=== PATIENT | male | born 1950 | race Caucasian/White ===

== ENCOUNTER 2016-10-14 20:56 | Inpatient (IN) | payer OTHER, MEDICARE ==
[2016-10-14 08:01] VITALS: BP 118/56; PULSE 60; RESP 16; TEMP 97.9; O2SAT 95
[2016-10-14 20:45] VITALS: PULSE 62
[~2016-10-14 20:56] MED LIST: ASPI81; CLOP75; METH10TA; METO50TA; TRAM50 PO; VYTO10TA35
[2016-10-14 22:00] LABS: AUTOMATED NEUTROPHIL # 3.8 TH/MM3 (1.8-7.7); BASOPHIL # 0.1 TH/MM3 (0-0.2); BASOPHIL % 1.2 % (0.0-2.0); EOSINOPHIL # 0.5 TH/MM3 (0-0.4); EOSINOPHIL % 6.8 % (0.0-4.0); HEMATOCRIT 32.6 % (39.0-51.0); HEMO FLAGS DIFF FINAL; LYMPH % 25.5 % (9.0-44.0); LYMPHOCYTE # 1.9 TH/MM3 (1.0-4.8); MEAN CELL VOLUME 82.3 FL (80.0-100.0); MEAN CORPUSCULAR HEMOGLOBIN 26.7 PG (27.0-34.0); MEAN CORPUSCULAR HGB CONC 32.4 % (32.0-36.0); MONO % 14.7 % (0.0-8.0); NEUT % 51.8 % (16.0-70.0); PLATELET COUNT 263 TH/MM3 (150-450); RED BLOOD COUNT 3.96 MIL/MM3 (4.50-5.90); RED CELL DISTRIBUTION WIDTH 15.7 % (11.6-17.2); WHITE BLOOD COUNT 7.3 TH/MM3 (4.0-11.0)
[2016-10-14] MEDS ORDERED: RESP: ALBUTEROL 2.5 MG/IPRATROPIUM 0.5 MG NEB (PRN) NEB (22:00)
[2016-10-14 22:22] LABS: INTERNATIONAL NORMALIZED RATIO 1.1 RATIO; PROTHROMBIN TIME - PATIENT 11.8 SEC (9.8-11.6)
[2016-10-14 22:25] LABS: POTASSIUM 4.4 MEQ/L (3.5-5.1)
[2016-10-14 23:00] VITALS: BP 137/80; PULSE 60; PULSE 62; RESP 18; TEMP 98.6; O2SAT 98
[2016-10-14] MEDS: oxyCODONE/ACETAMINOPHEN 5 MG/325 MG TAB PO PRN (23:04)
[2016-10-15] VITALS (21 sets, daily range): BP systolic 92–128; BP diastolic 56–68; PULSE 60–100; RESP 16–23; TEMP 97.9–98.7; O2SAT 95–98
--- NOTE | 2016-10-15 00:07 | HHI.HP ---
History of Present Illness Chief Complaint: TIA History of Present Illness 66 yo male with h/o CVOD and B CEA and R GALA who was driving home Wednesday (2 days ago) when he had R facial numbness and R arm numbness. No motor or visual changes. That eased off after 36 hours and he has returned to normal at present. Complains only of anxiety presently. No LOC. 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) Home Medications Active Scripts Tramadol Hcl (Ultram)50 Mg Tab1 Tab PO Q6 PRN (PAIN SCALE 6 TO 10) #20 FOR PAIN Prov:Sam Castaneda MD 12/04/13 Reported Medications Metoprolol Tartrate 50 mg 50 Mg Tab 05/03/07 Aspirin 81 Mg Tab 05/03/07 Ezetimibe-Simvastatin (Vytorin ) Tab 04/18/07 Methadone Hcl (Methadone HCl)10 Mg Tab 04/18/07 Clopidogrel Bisulfate (Plavix)75 Mg Tab 04/18/07 Coded Allergies: Demerol (Verified Adverse Reaction, Severe, N&V, 12/04/13) Review of Systems Constitutional: COMPLAINS OF: Fever, DENIES: Diaphoretic episodes, Weight gain , Dizziness Eyes: DENIES: Blurred vision, Vision loss Ears, nose, mouth, throat: DENIES: Vertigo Respiratory: COMPLAINS OF: Shortness of breath Cardiovascular: COMPLAINS OF: Chest pain, Dyspnea on Exertion Musculoskeletal: COMPLAINS OF: Back pain Physical Exam Neuro: Alert, oriented, [facility] HEENT: NC/AT Neck: trachea midline, B CEA incisions healed Heart: reg rate Lungs: clear Abdomen: NT Vascular: palpable B LE pedal pulses palpable R UE pulse but weaker L UE pulse Extremities: 5/5 strength Laboratory Tests Test 10/14/16 21:50 White Blood Count 7.3 Red Blood Count 3.96 Hemoglobin 10.6 Hematocrit 32.6 Mean Corpuscular Volume 82.3 Mean Corpuscular Hemoglobin 26.7 Mean Corpuscular Hemoglobin 32.4 Concent Red Cell Distribution Width 15.7 Platelet Count 263 Mean Platelet Volume 7.9 Neutrophils (%) (Auto) 51.8 Lymphocytes (%) (Auto) 25.5 Monocytes (%) (Auto) 14.7 Eosinophils (%) (Auto) 6.8 Basophils (%) (Auto) 1.2 Neutrophils # (Auto) 3.8 Lymphocytes # (Auto) 1.9 Monocytes # (Auto) 1.1 Eosinophils # (Auto) 0.5 Basophils # (Auto) 0.1 CBC Comment DIFF FINAL Differential Comment Prothrombin Time 11.8 Prothromb Time International 1.1 Ratio Activated Partial 29.0 Thromboplast Time Sodium Level 140 Potassium Level 4.4 Chloride Level 106 Carbon Dioxide Level 28.0 Anion Gap 6 Blood Urea Nitrogen 21 Creatinine 1.57 Estimat Glomerular Filtration 44 Rate Random Glucose 100 Calcium Level 8.5 Outside CTA shows occluded L ICA R ICA patent and proximal CCA with 80% stenosis Assessment and Plan Plan 1. possible TIA. Certainly he needs medical management including antiplatelet and statin therapy. I am not convinced that the events he had (numbness of R UE ) were related to his cerebrovascular circulation. He has a R CCA stenosis but I think this is asymptomatic and there are no great data for management of CCA lesions. 2. L UE PAD. BP should be checked on RUE always. 3. 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 Medical management for now. Wilfrid Messina MD Oct 15, 2016 00:06
[2016-10-15] MEDS: ZOLPIDEM TARTRATE 5 MG TAB PO PRN ×2 (00:31→21:13)
--- NOTE | 2016-10-15 07:27 | PD.VS.PN ---
Subjective Subjective/Hospital Course Pt adm last night as transfer for concerns for TIA. He had R face and arm numbness that has gone away. Outside intracranial imaging showed no acute process. 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 On the RIGHT, he underwent GALA in 2011 and R carotid bypass w 6mm PTFE in May 2014. The CTA of the neck on my review shows an approximate 70% stenosis in the CCA (not ICA) likely at the site of anastomosis. The patient's symptoms have completely abated. He is neurologically intact, on appropriate medical therapy (antiplatelet and statin). Objective Vitals/I&O Date Time Temp Pulse Resp B/P Pulse Ox O2 Delivery O2 Flow Rate FiO2 10/15/16 06:00 66 10/15/16 05:00 61 10/15/16 04:00 60 10/15/16 03:00 65 10/15/16 03:00 98.4 65 18 92/64 96 10/15/16 02:00 60 10/15/16 02:00 21 10/15/16 00:00 60 10/14/16 23:00 60 10/14/16 23:00 98.6 62 18 137/80 98 10/14/16 20:45 62 10/15/16 10/15/16 10/15/16 07:00 15:00 23:00 Intake Total 220 ml Output Total 300 ml Balance -80 ml Laboratory Laboratory Tests Test 10/14/16 21:50 White Blood Count 7.3 Red Blood Count 3.96 Hemoglobin 10.6 Hematocrit 32.6 Mean Corpuscular Volume 82.3 Mean Corpuscular Hemoglobin 26.7 Mean Corpuscular Hemoglobin 32.4 Concent Red Cell Distribution Width 15.7 Platelet Count 263 Mean Platelet Volume 7.9 Neutrophils (%) (Auto) 51.8 Lymphocytes (%) (Auto) 25.5 Monocytes (%) (Auto) 14.7 Eosinophils (%) (Auto) 6.8 Basophils (%) (Auto) 1.2 Neutrophils # (Auto) 3.8 Lymphocytes # (Auto) 1.9 Monocytes # (Auto) 1.1 Eosinophils # (Auto) 0.5 Basophils # (Auto) 0.1 CBC Comment DIFF FINAL Differential Comment Prothrombin Time 11.8 Prothromb Time International 1.1 Ratio Activated Partial 29.0 Thromboplast Time Sodium Level 140 Potassium Level 4.4 Chloride Level 106 Carbon Dioxide Level 28.0 Anion Gap 6 Blood Urea Nitrogen 21 Creatinine 1.57 Estimat Glomerular Filtration 44 Rate Random Glucose 100 Calcium Level 8.5 Imaging Outside CTA reviewed: Moderate CCA stenosis, no ICA stenosis identified Assessment and Plan Assessment: (1) Cerebrovascular occlusion Status: Chronic Plan 1. I don't think the RUE numbness was related to the R CCA stenosis. There are limited data for the natural history of such lesions, especially in the setting of carotid replacement. I think the best option at present is outpatient surveillance (duplex) and medical management (ASA, plavix, statin, all of which he is on), as well as avoidance of tobacco 2. L UE PAD. BP should be checked on RUE always. 3. 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 Medical management for now. Discharge Planning Cardiac diet, reg meds, OOB ad trev today. If not change in neuro status, anticipate d/c tomorrow and I will see him back in my clinic in 1m with carotid duplex Wilfrid Messina MD Oct 15, 2016 07:27
[2016-10-15] MEDS: ALPRAZolam 0.5 MG TAB PO PRN ×2 (07:48→21:09)
[2016-10-15] MEDS: oxyCODONE/ACETAMINOPHEN 5 MG/325 MG TAB PO PRN ×3 (07:48→21:09)
[2016-10-15] MEDS: CLOPIDOGREL 75 MG TAB PO SCH (09:05)
[2016-10-15] MEDS: PANTOPRAZOLE SOD 40 MG DELAYED RELEASE TAB PO SCH (09:05)
[2016-10-15] MEDS: DOCUSATE SODIUM 100 MG CAP PO SCH ×2 (09:05→21:09)
[2016-10-15] MEDS: amLODIPine BESYLATE 5 MG TAB PO SCH (09:05)
[2016-10-15] MEDS: ASPIRIN EC 81 MG TABEC PO SCH (09:05)
[2016-10-15] MEDS: FERROUS SULFATE 325 MG (65 MG ELEMENTAL IRON) TAB PO SCH (09:05)
[2016-10-15] MEDS: AMIODARONE 200 MG TAB PO SCH (09:05)
[2016-10-15] MEDS ORDERED: TRAM50TA PO (15:57)
[2016-10-15] MEDS ORDERED: ASPI1TAB69 PO (15:57)
[2016-10-15] MEDS ORDERED: METH10TA PO (15:57)
[2016-10-15] MEDS ORDERED: METO50TA PO (15:57)
[2016-10-15] MEDS ORDERED: VYTO10TA9 PO (15:57)
[2016-10-15] MEDS ORDERED: PLAV75TA29 PO (15:57)
[2016-10-15] MEDS ORDERED: PRAVASTATIN SOD 80 MG TAB PO SCH (21:00)
[2016-10-15] MEDS ORDERED: RIVAROXABAN 15 MG TAB PO SCH (21:00)
[2016-10-16] VITALS (10 sets, daily range): BP systolic 107–116; BP diastolic 63–67; PULSE 60–96; RESP 19–22; TEMP 97.6–98.6; O2SAT 95–96
[2016-10-16] MEDS: oxyCODONE/ACETAMINOPHEN 5 MG/325 MG TAB PO PRN ×2 (03:24→08:49)
[2016-10-16] MEDS: ALPRAZolam 0.5 MG TAB PO PRN (03:25)
[2016-10-16] MEDS: FERROUS SULFATE 325 MG (65 MG ELEMENTAL IRON) TAB PO SCH (08:48)
[2016-10-16] MEDS: amLODIPine BESYLATE 5 MG TAB PO SCH (08:48)
[2016-10-16] MEDS: ASPIRIN EC 81 MG TABEC PO SCH (08:48)
[2016-10-16] MEDS: DOCUSATE SODIUM 100 MG CAP PO SCH (08:48)
[2016-10-16] MEDS: CLOPIDOGREL 75 MG TAB PO SCH (08:48)
[2016-10-16] MEDS: AMIODARONE 200 MG TAB PO SCH (08:48)
[2016-10-16] MEDS: PANTOPRAZOLE SOD 40 MG DELAYED RELEASE TAB PO SCH (08:49)
--- NOTE | 2016-10-16 08:57 | EC ---
Study Study Date:10/15/2016 STUDY CONCLUSIONS SUMMARY - Left ventricle: The cavity size was normal. Wall thickness was normal. Systolic function was normal. The estimated ejection fraction was in the range of 55% to 60%. Wall motion was normal; there were no regional wall motion abnormalities. - Mitral valve: Mild regurgitation. - Tricuspid valve: Mild regurgitation. - Pulmonary arteries: PA peak pressure: 38mm Hg (S). If LV function is below 40, please consider prescribing an ACEI or ARB or document rationale for non-use. PROCEDURE DATA STUDY STATUS: Elective. Procedure: Transthoracic echocardiography. Image quality was good. Scanning was performed from the parasternal, apical, and subcostal acoustic windows. Study completion: The patient tolerated the procedure well. Transthoracic echocardiography. M-mode, complete 2D, complete spectral Doppler, and color Doppler. Patient status: Inpatient. CARDIAC ANATOMY LEFT VENTRICLE: The cavity size was normal. Wall thickness was normal. Systolic function was normal. The estimated ejection fraction was in the range of 55% to 60%. Wall motion was normal; there were no regional wall motion abnormalities. AORTIC VALVE: Trileaflet; normal thickness leaflets. Doppler: Transvalvular velocity was within the normal range. There was no stenosis. No regurgitation. AORTA: Aortic root: The aortic root was normal in size. MITRAL VALVE: Structurally normal valve. Doppler: Transvalvular velocity was within the normal range. There was no evidence for stenosis. Mild regurgitation. LEFT ATRIUM: The atrium was normal in size. RIGHT VENTRICLE: The cavity size was normal. Wall thickness was normal. PULMONIC VALVE: Doppler: Transvalvular velocity was within the normal range. There was no evidence for stenosis. No regurgitation. TRICUSPID VALVE: Structurally normal valve. Doppler: Transvalvular velocity was within the normal range. Mild regurgitation. PULMONARY ARTERY: The main pulmonary artery was normal-sized. Systolic pressure was within the normal range. RIGHT ATRIUM: The atrium was normal in size. PERICARDIUM: There was no pericardial effusion. SYSTEMIC VEINS: Inferior vena cava: The vessel was normal in size. BASIC MEASUREMENTS ADULT Normal Left ventricle LV internal dimension, ED, chordal level, *40 mm 43-52 PLAX LV internal dimension, ES, chordal level, 28.3 mm 23-38 PLAX Fractional shortening, chordal level, PLAX *29 % >29 LV posterior wall thickness, ED 9.29 mm IVS/LVPW ratio, ED *1.54 <1.3 Ventricular septum Septal thickness, ED 14.3 mm Aortic valve Leaflet separation 17 mm 15-26 Right ventricle RV internal dimension, ED, PLAX *17 mm 19-38 BASIC MEASUREMENTS ADULT Normal Aortic valve Leaflet separation 17 mm 15-26 Aorta Root diameter, ED 35 mm 20-37 Left atrium Anterior-posterior dimension, ES *42 mm 19-40 LA/aortic root ratio 1.2 DOPPLER MEASUREMENTS ADULT Normal Main pulmonary artery Pressure, S *38 mm Hg =30 Tricuspid valve Regurgitant peak velocity 263 cm/s Peak RV-RA gradient, S 28 mm Hg Systemic veins Estimated CVP 10 mm Hg Right ventricle RV pressure, S *38 mm Hg <30 LEGEND: Mean values are shown as u=mean value. Asterisk (*) siddiqi values outside specified normal range. Prepared and signed by Josue Mckinnon [id number]
[2016-10-16] MEDS ORDERED: PLAV75TA29 PO (09:30)
--- NOTE | 2016-10-16 09:36 | PD.VS.DC ---
Discharge Summary Admission Date: Oct 14, 2016 at 21:15 Discharge Date: Oct 16, 2016 Admission Diagnosis: (1) Cerebrovascular occlusion Discharge Diagnosis: (1) Cerebrovascular occlusion Status: Chronic Brief History from admission 66 yo male with h/o CVOD and B CEA and R GALA who was driving home Wednesday (2 days ago) when he had R facial numbness and R arm numbness. No motor or visual changes. That eased off after 36 hours and he has returned to normal at present. Complains only of anxiety presently. No LOC. Procedure(s): none Significant Findings Laboratory Tests Test 10/14/16 21:50 Red Blood Count 3.96 MIL/MM3 (4.50-5.90) Hemoglobin 10.6 GM/DL (13.0-17.0) Hematocrit 32.6 % (39.0-51.0) Mean Corpuscular Hemoglobin 26.7 PG (27.0-34.0) Monocytes (%) (Auto) 14.7 % (0.0-8.0) Eosinophils (%) (Auto) 6.8 % (0.0-4.0) Monocytes # (Auto) 1.1 TH/MM3 (0-0.9) Eosinophils # (Auto) 0.5 TH/MM3 (0-0.4) Prothrombin Time 11.8 SEC (9.8-11.6) Blood Urea Nitrogen 21 MG/DL (7-18) Creatinine 1.57 MG/DL (0.60-1.30) Estimat Glomerular Filtration 44 ML/MIN (>89) Rate Hospital Course: GENERAL: pt alert and oriented in nad with 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 SKIN: Warm and dry. HEAD: Normocephalic. NECK: Supple, trachea midline. No JVD or lymphadenopathy. CARDIOVASCULAR: Regular rate and rhythm without murmurs, gallops, or rubs. RESPIRATORY: Breath sounds equal bilaterally. No accessory muscle use. MUSCULOSKELETAL: No cyanosis, or edema. Discharge Condition: Good Discharge Disposition: Discharge Home Discharge Instructions: Discontinue Xarelto Start Plavix 75 mg PO daily F/U in the office 11/13/16 Call the office with any questions or concerns Any questions or concerns: Call [facility] [phone] Joanna Howell Oct 16, 2016 09:36
== END 2016-10-16 11:10 | disposition home or self-care (01) | DRG 69 ==
LOC: HCPC 21:15
PROVIDERS: ADMIT Surgery; ATTEND Surgery
DX: G45.9 Transient cerebral ischemic attack, unspecified (principal); I48.91 Unspecified atrial fibrillation; R20.0 Anesthesia of skin; I12.9 Hypertensive chronic kidney disease with stage 1 through stage 4 chronic kidney disease, or unspecified chronic kidney disease; N18.9 Chronic kidney disease, unspecified; I65.23 Occlusion and stenosis of bilateral carotid arteries; F41.9 Anxiety disorder, unspecified; I25.10 Atherosclerotic heart disease of native coronary artery without angina pectoris; Z95.5 Presence of coronary angioplasty implant and graft; Z86.73 Personal history of transient ischemic attack (TIA), and cerebral infarction without residual deficits; Z72.0 Tobacco use
CPT/HCPCS: 80048; 85025; 85610; 85730; 93306

== ENCOUNTER 2017-05-27 09:56 | Day surgery (SDC) | payer OTHER ==
[~2017-05-27] VITALS: Ht 170.2 cm; Wt 67.4 kg
[~2017-05-27 09:56] MED LIST changes: +ASPI-110 PO; -ASPI81; -CLOP75; -METH10TA; +METH10TA PO; -METO50TA; +METO50TA PO; +PLAV75TA29 PO; -TRAM50 PO; +TRAM50TA PO; -VYTO10TA35; +VYTO10TA9 PO
[2017-05-27] MEDS ORDERED: IOHEXOL 300 MG/ML 100 ML BTL (for Rad CT) IVCONTRAST ONE (09:57)
[2017-05-27] MEDS ORDERED: IOHEXOL 300 MG/ML 50 ML BTL (for RAD DIAG) IVCONTRAST ONE (09:57)
[2017-05-27] MEDS ORDERED: POVIDONE IODINE 5% (ANTISEPSIS KIT) 4 APPLICATIONS EACH NARE PRN (10:45)
[2017-05-27] MEDS ORDERED: LACTATED RINGER'S 1000 ML IV PRN (10:45)
[2017-05-27] MEDS ORDERED: METOPROLOL TARTRATE 25 MG TAB PO PRN (10:45)
[2017-05-27] MEDS ORDERED: CHLORHEXIDINE GLUCONATE 2 % 1 PACK (2 CLOTHS) TOPICAL PRN (10:45)
[2017-05-27] MEDS ORDERED: SODIUM CHLORID 0.9% 500 ML IV PRN (10:45)
[2017-05-27] MEDS ORDERED: INSULIN HUMAN REGULAR 1,000 UNITS/10 ML VIAL SQ PRN (10:45)
--- NOTE | 2017-05-27 11:35 | RADRPT ---
EXAM DATE/TIME: 05/27/2017 11:12 [place] COMPARISON: No previous studies available for comparison. INDICATIONS : Evaluate for pneumonia, pneumothorx, or communicable disease. Pre-op carotid artery. MEDICAL HISTORY : Congestive heart failure. SURGICAL HISTORY : Triple heart bypass. Heart stent. ENCOUNTER: Initial ACUITY: 1 day PAIN SCORE: 0/10 LOCATION: Bilateral chest FINDINGS: The patient is post median sternotomy. There is a transvenous pacer in place where the spinal stimula tor. The heart is normal in size. The mediastinal contours are within normal limits. The lungs are cl ear. Note is made of an arterial stent at the origin of the left carotid. CONCLUSION: No acute cardiopulmonary findings. Apolinar Izaguirre MD on May 27, 2017 at 11:32 Board Certified Radiologist. This report was verified electronically.
--- NOTE | 2017-05-27 11:45 | EKG ---
Date Performed: 05/27/2017 Time Performed: 11:05:34 PTAGE: 67 years EKG: ELECTRONIC ATRIAL PACEMAKER BORDERLINE LEFT AXIS DEVIATION NONSPECIFIC T-WAVE ABNORMALITY A BNORMAL RHYTHM ECG PREVIOUS TRACING : 07/14/2000 07.22 Compared to previous tracing, atrial pacing is now evident, high lateral T wave changes and inferolateral ST changes have improved. DOCTOR: Dinesh Kumar Interpretating Date/Time 05/27/2017 11:43:23
[2017-05-27] MEDS ORDERED: SODIUM CHLORID 0.9% 500 ML INJ 500 ML IV ONE (12:00)
[2017-05-27] MEDS ORDERED: PROPOFOL 200 MG/20 ML AMP IV ONE (12:00)
[2017-05-27] MEDS ORDERED: XARE20TA PO (12:23)
[2017-05-27] MEDS ORDERED: MSIR15 PO (12:24)
[2017-05-27] MEDS ORDERED: AMIO200T PO (12:24)
[2017-05-27] MEDS ORDERED: OMEGCAP PO (12:25)
[2017-05-27 12:31] LABS: BACTERIA, URINE RARE /hpf; BLOOD, URINE LARGE (NEG); COMMENT (UR) CULT NOT INDICATED; CULTURE IF INDICATED CULT NOT INDICATED; GLUCOSE,URINE NEG (NEG); GRANULAR CAST, URINE 3 /lpf; HYALINE CAST, URINE 10 /lpf (RARE); KETONE, URINE NEG (NEG); NITRITE,URINE NEG (NEG); URINE COLOR YELLOW (YELLW/STRAW)
[2017-05-27 12:41] LABS: APTT (PATIENT) 28.1 SEC (24.3-30.1); PROTHROMBIN TIME - PATIENT 11.4 SEC (9.8-11.6)
[2017-05-27 12:49] LABS: BICARBONATE 28.3 MEQ/L (21.0-32.0); POTASSIUM 4.6 MEQ/L (3.5-5.1)
[2017-05-27 13:30] LABS: BASOPHIL # 0.3 TH/MM3 (0-0.2); BASOPHIL % 0.8 % (0.0-2.0); EOSINOPHIL # 1.4 TH/MM3 (0-0.4); EOSINOPHIL % 4.3 % (0.0-4.0); HEMATOCRIT 35.7 % (39.0-51.0); LYMPHOCYTE # 7.9 TH/MM3 (1.0-4.8); MEAN CELL VOLUME 82.8 FL (80.0-100.0); MEAN CORPUSCULAR HEMOGLOBIN 25.3 PG (27.0-34.0); MEAN CORPUSCULAR HGB CONC 30.6 % (32.0-36.0); MONO % 12.9 % (0.0-8.0); PLATELET COUNT 353 TH/MM3 (150-450); RED BLOOD COUNT 4.31 MIL/MM3 (4.50-5.90); RED CELL DISTRIBUTION WIDTH 16.7 % (11.6-17.2); WHITE BLOOD COUNT 32.9 TH/MM3 (4.0-11.0)
--- NOTE | 2017-05-27 13:57 | HHI.HP ---
History of Present Illness Chief Complaint: possible R carotid stenosis History of Present Illness 67 yo male with h/o R carotid replacement s/p failed stent. No cerebrovascular symptoms. Has had serial duplex scans with escalating velocities at the proximal anastomosis. Presents for diagnostic angiogram and potential intervention. Past/Family/Social History Past Medical History CAD HTN CVOD CRI Past Surgical History R carotid replacement with 6mm PTFE CABG 1998 coronary stents several years later Social History former smoker Family History [place] Home Medications Reported Medications Fish Oil-Cholecalciferol ([place]-3 Fish Oil/Vitamin) 1,000-1,000 Mg Cap, 1 CAP PO DAILY for Nutritional Supplement, CAP 0 Refills 05/27/17 Morphine IR (Morphine IR) 15 Mg Tab, 15 MG PO Q4H Y for PAIN, TAB 0 Refills 05/27/17 Amiodarone (Amiodarone) 200 Mg Tab, 200 MG PO DAILY for Regulate Heart Beat, # 30 TAB 0 Refills 05/27/17 Rivaroxaban (Xarelto) 20 Mg Tab, 20 MG PO DAILY for Blood Clot Prevention, TAB 0 Refills 05/27/17 Discontinued Reported Medications Aspirin DR (Aspirin 81) 81 Mg Tabdr, 81 MG PO DAILY, TAB 0 Refills 05/26/17 Tramadol (Tramadol) 50 Mg Tab, 50 MG PO Q6H Y for PAIN SCALE 6 TO 10, TAB 0 Refills 10/15/16 Metoprolol Tartrate (Metoprolol Tartrate) 50 Mg Tab, 50 MG PO DAILY, #30 TAB 0 Refills 10/15/16 Methadone (Methadone) 10 Mg Tab, 10 MG PO DAILY, TAB 0 Refills 10/15/16 Ezetimibe-Simvastatin (Vytorin) 10-40 Mg Tab, 1 TAB PO HS, #30 TAB 0 Refills 10/15/16 Clopidogrel (Plavix) 75 Mg Tab, 75 MG PO DAILY for Blood Clot Prevention, #30 TAB 0 Refills 10/15/16 Discontinued Scripts Clopidogrel (Plavix) 75 Mg Tab, 75 MG PO DAILY for anticoagulation , #30 TAB 6 Refills Prov:Joanna Howell 10/16/16 Coded Allergies: meperidine (Unverified Adverse Reaction, Severe, N&V, 05/18/17) Review of Systems Constitutional: DENIES: Fever, Chills, Change in appetite Cardiovascular: DENIES: Chest pain Physical Exam Vitals/I&O Date Time Temp Pulse Resp B/P (MAP) Pulse Ox O2 Delivery O2 Flow Rate FiO2 05/27/17 12:30 98.5 60 20 115/67 (83) 94 Neuro: awake and alert; no distress HEENT: NC/AT; R carotid incision Neck: no JVD Heart: reg rate, no M Lungs: clear B Abdomen: NT Vascular: palp femoral pulses Extremities: no C/C/E Laboratory Tests Test 05/27/17 12:12 05/27/17 13:00 Prothrombin Time 11.4 Prothromb Time International Ratio 1.0 Activated Partial Thromboplast Time 28.1 Urine Color YELLOW Urine Turbidity CLEAR Urine pH 6.0 Urine Specific [place] 1.014 Urine Protein 30 Urine Glucose (UA) NEG Urine Ketones NEG Urine Occult Blood LARGE Urine Nitrite NEG Urine Bilirubin NEG Urine Urobilinogen LESS THAN 2.0 Urine Leukocyte Esterase NEG Urine RBC 35 Urine WBC 2 Urine Bacteria RARE Urine Hyaline Casts 10 Urine Granular Casts 3 Microscopic Urinalysis Comment CULT NOT INDICATED Blood Urea Nitrogen 25 Creatinine 2.25 Random Glucose 87 Calcium Level 8.8 Sodium Level 140 Potassium Level 4.6 Chloride Level 106 Carbon Dioxide Level 28.3 Anion Gap 6 Estimat Glomerular Filtration Rate 29 Last 48 hours Impressions Chest X-Ray 05/27/17 [id number] Signed Impressions: Service Date/Time: May 11:12 - CONCLUSION: No acute cardiopulmonary findings. MD Dagmar Noble VTE Risk Assessment Dagmar VTE Risk Assessment: Mod/High Risk (score >= 2) Caprini Risk Assessment Model Point Value = 1 Point Value = 2 Point Value = 3 Point Value = 5 Age 41-60 Minor surgery BMI > 25 kg/m2 Swollen legs Varicose veins or History of unexplained or recurrent spontaneous Oral contraceptives or hormone replacement Sepsis (< 1 month) Serious lung disease, including pneumonia (< 1 month) Abnormal pulmonary function Acute myocardial infarction Congestive heart failure (< 1 month) History of inflammatory bowel disease Medical patient at bed rest Age 61-74 Arthroscopic surgery Major open surgery (> 45 min) Laparoscopic surgery (> 45 min) Malignancy Confined to bed (> 72 hours) Immobilizing plaster cast Central venous access Age >= 75 History of VTE Family history of VTE Factor V Leiden Prothrombin [id number] Lupus anticoagulant Anticardiolipin antibodies Elevated serum homocysteine Heparin-induced thrombocytopenia Other congenital or acquired thrombophilia Stroke (< 1 month) Elective arthroplasty Hip, pelvis, or leg fracture Acute spinal cord injury (< 1 month) Prophylaxis Regimen Total Risk Factor Score Risk Level Prophylaxis Regimen 0-1 Low Early ambulation 2 Moderate Order ONE of the following: *Sequential Compression Device (SCD) *Heparin 5000 units SQ BID 3-4 Higher Order ONE of the following medications: *Heparin 5000 units SQ TID *Enoxaparin/Lovenox 40 mg SQ daily (WT < 150 kg, CrCl > 30 mL/min) *Enoxaparin/Lovenox 30 mg SQ daily (WT < 150 kg, CrCl > 10-29 mL/min) *Enoxaparin/Lovenox 30 mg SQ BID (WT < 150 kg, CrCl > 30 mL/min) AND/OR *Sequential Compression Device (SCD) 5 or more Highest Order ONE of the following medications: *Heparin 5000 units SQ TID (Preferred with Epidurals) *Enoxaparin/Lovenox 40 mg SQ daily (WT < 150 kg, CrCl > 30 mL/min) *Enoxaparin/Lovenox 30 mg SQ daily (WT < 150 kg, CrCl > 10-29 mL/min) *Enoxaparin/Lovenox 30 mg SQ BID (WT < 150 kg, CrCl > 30 mL/min) AND *Sequential Compression Device (SCD) Assessment and Plan Plan Thoracic aortogram and Carotid/cervical angiogram potential intervention PACU post-op Wilfrid Messina MD May 27, 2017 13:57
[2017-05-27] MEDS ORDERED: VANCOMYCIN HCL 1000 MG VIAL ONE (14:12)
[2017-05-27] MEDS ORDERED: HEPARIN SODIUM - IV 10,000 UNITS/10 ML VIAL ONE (14:12)
[2017-05-27] MEDS ORDERED: BUPIVACAINE HCL PF 0.5% 30 ML VIAL ONE (14:12)
[2017-05-27] MEDS ORDERED: ceFAZolin 2 GM PREMIX 0 ML ONE (14:12)
[2017-05-27] MEDS ORDERED: ACETAMINOPHEN 1000 MG/100 ML 100 ML IV ONE (14:23)
[2017-05-27] MEDS ORDERED: MIDAZOLAM HCL 2 MG/2 ML VIAL ONE ×2 (14:23→15:07)
[2017-05-27] MEDS ORDERED: FAMOTIDINE 20 MG/2 ML VIAL ONE (14:24)
[2017-05-27 14:45] LABS: HEMO FLAGS AUTO DIFF
[2017-05-27] MEDS ORDERED: LIDOCAINE HCL 1% 30 ML VIAL ONE (14:47)
[2017-05-27 14:52] LABS: BASOPHILS 2 % (0-2); EOSINOPHILS 1 % (0-4); METAMYELOCYTES 1 % (0-1); NEUTROPHIL # MANUAL DIFF 22.7 TH/MM3 (1.8-7.7); POLYS (SEG NEUTROPHILS) 68 % (16-70); WBC DIFF SAMPLE 100
[2017-05-27 14:54] LABS: KERATOCYTES OCC (NORMAL); PLATELET ESTIMATE SMEAR NORMAL (NORMAL)
[2017-05-27 14:56] LABS: PLATELET MORPHOLOGY ENLARGED (NORMAL); SCAN/DIFF FINAL DIFF MANUAL
[2017-05-27] MEDS ORDERED: MORPHINE SULFATE 4 MG/ML INJ ONE (15:08)
--- NOTE | 2017-05-27 15:47 | HHI.PR ---
Immediate Post Op Note Procedure Date: May 27, 2017 Pre Op Diagnosis: R CCA-ICA bypass stenosis Post Op Diagnosis: patent R CCA -ICA bypass Surgeon: Wilfrid Messina Air Sampler(s): Norris Lind Procedure: thoracic aortogram R iliac angiogram Carotid angiogram L SCALE TANK OPERATOR angioseal Findings: 1. R SUNSHINE occlusion 2. L CCA occlusion (known) 3. Patent CCA-ICA bypass Additional Information: L SCALE TANK OPERATOR Angioseal R SCALE TANK OPERATOR pressure held in OR Complications: none apparent Specimen(s) removed: none Estimated blood loss: 25mL Anesthesia: MAC Drains: None Fluids: 1000mL IVF Patient to: PACU Implant/Devices: SEE IMPLANT LOG (if applicable) Date/Time of Procedure: SEE SURGICAL CARE RECORD Wilfrid Messina MD May 27, 2017 15:47
[2017-05-27] MEDS ORDERED: *morphine SULFATE 8 MG/ML PERIprocedure ONLY ONE ×3 (15:55→17:11)
[2017-05-27] MEDS ORDERED: DO NOT ADM ANY ANTICOAGULANT DRUGS PRN (16:45)
[2017-05-27] MEDS ORDERED: IOHEXOL 300 INJ 50 ML IV ONE (18:00)
[2017-05-27 20:00] VITALS: BP 130/72; PULSE 60; RESP 12; O2SAT 95
--- NOTE | 2017-05-29 23:29 | MP ---
cc: LUCRETIA MESSINA MD DATE OF SURGERY 05/27/17 PREOPERATIVE DIAGNOSIS 1. Stenosis right common carotid artery. 2. Stenosis right carotid artery bypass. POSTOPERATIVE DIAGNOSIS Patent right common carotid artery bypass. PROCEDURE 1. Thoracic aortogram 2. Right carotid angiogram. 3. Iliac angiogram MEDICATIONS Dana Messina MD STRENGTH AND CONDITIONING COACH Fanny Lind ANESTHESIA General INDICATIONS Mr. Andrew is a gentleman who has a right common carotid artery, internal artery bypass secondary to a failed carotid stent. He was taken to the operating room for angiographic evaluation and treatment of an elevated duplex preoperatively for surveillance. He had no symptoms. PROCEDURE IN DETAIL Informed consent was obtained from patient and he was taken to operating room and placed supine on the operating table. An appropriate time-out was taken to ensure the patient's identity, operative site and planned procedure. The administration of antibiotics was not need as this a clean procedure without planned implantation of any foreign object. Everyone in the room agreed to time-out and we proceeded. The patient's bilateral groins were prepped and draped and locally anesthetize with 1% lidocaine. A 21 gauge micropuncture needle was used to access the right common femoral artery. This was exchanged using Seldinger technique for a micropuncture sheath through which a 0.05 [place] wire was introduced through the micropuncture sheath and exchanged for a 5-[place] sheath. Multiple attempts were made to pass the glide wire past what appeared to be the common iliac artery but they were unsuccessful and the glide wire kept navigating toward a lateral collateral. An angiogram was then obtained and this showed the patient had, in fact, a common iliac artery occlusion, but despite that had a palpable femoral pulse. The wire catheter and sheath were removed and the groin was closed was closed with manual pressure. The left groin was anesthetized with 1% Lidocaine. A 21 gauge micropuncture needle was used to access left common femoral artery. This was exchanged using Seldinger technique for a micropuncture sheath through which a 0.035 [place] wire was introduced. The [place] wire advanced through the abdominal aorta and the micropuncture sheath was exchanged for a 5-Gabonese sheath. The patient was systemically heparinized with 3000 units of IV heparin. The glide wire was advanced to the ascending aorta. The pigtail catheter was placed over the glide wire and thoracic aortogram was obtained. The glide wire was reintroduced and the pigtail catheter was exchanged for a vertebral catheter and the vertebral catheter was used to select the innominate and then right common carotid artery through which a common carotid arteriogram was obtained. The wire catheter and sheath were removed and the left groin was closed with AngioSeal. There were no complications. I was present and scrubbed and performed the entire procedure. INTERPRETATION The patient has a three-vessel arch with the right innominate being patent. The left carotid is stented and occluded and the left subclavian is stented but patent. The innominate right subclavian and right common carotid artery are patent. The patient has a right common carotid artery stent and a patent common to internal carotid artery bypass. There is no external carotid artery visualized. There is no stenosis of the bypass. MD REJI Santos/ /4:48 PM /11:09 PM
== END 2017-05-27 20:03 | disposition home or self-care (01) ==
LOC: HSDC 09:56
PROVIDERS: ATTEND Surgery
DX: I65.21 Occlusion and stenosis of right carotid artery (principal); I74.5 Embolism and thrombosis of iliac artery; I25.10 Atherosclerotic heart disease of native coronary artery without angina pectoris; I12.9 Hypertensive chronic kidney disease with stage 1 through stage 4 chronic kidney disease, or unspecified chronic kidney disease; N18.9 Chronic kidney disease, unspecified; Z79.82 Long term (current) use of aspirin; Z95.1 Presence of aortocoronary bypass graft; Z87.891 Personal history of nicotine dependence
CPT/HCPCS: 01916; 36224; 71010; 75625; 80048; 81001; 85007; 85027; 85610; 85730; 86850; 86900; 86901; 93005; C1769; J0131; J1644; J2250; J2270; J7040; J7120; Q9967; J0690; J3370

== ENCOUNTER 2017-08-30 18:25 | Emergency (ER) | payer OTHER ==
[~2017-08-30 18:25] MED LIST changes: +AMIO200T PO; -ASPI-110 PO; -METH10TA PO; -METO50TA PO; +MSIR15 PO; +OMEGCAP PO; -PLAV75TA29 PO; -TRAM50TA PO; -VYTO10TA9 PO; +XARE20TA PO
[2017-08-30 18:31] VITALS: BP 188/111; PULSE 97; RESP 18; TEMP 97.2; O2SAT 98
--- NOTE | 2017-08-30 18:55 | PD ---
HPI Chief Complaint: Nosebleed Time Seen by Provider: 18:46 Travel History International Travel<30 days: No Contact w/Intl Traveler<30days: No Traveled to known affect area: No History of Present Illness HPI The patient is a 67-year-old male who presents to the emergency department for nose bleed out of the right naris. The patient states he was driving earlier today when he developed a spontaneous nosebleed out of the right nose. He does have a history of previous nose bleed requiring packing. The patient is currently taking Xarelto for history of atrial fibrillation. The patient states he held pressure to the nose and the nosebleed resolved after pressure was applied for approximately 10-15 minutes. He denies any lightheadedness, dizziness, chest pain, shortness breath, nausea, vomiting, or abdominal pain. Symptoms are mild, possibly exacerbated by taken an anticoagulant, and self resolving after he held pressure. PFSH Past Medical History Arthritis: No Asthma: No Autoimmune Disease: No Blood Disorders: No Anxiety: No Depression: No Heart Rhythm Problems: Yes (Hx AFIB) Cancer: No Cardiovascular Problems: Yes (AFIB CARDIAC STENT X2 PACEMAKER) High Cholesterol: Yes Chemotherapy: No Chest Pain: Yes Congestive Heart Failure: Yes COPD: No Cerebrovascular Accident: Yes (TIA ON THIS ADMISSION) Diabetes: No Diminished Hearing: No Endocrine: No Glaucoma: No Genitourinary: No Headaches: No Hepatitis: No Hiatal Hernia: No Hypertension: Yes Immune Disorder: No Implanted Vascular Access Dvce: Yes Kidney Stones: No Musculoskeletal: Yes (Back and neck.) Neurologic: No Psychiatric: No Reproductive: No Respiratory: No Migraines: No Myocardial Infarction: No Radiation Therapy: No Renal Failure: No Seizures: No Sickle Cell Disease: No Sleep Apnea: No Thyroid Disease: No Influenza Vaccination: No ?: Not Past Surgical History Abdominal Surgery: Yes (APPENDECTOMY AT 29 YO) AICD: No Arteriovenous Shunt: Yes (Carotid stent.) Body Medical Devices: TENS UNIT RIGHT HIP SIDE NOT ON Cardiac Surgery: Yes (CABG X3 1998) Ear Surgery: No Endocrine Surgery: No Eye Surgery: Yes (Left AND RIGHT eye lense implanted. Right AND LEFTeye cataract surgery.) Genitourinary Surgery: No Gynecologic Surgery: No Insulin Pump: No Joint Replacement: No Oral Surgery: No Pacemaker: Yes Other Surgery: Yes (Back and neck. Has spinal cord stimulator implanted in his back.) Social History Alcohol Use: No Tobacco Use: No Substance Use: No Allergies-Medications (Allergen,Severity, Reaction): Coded Allergies: meperidine (Unverified Adverse Reaction, Severe, N&V, 08/30/17) Reported Meds & Prescriptions Reported Meds & Active Scripts Active Reported [place]-3 Fish Oil/Vitamin (Fish Oil-Cholecalciferol) 1,000-1,000 Mg Cap 1 Cap PO DAILY Morphine IR (Morphine Sulfate) 15 Mg Tab 15 Mg PO Q4H PRN Amiodarone (Amiodarone HCl) 200 Mg Tab 200 Mg PO DAILY Xarelto (Rivaroxaban) 20 Mg Tab 20 Mg PO DAILY Review of Systems Except as stated in HPI: all other systems reviewed are Neg HENT: Positive: Nosebleed, No: Headaches, Lightheadedness Cardiovascular: Positive: Irregular Rhythm (history of atrial fibrillation), No : Chest Pain or Discomfort Respiratory: No: Shortness of Breath Gastrointestinal: No: Nausea, Vomiting, Abdominal Pain, Hematemesis Neurologic: No: Dizziness, Headache Physical Exam Narrative GENERAL: Awake, alert, pleasant 67-year-old male who appears his stated age and is in no acute respiratory distress. SKIN: Focused skin assessment warm/dry. HEAD: Atraumatic. Normocephalic. EYES: Pupils equal and round. No scleral icterus. No injection or drainage. ENT: Blood in the right naris with a clot visible over the medial aspect of the septum, no active bleeding. No visible blood in the posterior oropharynx. NECK: Trachea midline. No JVD. CARDIOVASCULAR: Regular rate and rhythm. No murmur appreciated. Heart rate in the 70s. RESPIRATORY: No accessory muscle use. Clear to auscultation. Breath sounds equal bilaterally. GASTROINTESTINAL: Abdomen soft, non-tender, nondistended. MUSCULOSKELETAL: No obvious deformities. No clubbing. No cyanosis. No edema. NEUROLOGICAL: Awake and alert. No obvious cranial nerve deficits. Motor grossly within normal limits. Normal speech. Nonfocal. Oriented 4. Follows commands without difficulty. PSYCHIATRIC: Appropriate mood and affect; insight and judgment normal. Data Data Last Documented VS Vital Signs Date Time Temp Pulse Resp B/P (MAP) Pulse Ox O2 Delivery O2 Flow Rate FiO2 08/30/17 19:15 78 16 151/84 (106) 99 Room Air 08/30/17 18:31 97.2 Orders Orders Labetalol Inj (Trandate Inj) (08/30/17 19:00) Ed Discharge Order (08/30/17 19:28) [facility] Medical Decision Making Medical Screen Exam Complete: Yes Emergency Medical Condition: Yes Medical Record Reviewed: Yes Interpretation(s) EKG reveals electronic atrial pacemaker. Q wave noted in lead V1 and V2. Differential Diagnosis Differential diagnosis includes anterior epistaxis, posterior epistaxis, coagulopathy, medication side effect. Narrative Course The patient's nosebleed resolved after he held pressure. The patient's blood pressure was elevated with systolic in the 200s and diastolic in the 100s, the patient was then monitored in the blood pressure was reevaluated. The patient' s heart rate came down to 60, blood pressure came down to 176/90. The patient was monitored and observed in the emergency department. The patient was reevaluated at 7:30 PM. The patient's heart rate was 64, blood pressure is 1:15 /79. The patient had no visible blood in the posterior pharynx, he continued to have a visible blood clot over the medial septum in the right nares but no active bleeding. The patient will be discharged home. He is advised to hold direct pressure for 15 minutes if the bleeding returns and if he is unable to stop bleeding after 15 minutes of pressure, to return to the emergency department. The patient agrees and understands. Diagnosis Primary Impression: Epistaxis Additional Impression: Hypertension Qualified Codes: I10 - Essential (primary) hypertension Patient Instructions: General Instructions Additional Instructions: Follow-up with your primary physician. If bleeding returns, hold pressure for 15 minutes and if nose continues to bleed, return to the emergency department. Med/Other Pt SpecificInfo: No Change to Meds Disposition: 01 DISCHARGE HOME Condition: Stable Damion Carcamo MD Aug 30, 2017 18:55
[2017-08-30] MEDS ORDERED: LABETALOL HCL 100 MG/20 ML VIAL IV PUSH ONE (19:00)
[2017-08-30 19:02] VITALS: BP 176/90
[2017-08-30 19:15] VITALS: BP 151/84; PULSE 78; RESP 16; O2SAT 99
[2017-08-30 19:46] VITALS: BP 115/79
--- NOTE | 2017-08-31 17:53 | EKG ---
Date Performed: 08/30/2017 Time Performed: 18:31:51 PTAGE: 67 years EKG: ELECTRONIC ATRIAL PACEMAKER MARKED LEFT AXIS DEVIATION SEPTAL MYOCARDIAL INFARCTION Since p revious tracing, no significant change noted ABNORMAL ECG PREVIOUS TRACING : 05/27/2017 11.05 DOCTOR: Chante Hall Interpretating Date/Time 08/31/2017 17:52:29
== END 2017-08-30 19:48 | disposition home or self-care (01) ==
LOC: PHED 18:25
DX: R04.0 Epistaxis (principal); I10 Essential (primary) hypertension; R94.31 Abnormal electrocardiogram [ECG] [EKG]; E78.00 Pure hypercholesterolemia, unspecified; Z79.01 Long term (current) use of anticoagulants; Z86.79 Personal history of other diseases of the circulatory system; Z87.39 Personal history of other diseases of the musculoskeletal system and connective tissue
CPT/HCPCS: 93005; 99282

== ENCOUNTER 2018-07-17 16:57 | Inpatient (IN) ==
[2018-07-17] MEDS ORDERED: Morphine Inj 4 MG/ML Vial IV.PUSH ONE (17:18)
[2018-07-17] MEDS ORDERED: Sod Chloride 0.9% Inj 1,000 ML IV.SIG ONE (17:18)
[2018-07-17] MEDS ORDERED: Sod Chloride 0.9% Inj 1,000 ML IV.CONT SCH (17:30)
--- NOTE | 2018-07-17 17:56 | ED ---
HPI General Chief Complaint: Abdominal Pain Stated Complaint: Abd pain/Chest pain Time Seen by Provider: 07/17/18 17:08 Source: patient and family Mode of arrival: ambulatory Limitations: no limitations History of Present Illness HPI narrative: Patient is a 68-year-old male with history of GERD, hyperlipidemia, neuropathy, atrial fibrillation, pacemaker, CKD, CAD, history of CABG -presents the emergency room for evaluation of abdominal pain, chest pain and pains all over his body. Patient reports that he came back from [facility] today while visiting his family. Reports that while he was there, he became really sick and ended up in the hospital. Patient reports that he was severely anemic and received 2 pints of blood 2 weeks ago and then another 2 pints of blood last week. Reports that he was taking Xarellto as per Dr. Cain his counter pocket trimmer, they told him to stop taking the Xarellto. Reports that he was supposed to have a colonoscopy as well as an EGD, patient is unsure why he did not have one. Reports that he was discharged from the hospital and since he was not feeling any better, called his stepdaughter to pick him up and drive him back home to [facility] where his doctors are. Patient reports that he has been having lower abdominal pain as well as nausea, vomiting and diarrhea. Patient reports that his chest was still hurts him, reports that his whole body hurts him. Patient does have history of chronic pain and does take morphine chronically, - pt's family member is concerned that he is taking more morphine that prescribed and that he may have run out of his morphine and could possibly be in withdrawl. Patient describes his chest pain as "just pain all over." Related Data Home Medications Medication Instructions Recorded Confirmed amiodarone 200 mg PO DAILY 07/17/18 07/17/18 aspirin 81 mg PO DAILY 07/17/18 07/17/18 ferrous sulfate 325 mg PO DAILY 07/17/18 07/17/18 gabapentin 100 mg PO DAILY 07/17/18 07/17/18 pantoprazole 40 mg PO DAILY 07/17/18 07/17/18 rosuvastatin 20 mg PO DAILY 07/17/18 07/17/18 sertraline 25 mg PO DAILY 07/17/18 07/17/18 Allergies Allergy/AdvReac Type Severity Reaction Status Date / Time No Known Allergies Allergy Verified 07/17/18 18:11 Review of Systems ROS: all other systems reviewed are negative [facility] Medical History Medical History Afib (Acute) Back fracture (Acute) CAD (coronary artery disease) (Acute) CKD (chronic kidney disease) (Acute) Elevated cholesterol (Acute) GERD (gastroesophageal reflux disease) (Acute) Neuropathy (Acute) Pacemaker (Acute) Surgical History Surgical History S/P CABG x 3 (Acute) Status post insertion of spinal cord stimulator (Acute) Stented coronary artery (Acute) Social History Social History Substance History: No History of Abuse Smoking Status: Former smoker How Often Do You Have a Drink Containing Alcohol: Never Recent Travel in [facility] within the Last 8 Weeks: Yes Recent Out of Country Travel within the Last 8 Weeks: No Immunization History Tetanus Immunization: Unsure Exam Narrative Exam Narrative: GENERAL: moderate distress SKIN: Focused skin assessment warm/dry. Patient Pale appearing, cachetic HEAD: Atraumatic. Normocephalic. EYES: Pupils equal and round. No scleral icterus. No injection or drainage. ENT: No nasal bleeding or discharge. Mucous membranes pink and moist. NECK: Trachea midline. No JVD. CARDIOVASCULAR: Regular rate and rhythm. No murmur appreciated. RESPIRATORY: No accessory muscle use. Clear to auscultation. Breath sounds equal bilaterally. GASTROINTESTINAL: Abdomen soft, diffusely tender to lower abdomen, nondistended. Hepatic and splenic margins not palpable. rectam exam performed with rn at bedside: patient with heme positive dark tarry stool MUSCULOSKELETAL: No obvious deformities. No clubbing. No cyanosis. No edema. NEUROLOGICAL: Awake and alert. No obvious cranial nerve deficits. Motor grossly within normal limits. Normal speech. PSYCHIATRIC: Appropriate mood and affect; insight and judgment normal. Course Initial Documented Vital Signs Temperature 98.2 F 07/17/18 17:07 Pulse Rate 63 07/17/18 17:07 Respiratory Rate 16 07/17/18 17:07 Blood Pressure 148/77 H 07/17/18 17:07 Pulse Oximetry 96 07/17/18 17:07 Last Documented Vital Signs Temperature 98.2 F 07/17/18 17:07 Pulse Rate 59 L 07/17/18 18:00 Respiratory Rate 16 07/17/18 18:00 Blood Pressure 143/77 H 07/17/18 18:00 Pulse Oximetry 96 07/17/18 18:00 Critical Care Time Critical Care Time: Yes Total Critical Care Time: 30 Attestation: Aggregate critical care time was 30 minutes. Time to perform other separately billable procedures was not included in the critical care time. My time did not include minutes spent treating any other patients simultaneously or on activities that did not directly contribute to the patient's treatment. The services I provided to this patient were to treat and/or prevent clinically significant deterioration that could result in: , decompensation, deterioration I provided critical care services requiring my management, as noted below: Chart data review, documentation time, medication orders and management, vital sign assessments/reviewing monitor data, ordering and reviewing lab tests, ordering and interpreting/reviewing x-rays and diagnostic studies, care of the patient and discussion of the patient with the admitting physicians. Medical Decision Making MDM Narrative Medical decision making narrative: During the course of the patients emergency department visit, the patients history, examination, and differential diagnosis were reviewed with the patient. The patient was placed on a documentation coordinator with oximetry and frequent blood pressure monitoring. The patient had an IV access obtained and blood work sent for analysis. The patient was initially provided IVF, IV morphine as well as IV zofran The patients laboratory studies were reviewed and remarkable for a hgb of 7.4 ( baseline hgb 10.9), patient with heme positive, dark tarry stool - protonix bolus as well as a protonix drip was ordered. Type and screen ordered INR 1.4 Ct of the abdomen and pelvis: no inflammatory changes, extensive vascular calcifications and small left iliac artery aneurysm Patient with melanotic stool, he is heme positive with a hemoglobin of 7.4 which is essentially a 3 gram drop. He will require admission to the hospital for workup of GI bleed. 1 unit of blood ordered for him case reviewed with Dr. Carolina who accepts pt to service Medical Screen Exam Complete: Yes Emergency Medical Condition: Yes Differential Diagnosis Differential Diagnosis: GI Bleed, colitis, diverticulitis, arrythmia, acs, withdrawl from opiods Medical Records Medical records reviewed: Yes I reviewed the patient's medical records. Lab Data Lab results reviewed: Yes I reviewed the patient's lab results. Result diagrams: 07/17/18 17:50 07/17/18 17:50 Lab Results 07/17/18 07/17/18 07/17/18 Range/Units 17:50 17:50 17:50 CBC w Diff Auto diff final WBC 8.6 (4.0-11.0) th/mm3 RBC 2.57 L (4.50-5.90) mil/mm3 Hgb 7.4 L (13.0-17.0) gm/dL Hct 22.1 L (39.0-51.0) % MCV 86.0 (80.0-100.0) fL MCH 28.8 (27.0-34.0) pg MCHC 33.5 (32.0-36.0) % RDW 15.8 (11.6-17.2) % Plt Count 331 (150-450) th/mm3 MPV 8.7 (7.0-11.0) fL Neut % (Auto) 74.4 H (16.0-70.0) % Lymph % (Auto) 14.0 (9.0-44.0) % [place] % (Auto) 10.9 H (0.0-8.0) % Eos % (Auto) 0.4 (0.0-4.0) % Baso % (Auto) 0.3 (0.0-2.0) % Neut # (Auto) 6.5 (1.8-7.7) th/mm3 Lymph # (Auto) 1.2 (1.0-4.8) th/mm3 [place] # (Auto) 0.9 (0.0-0.9) th/mm3 Eos # (Auto) 0.0 (0.0-0.4) th/mm3 Baso # (Auto) 0.0 (0.0-0.2) th/mm3 WBC Differential . Differential Comment . PT 13.9 H (9.8-11.6) sec INR 1.4 Ratio APTT 27.1 (24.3-30.1) sec Sodium 138 (136-145) meq/L Potassium 4.3 (3.5-5.1) meq/L Chloride 103 (98-107) meq/L Carbon Dioxide 28.1 (21.0-32.0) meq/L Anion Gap 7 (5-15) meq/L BUN 48 H (7-18) mg/dL Creatinine 2.40 H (0.60-1.30) mg/dL Estimated GFR 27 L (>89) mL/min Random Glucose 110 H (74-106) mg/dL Calcium 7.8 L (8.5-10.1) mg/dL Total Bilirubin 0.2 (0.2-1.0) mg/dL AST 194 H (15-37) U/L ALT 215 H (12-78) U/L Alkaline Phosphatase 60 (45-117) U/L Total Creatine Kinase 66 (39-308) U/L Troponin I 0.05 (0.02-0.05) ng/mL Total Protein 6.2 L (6.4-8.2) g/dL Albumin 2.4 L (3.4-5.0) g/dL Lipase 116 (73-393) U/L Imaging Data Attestation: I personally reviewed and interpreted this imaging study as follows : Radiologist's impression: Abdomen/Pelvis CT 07/17/18 17:18 CONCLUSION: 1. Previous apparent aorta by iliac surgery 2. Extensive vascular calcifications and small left iliac artery aneurysm. 3. I do not see inflammatory changes in the mesentery. I do not sense or abscess or free air to account for the patient's abdominal pain. Chest X-Ray 07/17/18 17:18 CONCLUSION: 1. No acute abnormality or significant interval change. ECG Data EKG Prior to Arrival: No Attestation: I personally reviewed and interpreted this ECG as follows: Interpretation: EKG at 1703: paced at 64bpm, qt/qtc: 417/427, no acute changes Discharge Plan Discharge Disposition Patient Disposition: 30 Still Patient Discharge Details Diagnosis: Acute GI bleeding Physicians Team ED Provider: Sammie Renteria Primary Care Provider: UNKNOWN, Rxs /Orders / Referrals /Forms Prescriptions: No Action amiodarone 200 mg Tablet 200 mg PO DAILY RF: 0 sertraline 25 mg Tablet 25 mg PO DAILY RF: 0 aspirin 81 mg Tablet,Chewable 81 mg PO DAILY RF: 0 gabapentin 100 mg Capsule 100 mg PO DAILY RF: 0 rosuvastatin 20 mg Tablet 20 mg PO DAILY RF: 0 pantoprazole 40 mg Tablet,Delayed Release (Dr/Ec) 40 mg PO DAILY RF: 0 ferrous sulfate 325 mg (65 mg iron) Tablet 325 mg PO DAILY RF: 0 Status ED Status: With Doctor
--- NOTE | 2018-07-17 17:59 | XR ---
EXAM DATE: 07/17/2018 5:18 PM EDT AGE/SEX: 68 years / Male INDICATIONS: Short of breath, chest pain, abdomen pain, headache, weak CLINICAL DATA: This is the patient's initial encounter. Patient reports that signs and symptoms have been present for 1 day and indicates a pain score of 4/10. MEDICAL/SURGICAL HISTORY: . Congestive heart failure. . Triple heart bypass. Heart stent COMPARISON: [facility] [place], 05/27/2017. . FINDINGS: A single AP view of the chest demonstrates the lungs to be symmetrically aerated without evidence of mass, infiltrate or effusion. Stable postsurgical features of prior median sternotomy with dual-lead pacemaker in place. Partially imaged spinal stimulator wires. The cardiomediastinal contours are unr emarkable. Osseous structures are intact. CONCLUSION: 1. No acute abnormality or significant interval change. Electronically signed by: Benja Cesar MD 07/17/2018 5:57 PM EDT
[2018-07-17 18:10] LABS: Baso % (Auto) 0.3 % (0.0-2.0); Eos % (Auto) 0.4 % (0.0-4.0); Hematocrit 22.1 % (39.0-51.0); Hemoglobin 7.4 gm/dL (13.0-17.0); Lymph # (Auto) 1.2 th/mm3 (1.0-4.8); Mean Corpuscular HGB Conc 33.5 % (32.0-36.0); Mean Corpuscular Hemoglobin 28.8 pg (27.0-34.0); Mean Platelet Volume 8.7 fL (7.0-11.0); Mono # (Auto) 0.9 th/mm3 (0.0-0.9); Mono % (Auto) 10.9 % (0.0-8.0); Neut # (Auto) 6.5 th/mm3 (1.8-7.7); Neut % (Auto) 74.4 % (16.0-70.0); Platelet Count 331 th/mm3 (150-450); Red Blood Count 2.57 mil/mm3 (4.50-5.90); Red Cell Distribution Width 15.8 % (11.6-17.2); White Blood Count 8.6 th/mm3 (4.0-11.0)
[2018-07-17 18:19] LABS: Chloride 103 meq/L (98-107); Potassium 4.3 meq/L (3.5-5.1); Sodium 138 meq/L (136-145)
[2018-07-17 18:22] LABS: Albumin 2.4 g/dL (3.4-5.0); Anion Gap 7 meq/L (5-15); Calcium 7.8 mg/dL (8.5-10.1); Carbon Dioxide 28.1 meq/L (21.0-32.0); Glucose,Random 110 mg/dL (74-106); Lipase 116 U/L (73-393)
[2018-07-17 18:23] LABS: Blood Urea Nitrogen 48 mg/dL (7-18)
[2018-07-17 18:24] LABS: Activated Partial Thrombo Time 27.1 sec (24.3-30.1); INR 1.4 Ratio; Prothrombin Time 13.9 sec (9.8-11.6)
[2018-07-17 18:25] LABS: Alanine Aminotransferase 215 U/L (12-78); Aspartate Aminotransferase 194 U/L (15-37); Glomerular Filtration Rate 27 mL/min (>89)
[2018-07-17 18:27] LABS: Total Protein 6.2 g/dL (6.4-8.2)
[2018-07-17 18:28] LABS: Alkaline Phosphatase 60 U/L (45-117)
[2018-07-17 18:30] LABS: Troponin I 0.05 ng/mL (0.02-0.05)
[2018-07-17] MEDS ORDERED: Pantoprazole Inj 80 MG in Sodium Chlor 0.9% Inj 35 ML IV.SIG ONE (18:34)
[2018-07-17 18:49] LABS: Creatine Kinase 66 U/L (39-308)
[2018-07-17] MEDS ORDERED: Pantoprazole Inj 80 MG in Sodium Chlor 0.9% Inj 100 ML IV.CONT SCH (19:00)
--- NOTE | 2018-07-17 19:10 | CT ---
EXAM DATE: 07/17/2018 5:18 PM EDT AGE/SEX: 68 years / Male INDICATIONS: Lower abdominal pain. CLINICAL DATA: This is the patient's initial encounter. Patient reports that signs and symptoms have been present for 1 day and indicates a pain score of 5/10. MEDICAL/SURGICAL HISTORY: Hypercholesterolemia. Cardiovascular disease. Gastroesophageal refl ux disease. Chronic kidney disease. Pacemaker. CABG. Coronary artery stent. Spinal cord stimulat or. RADIATION DOSE: 6.50 CTDI (mGy) COMPARISON: . TECHNIQUE: Multiple contiguous axial images were obtained through the abdomen. Images were obtained using multiple row detector helical technique. Using automated exposure control and adjustment of the mA and/or kV according to patient size, radiation dose was kept as low as reasonably achievable to o btain optimal diagnostic quality images. DICOM format image data is available electronically for rev iew and comparison. FINDINGS: Sternal wires from previous bypass are noted. Lung bases are clear. Artifact from pacing leads are noted. The liver and gallbladder unremarkable . Pancreas and spleen appear normal The adrenal glands are unremarkable Right and left kidneys are unremarkable Extensive vascular calcifications are evident. There is an iliac artery aneurysm on the left measurin g 1.6 cm. There is no abdominal aortic aneurysm. Patient appeared to have had previous aortobiiliac s urgery. Review of bone windows reveals degenerative changes in the lower lumbar spine. Spinal stimulator is e vident. Bladder is unremarkable. There is no free fluid or free air Abdominal thomas intact. There is no evidence for hernia. CONCLUSION: 1. Previous apparent aorta by iliac surgery 2. Extensive vascular calcifications and small left iliac artery aneurysm. 3. I do not see inflammatory changes in the mesentery. I do not sense or abscess or free air to acco unt for the patient's abdominal pain. Electronically signed by: Deshaun Izaguirre MD 07/17/2018 7:08 PM EDT
[2018-07-17] MEDS ORDERED: Acetaminophen 325 MG Tablet PO PRN (19:21)
[2018-07-17] MEDS ORDERED: Bisacodyl 10 MG Supp RECTAL PRN (19:21)
[2018-07-17] MEDS: Sod Chloride 0.9% Inj 1,000 ML IV.CONT SCH (19:38)
[2018-07-17] MEDS ORDERED: Sodium Chlor 0.9% Inj 250 ML IV.SIG SCH (20:00)
[2018-07-17 20:53] LABS: Bilirubin,Urine Negative (Negative); Clarity,Urine Clear (Clear); Color,Urine Yellow (Yellw/Straw); Glucose,Urine (UA) Negative (Negative); Leukocyte Esterase,Urine Negative (Negative); Nitrite,Urine Negative (Negative); Specific Gravity,Urine 1.015 (1.002-1.035); Urobilinogen,Urine 0.2 mg/dL (Less than 2)
[2018-07-17 21:16] LABS: Squamous Epithelial Cell,Urine 0-5 /hpf (0-5); WBC,Urine 0-5 /hpf (0-5)
[2018-07-17] MEDS: Senna/Docusate Sodium 8.6/50 MG Tablet PO SCH (21:35)
[2018-07-17] MEDS: Morphine Sulfate Inj 2 MG/ML Vial IV.PUSH PRN (22:00)
[2018-07-18 05:30] LABS: Hematocrit 22.7 % (39.0-51.0); Hemoglobin 7.5 gm/dL (13.0-17.0); Mean Corpuscular Hemoglobin 28.8 pg (27.0-34.0); Mean Corpuscular Volume 87.2 fL (80.0-100.0); Mean Platelet Volume 8.5 fL (7.0-11.0); Platelet Count 340 th/mm3 (150-450); Red Cell Distribution Width 15.1 % (11.6-17.2); White Blood Count 31.2 th/mm3 (4.0-11.0)
[2018-07-18 05:41] LABS: Potassium 4.1 meq/L (3.5-5.1)
[2018-07-18] MEDS: Pantoprazole Inj 80 MG in Sodium Chlor 0.9% Inj 100 ML IV.CONT SCH ×2 (05:52→15:32)
[2018-07-18 06:04] LABS: Eosinophils 2 % (0-4); Lymphocytes 25 % (9-44); Monocytes 6 % (0-8)
[2018-07-18 06:05] LABS: Platelet Estimate Normal (Normal); Platelet Morphology Normal (Normal)
[2018-07-18] MEDS: Morphine Sulfate Inj 2 MG/ML Vial IV.PUSH PRN ×2 (06:14→09:51)
[2018-07-18 06:23] LABS: Total Protein 4.9 g/dL (6.4-8.2)
[2018-07-18 08:36] LABS: Baso % (Auto) 0.6 % (0.0-2.0); Eos # (Auto) 0.1 th/mm3 (0.0-0.4); Eos % (Auto) 1.9 % (0.0-4.0); Hemoglobin 7.6 gm/dL (13.0-17.0); Lymph # (Auto) 1.4 th/mm3 (1.0-4.8); Lymph % (Auto) 19.3 % (9.0-44.0); Mean Corpuscular HGB Conc 32.9 % (32.0-36.0); Mean Corpuscular Hemoglobin 28.4 pg (27.0-34.0); Mean Corpuscular Volume 86.5 fL (80.0-100.0); Mean Platelet Volume 8.7 fL (7.0-11.0); Mono % (Auto) 13.9 % (0.0-8.0); Neut # (Auto) 4.6 th/mm3 (1.8-7.7); Neut % (Auto) 64.3 % (16.0-70.0); Platelet Count 227 th/mm3 (150-450); Red Blood Count 2.66 mil/mm3 (4.50-5.90); Red Cell Distribution Width 15.4 % (11.6-17.2); White Blood Count 7.1 th/mm3 (4.0-11.0)
[2018-07-18] MEDS ORDERED: Influenza (Quadrivalent) Vaccine 0.5 ML Syringe IM ONE (09:00)
[2018-07-18] MEDS: Senna/Docusate Sodium 8.6/50 MG Tablet PO SCH ×2 (10:04→21:50)
[2018-07-18] MEDS: Sod Chloride 0.9% Inj 1,000 ML IV.CONT SCH ×2 (10:11→21:50)
--- NOTE | 2018-07-18 13:46 | P.HP ---
History of Present Illness Primary Care Physician: UNKNOWN Chief Complaint: Weakness, shortness of breath History of Present Illness: 68-year-old male with known history of hypertension, hyperlipidemia, chronic atrial fibrillation, coronary disease, chronic anticoagulation who presented the hospital because of weakness, shortness of breath, abdominal pain. Patient indicates that he has been having symptoms for approximately 1-1/ 2 months. He has been up in [facility] and his daughter when he started developing the symptoms. He went to the hospital up there and was found to have anemia which required 2 units of blood transfusion. The patient states that he did well for little while but then started developing symptoms again so he went back to the same facility in [place] and was given another 2 units of packed red blood cells and was notified that he needed to go back to where he lives and see a residential assistant. He was also notified to discontinue his Xarelto. Patient does take Xarelto on a regular basis for his atrial fibrillation. Patient states that he did quit taking it for 3 days but started feeling worse so he started taking the medication again. Patient did come back down here and had similar symptoms so he came to the ER for evaluation. Patient was found to have an He is complaining of lower abdominal pain. Denies any diarrhea, constipation. - Diagnosis (1) GI bleed (2) Melena Inpatient Certification: I certify that the inpatient services were ordered in accordance with Medicare regulations governing the order. This includes certification that hospital inpatient services are reasonable and necessary and in the case of services not specified as inpatient-only under 42 CFR 419.22(n), that they are appropriately provided as inpatient services in accordance to with the 2-midnight benchmark under 43 CFR 412.3(e) Estimated Total Length of Stay (Days): 2 Plans for Post Hospital Care: Not yet determined Review of Systems All other systems reviewed negative except as stated in HPI Gastrointestinal: Reports abdominal pain, Reports black, tarry stools Neurologic: Reports weakness PMFSH - History History Provided By: Patient - Medical History Medical History: Medical History (Last Updated 07/18/18 @ 13:40 by WILLIE Morrow) Afib Back fracture CAD (coronary artery disease) CKD (chronic kidney disease) Chronic back pain Elevated cholesterol GERD (gastroesophageal reflux disease) Neuropathy Pacemaker - Surgical History Surgical History: Surgical History (Last Updated 07/18/18 @ 13:41 by WILLIE Morrow) Pacemaker S/P CABG x 3 Status post insertion of spinal cord stimulator Stented coronary artery - Family History Family History: Family History (Last Updated 07/18/18 @ 13:41 by WILLIE Morrow) Father History of heart disease - Tobacco History Second Hand Smoke Exposure: No Smoking Status: Former smoker - Alcohol History How Often Do You Have a Drink Containing Alcohol: Never - Substance Use History Substance History: No History of Abuse - Travel History Recent Travel in the [place] Within the Last 8 Weeks: Yes Recent Travel Out of the Country Within the Last 8 Weeks: No - Immunization History Tetanus Immunization: <5 Years Tetanus Immunization Year if Known: 2013 Hx Influenza Vaccine This Season: No Medications and Allergies Active Medications: Active Medications Acetaminophen (Tylenol) 650 mg PO Q4H PRN PRN Reason: Temp > 100.4 Al Hydroxide/Mg Hydroxide (Milk Of Magnesia Liq) 30 ml PO Q12H PRN PRN Reason: Mild Constipation Bisacodyl (Dulcolax Supp) 10 mg RECTAL DAILY PRN PRN Reason: SEVERE CONSITIPATION Sodium Chloride (Ns Inj) 1,000 mls @ 100 mls/hr IV.CONT .Q10H [facility] Last Admin: 07/18/18 10:11 Dose: 100 mls/hr Pantoprazole Sodium 80 mg/ (Sodium Chloride) 100 mls @ 10 mls/hr IV.CONT Q10H [facility] Last Admin: 07/18/18 05:52 Dose: 10 mls/hr Lactulose (Lactulose Liq) 30 ml PO DAILY PRN PRN Reason: SEVERE CONSITIPATION Morphine Sulfate (Morphine Inj) 2 mg IV.PUSH Q4H PRN PRN Reason: PAIN 6-10 Last Admin: 07/18/18 09:51 Dose: 2 mg Ondansetron HCl (Zofran Inj) 4 mg IV.PUSH Q6H PRN PRN Reason: NAUSEA OR VOMITING Last Admin: 07/18/18 09:51 Dose: 4 mg Polyethylene Glycol/Electrolytes (Colyte Liq) 4,000 ml PO ONCE ONE Stop: 07/18/18 16:01 Senna/Docusate Sodium (Linda-Colace) 1 tab PO BID [facility] Last Admin: 07/18/18 10:04 Dose: Not Given Sennosides (Senokot) 17.2 mg PO Q12H PRN PRN Reason: Moderate Constipation Sodium Chloride (Ns Flush) 2 ml IV.FLUSH PRN PRN PRN Reason: FLUSH AFTER USING IV ACCESS Allergies Allergy/AdvReac Type Severity Reaction Status Date / Time No Known Allergies Allergy Verified 07/17/18 18:11 Home Medications Medication Instructions Recorded Confirmed Type amiodarone 200 mg PO DAILY 07/17/18 07/17/18 History aspirin 81 mg PO DAILY 07/17/18 07/17/18 History ferrous sulfate 325 mg PO DAILY 07/17/18 07/17/18 History gabapentin 100 mg PO DAILY 07/17/18 07/17/18 History pantoprazole 40 mg PO DAILY 07/17/18 07/17/18 History rosuvastatin 20 mg PO DAILY 07/17/18 07/17/18 History sertraline 25 mg PO DAILY 07/17/18 07/17/18 History Exam Vital signs: Vital Signs 07/17/18 17:07 07/17/18 17:18 07/17/18 18:00 Temperature 98.2 F Pulse Rate 63 59 L Respiratory Rate 16 16 Blood Pressure 148/77 H 143/77 H Pulse Oximetry 96 95 96 07/17/18 19:47 07/17/18 22:19 07/17/18 22:24 Temperature 98.4 F Pulse Rate 60 58 L Respiratory Rate 16 16 Blood Pressure 121/63 135/71 Pulse Oximetry 96 100 97 07/17/18 23:30 07/17/18 23:31 07/17/18 23:48 Temperature 98.4 F 98.4 F 98.6 F Pulse Rate 59 L 58 L 60 Respiratory Rate 16 13 16 Blood Pressure 106/57 L 106/57 L 102/55 L Pulse Oximetry 98 98 07/17/18 23:51 07/17/18 23:52 07/18/18 00:00 Temperature 98.6 F 98.9 F Pulse Rate 58 L 58 L Respiratory Rate 10 L 12 Blood Pressure 102/55 L 109/54 L Pulse Oximetry 95 98 94 L 07/18/18 00:55 07/18/18 02:00 07/18/18 02:06 Temperature Pulse Rate 60 58 L 58 L Respiratory Rate 12 11 L Blood Pressure 93/54 L 82/52 L Pulse Oximetry 07/18/18 02:07 07/18/18 03:00 07/18/18 04:00 Temperature 98.5 F 98 F Pulse Rate 58 L 58 L Respiratory Rate 14 11 L Blood Pressure 124/55 L 122/57 L 99/47 L Pulse Oximetry 95 07/18/18 05:00 07/18/18 06:03 07/18/18 06:05 Temperature Pulse Rate 60 68 62 Respiratory Rate 14 24 14 Blood Pressure 102/45 L 77/54 L 125/56 L Pulse Oximetry Intake & Output 07/17/18 07/18/18 07/18/18 18:59 06:59 18:59 Intake Total 1000 / 1000 1155 / 1155 400 / 400 Output Total 700 / 700 Balance 1000 / 1000 455 / 455 400 / 400 Weight 63 kg 63.8 kg Intake: IV 1000 / 1000 785 / 785 400 / 400 Protonix Inj 80 MG In NS Inj 100 / 100 100 ML @ 10 mls/hr IV.CONT CONT [facility] Rx#:[id number] NS Inj 1,000 ML @ 100 mls/hr IV 600 / 600 400 / 400 .CONT .Q10H [facility] Rx#:[id number] Protonix Inj 80 MG In NS Inj 35 35 / 35 ML @ 420 mls/hr IV.SIG BOLUS ONE Rx#:[id number] NS Inj 1,000 ML @ Wide Open IV. 1000 / 1000 SIG BOLUS ONE Rx#:[id number] NS Inj 250 ML @ 15 mls/hr IV. 50 / 50 SIG ONCE [facility] Rx#:[id number] Oral 40 / 40 Intake (Blood Product) Amt 330 / 330 Rbc As-3 Leukoreduced Unit 330 / 330 [id number] Output: Urine 700 / 700 Other: # Voids 1 Weight On Admission 73.6 kg Narrative: GENERAL: Well-developed, well-nourished, in no acute distress. alert and orientated HEENT: Head is normocephalic without any lesions or masses noted. Facial features are symmetric. Eyes: Pupils equal round reactive to light. Extraocular muscles are intact. Conjunctivae were clear. Oropharyngeal: Pharynx without any erythema edema. Tongue is midline without deviation. Buccal mucosa is moist without any masses or lesions NECK: Supple without any masses. Trachea midline no deviation. No JVD, no bruits are appreciated CARDIAC: Regular rhythm, regular rate. S1/S2 are heard. No murmurs gallops or rubs. LUNGS: Clear to auscultation bilaterally. No wheeze, rhonchi or rales. No use of accessory muscles on inspiration or expiration. ABDOMEN: Soft, nontender. Nondistended. Bowel sounds heard in all 4 quadrants. No organomegaly or masses. Negative rebound, negative guarding EXTREMITIES: No edema, pulses are equal bilaterally. No cyanosis or clubbing NEUROLOGY: Mood and affect appear appropriate. Cranial nerves II through XII grossly intact. Muscle strength 5/5 in upper and lower extremities bilaterally. Deep tendon reflexes are 2+ in upper and lower extremities bilaterally. Results - Labs CBC & Chem 7: 07/18/18 08:15 07/18/18 04:10 Labs: Laboratory Results - last 24 hr 07/17/18 07/17/18 07/17/18 17:50 17:50 17:50 CBC w Diff Auto diff final WBC 8.6 RBC 2.57 L Hgb 7.4 L Hct 22.1 L MCV 86.0 MCH 28.8 MCHC 33.5 RDW 15.8 Plt Count 331 MPV 8.7 Neut % (Auto) 74.4 H Lymph % (Auto) 14.0 [place] % (Auto) 10.9 H Eos % (Auto) 0.4 Baso % (Auto) 0.3 Neut # (Auto) 6.5 Lymph # (Auto) 1.2 [place] # (Auto) 0.9 Eos # (Auto) 0.0 Baso # (Auto) 0.0 WBC Differential . Seg Neuts % (Manual) Band Neuts % (Manual) Lymphocytes % (Manual) Monocytes % (Manual) Eosinophils % (Manual) Abs Neuts (Manual) Differential Comment . Platelet Estimate Platelet Morphology PT 13.9 H INR 1.4 APTT 27.1 Sodium 138 Potassium 4.3 Chloride 103 Carbon Dioxide 28.1 Anion Gap 7 BUN 48 H Creatinine 2.40 H Estimated GFR 27 L Random Glucose 110 H Calcium 7.8 L Prot Corrected Calcium Total Bilirubin 0.2 AST 194 H ALT 215 H Alkaline Phosphatase 60 Total Creatine Kinase 66 Troponin I 0.05 Total Protein 6.2 L Albumin 2.4 L Lipase 116 Urine Color Urine Clarity Urine pH Ur Specific [place] Urine Protein Urine Glucose (UA) Urine Ketones Urine Occult Blood Urine Nitrate Urine Bilirubin Urine Urobilinogen Ur Leukocyte Esterase Urine RBC Urine WBC Ur Squamous Epith Cells Micro UA Comment Ur Microscopic Review Urine Culture Comments Blood Type Antibody Screen MTS Gel Crossmatch 07/17/18 07/17/18 07/17/18 19:07 19:07 20:50 CBC w Diff WBC RBC Hgb Hct MCV MCH MCHC RDW Plt Count MPV Neut % (Auto) Lymph % (Auto) [place] % (Auto) Eos % (Auto) Baso % (Auto) Neut # (Auto) Lymph # (Auto) [place] # (Auto) Eos # (Auto) Baso # (Auto) WBC Differential Seg Neuts % (Manual) Band Neuts % (Manual) Lymphocytes % (Manual) Monocytes % (Manual) Eosinophils % (Manual) Abs Neuts (Manual) Differential Comment Platelet Estimate Platelet Morphology PT INR APTT Sodium Potassium Chloride Carbon Dioxide Anion Gap BUN Creatinine Estimated GFR Random Glucose Calcium Prot Corrected Calcium Total Bilirubin AST ALT Alkaline Phosphatase Total Creatine Kinase Troponin I Total Protein Albumin Lipase Urine Color Yellow Urine Clarity Clear Urine pH 6.0 Ur Specific Albers 1.015 Urine Protein 30 H Urine Glucose (UA) Negative Urine Ketones Negative Urine Occult Blood Large H Urine Nitrate Negative Urine Bilirubin Negative Urine Urobilinogen 0.2 Ur Leukocyte Esterase Negative Urine RBC 4-15 H Urine WBC 0-5 Ur Squamous Epith Cells 0-5 Micro UA Comment Culture not ind Ur Microscopic Review Microscopic reviewed Urine Culture Comments Culture not ind Blood Type A Positive Antibody Screen Negative MTS Gel Crossmatch See Detail 07/18/18 07/18/18 07/18/18 00:15 04:10 04:10 CBC w Diff Slide review pending WBC 31.2 H D RBC 2.60 L Hgb 7.5 L Hct 22.7 L MCV 87.2 MCH 28.8 MCHC 33.0 RDW 15.1 Plt Count 340 MPV 8.5 Neut % (Auto) Lymph % (Auto) [place] % (Auto) Eos % (Auto) Baso % (Auto) Neut # (Auto) Lymph # (Auto) [place] # (Auto) Eos # (Auto) Baso # (Auto) WBC Differential Manual diff final Seg Neuts % (Manual) 66 Band Neuts % (Manual) 1 Lymphocytes % (Manual) 25 Monocytes % (Manual) 6 Eosinophils % (Manual) 2 Abs Neuts (Manual) 20.9 H Differential Comment . Platelet Estimate Normal Platelet Morphology Normal PT INR APTT Sodium 143 Potassium 4.1 Chloride 110 H Carbon Dioxide 28.0 Anion Gap 5 BUN 41 H Creatinine 2.00 H Estimated GFR 33 L Random Glucose 87 Calcium 7.0 L* D Prot Corrected Calcium 8.2 L Total Bilirubin 1.0 AST 148 H ALT 167 H Alkaline Phosphatase 49 Total Creatine Kinase Troponin I 0.06 H Total Protein 4.9 L D Albumin 2.0 L Lipase Urine Color Urine Clarity Urine pH Ur Specific Al[place] Urine Protein Urine Glucose (UA) Urine Ketones Urine Occult Blood Urine Nitrate Urine Bilirubin Urine Urobilinogen Ur Leukocyte Esterase Urine RBC Urine WBC Ur Squamous Epith Cells Micro UA Comment Ur Microscopic Review Urine Culture Comments Blood Type Antibody Screen MTS Gel Crossmatch 07/18/18 07/18/18 04:10 08:15 CBC w Diff Auto diff final WBC 7.1 D RBC 2.66 L Hgb 7.6 L Hct 23.0 L MCV 86.5 MCH 28.4 MCHC 32.9 RDW 15.4 Plt Count 227 D MPV 8.7 Neut % (Auto) 64.3 Lymph % (Auto) 19.3 [place] % (Auto) 13.9 H Eos % (Auto) 1.9 Baso % (Auto) 0.6 Neut # (Auto) 4.6 Lymph # (Auto) 1.4 [place] # (Auto) 1.0 H Eos # (Auto) 0.1 Baso # (Auto) 0.0 WBC Differential . Seg Neuts % (Manual) Band Neuts % (Manual) Lymphocytes % (Manual) Monocytes % (Manual) Eosinophils % (Manual) Abs Neuts (Manual) Differential Comment . Platelet Estimate Platelet Morphology PT INR APTT Sodium Potassium Chloride Carbon Dioxide Anion Gap BUN Creatinine Estimated GFR Random Glucose Calcium Prot Corrected Calcium Total Bilirubin AST ALT Alkaline Phosphatase Total Creatine Kinase Troponin I 0.06 H Total Protein Albumin Lipase Urine Color Urine Clarity Urine pH Ur Specific [place] Urine Protein Urine Glucose (UA) Urine Ketones Urine Occult Blood Urine Nitrate Urine Bilirubin Urine Urobilinogen Ur Leukocyte Esterase Urine RBC Urine WBC Ur Squamous Epith Cells Micro UA Comment Ur Microscopic Review Urine Culture Comments Blood Type Antibody Screen MTS Gel Crossmatch - Imaging Impressions Abdomen/Pelvis CT 07/17/18 17:18 CONCLUSION: 1. Previous apparent aorta by iliac surgery 2. Extensive vascular calcifications and small left iliac artery aneurysm. 3. I do not see inflammatory changes in the mesentery. I do not sense or abscess or free air to account for the patient's abdominal pain. Chest X-Ray 07/17/18 17:18 CONCLUSION: 1. No acute abnormality or significant interval change. Caprini VTE Risk Assessment Caprini VTE Risk Assessment: No/Low Risk (score <= 1) Caprini Risk Assessment Model: Point Value = 1 Point Value = 2 Point Value = 3 Point Value = 5 Age 41-60 Minor surgery BMI > 25 kg/m2 Swollen legs Varicose veins or History of unexplained or recurrent spontaneous Oral contraceptives or hormone replacement Sepsis (< 1 month) Serious lung disease, including pneumonia (< 1 month) Abnormal pulmonary function Acute myocardial infarction Congestive heart failure (< 1 month) History of inflammatory bowel disease Medical patient at bed rest Age 61-74 Arthroscopic surgery Major open surgery (> 45 min) Laparoscopic surgery (> 45 min) Malignancy Confined to bed (> 72 hours) Immobilizing plaster cast Central venous access Age >= 75 History of VTE Family history of VTE Factor V Leiden Prothrombin [id number] Lupus anticoagulant Anticardiolipin antibodies Elevated serum homocysteine Heparin-induced thrombocytopenia Other congenital or acquired thrombophilia Stroke (< 1 month) Elective arthroplasty Hip, pelvis, or leg fracture Acute spinal cord injury (< 1 month) Prophylaxis Regimen: Total Risk Factor Score Risk Level Prophylaxis Regimen 0-1 Low Early ambulation 2 Moderate Order ONE of the following: *Sequential Compression Device (SCD) *Heparin 5000 units SQ BID 3-4 Higher Order ONE of the following medications: *Heparin 5000 units SQ TID *Enoxaparin/Lovenox 40 mg SQ daily (WT < 150 kg, CrCl > 30 mL/min) *Enoxaparin/Lovenox 30 mg SQ daily (WT < 150 kg, CrCl > 10-29 mL/min) *Enoxaparin/Lovenox 30 mg SQ BID (WT < 150 kg, CrCl > 30 mL/min) AND/OR *Sequential Compression Device (SCD) 5 or more Highest Order ONE of the following medications: *Heparin 5000 units SQ TID (Preferred with Epidurals) *Enoxaparin/Lovenox 40 mg SQ daily (WT < 150 kg, CrCl > 30 mL/min) *Enoxaparin/Lovenox 30 mg SQ daily (WT < 150 kg, CrCl > 10-29 mL/min) *Enoxaparin/Lovenox 30 mg SQ BID (WT < 150 kg, CrCl > 30 mL/min) AND *Sequential Compression Device (SCD) Assessment and Plan - Assessment (1) GI bleed Code(s): K92.2 - Gastrointestinal hemorrhage, unspecified Status: Acute (2) Melena Code(s): K92.1 - Melena Status: Acute - Plan Gastrointestinal bleeding -Complicated by anticoagulation use of Xarelto -Transfuse 1 unit packed red blood cells -Continue monitor hemoglobin hematocrit, transfuse if hemoglobin below 8.0 -GI consulted for further recommendations, patient will need panendoscopy -We will start clear liquid diet to avoid red coloring. -We will give GoLYTELY today for bowel prep Equivocal troponin elevation -Patient denies any chest pain, nausea, vomiting, diaphoresis. -Troponin remains flat at 0.05, 0.06 Hypertension, hyperlipidemia, coronary disease, chronic atrial fibrillation -We will continue home medications -We will continue to hold Xarelto at this time -We will consult patient's chief meter reader for recommendations of anticoagulation, as well as the equivocal troponin elevation Chronic kidney disease stage III -Continue monitor renal function Chronic back pain -Continue home medications DVT prevention -Sequential compression devices, avoid chemical prophylaxis secondary to GI bleed
[2018-07-18] MEDS: Ferrous Sulfate 325 MG Tablet PO SCH (15:53)
[2018-07-18] MEDS: Gabapentin 100 MG Capsule PO SCH (15:53)
[2018-07-18] MEDS: Amiodarone 200 MG Tablet PO SCH (15:53)
[2018-07-18] MEDS ORDERED: PEG 3350/E-Lyte Soln 4000 ML Bottle PO ONE (16:00)
[2018-07-18] MEDS: Sertraline 50 MG Tablet PO SCH (16:02)
--- NOTE | 2018-07-18 16:02 | ECG ---
Date Performed: 07/17/2018 Time Performed: 17:03:55 PTAGE: 68 years EKG: ELECTRONIC ATRIAL PACEMAKER MODERATE T-WAVE ABNORMALITY, CONSIDER ANTEROLATERAL ISCHEMIA AB NORMAL ECG PREVIOUS TRACING :08/30/2017 @18.31 Compared to previous tracing,non-specific T-wave inversion over at the anterolateral leads is new. Otherwise largely unchanged. DOCTOR: Oracio Ramos Interpretating Date/Time 07/18/2018 16:01:19
[2018-07-18 17:36] LABS: Baso % (Auto) 0.5 % (0.0-2.0); Eos # (Auto) 0.2 th/mm3 (0.0-0.4); Eos % (Auto) 2.2 % (0.0-4.0); Hematocrit 25.9 % (39.0-51.0); Hemoglobin 8.8 gm/dL (13.0-17.0); Lymph # (Auto) 1.4 th/mm3 (1.0-4.8); Lymph % (Auto) 16.9 % (9.0-44.0); Mean Corpuscular HGB Conc 33.9 % (32.0-36.0); Mean Corpuscular Hemoglobin 29.1 pg (27.0-34.0); Mean Corpuscular Volume 85.9 fL (80.0-100.0); Mono # (Auto) 0.8 th/mm3 (0.0-0.9); Mono % (Auto) 9.9 % (0.0-8.0); Neut % (Auto) 70.5 % (16.0-70.0); Platelet Count 270 th/mm3 (150-450); Red Blood Count 3.01 mil/mm3 (4.50-5.90); Red Cell Distribution Width 16.1 % (11.6-17.2); White Blood Count 8.4 th/mm3 (4.0-11.0)
[2018-07-18 18:22] LABS: Ovalocytes 1+; Platelet Estimate Normal (Normal); Platelet Morphology Normal (Normal)
[2018-07-18] MEDS: Morphine Sulfate 15 MG IR Tablet PO PRN (18:50)
--- NOTE | 2018-07-18 19:52 | MB ---
cc: Dinesh Kumar MD DATE: 07/18/2018 REASON FOR CONSULTATION: Patient with GI bleeding on Xarelto for atrial fibrillation, abnormal troponin level. HISTORY OF PRESENT ILLNESS: The patient is a 68-year-old white male, followed in our office by Dr. Joe Cain, with a history of paroxysmal atrial fibrillation, hypertension, coronary artery disease, carotid disease, recent gastrointestinal bleeding necessitating blood transfusion at a hospital in [place] about 2 weeks ago, who presented to the hospital in [place] with complaints of diffuse abdominal and chest pain. The patient has been found to be anemic and to undergo GI evaluation. He denies any definite angina symptoms. In the last few weeks, he has felt mildly short of breath with mild exertion. The patient also complains of fairly severe fatigue and occasional lightheadedness without syncope or near syncope. He denies palpitations, pedal edema, paroxysmal nocturnal dyspnea, fevers. He states he had fairly severe chest pains while in the hospital in [place] and he may have undergone a nuclear stress test, which was negative. PAST MEDICAL HISTORY: 1. Paroxysmal atrial fibrillation. 2. Hypertension. 3. Coronary artery disease with history of percutaneous coronary interventions and bypass surgery approximately 1998. From what I can tell, his last heart catheterization was 2010 showing 50% left main stenosis, bifurcation stenting in the proximal LAD with total occlusion of the limb to the LAD and 50% restenosis of the stent in the diagonal with no competitive flow seen from the left internal mammary artery, 50% diffuse disease of the left circumflex, 40-50% mid right coronary stenosis, totally occluded vein grafts, 80% stenosis in the left subclavian artery, which may have been percutaneously revascularized a short time later. There was no mention of the left internal mammary artery to the LAD, although apparently the lesion in the subclavian could not be crossed with catheters. 4. Hyperlipidemia. 5. Carotid disease with a chronically occluded left internal carotid artery and previous histories of bilateral carotid endarterectomies. He also underwent right common carotid artery bypass 05/27/2017. 6. Transient ischemic attack approximately 2017 characterized by transient right eye blindness. PAST SURGICAL HISTORY: 1. Lower back and cervical spine surgeries. 2. Spinal cord stimulator implant. 3. Bilateral carotid endarterectomies and right common carotid artery bypass 05/27/2017. 4. Coronary artery bypass grafting. 5. Pacemaker implant approximately 5 years ago. CARDIAC MEDICATIONS AT HOME: 1. Amiodarone 200 mg daily. 2. Aspirin 81 mg daily. 3. Crestor 20 mg at bedtime. The patient also had previously been taking Xarelto up until his GI bleeding recently. ALLERGIES: NO KNOWN DRUG ALLERGIES. FAMILY HISTORY: Noncontributory. SOCIAL HISTORY: The patient is a former smoker. He denies alcohol abuse. REVIEW OF SYSTEMS: As in the history of present illness, otherwise negative or noncontributory. He also denies headache, fevers, wheezing. Occasionally, he experiences dyspepsia. PHYSICAL EXAMINATION: VITAL SIGNS: Blood pressure 113/52 with a pulse of 60, respirations 10. GENERAL: He is a well-developed, thin white male, in no acute distress. NECK: Jugular venous pressure is normal. Carotid pulses are 2+ bilaterally with bilateral bruits, right greater than left. CHEST: Reveals diminished breath sounds diffusely. CARDIAC: He has a regular rhythm and rate with a grade 2/6 systolic murmur (versus radiation of his carotid bruits) heard at the base of the heart. The S2 heart sound is normal. No gallop is audible. ABDOMEN: He has a soft, nontender abdomen. Bowel sounds are present. There is no definite hepatosplenomegaly. EXTREMITIES: Reveals no clubbing, cyanosis or edema. LABORATORY DATA: EKG shows atrial paced rhythm, nonspecific T-wave abnormalities. Chest x-ray shows no acute disease. LABORATORY DATA: Includes a potassium of 4.1, BUN 41, creatinine 2.00. Troponin 0.06. AST 148, ALT 167. WBC 28.9, hemoglobin 7.4 on admission, platelets 391. IMPRESSION: Atypical chest pains, minimally elevated troponin level, GI bleeding in this 68-year-old white male with a history of paroxysmal atrial fibrillation, hypertension, coronary artery disease, carotid disease, transient ischemic attack, pacemaker implant. Overall, there is no definite evidence for acute coronary syndrome. He may have had a nuclear stress test recently in [place], which was negative for ischemia by his description. The slight elevation in troponin level is nonspecific and is in the setting of renal insufficiency. With respect to his thromboembolic risk with his paroxysmal atrial fibrillation, it is quite high, with his history of transient ischemic attack, vascular disease and hypertension. On the other hand, on his last pacemaker transmission about 3 months ago, his atrial arrhythmia burden was 0%. RECOMMENDATIONS: 1. Resume Xarelto or at least a daily baby aspirin when okay from a GI standpoint. 2. The patient is cleared for endoscopy. 3. As long as his liver function tests are trending downward, would try to continue amiodarone. 4. We will followup as needed. MD RUPERTO Schumacher/shonna , 05:38 PM , 05:51 PM [facility]
[2018-07-19] MEDS: Morphine Sulfate 15 MG IR Tablet PO PRN ×4 (00:38→23:53)
[2018-07-19] MEDS: Pantoprazole Inj 80 MG in Sodium Chlor 0.9% Inj 100 ML IV.CONT SCH ×2 (01:49→16:05)
[2018-07-19] MEDS: Sod Chloride 0.9% Inj 1,000 ML IV.CONT SCH ×2 (04:29→16:58)
[2018-07-19 06:40] LABS: Potassium 3.8 meq/L (3.5-5.1)
[2018-07-19 06:45] LABS: Baso % (Auto) 0.6 % (0.0-2.0); Eos # (Auto) 0.3 th/mm3 (0.0-0.4); Eos % (Auto) 4.5 % (0.0-4.0); Hemoglobin 6.7 gm/dL (13.0-17.0); Lymph % (Auto) 29.1 % (9.0-44.0); Mean Corpuscular HGB Conc 31.7 % (32.0-36.0); Mean Corpuscular Hemoglobin 27.8 pg (27.0-34.0); Mean Corpuscular Volume 87.6 fL (80.0-100.0); Mean Platelet Volume 8.5 fL (7.0-11.0); Mono % (Auto) 14.1 % (0.0-8.0); Neut # (Auto) 3.5 th/mm3 (1.8-7.7); Neut % (Auto) 51.7 % (16.0-70.0); Platelet Count 229 th/mm3 (150-450); Red Blood Count 2.43 mil/mm3 (4.50-5.90); Red Cell Distribution Width 15.6 % (11.6-17.2)
[2018-07-19 07:08] LABS: Albumin 1.8 g/dL (3.4-5.0); Carbon Dioxide 25.1 meq/L (21.0-32.0); Total Protein 4.6 g/dL (6.4-8.2)
[2018-07-19 07:22] LABS: Hematocrit 21.3 % (39.0-51.0); White Blood Count 6.8 th/mm3 (4.0-11.0)
[2018-07-19 07:41] LABS: Platelet Estimate Normal (Normal); Platelet Morphology Normal (Normal); Rouleaux Present
[2018-07-19] MEDS ORDERED: Sodium Chlor 0.9% Inj 250 ML IV.SIG SCH (08:00)
[2018-07-19] MEDS: Gabapentin 100 MG Capsule PO SCH (08:38)
[2018-07-19] MEDS: Ferrous Sulfate 325 MG Tablet PO SCH (08:38)
[2018-07-19] MEDS: Sertraline 50 MG Tablet PO SCH (08:38)
[2018-07-19] MEDS: Senna/Docusate Sodium 8.6/50 MG Tablet PO SCH ×2 (08:41→21:11)
[2018-07-19] MEDS: Amiodarone 200 MG Tablet PO SCH (09:50)
--- NOTE | 2018-07-19 10:10 | P.PNIM ---
Subjective Interval history: Follow-up GI bleed. Patient seen and examined, lying in bed comfortably no apparent distress. Overnight hemoglobin dropped to 6.7 from 8.8 after 1 unit of PRBC. Gastroenterology called in updated, plan for EGD and colonoscopy this afternoon around noon. Will transfuse 2 units PRBC. No presence of any acute bright red blood loss, RN reports of black stools overnight. Vital signs stable. Asymptomatic. Denies any shortness of breath or chest pain. Physical Exam Vital signs: Vital Signs 07/18/18 11:00 07/18/18 12:00 07/18/18 13:00 Temperature Pulse Rate 60 58 L 58 L Respiratory Rate 21 15 12 Blood Pressure 163/65 H 115/50 L 129/56 L Pulse Oximetry 07/18/18 14:00 07/18/18 16:00 07/18/18 17:00 Temperature Pulse Rate 60 60 60 Respiratory Rate 10 L 15 21 Blood Pressure 113/52 L 149/73 H Pulse Oximetry 07/18/18 20:00 07/19/18 00:00 07/19/18 08:00 Temperature 98 F 97 F L 97.4 F L Pulse Rate 62 62 60 Respiratory Rate 18 18 20 Blood Pressure 155/71 H 158/78 H 101/54 L Pulse Oximetry 99 98 95 07/19/18 09:53 07/19/18 10:03 Temperature 98.6 F 98.6 F Pulse Rate 60 60 Respiratory Rate 17 17 Blood Pressure 119/57 L 119/57 L Pulse Oximetry 97 Intake & Output 07/18/18 07/19/18 07/19/18 18:59 06:59 18:59 Intake Total 1460 / 1460 6100 / 6100 540 / 540 Output Total 800 / 800 1200 / 1200 Balance 660 / 660 4900 / 4900 540 / 540 Weight 66.8 kg Intake: IV 500 / 500 2100 / 2100 300 / 300 Protonix Inj 80 MG In NS Inj 100 / 100 100 / 100 100 ML @ 10 mls/hr IV.CONT Q10H ROSY Rx#:[id number] NS Inj 1,000 ML @ 42 mls/hr IV. 400 / 400 2000 / 2000 300 / 300 CONT .[id number] ROSY Rx#: [id number] Oral 960 / 960 4000 / 4000 240 / 240 Output: Urine 800 / 800 Stool 1200 / 1200 Other: # Voids 5 Date of Last Bowel Movement 07/18/18 # Bowel Movements 6 Narrative: GENERAL: Well-developed, well-nourished, in no acute distress. alert and orientated HEENT: Head is normocephalic without any lesions or masses noted. Facial features are symmetric. Eyes: Pupils equal round reactive to light. Extraocular muscles are intact. Conjunctivae were clear. Oropharyngeal: Pharynx without any erythema edema. Tongue is midline without deviation. Buccal mucosa is moist without any masses or lesions NECK: Supple without any masses. Trachea midline no deviation. No JVD, no bruits are appreciated CARDIAC: Regular rhythm, regular rate. S1/S2 are heard. No murmurs gallops or rubs. LUNGS: Clear to auscultation bilaterally. No wheeze, rhonchi or rales. No use of accessory muscles on inspiration or expiration. ABDOMEN: Soft, nontender. Nondistended. Bowel sounds heard in all 4 quadrants. No organomegaly or masses. Negative rebound, negative guarding EXTREMITIES: No edema, pulses are equal bilaterally. No cyanosis or clubbing NEUROLOGY: Mood and affect appear appropriate. Cranial nerves II through XII grossly intact. Muscle strength 5/5 in upper and lower extremities bilaterally. Deep tendon reflexes are 2+ in upper and lower extremities bilaterally. Results - Labs CBC & Chem 7: 07/19/18 05:55 07/19/18 05:55 Laboratory Results - last 24 hr 07/17/18 07/18/18 07/18/18 19:07 15:45 17:00 CBC w Diff Radiology Supervisor Slide review pending WBC 8.4 RBC Radiology Supervisor 3.01 L Hgb Radiology Supervisor 8.8 L Hct Radiology Supervisor 25.9 L MCV Radiology Supervisor 85.9 MCH Radiology Supervisor 29.1 MCHC Radiology Supervisor 33.9 RDW Radiology Supervisor 16.1 Plt Count Radiology Supervisor 270 MPV Radiology Supervisor 9.0 Neut % (Auto) 70.5 H Lymph % (Auto) 16.9 [place] % (Auto) 9.9 H Eos % (Auto) 2.2 Baso % (Auto) 0.5 Neut # (Auto) 6.0 Lymph # (Auto) 1.4 [place] # (Auto) 0.8 Eos # (Auto) 0.2 Baso # (Auto) 0.0 WBC Differential . . Diff Scan Auto diff confirmed Differential Comment . . Platelet Estimate Normal Platelet Morphology Normal Ovalocytes 1+ H Rouleaux Hematology Comments Sodium Potassium Chloride Carbon Dioxide Anion Gap BUN Creatinine Estimated GFR Random Glucose Calcium Prot Corrected Calcium Total Bilirubin AST ALT Alkaline Phosphatase Total Protein Albumin MTS Gel Crossmatch See Detail Bld Prod Order Comment 07/19/18 07/19/18 07/19/18 05:55 05:55 07:30 CBC w Diff Slide review pending WBC 6.8 RBC 2.43 L Hgb 6.7 L* D Hct 21.3 L MCV 87.6 MCH 27.8 MCHC 31.7 L RDW 15.6 Plt Count 229 MPV 8.5 Neut % (Auto) 51.7 Lymph % (Auto) 29.1 [place] % (Auto) 14.1 H Eos % (Auto) 4.5 H Baso % (Auto) 0.6 Neut # (Auto) 3.5 Lymph # (Auto) 2.0 [place] # (Auto) 1.0 H Eos # (Auto) 0.3 Baso # (Auto) 0.0 WBC Differential . Diff Scan Auto diff confirmed Differential Comment . Platelet Estimate Normal Platelet Morphology Normal Ovalocytes Rouleaux Present H Hematology Comments Sodium 144 Potassium 3.8 Chloride 113 H Carbon Dioxide 25.1 Anion Gap 6 BUN 26 H Creatinine 1.60 H Estimated GFR 43 L Random Glucose 84 Calcium 7.0 L* Prot Corrected Calcium 8.4 L Total Bilirubin 0.4 AST 151 H ALT 154 H Alkaline Phosphatase 48 Total Protein 4.6 L Albumin 1.8 L MTS Gel Crossmatch See Detail Bld Prod Order Comment Assessment and Plan - Assessment (1) GI bleed Code(s): K92.2 - Gastrointestinal hemorrhage, unspecified Status: Acute (2) Melena Code(s): K92.1 - Melena Status: Acute - Plan This is a pleasant 68-year-old male patient with: Gastrointestinal bleeding -Complicated by anticoagulation use of Xarelto -Transfused 1 unit packed red blood cells. Hemoglobin 8.8 after transfusion. Overnight has dropped to hemoglobin of 6.7. Will transfuse another 2 units of PRBC. -Continue to monitor for any active bleeding. Reports of black stool overnight. Trend H&H. Continue Protonix drip. -GI consulted for further recommendations, spoke to him this morning and updated about patient drop in hemoglobin. Plan for EGD and colonoscopy today at noon. -Patient has finished GoLYTELY prep. Will keep n.p.o. for now. -Await results of the endoscopy today. -Supportive care. Equivocal troponin elevation -Patient denies any chest pain, nausea, vomiting, diaphoresis. -Troponin remains flat. -Continued on cardiac telemetry, no arrhythmias overnight. Hypertension, hyperlipidemia, coronary disease, chronic atrial fibrillation -Will continue home medications. -Will continue to hold Xarelto at this time. -Will consult patient's measuring clerk for recommendations of anticoagulation, as well as the equivocal troponin elevation. Awaiting recommendations. Chronic kidney disease stage III -Continue monitor renal function. Chronic back pain -Continue home medications. DVT prevention -Sequential compression devices, avoid chemical prophylaxis secondary to GI bleed. Discharge Planning: Awaiting for endoscopy today. Cardiology consulted for elevated troponins. Awaiting evaluation.
--- NOTE | 2018-07-19 14:25 | GIPROC ---
[address], [address] COLONOSCOPY PROCEDURE REPORT EXAM DATE: 07/19/2018 PATIENT NAME: Chico Ferrer MR #: [id number] BIRTHDATE: 1950 ENDOSCOPIST: Ed Mccartney MD ORDER #: [id number] SILO TENDER: STATUS: inpatient INDICATIONS: The patient is a 68 yr old male here for a colonoscopy due to iron deficiency anemia and melena PROCEDURE PERFORMED: Colonoscopy, diagnostic MEDICATIONS: None and Per Anesthesia. PREP QUALITY: poor ESTIMATED BLOOD LOSS: None CONSENT: The patient understands the risks and benefits of the procedure and understands that these risks include, but are not limited to: sedation, allergic reaction, infection, perforation and/or bleeding. Alternative means of evaluation and treatment include, among others: physical exam, x-rays, and/or surgical intervention. The patient elects to proceed with this endoscopic procedure. medical equipment was checked for proper function. Hand hygiene and appropriate measures for infection prevention was taken. After the risks, benefits and alternatives of the procedure were thoroughly explained, Informed consent was verified, confirmed and timeout was successfully executed by the treatment team. A digital exam revealed no abnormalities of the rectum The Pentax EC-[id number] endoscope was introduced through the anus and advanced to the cecum, which was identified by both the appendix and ileocecal valve. The instrument was then slowly withdrawn as the colon was fully examined. COLON FINDINGS: Moderate diverticulosis was noted in the descending colon and sigmoid colon. Retroflexed views revealed internal hemorrhoids and Retroflexed views revealed small internal hemorrhoids The scope was then completely withdrawn from the patient and the procedure terminated. PROCEDURE WITHDRAWAL TIME:10minutes ADVERSE EVENTS: There were no complications. IMPRESSIONS: 1. Moderate diverticulosis was noted in the descending colon and sigmoid colon 2. Retroflexed views revealed internal hemorrhoids 3. Retroflexed views revealed small internal hemorrhoids 4. Revealed no abnormalities of the rectum RECOMMENDATIONS: 1. Monitor H/H 2. Bleeding Scan, Nuclear Medicine RECALL: Return 1 year Colonoscopy Ed Mccartney MD eSigned: Ed Mccartney MD 07/19/2018 2:25 PM cc: PATIENT NAME: Chico Ferrer MR#: [id number]
--- NOTE | 2018-07-19 14:29 | GIPROC ---
[facility] [address] [place] [address], [id number] EGD PROCEDURE REPORT EXAM DATE: 07/19/2018 PATIENT NAME: Chico Ferrer MR #: [id number] BIRTHDATE: 1950 ATTENDING: Ed Mccartney MD ORDER #: [id number] STRUCTURAL METAL WORKER: Jacky Ovalles and Gail Hurst STATUS: inpatient INDICATIONS: The patient is a 68 yr old male here for an EGD due to iron deficiency anemia and melena PROCEDURE PERFORMED: EGD, diagnostic MEDICATIONS: None and Per Anesthesia. TOPICAL ANESTHETIC: none CONSENT: The patient understands the risks and benefits of the procedure and understands that these risks include, but are not limited to: sedation, allergic reaction, infection, perforation and/or bleeding. Alternative means of evaluation and treatment include, among others: physical exam, x-rays, and/or surgical intervention. The patient elects to proceed with this endoscopic procedure. medical equipment was checked for proper function. Hand hygiene and appropriate measures for infection prevention was taken. After the risks, benefits and alternatives of the procedure were thoroughly explained, Informed consent was verified, confirmed and timeout was successfully executed by the treatment team. The patient was anesthetized with topical anesthesia and the Pentax EG-[id number], Pentax EG-[id number], Pentax EG-[id number], and EC-3490Li (Pedi C) endoscope was introduced through the mouth and advanced to the second portion of the duodenum. Retroflexed views revealed no abnormalities The gastroscope was then slowly withdrawn and removed. ESOPHAGUS: The mucosa of the esophagus appeared normal. STOMACH: The mucosa of the stomach appeared normal. DUODENUM: The duodenal mucosa appeared normal in the entire duodenum. No active bleeding or SRH seen. ADVERSE EVENTS: There were no complications. IMPRESSIONS: 1. The esophagus appeared normal 2. The mucosa of the stomach appeared normal 3. Normal duodenal mucosa in the entire duodenum 4. No active bleeding or SRH seen 5. Retroflexed views revealed no abnormalities RECOMMENDATIONS: Colonoscopy PATIENT CONDITION: fair DISPOSITION: REPEAT EXAM: Ed Mccartney MD eSigned: Ed Mccartney MD 07/19/2018 2:28 PM cc: PATIENT NAME: Chico Ferrer MR#: [id number]
[2018-07-19] MEDS: Pantoprazole Inj 40 MG Vial IV.PUSH SCH (17:11)
--- NOTE | 2018-07-19 20:55 | NM ---
EXAM DATE: 07/19/2018 6:27 PM EDT AGE/SEX: 68 years / Male INDICATIONS: Blood in stool. CLINICAL DATA: This is the patient's initial encounter. Patient reports that signs and symptoms have been present for 2 days and indicates a pain score of 0/10. MEDICAL/SURGICAL HISTORY: Gastroesophageal reflux disease. Chronic kidney disease. Coronary art mi disease. CABG. Pacemaker. Coronary artery stent. COMPARISON: No prior exams available for comparison. TECHNIQUE: Following the modified in vitro labeling of autologous red cells, dynamic continuous image s were acquired for two hours. ?? DOSE: 21.1 mCi Tc 99m Ultratag Labeled Red Blood Cells IV IMAGING TIME: 2 hr FINDINGS: Biodistribution: There is a very good labeling of red cells without significant uptake in the gastri c wall. There is good delineation of the blood pool of the spleen and abdominal vessels. Bleeding: There is some abnormal activity predominantly in the left upper quadrant involving multip le small bowel loops extending towards the distal small bowel. Within the pelvis there is penile and bladder activity. CONCLUSION: 1. Small amount of active bleeding in the left upper quadrant within small bowel loops. Electronically signed by: Nicholas Rosa MD 07/19/2018 8:54 PM EDT
[2018-07-19 21:11] LABS: Hematocrit 29.4 % (39.0-51.0)
[2018-07-19 22:34] LABS: Bilirubin,Urine Negative (Negative); Clarity,Urine Clear (Clear); Color,Urine Yellow (Yellw/Straw); Glucose,Urine (UA) Negative (Negative); Leukocyte Esterase,Urine Negative (Negative); Nitrite,Urine Negative (Negative); Specific Gravity,Urine Less/Equal 1.005 (1.002-1.035); Urobilinogen,Urine 0.2 mg/dL (Less than 2)
[2018-07-20 03:34] LABS: Hematocrit 29.5 % (39.0-51.0); Hemoglobin 9.4 gm/dL (13.0-17.0)
[2018-07-20] MEDS: Pantoprazole Inj 40 MG Vial IV.PUSH SCH ×2 (05:50→20:11)
[2018-07-20] MEDS: Morphine Sulfate 15 MG IR Tablet PO PRN ×3 (05:51→17:50)
[2018-07-20] MEDS: Ferrous Sulfate 325 MG Tablet PO SCH (08:43)
[2018-07-20] MEDS: Sertraline 50 MG Tablet PO SCH (08:43)
[2018-07-20] MEDS: Gabapentin 100 MG Capsule PO SCH ×2 (08:43→08:49)
[2018-07-20] MEDS: Senna/Docusate Sodium 8.6/50 MG Tablet PO SCH ×2 (08:44→20:53)
[2018-07-20] MEDS: Amiodarone 200 MG Tablet PO SCH (08:44)
--- NOTE | 2018-07-20 09:30 | P.PNIM ---
Subjective Interval history: Follow up GI bleed. Patient seen and examined, lying in bed comfortably in nad. Patient denies any acute events overnight. His bleeding scan last evening is showing small bleed in left upper quadrant of small bowel. GI ordered for transfer to [facility] to undergo an angiogram with IR. Patient has been updated. Continue to trend H&H. Denies any acute complaints including chest pain or shortness of breath. VSS at this time. Plan for procedure today in IR. Physical Exam Vital signs: Vital Signs 07/19/18 09:53 07/19/18 10:03 07/19/18 10:18 Temperature 98.6 F 98.6 F 98.2 F Pulse Rate 60 60 61 Respiratory Rate 17 17 17 Blood Pressure 119/57 L 119/57 L 131/61 Pulse Oximetry 97 97 07/19/18 12:00 07/19/18 12:33 07/19/18 12:38 Temperature 98.5 F 98.9 F 98.9 F Pulse Rate 61 61 61 Respiratory Rate 21 20 18 Blood Pressure 175/73 H 119/64 119/64 Pulse Oximetry 99 96 07/19/18 14:00 07/19/18 14:30 07/19/18 14:45 Temperature 98.5 F 98.4 F Pulse Rate 61 60 60 Respiratory Rate 21 12 16 Blood Pressure 175/73 H 95/45 L 132/60 Pulse Oximetry 99 98 100 07/19/18 15:00 07/19/18 15:15 07/19/18 15:56 Temperature 97.9 F Pulse Rate 60 60 Respiratory Rate 16 17 Blood Pressure 145/62 H 142/62 H 164/70 H Pulse Oximetry 100 07/19/18 16:00 07/19/18 16:15 07/19/18 20:00 Temperature 98.7 F 98.6 F 96.5 F L Pulse Rate 67 67 63 Respiratory Rate 21 21 16 Blood Pressure 119/61 119/61 169/59 H Pulse Oximetry 95 95 99 07/20/18 00:00 Temperature 96.8 F L Pulse Rate 68 Respiratory Rate 16 Blood Pressure 158/62 H Pulse Oximetry 98 Intake & Output 07/19/18 07/20/18 07/20/18 18:59 06:59 18:59 Intake Total 2780 / 2780 1050 / 1050 Output Total 1425 / 1425 Balance 2780 / 2780 -375 / -375 Weight 67.5 kg Intake: IV 930 / 930 Protonix Inj 80 MG In NS Inj 100 / 100 100 ML @ 10 mls/hr IV.CONT Q10H ROSY Rx#:[id number] NS Inj 1,000 ML @ 42 mls/hr IV. 800 / 800 CONT .[id number] ROSY Rx#: [id number] NS Inj 250 ML @ 15 mls/hr IV. 30 / 30 SIG ONCE ROSY Rx#:[id number] Oral 240 / 240 1050 / 1050 Anesthesia Amount 750 / 750 Other 60 / 60 Rbc As-3 Leukoreduced Unit 60 / 60 [id number] Intake (Blood Product) Amt 800 / 800 Rbc As-3 Leukoreduced Unit 400 / 400 [id number] Rbc As-3 Leukoreduced Unit 400 / 400 [id number] Output: Urine 1425 / 1425 Other: Other Intake Source Rbc As-3 Leukoreduced Unit Saline Solution [id number] # Voids 2 Date of Last Bowel Movement 07/19/18 07/19/18 07/19/18 Narrative: GENERAL: Well-developed, well-nourished, in no acute distress. alert and orientated HEENT: Head is normocephalic without any lesions or masses noted. Facial features are symmetric. Eyes: Pupils equal round reactive to light. Extraocular muscles are intact. Conjunctivae were clear. Pale. Oropharyngeal: Pharynx without any erythema edema. Tongue is midline without deviation. Buccal mucosa is moist without any masses or lesions NECK: Supple without any masses. Trachea midline no deviation. No JVD, no bruits are appreciated CARDIAC: Regular rhythm, regular rate. S1/S2 are heard. No murmurs gallops or rubs. LUNGS: Clear to auscultation bilaterally. No wheeze, rhonchi or rales. No use of accessory muscles on inspiration or expiration. ABDOMEN: Soft, nontender. Nondistended. Bowel sounds heard in all 4 quadrants. No organomegaly or masses. Negative rebound, negative guarding EXTREMITIES: No edema, pulses are equal bilaterally. No cyanosis or clubbing NEUROLOGY: Mood and affect appear appropriate. Cranial nerves II through XII grossly intact. Muscle strength 5/5 in upper and lower extremities bilaterally. Deep tendon reflexes are 2+ in upper and lower extremities bilaterally. Results - Labs CBC & Chem 7: 07/20/18 09:40 07/19/18 05:55 Laboratory Results - last 24 hr 07/17/18 07/19/18 07/19/18 19:07 07:30 21:00 Hgb 10.0 L D Hct 29.4 L Urine Color Urine Clarity Urine pH Ur Specific [place] Urine Protein Urine Glucose (UA) Urine Ketones Urine Occult Blood Urine Nitrate Urine Bilirubin Urine Urobilinogen Ur Leukocyte Esterase Urine RBC Micro UA Comment Ur Microscopic Review MTS Gel Crossmatch See Detail See Detail Bld Prod Order Comment 07/19/18 07/20/18 22:10 03:10 Hgb 9.4 L Hct 29.5 L Urine Color Yellow Urine Clarity Clear Urine pH 6.0 Ur Specific [place] Less/equal 1.005 Urine Protein Negative Urine Glucose (UA) Negative Urine Ketones Negative Urine Occult Blood Large H Urine Nitrate Negative Urine Bilirubin Negative Urine Urobilinogen 0.2 Ur Leukocyte Esterase Negative Urine RBC 4-15 H Micro UA Comment Culture not ind Ur Microscopic Review Microscopic reviewed MTS Gel Crossmatch Bld Prod Order Comment - Imaging Impressions GI Bleed Scan Nuclear Medicine 07/19/18 00:00 CONCLUSION: 1. Small amount of active bleeding in the left upper quadrant within small bowel loops. Assessment and Plan - Assessment (1) GI bleed Code(s): K92.2 - Gastrointestinal hemorrhage, unspecified Status: Acute (2) Melena Code(s): K92.1 - Melena Status: Acute - Plan This is a pleasant 68-year-old male patient with: Gastrointestinal bleeding -Complicated by anticoagulation use of Xarelto -Transfused a total of 3 units of packed red blood cells. Hemoglobin 9.1 after transfusions. Will continue to trend. -Continue to monitor for any active bleeding. Reports of black stool overnight. -GI consulted for further recommendations, spoke to him this morning with positive bleeding scan overnight. Status post EGD and colonoscopy yesterday without any significant findings. Order for IR to perform angiogram at [facility] today. Will arrange transport. -Trend H&H. Continue Protonix. Supportive care. Troponin elevation -Patient denies any chest pain, nausea, vomiting, diaphoresis. -Troponin remains flat. -Continued on cardiac telemetry, no arrhythmias overnight. Hypertension, hyperlipidemia, coronary disease, chronic atrial fibrillation -Will continue home medications. -Will continue to hold Xarelto at this time. -Will consult patient's creative writing teacher for recommendations of anticoagulation, as well as the equivocal troponin elevation. Cleared for procedures. Continue anticoagulation when cleared by GI. Continue Amiodarone. Chronic kidney disease stage III -Continue monitor renal function. Chronic back pain -Continue home medications. DVT prevention -Sequential compression devices, avoid chemical prophylaxis secondary to GI bleed. Discharge Planning: Awaiting clinical improvement. Needs angiogram with IR today.
[2018-07-20 09:47] LABS: Hematocrit 26.8 % (39.0-51.0); Hemoglobin 9.1 gm/dL (13.0-17.0)
[2018-07-20] MEDS: ALPRAZolam 0.25 MG Tablet PO PRN ×3 (10:37→21:54)
[2018-07-20] MEDS ORDERED: fentaNYL Citrate Inj 250 MCG/5 ML Ampul ONE (15:08)
--- NOTE | 2018-07-20 16:46 | P.RAD ---
Post Procedure Progress Note - Pre Procedure Diagnosis (1) Acute GI bleeding - Post Procedure Diagnosis (1) Acute GI bleeding - Procedure Information Procedure Date: 07/20/18 Supervising Radiologist: Juliocesar Riddle Jr, MD Proceduralist/Assist: Gabi Lomas Estimated blood loss (mL): 0 Anesthesia: Conscious Sedation - Plan of Activity Patient to Unit: ROPU Patient Condition: Good See PACS Report for procedural detail/treatment. Vascular - Arterial Procedure Abdominal Procedure: Angiogram - Additional Information Findings: Mesenteric angiography performed to assess acute UGI bleed. NM study suggests small bowel origin. Pt has an occluded right external iliac artery. Access on left. 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 This results in limited opacification of the distal distribution of the SMA with the contrast limiting the exam. No acute hemorrhage observed. SMA occlusion would prevent intravascular therapy of an UGI bleed. Plan: Medical management.
[2018-07-20] MEDS ORDERED: Morphine Inj 4 MG/ML Vial IV.PUSH PRN (18:00)
[2018-07-20 20:04] LABS: Hematocrit 27.7 % (39.0-51.0); Hemoglobin 9.6 gm/dL (13.0-17.0)
[2018-07-21 04:27] LABS: Alanine Aminotransferase 140 U/L (12-78); Albumin 1.8 g/dL (3.4-5.0); Anion Gap 4 meq/L (5-15); Aspartate Aminotransferase 146 U/L (15-37); Blood Urea Nitrogen 16 mg/dL (7-18); Calcium 7.5 mg/dL (8.5-10.1); Carbon Dioxide 28.4 meq/L (21.0-32.0); Chloride 112 meq/L (98-107); Glomerular Filtration Rate 45 mL/min (>89); Glucose,Random 100 mg/dL (74-106); Potassium 3.7 meq/L (3.5-5.1); Sodium 144 meq/L (136-145)
[2018-07-21 04:30] LABS: Alkaline Phosphatase 57 U/L (45-117); Baso % (Auto) 0.6 % (0.0-2.0); Eos # (Auto) 0.4 th/mm3 (0.0-0.4); Eos % (Auto) 6.3 % (0.0-4.0); Hematocrit 27.5 % (39.0-51.0); Hemoglobin 9.2 gm/dL (13.0-17.0); Lymph # (Auto) 1.2 th/mm3 (1.0-4.8); Lymph % (Auto) 18.2 % (9.0-44.0); Mean Corpuscular HGB Conc 33.3 % (32.0-36.0); Mean Corpuscular Hemoglobin 29.2 pg (27.0-34.0); Mean Corpuscular Volume 87.8 fL (80.0-100.0); Mean Platelet Volume 8.2 fL (7.0-11.0); Mono # (Auto) 1.1 th/mm3 (0.0-0.9); Mono % (Auto) 16.3 % (0.0-8.0); Neut # (Auto) 3.9 th/mm3 (1.8-7.7); Neut % (Auto) 58.6 % (16.0-70.0); Platelet Count 298 th/mm3 (150-450); Red Blood Count 3.13 mil/mm3 (4.50-5.90); Red Cell Distribution Width 16.1 % (11.6-17.2); Total Protein 4.7 g/dL (6.4-8.2); White Blood Count 6.7 th/mm3 (4.0-11.0)
[2018-07-21] MEDS: Morphine Sulfate 15 MG IR Tablet PO PRN ×3 (04:51→18:28)
[2018-07-21] MEDS: Pantoprazole Inj 40 MG Vial IV.PUSH SCH ×2 (04:51→16:54)
[2018-07-21] MEDS: ALPRAZolam 0.25 MG Tablet PO PRN ×3 (05:24→23:45)
[2018-07-21 05:35] LABS: Platelet Estimate Normal (Normal); Platelet Morphology Normal (Normal)
[2018-07-21 05:37] LABS: Polychromasia 2.2 % (0.0-1.9)
[2018-07-21] MEDS: Ferrous Sulfate 325 MG Tablet PO SCH (08:29)
[2018-07-21] MEDS: Senna/Docusate Sodium 8.6/50 MG Tablet PO SCH ×2 (08:29→22:07)
[2018-07-21] MEDS: Gabapentin 100 MG Capsule PO SCH (08:29)
[2018-07-21] MEDS: Amiodarone 200 MG Tablet PO SCH (08:30)
[2018-07-21] MEDS: Sertraline 50 MG Tablet PO SCH (08:30)
--- NOTE | 2018-07-21 10:33 | P.PNVS ---
Subjective Subjective/Hospital Course: Referral received Full consult TF J Objective Vital Signs / I&O: Vital Signs 07/20/18 12:00 07/20/18 12:37 07/20/18 13:00 Temperature 97.3 F L Pulse Rate 61 62 60 Respiratory Rate 18 13 13 Blood Pressure 106/57 L 117/57 L Pulse Oximetry 95 88 L 91 L 07/20/18 14:00 07/20/18 14:42 07/20/18 16:39 Temperature 98.0 F Pulse Rate 60 Respiratory Rate 21 Blood Pressure 128/67 128/67 Pulse Oximetry 96 100 07/20/18 17:07 07/20/18 17:11 07/20/18 17:14 Temperature Pulse Rate 62 Respiratory Rate Blood Pressure 133/63 158/70 H Pulse Oximetry 07/20/18 17:15 07/20/18 17:30 07/20/18 17:46 Temperature Pulse Rate 62 60 60 Respiratory Rate 20 30 H 47 H Blood Pressure 156/72 H 152/77 H 153/68 H Pulse Oximetry 07/20/18 18:00 07/20/18 18:15 07/20/18 18:30 Temperature Pulse Rate 61 60 61 Respiratory Rate 37 H 28 H 28 H Blood Pressure 162/74 H 144/67 H 139/60 Pulse Oximetry 07/20/18 18:45 07/20/18 19:00 07/20/18 19:16 Temperature Pulse Rate 60 60 60 Respiratory Rate 55 H 52 H 23 Blood Pressure 173/73 H 160/70 H 144/65 H Pulse Oximetry 07/20/18 19:30 07/20/18 19:45 07/20/18 20:00 Temperature 97.4 F L Pulse Rate 60 60 60 Respiratory Rate 20 40 H 22 Blood Pressure 152/70 H 167/75 H 155/68 H Pulse Oximetry 98 07/20/18 20:15 07/20/18 20:24 07/20/18 20:30 Temperature Pulse Rate 61 63 63 Respiratory Rate 19 21 21 Blood Pressure 168/77 H 161/71 H 161/71 H Pulse Oximetry 96 96 07/20/18 20:45 07/20/18 21:00 07/20/18 21:16 Temperature Pulse Rate 62 60 60 Respiratory Rate 30 H 25 H 34 H Blood Pressure 159/73 H 168/77 H 165/76 H Pulse Oximetry 98 98 98 07/20/18 21:24 07/20/18 21:30 07/20/18 21:35 Temperature Pulse Rate 60 63 60 Respiratory Rate 15 37 H 15 Blood Pressure 173/74 H 183/82 H 173/74 H Pulse Oximetry 99 100 99 07/20/18 21:45 07/20/18 22:00 07/20/18 22:15 Temperature Pulse Rate 61 72 61 Respiratory Rate 21 29 H 14 Blood Pressure 151/63 H 146/63 H 124/58 L Pulse Oximetry 94 L 94 L 99 07/20/18 22:24 07/20/18 22:30 07/20/18 22:45 Temperature Pulse Rate 60 60 60 Respiratory Rate 13 13 12 Blood Pressure 103/52 L 103/52 L 104/51 L Pulse Oximetry 90 L 87 L 91 L 07/20/18 23:00 07/20/18 23:15 07/20/18 23:30 Temperature Pulse Rate 60 61 61 Respiratory Rate 12 12 15 Blood Pressure 98/55 L 128/58 L 117/52 L Pulse Oximetry 91 L 98 91 L 07/20/18 23:45 07/21/18 00:00 07/21/18 00:15 Temperature 97.7 F Pulse Rate 60 60 60 Respiratory Rate 10 L 14 11 L Blood Pressure 95/52 L 93/54 L 95/51 L Pulse Oximetry 91 L 89 L 100 07/21/18 00:30 07/21/18 00:45 07/21/18 01:00 Temperature Pulse Rate 60 60 60 Respiratory Rate 21 20 16 Blood Pressure 99/50 L 131/60 107/51 L Pulse Oximetry 100 100 100 07/21/18 01:15 07/21/18 01:30 07/21/18 01:45 Temperature Pulse Rate 60 60 60 Respiratory Rate 10 L 11 L 11 L Blood Pressure 98/55 L 102/52 L 106/56 L Pulse Oximetry 100 99 98 07/21/18 02:00 07/21/18 02:15 07/21/18 02:30 Temperature Pulse Rate 60 60 71 Respiratory Rate 24 13 33 H Blood Pressure 110/55 L 110/59 L 93/52 L Pulse Oximetry 98 100 95 07/21/18 02:45 07/21/18 03:00 07/21/18 03:15 Temperature Pulse Rate 60 60 60 Respiratory Rate 16 11 L 13 Blood Pressure 123/60 113/56 L 148/65 H Pulse Oximetry 99 100 97 07/21/18 03:30 07/21/18 03:45 07/21/18 04:00 Temperature 97.7 F Pulse Rate 60 60 60 Respiratory Rate 17 12 12 Blood Pressure 127/60 107/53 L 109/55 L Pulse Oximetry 97 99 99 07/21/18 04:15 07/21/18 04:30 07/21/18 04:45 Temperature Pulse Rate 60 60 61 Respiratory Rate 14 16 14 Blood Pressure 112/53 L 117/56 L 123/58 L Pulse Oximetry 98 98 98 07/21/18 05:00 07/21/18 05:15 07/21/18 05:30 Temperature Pulse Rate 61 62 60 Respiratory Rate 14 27 H 23 Blood Pressure 97/52 L 121/56 L 133/63 Pulse Oximetry 99 100 100 Intake & Output 07/20/18 07/21/18 07/21/18 18:59 06:59 18:59 Intake Total 480 / 480 Output Total 1100 / 1100 Balance -620 / -620 Weight 60.6 kg Intake: Oral 480 / 480 Output: Urine 1100 / 1100 Other: # Voids 3 Date of Last Bowel Movement 07/19/18 07/21/18 # Bowel Movements 1 Laboratory Results - last 24 hr 07/20/18 07/21/18 07/21/18 19:25 03:10 03:10 WBC 6.7 RBC 3.13 L Hgb 9.6 L 9.2 L Hct 27.7 L 27.5 L MCV 87.8 MCH 29.2 MCHC 33.3 RDW 16.1 Plt Count 298 D MPV 8.2 Prelim Diff (Auto) Slide review pending Neut % (Auto) 58.6 Lymph % (Auto) 18.2 Kay % (Auto) 16.3 H Eos % (Auto) 6.3 H Baso % (Auto) 0.6 Neut # (Auto) 3.9 Lymph # (Auto) 1.2 [place] # (Auto) 1.1 H Eos # (Auto) 0.4 Baso # (Auto) 0.0 WBC Differential . Diff Scan Auto diff confirmed Differential Comment . Platelet Estimate Normal Platelet Morphology Normal Polychromasia 2.2 H Basophilic Stippling Faint H Keratocytes Occ H Sodium 144 Potassium 3.7 Chloride 112 H Carbon Dioxide 28.4 Anion Gap 4 L BUN 16 Creatinine 1.54 H Estimated GFR 45 L Random Glucose 100 Calcium 7.5 L Total Bilirubin 0.3 AST 146 H ALT 140 H Alkaline Phosphatase 57 Total Protein 4.7 L Albumin 1.8 L Impressions GI Bleed Scan Nuclear Medicine 07/19/18 00:00 CONCLUSION: 1. Small amount of active bleeding in the left upper quadrant within small bowel loops.
--- NOTE | 2018-07-21 16:03 | IR ---
EXAM DATE: 07/21/2018 12:00 AM EDT AGE/SEX: 68 years / Male INDICATIONS: Patient complains of abdominal pain. He has anemia and received 2 units for blood bourne sfusion. Patient has black tarry stools. CLINICAL DATA: This is the patient's initial encounter. Patient reports that signs and symptoms have been present for 1 month and indicates a pain score of 0/10. MEDICAL/SURGICAL HISTORY: Hypertension. Hypercholesterolemia. A-Fib, coronary artery disease, kidney disease, GERD, pacemaker CABG. Pacemaker. Spinal cord stimulator COMPARISON: GI bleeding scan 07/19/2018. [facility], CT ABDOMEN & PELVIS W/O CONTRAST., 07/17/2018. . FLUORO TIME (min): 5.3 IMAGE SERIES: 7 ACCESS SITE: Bilateral femoral artery SEDATION TIME (min): 60 CONTRAST (cc): MEDICATION(S): 2.5 mg midazolam (Versed) IV ; 125 mcg fentanyl (Sublimaze) IV ; ; ; DEVICE(S): ; ; ; ; ; ; . . PROCEDURE : 1. Ultrasound-guided puncture of the right common femoral artery access site. 2. Ultrasound-guided puncture of the left common femoral artery access site. 3. Conscious sedation with continuous EKG and Oximetry monitoring. 4. Angiography of the right external iliac artery 5. Angiography of the left external iliac artery 6. Angiography of the celiac Nuclear medicine bleeding scan suggests small bowel origin within the left upper quadrant. The risks, benefits and alternatives to the procedure were explained and verbal and written consent was obtaine d. The site was prepped in sterile fashion. Full sterile technique was used, including cap, mask, s terile gloves and gown and a large sterile sheet. Hand hygiene and 2% chlorhexidine and/or betadine/ alcohol prep was utilized per protocol for cutaneous antisepsis. Sterile gel and sterile probe cover were utilized for ultrasound guidance. The skin and subcutaneous tissues were infiltrated with loca l anesthetic solution. With ultrasound and fluoroscopic guidance the right common femoral artery was punctured and a vascula r sheath was placed. I was unable to get a wire to course into the aorta. An angiogram through a 4 Fr ench micropuncture sheath shows chronic occlusion of the right common iliac artery. The right externa l iliac artery is filling via lumbar collaterals. Attention was then turned to the left common femoral artery. Ultrasound shows a good pulsation within the artery. Under direct sonographic guidance the left common femoral artery was accessed and a 4 Fr ench sheath placed. Initially I was unable to get a 0.018 wire into the aorta and therefore an angiog corby through the sheath was performed. This shows a area of bending involving the vessel as it joins t he aorta -bicommon iliac bypass graft. I was able to get a Glidewire to course through the anastomosi s and into the aorta. Selection of the celiac was performed and selective angiography reveals patency to the celiac despite calcified plaque. There is gastroduodenal artery collateralization that opacifies the SMA although w eakly. The peripheral distribution of the SMA is poorly opacified with contrast due to the delusional effects. I'm unable to identify a source of acute hemorrhage from this. No acute amount is seen on t his angiogram. Attention was then turned to evaluate the SMA. The SMA is occluded. Heavily calcified plaque is seen involving the SMA origin. An abdominal aortogram performed at the origin of the SMA shows complete oc clusion of the SMA origin. At this point the procedure was terminated. The puncture site was closed with manual pressure and hemostasis was obtained. The patient tolerated the procedure well and there were no complications. Conscious sedation was performed with the prescribed dosages and duration as above in the presence of an independent trained radiology nurse to assist in the monitoring of the patient. EKG and oximetry remained stable throughout the procedure. CONCLUSION: 1. The patient has an aorto bicommon iliac bypass graft. The left inflow is patent. 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 This prevents good angiographic evaluation of the SMA distri bution. It also prevents attempted therapy. 3. 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 This generates poor opacification of the peripheral distribution of the SMA secondary to delusional effect. I'm not able to identify any source of hemor rhage. Electronically signed by: Juliocesar Riddle MD 07/21/2018 4:02 PM EDT
--- NOTE | 2018-07-21 16:29 | P.PN ---
Subjective Interval history: Follow up for GI bleed. Patient is currently doing well. Resting in bed. Denies any chest pain, shortness of breath, fever or chills. He continues to have dark stool. Hemoglobin 9.2 today. Physical Exam Vital signs: Vital Signs 07/20/18 16:39 07/20/18 17:07 07/20/18 17:11 Temperature 98.0 F Pulse Rate Respiratory Rate Blood Pressure 128/67 133/63 158/70 H Pulse Oximetry 07/20/18 17:14 07/20/18 17:15 07/20/18 17:30 Temperature Pulse Rate 62 62 60 Respiratory Rate 20 30 H Blood Pressure 156/72 H 152/77 H Pulse Oximetry 07/20/18 17:46 07/20/18 18:00 07/20/18 18:15 Temperature Pulse Rate 60 61 60 Respiratory Rate 47 H 37 H 28 H Blood Pressure 153/68 H 162/74 H 144/67 H Pulse Oximetry 07/20/18 18:30 07/20/18 18:45 07/20/18 19:00 Temperature Pulse Rate 61 60 60 Respiratory Rate 28 H 55 H 52 H Blood Pressure 139/60 173/73 H 160/70 H Pulse Oximetry 07/20/18 19:16 07/20/18 19:30 07/20/18 19:45 Temperature Pulse Rate 60 60 60 Respiratory Rate 23 20 40 H Blood Pressure 144/65 H 152/70 H 167/75 H Pulse Oximetry 07/20/18 20:00 07/20/18 20:15 07/20/18 20:24 Temperature 97.4 F L Pulse Rate 60 61 63 Respiratory Rate 22 19 21 Blood Pressure 155/68 H 168/77 H 161/71 H Pulse Oximetry 98 96 07/20/18 20:30 07/20/18 20:45 07/20/18 21:00 Temperature Pulse Rate 63 62 60 Respiratory Rate 21 30 H 25 H Blood Pressure 161/71 H 159/73 H 168/77 H Pulse Oximetry 96 98 98 07/20/18 21:16 07/20/18 21:24 07/20/18 21:30 Temperature Pulse Rate 60 60 63 Respiratory Rate 34 H 15 37 H Blood Pressure 165/76 H 173/74 H 183/82 H Pulse Oximetry 98 99 100 07/20/18 21:35 07/20/18 21:45 07/20/18 22:00 Temperature Pulse Rate 60 61 72 Respiratory Rate 15 21 29 H Blood Pressure 173/74 H 151/63 H 146/63 H Pulse Oximetry 99 94 L 94 L 07/20/18 22:15 07/20/18 22:24 07/20/18 22:30 Temperature Pulse Rate 61 60 60 Respiratory Rate 14 13 13 Blood Pressure 124/58 L 103/52 L 103/52 L Pulse Oximetry 99 90 L 87 L 07/20/18 22:45 07/20/18 23:00 07/20/18 23:15 Temperature Pulse Rate 60 60 61 Respiratory Rate 12 12 12 Blood Pressure 104/51 L 98/55 L 128/58 L Pulse Oximetry 91 L 91 L 98 07/20/18 23:30 07/20/18 23:45 07/21/18 00:00 Temperature 97.7 F Pulse Rate 61 60 60 Respiratory Rate 15 10 L 14 Blood Pressure 117/52 L 95/52 L 93/54 L Pulse Oximetry 91 L 91 L 89 L 07/21/18 00:15 07/21/18 00:30 07/21/18 00:45 Temperature Pulse Rate 60 60 60 Respiratory Rate 11 L 21 20 Blood Pressure 95/51 L 99/50 L 131/60 Pulse Oximetry 100 100 100 07/21/18 01:00 07/21/18 01:15 07/21/18 01:30 Temperature Pulse Rate 60 60 60 Respiratory Rate 16 10 L 11 L Blood Pressure 107/51 L 98/55 L 102/52 L Pulse Oximetry 100 100 99 07/21/18 01:45 07/21/18 02:00 07/21/18 02:15 Temperature Pulse Rate 60 60 60 Respiratory Rate 11 L 24 13 Blood Pressure 106/56 L 110/55 L 110/59 L Pulse Oximetry 98 98 100 07/21/18 02:30 07/21/18 02:45 07/21/18 03:00 Temperature Pulse Rate 71 60 60 Respiratory Rate 33 H 16 11 L Blood Pressure 93/52 L 123/60 113/56 L Pulse Oximetry 95 99 100 07/21/18 03:15 07/21/18 03:30 07/21/18 03:45 Temperature Pulse Rate 60 60 60 Respiratory Rate 13 17 12 Blood Pressure 148/65 H 127/60 107/53 L Pulse Oximetry 97 97 99 07/21/18 04:00 07/21/18 04:15 07/21/18 04:30 Temperature 97.7 F Pulse Rate 60 60 60 Respiratory Rate 12 14 16 Blood Pressure 109/55 L 112/53 L 117/56 L Pulse Oximetry 99 98 98 07/21/18 04:45 07/21/18 05:00 07/21/18 05:15 Temperature Pulse Rate 61 61 62 Respiratory Rate 14 14 27 H Blood Pressure 123/58 L 97/52 L 121/56 L Pulse Oximetry 98 99 100 07/21/18 05:30 07/21/18 05:45 07/21/18 06:00 Temperature Pulse Rate 60 60 60 Respiratory Rate 23 11 L 10 L Blood Pressure 133/63 140/64 138/63 Pulse Oximetry 100 100 100 07/21/18 06:15 07/21/18 06:30 07/21/18 06:45 Temperature Pulse Rate 60 60 60 Respiratory Rate 10 L 11 L 20 Blood Pressure 135/62 128/59 L 123/59 L Pulse Oximetry 100 98 96 07/21/18 07:00 07/21/18 07:15 07/21/18 07:30 Temperature Pulse Rate 61 60 60 Respiratory Rate 11 L 12 10 L Blood Pressure 120/58 L 107/51 L 105/53 L Pulse Oximetry 97 97 97 07/21/18 07:45 07/21/18 08:00 07/21/18 08:15 Temperature 97.8 F Pulse Rate 60 63 60 Respiratory Rate 13 12 23 Blood Pressure 111/54 L 129/62 123/56 L Pulse Oximetry 97 98 99 07/21/18 08:30 07/21/18 08:45 07/21/18 09:00 Temperature Pulse Rate 60 60 60 Respiratory Rate 32 H 15 14 Blood Pressure 127/60 128/59 L 162/70 H Pulse Oximetry 97 97 97 07/21/18 09:15 07/21/18 09:30 07/21/18 09:45 Temperature Pulse Rate 60 60 60 Respiratory Rate 12 26 H 13 Blood Pressure 129/61 131/60 147/64 H Pulse Oximetry 97 99 96 07/21/18 10:00 07/21/18 10:15 07/21/18 10:30 Temperature Pulse Rate 60 60 60 Respiratory Rate 10 L 10 L 13 Blood Pressure 131/62 113/54 L 114/55 L Pulse Oximetry 96 97 96 07/21/18 10:45 07/21/18 11:00 07/21/18 11:15 Temperature Pulse Rate 60 60 60 Respiratory Rate 17 13 11 L Blood Pressure 111/55 L 110/54 L 110/57 L Pulse Oximetry 99 96 97 07/21/18 11:30 07/21/18 11:45 07/21/18 12:00 Temperature 98.2 F Pulse Rate 60 60 61 Respiratory Rate 19 18 21 Blood Pressure 120/56 L 118/56 L 104/62 Pulse Oximetry 99 98 100 07/21/18 12:15 07/21/18 12:30 07/21/18 12:45 Temperature Pulse Rate 60 62 60 Respiratory Rate 19 23 24 Blood Pressure 113/63 123/64 122/62 Pulse Oximetry 97 99 98 07/21/18 13:00 07/21/18 13:15 07/21/18 13:30 Temperature Pulse Rate 60 61 60 Respiratory Rate 13 13 19 Blood Pressure 114/57 L 134/60 140/65 Pulse Oximetry 99 99 100 07/21/18 13:45 07/21/18 14:00 07/21/18 14:15 Temperature Pulse Rate 60 60 60 Respiratory Rate 14 19 20 Blood Pressure 123/56 L 117/56 L 129/58 L Pulse Oximetry 100 100 100 07/21/18 14:30 07/21/18 14:45 07/21/18 15:00 Temperature Pulse Rate 59 L 60 60 Respiratory Rate 14 13 26 H Blood Pressure 126/60 123/58 L 129/57 L Pulse Oximetry 97 96 99 07/21/18 15:15 07/21/18 15:30 07/21/18 15:45 Temperature Pulse Rate 60 60 60 Respiratory Rate 29 H 22 11 L Blood Pressure 130/62 157/66 H 121/56 L Pulse Oximetry 100 98 97 07/21/18 16:00 Temperature 98.2 F Pulse Rate 60 Respiratory Rate 26 H Blood Pressure 115/69 Pulse Oximetry 100 Intake & Output 07/20/18 07/21/18 07/21/18 18:59 06:59 18:59 Intake Total 480 / 480 Output Total 1100 / 1100 Balance -620 / -620 Weight 60.6 kg Intake: Oral 480 / 480 Output: Urine 1100 / 1100 Other: # Voids 3 Date of Last Bowel Movement 07/19/18 07/21/18 07/21/18 # Bowel Movements 1 Narrative: GENERAL: Alert, oriented x3, NAD. SKIN: Warm and dry. HEAD: Normocephalic. EYES: No scleral icterus. No injection or drainage. NECK: Supple, trachea midline. No JVD or lymphadenopathy. CARDIOVASCULAR: Regular rate and rhythm without murmurs, gallops, or rubs. RESPIRATORY: Breath sounds equal bilaterally. No accessory muscle use. GASTROINTESTINAL: Abdomen soft, non-tender, nondistended. MUSCULOSKELETAL: No cyanosis, or edema. BACK: Nontender without obvious deformity. No CVA tenderness. Results - Labs CBC & Chem 7: 07/21/18 03:10 07/21/18 03:10 Laboratory Results - last 24 hr 07/20/18 07/21/18 07/21/18 19:25 03:10 03:10 WBC 6.7 RBC 3.13 L Hgb 9.6 L 9.2 L Hct 27.7 L 27.5 L MCV 87.8 MCH 29.2 MCHC 33.3 RDW 16.1 Plt Count 298 D MPV 8.2 Prelim Diff (Auto) Slide review pending Neut % (Auto) 58.6 Lymph % (Auto) 18.2 [place] % (Auto) 16.3 H Eos % (Auto) 6.3 H Baso % (Auto) 0.6 Neut # (Auto) 3.9 Lymph # (Auto) 1.2 [place] # (Auto) 1.1 H Eos # (Auto) 0.4 Baso # (Auto) 0.0 WBC Differential . Diff Scan Auto diff confirmed Differential Comment . Platelet Estimate Normal Platelet Morphology Normal Polychromasia 2.2 H Basophilic Stippling Faint H Keratocytes Occ H Sodium 144 Potassium 3.7 Chloride 112 H Carbon Dioxide 28.4 Anion Gap 4 L BUN 16 Creatinine 1.54 H Estimated GFR 45 L Random Glucose 100 Calcium 7.5 L Total Bilirubin 0.3 AST 146 H ALT 140 H Alkaline Phosphatase 57 Total Protein 4.7 L Albumin 1.8 L - Imaging Impressions Abdominal Angiography 07/20/18 00:00 CONCLUSION: 1. The patient has an aorto bicommon iliac bypass graft. The left inflow is patent. 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 This prevents good angiographic evaluation of the SMA distribution. It also prevents attempted therapy. 3. 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 This generates poor opacification of the peripheral distribution of the SMA secondary to delusional effect. I'm not able to identify any source of hemorrhage. - Procedures Mesenteric angiography 07/20/2018. Assessment and Plan - Assessment (1) GI bleed Code(s): K92.2 - Gastrointestinal hemorrhage, unspecified Status: Acute (2) Melena Code(s): K92.1 - Melena Status: Acute - Plan 68-year-old male with known history of hypertension, hyperlipidemia, chronic atrial fibrillation, coronary disease, chronic anticoagulation who presented the hospital because of weakness, shortness of breath, abdominal pain. Patient received 4 units of PRBCs in [place]. He was given additional blood transfusion upon admission. Acute anemia due to GI bleed -Complicated by anticoagulation use of Xarelto -Received multiple transfusion both in [place] and at [place]. Reports of black stool overnight. -Status post EGD and colonoscopy yesterday without any significant findings. -Patient was transferred to the [facility] for mesenteric angiography which was performed on 07/20/2018. 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 Intravascular therapy was not possible due to SMA occlusion. -Discussed with vascular surgeon Dr. Bertrand who will evaluate patient today. -Continue Protonix 40mg IV BID. Hypertension hyperlipidemia coronary artery disease chronic atrial fibrillation -Will continue amiodarone, atorvastatin -Will continue to hold Xarelto at this time. Currently normotensive. Chronic kidney disease stage III -Continue monitor renal function. Anxiety/Depression -Continue Zoloft, alprazolam. Full code. SCDs.
--- NOTE | 2018-07-21 19:48 | MB ---
cc: Jose Miguel Obregon MD DATE: 07/21/2018 CONSULTING PHYSICIAN: Jose Miguel Obregon MD, of vascular surgery. REASON FOR CONSULTATION: GI bleed, occlusion of superior mesenteric artery. HISTORY OF PRESENT ILLNESS: This 68-year-old gentleman with a previous vasculopath-type history on chronic Xarelto anticoagulation presents to the hospital with shortness of breath and abdominal pain. The patient has noted melena stools for about 6-8 weeks. The first time, the patient became weak in [place], [place], where he was visiting about a month and a half ago. He went to the hospital, received 2 units of blood and then a few weeks later again went to the same hospital and he got another 2 units of blood. He was referred to a aircraft charter dispatcher; however, did not follow up. He now comes to the hospital again with a hemoglobin of 6.7, quite anemic, dizzy and weak. He had to be transfused another 2 units of blood at which point his hemoglobin is now stable around 10. The patient is now in the process of a workup and a question arose of a source of his bleeding. PAST MEDICAL HISTORY: Hypertension, hyperlipidemia, chronic atrial fibrillation, coronary artery disease. PAST SURGICAL HISTORY: CABG, spinal cord stimulator insertion for pain, coronary artery angioplasty and stenting, abdominal exploration about 20 years ago with bypass of the right external iliac artery, which is now, by the way, occluded and so is the bypass. SOCIAL HISTORY: The patient used to smoke but does not smoke now and does not drink. MEDICATIONS: Can be found in the record, but include Xarelto for chronic atrial fibrillation. PHYSICAL EXAMINATION: GENERAL: Reveals a pleasant 68-year-old gentleman appearing weak and pale. HEENT: Normocephalic. No trauma to the head. Pupils are equal and reactive. Extraocular muscles intact. NECK: Bilateral carotid pulses and faint right-sided bruit. CHEST: Bilateral breath sounds, decreased over both lungs [place] consistent with moderate degree of COPD. HEART: Regular rhythm. ABDOMEN: Soft. Active bowel sounds. No rebound, no guarding, no masses. Midline scar well healed. Groins are normal. EXTREMITIES: The patient has no palpable pulses in the right groin, but he has a dopplerable pulse. On the left side, the patient has a palpable femoral pulse, distal pulses only by Doppler. The patient does not have acute vascular deficits in either leg. No signs of limb-threatening ischemia. No gangrene or ulcers. NEUROLOGIC: The patient is grossly neurologically intact. IMPRESSION AND RECOMMENDATIONS: I reviewed the laboratory and diagnostic procedures. The gentleman clearly has a source of bleeding producing repeated episodes of anemia and consequent dizziness, weakness and the related symptoms. The patient is on Xarelto for atrial fibrillation. This has been temporarily stopped. Colonoscopy did not reveal any lesions which would be responsible for this and it would be quite unlikely with melena anyway. Upper endoscopy is negative. The nuclear scan requires about 1 mL per minute of bleeding, so at that time it was performed, the patient obviously had enough to show some blush in the left upper quadrant which was deemed to have come from the small intestine. Considering the patient is lying down, it is hard to say which part of the small intestine, but is probably somewhere to the distal jejunum/mid ileum. I doubt that this would be from the ligament of Treitz because it would not be in the left upper quadrant. An angiogram could not be performed because the patient has an occluded superior mesenteric artery, yet the celiac axis and inferior mesenteric arteries are patent. At this point, there are few options left. Clearly, the patient cannot be embolized should he bleed from a site that normally would be reachable by a superior mesenteric artery approach considering the vessel is occluded. The only question arises what the source of bleeding is. The patient may have Meckel diverticula, at which point the patient might have a gastric or pancreatic lining which will cause ulceration of the vis-a-vis jejunum and hence, the bleeding from the same. In addition, the patient could have an unrecognized underlying malignancy like a carcinoma of the small intestine or such. This is not obvious on the CAT scan. At this point, we have exhausted all the means of looking at this and probably, if the patient rebleeds, the only remaining option is to do an exploratory laparotomy and see where he is bleeding from. At the time of surgery, sometimes we can do an endoscopy, but there is no vascular procedure that is going to assist this patient other than a surgical approach and resection of the offending segment. If the patient rebleeds, repeating a nuclear scan might be helpful to delineate the site for once we are in the abdomen, blindly resecting bowel is not a good idea, so I hope to find some abnormality that would sort itself out. I will continue to follow the patient. If he drops his hemoglobin again, we will resort to surgery. Until then, I would hold Xarelto. Thank you very much for the referral. MD PETE Serrano/julianna , 06:14 PM , 06:27 PM
[2018-07-22] MEDS: Morphine Sulfate 15 MG IR Tablet PO PRN ×4 (00:09→19:42)
[2018-07-22] MEDS: Pantoprazole Inj 40 MG Vial IV.PUSH SCH ×2 (05:58→17:32)
[2018-07-22] MEDS ORDERED: Sod Chloride 0.9% Inj 1,000 ML IV.SIG SCH (09:00)
[2018-07-22] MEDS: Ferrous Sulfate 325 MG Tablet PO SCH (09:27)
[2018-07-22] MEDS: Sertraline 50 MG Tablet PO SCH (09:27)
[2018-07-22] MEDS: Senna/Docusate Sodium 8.6/50 MG Tablet PO SCH ×2 (09:27→21:51)
[2018-07-22] MEDS: Amiodarone 200 MG Tablet PO SCH (09:27)
[2018-07-22] MEDS: Gabapentin 100 MG Capsule PO SCH (09:27)
[2018-07-22 10:53] LABS: Hematocrit 25.6 % (39.0-51.0); Hemoglobin 8.2 gm/dL (13.0-17.0)
--- NOTE | 2018-07-22 11:34 | P.PNVS ---
Subjective Subjective/Hospital Course: Referral received Full consult TF J 07/22/2018 The gentleman clearly has a source of bleeding producing repeated episodes of anemia, caused by GI bleeding and consequent dizziness, weakness and the related symptoms. The patient is on Xarelto for atrial fibrillation. This has been temporarily stopped. Colonoscopy did not reveal any lesions which would be responsible for this and it would be quite unlikely with melena anyway. Upper endoscopy is negative. The nuclear scan requires about 1 mL per minute of bleeding, so at that time it was performed, the patient obviously had enough to show some blush in the left upper quadrant which was deemed to have come from the small intestine. Considering the patient is lying down, it is hard to say which part of the small intestine, but is probably somewhere to the distal jejunum/mid ileum. I doubt that this would be from the ligament of Treitz because it would not be in the left upper quadrant. An angiogram could not be performed because the patient has an occluded superior mesenteric artery, yet the celiac axis and inferior mesenteric arteries are patent. At this point, there are few options left. Clearly, the patient cannot be embolized should he bleed from a site that normally would be reachable by a superior mesenteric artery approach considering the vessel is occluded. The only question arises what the source of bleeding is. The patient may have Meckel diverticulum, at with gastric or pancreatic lining which will cause ulceration of the vis-a-vis jejunumand hence, the bleeding from the same. In addition, differential includes an unrecognized underlying malignancy like a carcinoma of the small intestine. This is not obvious on the CAT scan. At this point, we have exhausted all the means of looking at this and probably, if the patient rebleeds, the only remaining option is to do an exploratory laparotomy and see where he is bleeding from. At the time of surgery, sometimes we can do an endoscopy, but there is no vascular procedure that is going to assist this patient other than a surgical approach and resection of the offending segment. If the patient rebleeds, repeating a nuclear scan might be helpful to delineate the site for once we are in the abdomen, blindly resecting bowel is not a good idea, so I hope to find some abnormality that would sort itself out. I will continue to follow the patient. If he drops his hemoglobin again, we will resort to surgery. Until then, I would hold Xarelto. Patient has been stable for the last 24 hours has not required any transfusions If he bleeds again, surgery will remain the only option but a repeat RBC tagged scan will be obviously helpful to better delineate the offending segment of the intestine. Until then it remains an educated guess and is never a great way to approach surgery with educated gases as the only underlying pathologic starting point. Objective Vital Signs / I&O: Vital Signs 07/21/18 11:30 07/21/18 11:45 07/21/18 12:00 Temperature 98.2 F Pulse Rate 60 60 61 Respiratory Rate 19 18 21 Blood Pressure 120/56 L 118/56 L 104/62 Pulse Oximetry 99 98 100 07/21/18 12:15 07/21/18 12:30 07/21/18 12:45 Temperature Pulse Rate 60 62 60 Respiratory Rate 19 23 24 Blood Pressure 113/63 123/64 122/62 Pulse Oximetry 97 99 98 07/21/18 13:00 07/21/18 13:15 07/21/18 13:30 Temperature Pulse Rate 60 61 60 Respiratory Rate 13 13 19 Blood Pressure 114/57 L 134/60 140/65 Pulse Oximetry 99 99 100 07/21/18 13:45 07/21/18 14:00 07/21/18 14:15 Temperature Pulse Rate 60 60 60 Respiratory Rate 14 19 20 Blood Pressure 123/56 L 117/56 L 129/58 L Pulse Oximetry 100 100 100 07/21/18 14:30 07/21/18 14:45 07/21/18 15:00 Temperature Pulse Rate 59 L 60 60 Respiratory Rate 14 13 26 H Blood Pressure 126/60 123/58 L 129/57 L Pulse Oximetry 97 96 99 07/21/18 15:15 07/21/18 15:30 07/21/18 15:45 Temperature Pulse Rate 60 60 60 Respiratory Rate 29 H 22 11 L Blood Pressure 130/62 157/66 H 121/56 L Pulse Oximetry 100 98 97 07/21/18 16:00 07/21/18 19:00 07/21/18 19:15 Temperature 98.2 F Pulse Rate 60 61 60 Respiratory Rate 26 H 24 15 Blood Pressure 115/69 120/58 L 126/60 Pulse Oximetry 100 100 97 07/21/18 19:30 07/21/18 19:45 07/21/18 20:00 Temperature Pulse Rate 60 60 60 Respiratory Rate 10 L 16 21 Blood Pressure 103/53 L 110/53 L 132/59 L Pulse Oximetry 98 96 95 07/21/18 20:15 07/21/18 20:20 07/21/18 20:30 Temperature Pulse Rate 60 60 Respiratory Rate 16 11 L Blood Pressure 133/61 115/58 L Pulse Oximetry 100 99 96 07/21/18 20:45 07/21/18 21:00 07/21/18 21:15 Temperature Pulse Rate 60 60 60 Respiratory Rate 11 L 9 L 11 L Blood Pressure 102/52 L 112/54 L 120/58 L Pulse Oximetry 95 97 97 07/21/18 21:30 07/21/18 21:45 07/21/18 22:00 Temperature Pulse Rate 60 60 60 Respiratory Rate 10 L 13 11 L Blood Pressure 108/56 L 108/53 L 117/58 L Pulse Oximetry 89 L 96 96 07/21/18 22:15 07/21/18 22:30 07/21/18 22:45 Temperature Pulse Rate 60 60 60 Respiratory Rate 10 L 12 11 L Blood Pressure 112/56 L 115/57 L 118/57 L Pulse Oximetry 97 97 97 07/21/18 23:00 07/21/18 23:15 07/21/18 23:30 Temperature Pulse Rate 60 60 61 Respiratory Rate 12 14 13 Blood Pressure 116/56 L 115/58 L 101/51 L Pulse Oximetry 97 97 98 07/21/18 23:45 07/22/18 00:00 07/22/18 00:15 Temperature Pulse Rate 65 60 61 Respiratory Rate 15 11 L 19 Blood Pressure 99/53 L 138/64 133/61 Pulse Oximetry 98 97 97 07/22/18 00:30 07/22/18 00:46 07/22/18 01:00 Temperature Pulse Rate 60 60 60 Respiratory Rate 13 16 12 Blood Pressure 138/56 L 118/56 L 105/51 L Pulse Oximetry 99 97 94 L 07/22/18 01:15 07/22/18 01:30 07/22/18 01:45 Temperature Pulse Rate 60 61 60 Respiratory Rate 11 L 11 L 14 Blood Pressure 101/55 L 105/52 L 94/52 L Pulse Oximetry 98 95 94 L 07/22/18 02:00 07/22/18 02:15 07/22/18 02:30 Temperature Pulse Rate 60 60 60 Respiratory Rate 10 L 10 L 10 L Blood Pressure 97/51 L 96/51 L 104/53 L Pulse Oximetry 94 L 95 94 L 07/22/18 02:45 07/22/18 03:00 07/22/18 03:15 Temperature Pulse Rate 60 60 60 Respiratory Rate 12 12 11 L Blood Pressure 98/50 L 110/55 L 106/50 L Pulse Oximetry 96 96 97 07/22/18 03:30 07/22/18 03:45 07/22/18 04:00 Temperature Pulse Rate 60 60 60 Respiratory Rate 15 14 14 Blood Pressure 113/54 L 106/52 L 97/53 L Pulse Oximetry 97 97 97 07/22/18 04:15 07/22/18 04:30 07/22/18 04:45 Temperature Pulse Rate 60 60 62 Respiratory Rate 10 L 13 14 Blood Pressure 107/52 L 105/51 L 98/50 L Pulse Oximetry 97 97 98 07/22/18 05:00 07/22/18 05:15 07/22/18 07:00 Temperature Pulse Rate 60 60 Respiratory Rate 10 L 10 L Blood Pressure 109/53 L 107/52 L Pulse Oximetry 98 97 100 07/22/18 08:00 Temperature 98.1 F Pulse Rate 60 Respiratory Rate 18 Blood Pressure 135/63 Pulse Oximetry 100 Intake & Output 07/21/18 07/22/18 07/22/18 18:59 06:59 18:59 Intake Total 680 / 680 240 / 240 1000 / 1000 Output Total 1000 / 1000 250 / 250 Balance -320 / -320 -10 / -10 1000 / 1000 Weight 60.4 kg Intake: IV 1000 / 1000 NS Inj 1,000 ML @ Wide Open IV. 1000 / 1000 SIG [facility] Rx#:[id number] Oral 680 / 680 240 / 240 Output: Urine 1000 / 1000 250 / 250 Other: Date of Last Bowel Movement 07/21/18 07/21/18 07/21/18 Laboratory Results - last 24 hr 07/22/18 10:02 Hgb 8.2 L Hct 25.6 L Impressions Abdominal Angiography 07/20/18 00:00 CONCLUSION: 1. The patient has an aorto bicommon iliac bypass graft. The left inflow is patent. 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 This prevents good angiographic evaluation of the SMA distribution. It also prevents attempted therapy. 3. 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 This generates poor opacification of the peripheral distribution of the SMA secondary to delusional effect. I'm not able to identify any source of hemorrhage.
[2018-07-22] MEDS: ALPRAZolam 0.25 MG Tablet PO PRN ×2 (15:07→23:35)
[2018-07-22] MEDS: Morphine Inj 4 MG/ML Vial IV.PUSH PRN (17:33)
--- NOTE | 2018-07-22 17:51 | P.PN ---
Subjective Interval history: Follow up for GI bleed. Patient is doing well. However, he complains of lower abdominal pain. He had dark loose stool. No fever, chills. Physical Exam Vital signs: Vital Signs 07/21/18 19:00 07/21/18 19:15 07/21/18 19:30 Temperature Pulse Rate 61 60 60 Respiratory Rate 24 15 10 L Blood Pressure 120/58 L 126/60 103/53 L Pulse Oximetry 100 97 98 07/21/18 19:45 07/21/18 20:00 07/21/18 20:15 Temperature Pulse Rate 60 60 60 Respiratory Rate 16 21 16 Blood Pressure 110/53 L 132/59 L 133/61 Pulse Oximetry 96 95 100 07/21/18 20:20 07/21/18 20:30 07/21/18 20:45 Temperature Pulse Rate 60 60 Respiratory Rate 11 L 11 L Blood Pressure 115/58 L 102/52 L Pulse Oximetry 99 96 95 07/21/18 21:00 07/21/18 21:15 07/21/18 21:30 Temperature Pulse Rate 60 60 60 Respiratory Rate 9 L 11 L 10 L Blood Pressure 112/54 L 120/58 L 108/56 L Pulse Oximetry 97 97 89 L 07/21/18 21:45 07/21/18 22:00 07/21/18 22:15 Temperature Pulse Rate 60 60 60 Respiratory Rate 13 11 L 10 L Blood Pressure 108/53 L 117/58 L 112/56 L Pulse Oximetry 96 96 97 07/21/18 22:30 07/21/18 22:45 07/21/18 23:00 Temperature Pulse Rate 60 60 60 Respiratory Rate 12 11 L 12 Blood Pressure 115/57 L 118/57 L 116/56 L Pulse Oximetry 97 97 97 07/21/18 23:15 07/21/18 23:30 07/21/18 23:45 Temperature Pulse Rate 60 61 65 Respiratory Rate 14 13 15 Blood Pressure 115/58 L 101/51 L 99/53 L Pulse Oximetry 97 98 98 07/22/18 00:00 07/22/18 00:15 07/22/18 00:30 Temperature Pulse Rate 60 61 60 Respiratory Rate 11 L 19 13 Blood Pressure 138/64 133/61 138/56 L Pulse Oximetry 97 97 99 07/22/18 00:46 07/22/18 01:00 07/22/18 01:15 Temperature Pulse Rate 60 60 60 Respiratory Rate 16 12 11 L Blood Pressure 118/56 L 105/51 L 101/55 L Pulse Oximetry 97 94 L 98 07/22/18 01:30 07/22/18 01:45 07/22/18 02:00 Temperature Pulse Rate 61 60 60 Respiratory Rate 11 L 14 10 L Blood Pressure 105/52 L 94/52 L 97/51 L Pulse Oximetry 95 94 L 94 L 07/22/18 02:15 07/22/18 02:30 07/22/18 02:45 Temperature Pulse Rate 60 60 60 Respiratory Rate 10 L 10 L 12 Blood Pressure 96/51 L 104/53 L 98/50 L Pulse Oximetry 95 94 L 96 07/22/18 03:00 07/22/18 03:15 07/22/18 03:30 Temperature Pulse Rate 60 60 60 Respiratory Rate 12 11 L 15 Blood Pressure 110/55 L 106/50 L 113/54 L Pulse Oximetry 96 97 97 07/22/18 03:45 07/22/18 04:00 07/22/18 04:15 Temperature Pulse Rate 60 60 60 Respiratory Rate 14 14 10 L Blood Pressure 106/52 L 97/53 L 107/52 L Pulse Oximetry 97 97 97 07/22/18 04:30 07/22/18 04:45 07/22/18 05:00 Temperature Pulse Rate 60 62 60 Respiratory Rate 13 14 10 L Blood Pressure 105/51 L 98/50 L 109/53 L Pulse Oximetry 97 98 98 07/22/18 05:15 07/22/18 07:00 07/22/18 08:00 Temperature 98.1 F Pulse Rate 60 60 Respiratory Rate 10 L 18 Blood Pressure 107/52 L 135/63 Pulse Oximetry 97 100 100 07/22/18 11:51 07/22/18 12:00 Temperature 98.1 F Pulse Rate 72 Respiratory Rate 23 Blood Pressure 115/69 Pulse Oximetry 97 98 Intake & Output 07/21/18 07/22/18 07/22/18 18:59 06:59 18:59 Intake Total 680 / 680 240 / 240 1000 / 1000 Output Total 1000 / 1000 250 / 250 Balance -320 / -320 -10 / -10 1000 / 1000 Weight 60.4 kg Intake: IV 1000 / 1000 NS Inj 1,000 ML @ Wide Open IV. 1000 / 1000 SIG [facility] Rx#:[id number] Oral 680 / 680 240 / 240 Output: Urine 1000 / 1000 250 / 250 Other: Date of Last Bowel Movement 07/21/18 07/21/18 07/21/18 Narrative: GENERAL: Alert, oriented x3, NAD. SKIN: Warm and dry. HEAD: Normocephalic. EYES: No scleral icterus. No injection or drainage. NECK: Supple, trachea midline. No JVD or lymphadenopathy. CARDIOVASCULAR: Regular rate and rhythm without murmurs, gallops, or rubs. RESPIRATORY: Breath sounds equal bilaterally. No accessory muscle use. GASTROINTESTINAL: Abdomen soft, mild tenderness to palpation over lower abdominal area, nondistended. MUSCULOSKELETAL: No cyanosis, or edema. BACK: Nontender without obvious deformity. No CVA tenderness. Results - Labs CBC & Chem 7: 07/22/18 10:02 07/21/18 03:10 Laboratory Results - last 24 hr 07/22/18 10:02 Hgb 8.2 L Hct 25.6 L - Procedures Mesenteric angiography 07/20/2018. Assessment and Plan - Assessment (1) GI bleed Code(s): K92.2 - Gastrointestinal hemorrhage, unspecified Status: Acute (2) Melena Code(s): K92.1 - Melena Status: Acute - Plan 68-year-old male with known history of hypertension, hyperlipidemia, chronic atrial fibrillation, coronary disease, chronic anticoagulation who presented the hospital because of weakness, shortness of breath, abdominal pain. Patient received 4 units of PRBCs in [place]. He was given additional blood transfusion upon admission. Acute anemia due to GI bleed Abdominal pain -Complicated by anticoagulation use of Xarelto -Received multiple transfusion both in [place] and at [place]. Reports of black stool overnight. -Status post EGD and colonoscopy yesterday without any significant findings. -Patient was transferred to the main hospital for mesenteric angiography which was performed on 07/20/2018. 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 Intravascular therapy was not possible due to SMA occlusion. -Dr. Bertrand (Vascular surgery) on board. Aware that Hgb 9.2 --> 8.2 today. -Continue Protonix 40mg IV BID. -Morphine IR and Morphine IV for pain management. Hypertension hyperlipidemia coronary artery disease chronic atrial fibrillation -Will continue amiodarone, atorvastatin -Will continue to hold Xarelto at this time. Currently normotensive. Chronic kidney disease stage III -Continue monitor renal function. Anxiety/Depression -Continue Zoloft, alprazolam. Full code. SCDs.
[2018-07-23] MEDS: Pantoprazole Inj 40 MG Vial IV.PUSH SCH ×2 (04:57→16:16)
[2018-07-23] MEDS: Morphine Sulfate 15 MG IR Tablet PO PRN ×3 (04:58→20:20)
[2018-07-23 06:38] LABS: Hematocrit 26.2 % (39.0-51.0); Hemoglobin 8.7 gm/dL (13.0-17.0)
[2018-07-23] MEDS: ALPRAZolam 0.25 MG Tablet PO PRN ×3 (08:04→20:20)
[2018-07-23] MEDS: Gabapentin 100 MG Capsule PO SCH (08:04)
[2018-07-23] MEDS: Senna/Docusate Sodium 8.6/50 MG Tablet PO SCH ×2 (08:04→20:20)
[2018-07-23] MEDS: Amiodarone 200 MG Tablet PO SCH (08:05)
[2018-07-23] MEDS: Sertraline 50 MG Tablet PO SCH (08:05)
[2018-07-23] MEDS: Ferrous Sulfate 325 MG Tablet PO SCH (08:05)
--- NOTE | 2018-07-23 11:06 | P.PNVS ---
Subjective Subjective/Hospital Course: Referral received Full consult TF J 07/22/2018 The gentleman clearly has a source of bleeding producing repeated episodes of anemia, caused by GI bleeding and consequent dizziness, weakness and the related symptoms. The patient is on Xarelto for atrial fibrillation. This has been temporarily stopped. Colonoscopy did not reveal any lesions which would be responsible for this and it would be quite unlikely with melena anyway. Upper endoscopy is negative. The nuclear scan requires about 1 mL per minute of bleeding, so at that time it was performed, the patient obviously had enough to show some blush in the left upper quadrant which was deemed to have come from the small intestine. Considering the patient is lying down, it is hard to say which part of the small intestine, but is probably somewhere to the distal jejunum/mid ileum. I doubt that this would be from the ligament of Treitz because it would not be in the left upper quadrant. An angiogram could not be performed because the patient has an occluded superior mesenteric artery, yet the celiac axis and inferior mesenteric arteries are patent. At this point, there are few options left. Clearly, the patient cannot be embolized should he bleed from a site that normally would be reachable by a superior mesenteric artery approach considering the vessel is occluded. The only question arises what the source of bleeding is. The patient may have Meckel diverticulum, at with gastric or pancreatic lining which will cause ulceration of the vis-a-vis jejunumand hence, the bleeding from the same. In addition, differential includes an unrecognized underlying malignancy like a carcinoma of the small intestine. This is not obvious on the CAT scan. At this point, we have exhausted all the means of looking at this and probably, if the patient rebleeds, the only remaining option is to do an exploratory laparotomy and see where he is bleeding from. At the time of surgery, sometimes we can do an endoscopy, but there is no vascular procedure that is going to assist this patient other than a surgical approach and resection of the offending segment. If the patient rebleeds, repeating a nuclear scan might be helpful to delineate the site for once we are in the abdomen, blindly resecting bowel is not a good idea, so I hope to find some abnormality that would sort itself out. I will continue to follow the patient. If he drops his hemoglobin again, we will resort to surgery. Until then, I would hold Xarelto. Patient has been stable for the last 24 hours has not required any transfusions If he bleeds again, surgery will remain the only option but a repeat RBC tagged scan will be obviously helpful to better delineate the offending segment of the intestine. Until then it remains an educated guess and is never a great way to approach surgery with educated gases as the only underlying pathologic starting point. 07/23/2018 Patient is awake alert and oriented Abdomen is soft active bowel sounds Hemoglobin remained stable and at this point there is no active bleeding noted Will leave things alone for the time being and see how patient does In a very ideal case scenario patient would get a PillCam but this is not done in hospital so patient will have to be outpatient at that point I am afraid that once anticoagulants are restarted patient will bleed again so most likely we will resort to exploration next week or earlier if patient drops hemoglobin Objective Vital Signs / I&O: Vital Signs 07/22/18 11:51 07/22/18 12:00 07/22/18 16:00 Temperature 98.1 F Pulse Rate 72 60 Respiratory Rate 23 15 Blood Pressure 115/69 132/60 Pulse Oximetry 97 98 94 L 07/22/18 19:00 07/22/18 19:20 07/22/18 19:39 Temperature Pulse Rate 67 60 60 Respiratory Rate 11 L 18 16 Blood Pressure 99/48 L 93/55 L 99/51 L Pulse Oximetry 99 97 100 07/22/18 19:40 07/22/18 20:00 07/22/18 20:18 Temperature 97.5 F L Pulse Rate 63 59 L 59 L Respiratory Rate 14 13 11 L Blood Pressure 107/54 L 104/51 L 92/51 L Pulse Oximetry 100 99 98 07/22/18 20:20 07/22/18 20:40 07/22/18 21:00 Temperature Pulse Rate 59 L 60 60 Respiratory Rate 12 10 L 11 L Blood Pressure 104/53 L 114/58 L 97/52 L Pulse Oximetry 98 98 95 07/22/18 21:20 07/22/18 21:40 07/22/18 22:00 Temperature Pulse Rate 60 60 60 Respiratory Rate 10 L 10 L 9 L Blood Pressure 99/51 L 102/54 L 101/51 L Pulse Oximetry 95 95 96 07/22/18 23:00 07/23/18 00:00 07/23/18 01:00 Temperature Pulse Rate 60 60 59 L Respiratory Rate 9 L 14 11 L Blood Pressure 104/54 L 104/51 L 97/52 L Pulse Oximetry 97 97 95 07/23/18 02:00 07/23/18 03:00 07/23/18 04:00 Temperature Pulse Rate 60 60 60 Respiratory Rate 10 L 11 L 16 Blood Pressure 101/50 L 103/52 L 112/56 L Pulse Oximetry 95 96 97 07/23/18 05:00 07/23/18 08:40 Temperature Pulse Rate 61 Respiratory Rate 30 H Blood Pressure Pulse Oximetry 97 98 Intake & Output 07/22/18 07/23/18 07/23/18 18:59 06:59 18:59 Intake Total 2200 / 2200 480 / 480 Output Total 1500 / 1500 700 / 700 Balance 700 / 700 -220 / -220 Weight 60.9 kg Intake: IV 1000 / 1000 NS Inj 1,000 ML @ Wide Open IV. 1000 / 1000 SIG BOLUS ROSY Rx#:[id number] Oral 1200 / 1200 480 / 480 Output: Urine 1500 / 1500 700 / 700 Other: Date of Last Bowel Movement 07/21/18 07/21/18 # Bowel Movements 0 Laboratory Results - last 24 hr 07/22/18 07/23/18 10:02 05:16 Hgb 8.2 L 8.7 L Hct 25.6 L 26.2 L Impressions Abdominal Angiography 07/20/18 00:00 CONCLUSION: 1. The patient has an aorto bicommon iliac bypass graft. The left inflow is patent. 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 This prevents good angiographic evaluation of the SMA distribution. It also prevents attempted therapy. 3. 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 This generates poor opacification of the peripheral distribution of the SMA secondary to delusional effect. I'm not able to identify any source of hemorrhage.
--- NOTE | 2018-07-23 11:31 | P.PN ---
Subjective Interval history: Follow-up acute anemia due to GI bleed/abdominal pain July 23, 2018-patient seen and examined, complains of abdominal pain. Reports last BM 2 days ago. BP soft. H&H appears to be stable. Physical Exam Vital signs: Vital Signs 07/22/18 11:51 07/22/18 12:00 07/22/18 16:00 Temperature 98.1 F Pulse Rate 72 60 Respiratory Rate 23 15 Blood Pressure 115/69 132/60 Pulse Oximetry 97 98 94 L 07/22/18 19:00 07/22/18 19:20 07/22/18 19:39 Temperature Pulse Rate 67 60 60 Respiratory Rate 11 L 18 16 Blood Pressure 99/48 L 93/55 L 99/51 L Pulse Oximetry 99 97 100 07/22/18 19:40 07/22/18 20:00 07/22/18 20:18 Temperature 97.5 F L Pulse Rate 63 59 L 59 L Respiratory Rate 14 13 11 L Blood Pressure 107/54 L 104/51 L 92/51 L Pulse Oximetry 100 99 98 07/22/18 20:20 07/22/18 20:40 07/22/18 21:00 Temperature Pulse Rate 59 L 60 60 Respiratory Rate 12 10 L 11 L Blood Pressure 104/53 L 114/58 L 97/52 L Pulse Oximetry 98 98 95 07/22/18 21:20 07/22/18 21:40 07/22/18 22:00 Temperature Pulse Rate 60 60 60 Respiratory Rate 10 L 10 L 9 L Blood Pressure 99/51 L 102/54 L 101/51 L Pulse Oximetry 95 95 96 07/22/18 23:00 07/23/18 00:00 07/23/18 01:00 Temperature Pulse Rate 60 60 59 L Respiratory Rate 9 L 14 11 L Blood Pressure 104/54 L 104/51 L 97/52 L Pulse Oximetry 97 97 95 07/23/18 02:00 07/23/18 03:00 07/23/18 04:00 Temperature Pulse Rate 60 60 60 Respiratory Rate 10 L 11 L 16 Blood Pressure 101/50 L 103/52 L 112/56 L Pulse Oximetry 95 96 97 07/23/18 05:00 07/23/18 08:00 07/23/18 08:40 Temperature Pulse Rate 61 Respiratory Rate 30 H 11 L Blood Pressure Pulse Oximetry 97 98 Intake & Output 07/22/18 07/23/18 07/23/18 18:59 06:59 18:59 Intake Total 2200 / 2200 480 / 480 Output Total 1500 / 1500 700 / 700 Balance 700 / 700 -220 / -220 Weight 60.9 kg Intake: IV 1000 / 1000 NS Inj 1,000 ML @ Wide Open IV. 1000 / 1000 SIG BOLUS ROSY Rx#:[id number] Oral 1200 / 1200 480 / 480 Output: Urine 1500 / 1500 700 / 700 Other: Date of Last Bowel Movement 07/21/18 07/21/18 # Bowel Movements 0 Narrative: GENERAL: NAD SKIN: Warm and dry. HEAD: Normocephalic. EYES: No scleral icterus. No injection or drainage. NECK: Supple, trachea midline. No JVD or lymphadenopathy. CARDIOVASCULAR: Regular rate and rhythm without murmurs, gallops, or rubs. RESPIRATORY: Breath sounds equal bilaterally. No accessory muscle use. GASTROINTESTINAL: Abdomen soft, non-tender, nondistended. +BS MUSCULOSKELETAL: No cyanosis, or edema. BACK: Nontender without obvious deformity. No CVA tenderness. Results - Labs CBC & Chem 7: 07/23/18 05:16 07/21/18 03:10 Laboratory Results - last 24 hr 07/23/18 05:16 Hgb 8.7 L Hct 26.2 L - Procedures Mesenteric angiography 07/20/2018. Assessment and Plan - Assessment (1) GI bleed Code(s): K92.2 - Gastrointestinal hemorrhage, unspecified Status: Acute (2) Melena Code(s): K92.1 - Melena Status: Acute - Plan 68-year-old man with Acute anemia due to GI bleed Abdominal pain -Complicated by anticoagulation use of Xarelto -Received multiple transfusion both in [place] and at [facility]. Reports of black stool overnight. -Status post EGD and colonoscopy yesterday without any significant findings. -Patient was transferred to the main hospital for mesenteric angiography which was performed on 07/20/2018. 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 Intravascular therapy was not possible due to SMA occlusion. -Dr. Bertrand (Vascular surgery) ff -Continue Protonix 40mg IV BID. Continue serial H&H monitoring -Morphine IR and Morphine IV for pain management. Hypertension hyperlipidemia coronary artery disease chronic atrial fibrillation -Continue amiodarone, atorvastatin -Continue to hold Xarelto at this time. Chronic kidney disease stage III -Continue monitor renal function. Anxiety/Depression -Continue Zoloft, alprazolam.
[2018-07-24] MEDS: Morphine Sulfate 15 MG IR Tablet PO PRN ×4 (00:41→20:06)
[2018-07-24] MEDS: ALPRAZolam 0.25 MG Tablet PO PRN ×4 (00:42→20:06)
[2018-07-24] MEDS: Pantoprazole Inj 40 MG Vial IV.PUSH SCH ×2 (05:41→16:17)
[2018-07-24] MEDS: Amiodarone 200 MG Tablet PO SCH (09:52)
[2018-07-24] MEDS: Senna/Docusate Sodium 8.6/50 MG Tablet PO SCH ×2 (09:53→20:06)
[2018-07-24] MEDS: Gabapentin 100 MG Capsule PO SCH (09:53)
[2018-07-24] MEDS: Sertraline 50 MG Tablet PO SCH (09:53)
[2018-07-24] MEDS: Ferrous Sulfate 325 MG Tablet PO SCH (09:53)
--- NOTE | 2018-07-24 10:41 | P.PNVS ---
Subjective Subjective/Hospital Course: Referral received Full consult TF J 07/22/2018 The gentleman clearly has a source of bleeding producing repeated episodes of anemia, caused by GI bleeding and consequent dizziness, weakness and the related symptoms. The patient is on Xarelto for atrial fibrillation. This has been temporarily stopped. Colonoscopy did not reveal any lesions which would be responsible for this and it would be quite unlikely with melena anyway. Upper endoscopy is negative. The nuclear scan requires about 1 mL per minute of bleeding, so at that time it was performed, the patient obviously had enough to show some blush in the left upper quadrant which was deemed to have come from the small intestine. Considering the patient is lying down, it is hard to say which part of the small intestine, but is probably somewhere to the distal jejunum/mid ileum. I doubt that this would be from the ligament of Treitz because it would not be in the left upper quadrant. An angiogram could not be performed because the patient has an occluded superior mesenteric artery, yet the celiac axis and inferior mesenteric arteries are patent. At this point, there are few options left. Clearly, the patient cannot be embolized should he bleed from a site that normally would be reachable by a superior mesenteric artery approach considering the vessel is occluded. The only question arises what the source of bleeding is. The patient may have Meckel diverticulum, at with gastric or pancreatic lining which will cause ulceration of the vis-a-vis jejunumand hence, the bleeding from the same. In addition, differential includes an unrecognized underlying malignancy like a carcinoma of the small intestine. This is not obvious on the CAT scan. At this point, we have exhausted all the means of looking at this and probably, if the patient rebleeds, the only remaining option is to do an exploratory laparotomy and see where he is bleeding from. At the time of surgery, sometimes we can do an endoscopy, but there is no vascular procedure that is going to assist this patient other than a surgical approach and resection of the offending segment. If the patient rebleeds, repeating a nuclear scan might be helpful to delineate the site for once we are in the abdomen, blindly resecting bowel is not a good idea, so I hope to find some abnormality that would sort itself out. I will continue to follow the patient. If he drops his hemoglobin again, we will resort to surgery. Until then, I would hold Xarelto. Patient has been stable for the last 24 hours has not required any transfusions If he bleeds again, surgery will remain the only option but a repeat RBC tagged scan will be obviously helpful to better delineate the offending segment of the intestine. Until then it remains an educated guess and is never a great way to approach surgery with educated gases as the only underlying pathologic starting point. 07/23/2018 Patient is awake alert and oriented Abdomen is soft active bowel sounds Hemoglobin remained stable and at this point there is no active bleeding noted Will leave things alone for the time being and see how patient does In a very ideal case scenario patient would get a PillCam but this is not done in hospital so patient will have to be outpatient at that point I am afraid that once anticoagulants are restarted patient will bleed again so most likely we will resort to exploration next week or earlier if patient drops hemoglobin 07/24/2018 Abdomen soft active bowel sounds Patient had 2 bowel movements which is soft heme positive but not melanotic and hemoglobin remained stable CBC pending for tomorrow and will see if hemoglobin remains stable patient might be able to have PillCam as an outpatient On the other hand if anticoagulants are restarted and patient bleeds then will have to resort to surgery at this admission and hopefully be able to locate the point of bleeding Objective Vital Signs / I&O: Vital Signs 07/23/18 11:00 07/23/18 11:01 07/23/18 12:00 Temperature 98.0 F Pulse Rate 59 L 59 L 60 Respiratory Rate 17 23 11 L Blood Pressure 98/47 L 100/51 L Pulse Oximetry 97 97 93 L 07/23/18 13:00 07/23/18 13:01 07/23/18 14:00 Temperature Pulse Rate 65 77 60 Respiratory Rate 34 H 30 H 13 Blood Pressure 113/73 108/54 L Pulse Oximetry 98 90 L 93 L 07/23/18 15:00 07/23/18 15:01 07/23/18 16:00 Temperature 98.9 F Pulse Rate 60 60 60 Respiratory Rate 12 14 15 Blood Pressure 125/57 L 126/73 Pulse Oximetry 95 68 L 90 L 07/23/18 16:09 07/23/18 16:11 07/23/18 20:00 Temperature 97.9 F Pulse Rate 60 60 60 Respiratory Rate 10 L 14 18 Blood Pressure 132/58 L 128/60 139/64 Pulse Oximetry 88 L 99 97 07/24/18 00:00 07/24/18 08:00 07/24/18 09:47 Temperature 98 F 97.5 F L Pulse Rate 63 93 H Respiratory Rate 18 16 Blood Pressure 113/55 L 97/49 L 97/50 L Pulse Oximetry 98 92 L 98 07/24/18 09:51 Temperature Pulse Rate Respiratory Rate Blood Pressure 101/52 L Pulse Oximetry Intake & Output 07/23/18 07/24/18 07/24/18 18:59 06:59 18:59 Intake Total 450 / 450 480 / 480 Output Total 500 / 500 400 / 400 Balance -50 / -50 80 / 80 Weight 60.9 kg Intake: Oral 450 / 450 480 / 480 Output: Urine 500 / 500 400 / 400 Other: Date of Last Bowel Movement 07/21/18 07/23/18 07/24/18 # Bowel Movements 1
--- NOTE | 2018-07-24 13:01 | P.PN ---
Subjective Interval history: Follow-up for abdominal pain, anemia, GI bleedpatient seen and examined, complaining of dizziness this morning, blood pressure low of 97/49, reassessed 101/52. No chest pain, no shortness of breath. Complains of mid abdominal pain. No nausea, no vomiting. Tolerating diet well. Stools are more black in color. None today. Physical Exam Vital signs: Vital Signs 07/23/18 14:00 07/23/18 15:00 07/23/18 15:01 Temperature Pulse Rate 60 60 60 Respiratory Rate 13 12 14 Blood Pressure 108/54 L 125/57 L Pulse Oximetry 93 L 95 68 L 07/23/18 16:00 07/23/18 16:09 07/23/18 16:11 Temperature 98.9 F Pulse Rate 60 60 60 Respiratory Rate 15 10 L 14 Blood Pressure 126/73 132/58 L 128/60 Pulse Oximetry 90 L 88 L 99 07/23/18 20:00 07/24/18 00:00 07/24/18 07:30 Temperature 97.9 F 98 F Pulse Rate 60 63 Respiratory Rate 18 18 Blood Pressure 139/64 113/55 L Pulse Oximetry 97 98 98 07/24/18 08:00 07/24/18 09:47 07/24/18 09:51 Temperature 97.5 F L Pulse Rate 93 H Respiratory Rate 16 Blood Pressure 97/49 L 97/50 L 101/52 L Pulse Oximetry 92 L 98 Intake & Output 07/23/18 07/24/18 07/24/18 18:59 06:59 18:59 Intake Total 450 / 450 480 / 480 Output Total 500 / 500 400 / 400 Balance -50 / -50 80 / 80 Weight 60.9 kg Intake: Oral 450 / 450 480 / 480 Output: Urine 500 / 500 400 / 400 Other: Date of Last Bowel Movement 07/21/18 07/23/18 07/24/18 # Bowel Movements 1 Narrative: GENERAL: 68-year-old elderly male. SKIN: Warm and dry. Pale HEAD: Normocephalic. EYES: No scleral icterus. No injection or drainage. NECK: Supple, trachea midline. No JVD or lymphadenopathy. CARDIOVASCULAR: Regular rate and rhythm without murmurs, gallops, or rubs. RESPIRATORY: Breath sounds equal bilaterally. No accessory muscle use. GASTROINTESTINAL: Abdomen soft, tender to upper abdomen, nondistended. +BS MUSCULOSKELETAL: No cyanosis, or edema. NEURO: Patient awake, alert oriented x3. No focal deficits Results - Labs CBC & Chem 7: 07/23/18 05:16 07/21/18 03:10 - Procedures Mesenteric angiography 07/20/2018. Assessment and Plan - Assessment (1) GI bleed Code(s): K92.2 - Gastrointestinal hemorrhage, unspecified Status: Acute (2) Melena Code(s): K92.1 - Melena Status: Acute - Plan 68-year-old male with known history of hypertension, hyperlipidemia, chronic atrial fibrillation, coronary disease, chronic anticoagulation who presented the hospital because of weakness, shortness of breath, abdominal pain. Patient indicates that he has been having symptoms for approximately 1-1/ 2 months. Has had multiple transfusions, he was told to discontinue Xarelto. Acute anemia due to GI bleed Abdominal pain -Complicated by anticoagulation use of Xarelto -Received multiple transfusion both in [place] and at [facility]. Reports of black stool overnight. -Status post EGD and colonoscopy yesterday without any significant findings. -Patient was transferred to the main campus medical center for mesenteric angiography which was performed on 07/20/2018. 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 Intravascular therapy was not possible due to SMA occlusion. -Dr. Bertrand (Vascular surgery) following-recommends PillCam as outpatient. If anticoagulants are restarted, and patient bleeds again then he will have to do surgery to locate bleed. -Continue Protonix 40mg IV BID. Continue serial H&H monitoring -Morphine IR and Morphine IV for pain management. -Patient not eating much, we will give D5 and a half of 50 an hour times 1 L Elevated liver enzymes-possibly med induced. -LFTs trending down -Continue to monitor -We will hold Lipitor for now Hypertension hyperlipidemia coronary artery disease chronic atrial fibrillation Elevated troponin -Continue to hold Xarelto at this time. -Continuous cardiac monitoring ordered -Dr. Kumar evaluated, recommends at least starting baby aspirin if okay by GI. -Blood pressure noted down 90s over 50s, we will hydrate cautiously. Hold amiodarone today Chronic kidney disease stage III -Continue monitor renal function. Anxiety/Depression -Continue Zoloft, alprazolam. Repeat labs in the morning PPI for GI prophylaxis No anticoagulation at this time due to bleeding Discussed with and granddaughter at length, multiple questions asked, answered in detail. Code Status: Full Code Discussed Condition With: RN, patient, family Discharge Planning: Not ready for discharge yet.
[2018-07-24] MEDS ORDERED: Dextrose 5%/NaCl 0.45% Inj 1,000 ML IV.CONT SCH (16:00)
[2018-07-25] MEDS: Morphine Sulfate 15 MG IR Tablet PO PRN ×4 (02:54→20:44)
[2018-07-25] MEDS: ALPRAZolam 0.25 MG Tablet PO PRN ×4 (02:59→20:44)
[2018-07-25] MEDS: Pantoprazole Inj 40 MG Vial IV.PUSH SCH ×2 (05:24→16:57)
[2018-07-25 07:01] LABS: Hematocrit 23.1 % (39.0-51.0); Hemoglobin 7.6 gm/dL (13.0-17.0); Mean Corpuscular HGB Conc 32.8 % (32.0-36.0); Mean Corpuscular Hemoglobin 29.1 pg (27.0-34.0); Mean Corpuscular Volume 88.5 fL (80.0-100.0); Mean Platelet Volume 9.8 fL (7.0-11.0); Platelet Count 322 th/mm3 (150-450); Red Blood Count 2.61 mil/mm3 (4.50-5.90); Red Cell Distribution Width 15.9 % (11.6-17.2); White Blood Count 26.2 th/mm3 (4.0-11.0)
[2018-07-25 07:30] LABS: Albumin 1.7 g/dL (3.4-5.0); Calcium 7.4 mg/dL (8.5-10.1); Carbon Dioxide 29.5 meq/L (21.0-32.0); Potassium 4.3 meq/L (3.5-5.1); Total Protein 4.7 g/dL (6.4-8.2)
[2018-07-25] MEDS: Ferrous Sulfate 325 MG Tablet PO SCH (10:07)
[2018-07-25] MEDS: Sertraline 50 MG Tablet PO SCH (10:08)
[2018-07-25] MEDS: Senna/Docusate Sodium 8.6/50 MG Tablet PO SCH ×2 (10:08→20:44)
[2018-07-25] MEDS: Gabapentin 100 MG Capsule PO SCH (10:08)
[2018-07-25] MEDS ORDERED: Sodium Chlor 0.9% Inj 250 ML IV.SIG SCH (11:00)
--- NOTE | 2018-07-25 13:33 | P.PN ---
Subjective Interval history: Follow-up for abdominal pain, anemia, GI bleedpatient seen and examined, still feeling dizzy, blood pressure 100/62. Heart rate 63. Temp max 99.7. Pale, feels weak. Minimal abdominal pain, no nausea, no vomiting. Physical Exam Vital signs: Vital Signs 07/24/18 16:00 07/24/18 20:00 07/25/18 00:00 Temperature 99.0 F 98.4 F 99.5 F Pulse Rate 60 61 68 Respiratory Rate 16 16 17 Blood Pressure 107/52 L 113/55 L 128/59 L Pulse Oximetry 96 97 100 07/25/18 04:00 07/25/18 08:00 07/25/18 12:00 Temperature 99.7 F H 99.3 F 99.7 F H Pulse Rate 61 63 60 Respiratory Rate 16 15 15 Blood Pressure 92/50 L 100/62 112/56 L Pulse Oximetry 97 97 95 Intake & Output 07/24/18 07/25/18 07/25/18 18:59 06:59 18:59 Intake Total 480 / 480 Output Total 900 / 900 Balance -420 / -420 Weight 60.9 kg Intake: Oral 480 / 480 Output: Urine 900 / 900 Other: Date of Last Bowel Movement 07/24/18 Narrative: GENERAL: 68-year-old elderly male. SKIN: Warm and dry. Pale HEAD: Normocephalic. EYES: No scleral icterus. No injection or drainage. NECK: Supple, trachea midline. No JVD or lymphadenopathy. CARDIOVASCULAR: Regular rate and rhythm without murmurs, gallops, or rubs. RESPIRATORY: Breath sounds equal bilaterally. No accessory muscle use. GASTROINTESTINAL: Abdomen soft, tender to upper abdomen, nondistended. +BS MUSCULOSKELETAL: No cyanosis, or edema. NEURO: Patient awake, alert oriented x3. No focal deficits Results - Labs CBC & Chem 7: 07/25/18 05:50 07/25/18 05:50 Laboratory Results - last 24 hr 07/25/18 07/25/18 07/25/18 05:50 05:50 11:41 WBC 26.2 H RBC 2.61 L Hgb 7.6 L Hct 23.1 L MCV 88.5 MCH 29.1 MCHC 32.8 RDW 15.9 Plt Count 322 MPV 9.8 Sodium 137 Potassium 4.3 Chloride 102 Carbon Dioxide 29.5 Anion Gap 6 BUN 14 Creatinine 1.40 H Estimated GFR 50 L Random Glucose 98 Calcium 7.4 L* Prot Corrected Calcium 8.8 Total Bilirubin 0.3 AST 55 H ALT 79 H Alkaline Phosphatase 57 Total Protein 4.7 L Albumin 1.7 L Blood Type A Positive Antibody Screen Negative MTS Gel Crossmatch See Detail - Procedures Mesenteric angiography 07/20/2018. Assessment and Plan - Assessment (1) GI bleed Code(s): K92.2 - Gastrointestinal hemorrhage, unspecified Status: Acute (2) Melena Code(s): K92.1 - Melena Status: Acute - Plan 68-year-old male with known history of hypertension, hyperlipidemia, chronic atrial fibrillation, coronary disease, chronic anticoagulation who presented the hospital because of weakness, shortness of breath, abdominal pain. Patient indicates that he has been having symptoms for approximately 1-1/ 2 months. Has had multiple transfusions, he was told to discontinue Xarelto. Acute anemia due to GI bleed Abdominal pain -Complicated by anticoagulation use of Xarelto -Received multiple transfusion both in [place] and at [place]. Reports of black stool overnight. -Status post EGD and colonoscopy yesterday without any significant findings. -Patient was transferred to the [facility] hospital for mesenteric angiography which was performed on 07/20/2018. 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 Intravascular therapy was not possible due to SMA occlusion. -Dr. Bertrand (Vascular surgery) following-recommends PillCam as outpatient. If anticoagulants are restarted, and patient bleeds again then he will have to do surgery to locate bleed. -Continue Protonix 40mg IV BID. Continue serial H&H monitoring -Morphine IR and Morphine IV for pain management. -Patient not eating much, given D5 and a half of 50 an hour times 1 L -Hemoglobin 7.6, hematocrit 23.1. Will transfuse 1 unit. Elevated liver enzymes-possibly med induced. -LFTs trending down -Continue to monitor -We will hold Lipitor for now Hypertension hyperlipidemia coronary artery disease chronic atrial fibrillation Elevated troponin -Continue to hold Xarelto at this time. -Continuous cardiac monitoring ordered -Dr. Kumar evaluated, recommends at least starting baby aspirin if okay by GI. -Blood pressure noted down 90s over 50s, we will hydrate cautiously. Hold amiodarone today -Resume amiodarone Chronic kidney disease stage III -Continue monitor renal function. Anxiety/Depression -Continue Zoloft, alprazolam. Repeat labs in the morning PPI for GI prophylaxis No anticoagulation at this time due to bleeding CBC and BMP in the morning PT/OT Out of bed with assist We will wait for further recommendations from vascular surgery Code Status: Full code Discussed Condition With: RN, patient Discharge Planning: Not ready for discharge yet.
--- NOTE | 2018-07-25 15:29 | P.PNVS ---
Subjective Subjective/Hospital Course: Referral received Full consult TF J 07/22/2018 The gentleman clearly has a source of bleeding producing repeated episodes of anemia, caused by GI bleeding and consequent dizziness, weakness and the related symptoms. The patient is on Xarelto for atrial fibrillation. This has been temporarily stopped. Colonoscopy did not reveal any lesions which would be responsible for this and it would be quite unlikely with melena anyway. Upper endoscopy is negative. The nuclear scan requires about 1 mL per minute of bleeding, so at that time it was performed, the patient obviously had enough to show some blush in the left upper quadrant which was deemed to have come from the small intestine. Considering the patient is lying down, it is hard to say which part of the small intestine, but is probably somewhere to the distal jejunum/mid ileum. I doubt that this would be from the ligament of Treitz because it would not be in the left upper quadrant. An angiogram could not be performed because the patient has an occluded superior mesenteric artery, yet the celiac axis and inferior mesenteric arteries are patent. At this point, there are few options left. Clearly, the patient cannot be embolized should he bleed from a site that normally would be reachable by a superior mesenteric artery approach considering the vessel is occluded. The only question arises what the source of bleeding is. The patient may have Meckel diverticulum, at with gastric or pancreatic lining which will cause ulceration of the vis-a-vis jejunumand hence, the bleeding from the same. In addition, differential includes an unrecognized underlying malignancy like a carcinoma of the small intestine. This is not obvious on the CAT scan. At this point, we have exhausted all the means of looking at this and probably, if the patient rebleeds, the only remaining option is to do an exploratory laparotomy and see where he is bleeding from. At the time of surgery, sometimes we can do an endoscopy, but there is no vascular procedure that is going to assist this patient other than a surgical approach and resection of the offending segment. If the patient rebleeds, repeating a nuclear scan might be helpful to delineate the site for once we are in the abdomen, blindly resecting bowel is not a good idea, so I hope to find some abnormality that would sort itself out. I will continue to follow the patient. If he drops his hemoglobin again, we will resort to surgery. Until then, I would hold Xarelto. Patient has been stable for the last 24 hours has not required any transfusions If he bleeds again, surgery will remain the only option but a repeat RBC tagged scan will be obviously helpful to better delineate the offending segment of the intestine. Until then it remains an educated guess and is never a great way to approach surgery with educated gases as the only underlying pathologic starting point. 07/23/2018 Patient is awake alert and oriented Abdomen is soft active bowel sounds Hemoglobin remained stable and at this point there is no active bleeding noted Will leave things alone for the time being and see how patient does In a very ideal case scenario patient would get a PillCam but this is not done in hospital so patient will have to be outpatient at that point I am afraid that once anticoagulants are restarted patient will bleed again so most likely we will resort to exploration next week or earlier if patient drops hemoglobin 07/24/2018 Abdomen soft active bowel sounds Patient had 2 bowel movements which is soft heme positive but not melanotic and hemoglobin remained stable CBC pending for tomorrow and will see if hemoglobin remains stable patient might be able to have PillCam as an outpatient On the other hand if anticoagulants are restarted and patient bleeds then will have to resort to surgery at this admission and hopefully be able to locate the point of bleeding 07/25/2018 Patient appears to be pale and weak and hemoglobin has dropped another gram since yesterday Patient continues with a low intensity bleed and at this point clearly cannot be discharged Based on all of the above I do not believe we have a choice but simply to go ahead and proceed with abdominal surgery and resect the offending part of small bowel as we can best recognize it during the surgery All discussed with patient in detail and we should proceed with surgery tomorrow I have explained the risks and benefits and possible complications, including the fact that we may not be able to localize the bleeding site or find a more complex problem. Objective Vital Signs / I&O: Vital Signs 07/24/18 16:00 07/24/18 20:00 07/25/18 00:00 Temperature 99.0 F 98.4 F 99.5 F Pulse Rate 60 61 68 Respiratory Rate 16 16 17 Blood Pressure 107/52 L 113/55 L 128/59 L Pulse Oximetry 96 97 100 07/25/18 04:00 07/25/18 08:00 07/25/18 12:00 Temperature 99.7 F H 99.3 F 99.7 F H Pulse Rate 61 63 60 Respiratory Rate 16 15 15 Blood Pressure 92/50 L 100/62 112/56 L Pulse Oximetry 97 97 95 07/25/18 15:07 Temperature 98.9 F Pulse Rate 60 Respiratory Rate 17 Blood Pressure 102/51 L Pulse Oximetry 93 L Intake & Output 07/24/18 07/25/18 07/25/18 18:59 06:59 18:59 Intake Total 480 / 480 0 / 0 Output Total 900 / 900 Balance -420 / -420 0 / 0 Weight 60.9 kg Intake: Oral 480 / 480 Intake (Blood Product) Amt 0 / 0 Rbc As-3 Leukoreduced Unit 0 / 0 [id number] Output: Urine 900 / 900 Other: Date of Last Bowel Movement 07/24/18 Laboratory Results - last 24 hr 07/19/18 07/25/18 07/25/18 07:30 05:50 05:50 WBC 26.2 H RBC 2.61 L Hgb 7.6 L Hct 23.1 L MCV 88.5 MCH 29.1 MCHC 32.8 RDW 15.9 Plt Count 322 MPV 9.8 Sodium 137 Potassium 4.3 Chloride 102 Carbon Dioxide 29.5 Anion Gap 6 BUN 14 Creatinine 1.40 H Estimated GFR 50 L Random Glucose 98 Calcium 7.4 L* Prot Corrected Calcium 8.8 Total Bilirubin 0.3 AST 55 H ALT 79 H Alkaline Phosphatase 57 Total Protein 4.7 L Albumin 1.7 L Blood Type Antibody Screen MTS Gel Crossmatch See Detail 07/25/18 11:41 WBC RBC Hgb Hct MCV MCH MCHC RDW Plt Count MPV Sodium Potassium Chloride Carbon Dioxide Anion Gap BUN Creatinine Estimated GFR Random Glucose Calcium Prot Corrected Calcium Total Bilirubin AST ALT Alkaline Phosphatase Total Protein Albumin Blood Type A Positive Antibody Screen Negative MTS Gel Crossmatch See Detail
[2018-07-25] MEDS ORDERED: Chlorhexidine Gluconate 2% 1 Pack (2 Cloths) TOPICAL ONE (20:36)
[2018-07-25] MEDS ORDERED: Metoprolol Tartrate 25 MG Tablet PO ONE (20:36)
[2018-07-25] MEDS ORDERED: Sodium Chlor 0.9% Inj 500 ML IV.SIG SCH (21:00)
[2018-07-26] MEDS: ALPRAZolam 0.25 MG Tablet PO PRN ×3 (00:47→23:59)
[2018-07-26] MEDS: Morphine Sulfate 15 MG IR Tablet PO PRN ×3 (00:47→09:25)
[2018-07-26] MEDS: Pantoprazole Inj 40 MG Vial IV.PUSH SCH ×2 (05:07→17:00)
[2018-07-26 05:44] LABS: Calcium 7.7 mg/dL (8.5-10.1); Carbon Dioxide 34.1 meq/L (21.0-32.0); Potassium 4.7 meq/L (3.5-5.1)
[2018-07-26] MEDS ORDERED: Morphine Inj 4 MG/ML Vial IV.PUSH ONE (10:55)
[2018-07-26] MEDS ORDERED: Bupivacaine/Epinephrine PF Inj 0.5% 30 ML Vial ONE (10:59)
[2018-07-26 11:21] LABS: Hematocrit 26.1 % (39.0-51.0); Hemoglobin 8.9 gm/dL (13.0-17.0); Mean Corpuscular HGB Conc 34.1 % (32.0-36.0); Mean Corpuscular Hemoglobin 29.8 pg (27.0-34.0); Mean Corpuscular Volume 87.3 fL (80.0-100.0); Mean Platelet Volume 9.2 fL (7.0-11.0); Platelet Count 202 th/mm3 (150-450); Red Blood Count 2.99 mil/mm3 (4.50-5.90); Red Cell Distribution Width 15.5 % (11.6-17.2); White Blood Count 5.8 th/mm3 (4.0-11.0)
[2018-07-26] MEDS ORDERED: ceFAZolin 2 GM Premix Inj 0 GM/0 ML PIGGYBACK IV.SIG ONE (12:06)
[2018-07-26] MEDS ORDERED: ceFAZolin 2 GM Premix Inj 2 GM/50 ML PIGGYBACK IV.SIG ONE (12:08)
[2018-07-26] MEDS ORDERED: Ketorolac Inj 30 MG/ML (IVP) Vial IV.PUSH ONE (12:15)
[2018-07-26] MEDS ORDERED: Normosol-R pH 7.4 Inj 1,000 ML IV.CONT ONE (12:15)
[2018-07-26] MEDS ORDERED: Lidocaine PF 1% Inj 5 ML Syringe OTHER ONE (12:15)
[2018-07-26] MEDS ORDERED: Phenylephrine/NS 1000 MCG/10ML Syringe IV.PUSH ONE (12:15)
[2018-07-26] MEDS ORDERED: Sugammadex Inj 200 MG/2 ML Vial IV.PUSH ONE (13:39)
[2018-07-26] MEDS ORDERED: fentaNYL Citrate Inj 100 MCG/2 ML Ampul ONE (14:01)
[2018-07-26] MEDS ORDERED: *morphine SULFATE 4 MG/ML PERIprocedure ONLY ONE ×2 (14:21→15:35)
--- NOTE | 2018-07-26 14:23 | OTSOAPIP ---
TIME SESSION COMPLETED: AM TREATMENT TIME: 0 MINS. CHART REVIEWED. INTERDISCIPLINARY COMMUNICATION: PATIENT WAS NOT AVAILABLE DUE TO HAVING A SURGICAL PROCEDURE. PLAN: WILL SEE PATIENT NEXT TREATMENT DAY. Therapist: Joanne Gomez Signature on file
[2018-07-26] MEDS: Sertraline 50 MG Tablet PO SCH (15:03)
[2018-07-26] MEDS: Amiodarone 200 MG Tablet PO SCH (15:03)
[2018-07-26] MEDS: Gabapentin 100 MG Capsule PO SCH (15:03)
[2018-07-26] MEDS: Senna/Docusate Sodium 8.6/50 MG Tablet PO SCH ×2 (15:03→20:51)
[2018-07-26] MEDS: Ferrous Sulfate 325 MG Tablet PO SCH (15:03)
--- NOTE | 2018-07-26 15:03 | P.PNIM ---
Subjective Interval history: Ready for surgery. Mild mid abdominal discomfort and pain. Complaint of nausea. No active vomiting. Physical Exam Vital signs: Vital Signs 07/25/18 15:07 07/25/18 16:00 07/25/18 20:00 Temperature 98.9 F 98.2 F 98.4 F Pulse Rate 60 60 61 Respiratory Rate 17 15 19 Blood Pressure 102/51 L 102/52 L 106/58 L Pulse Oximetry 93 L 94 L 95 07/26/18 00:00 07/26/18 04:00 07/26/18 08:00 Temperature 98.7 F 97.5 F L 97.9 F Pulse Rate 63 62 60 Respiratory Rate 18 19 18 Blood Pressure 107/51 L 105/52 L 103/52 L Pulse Oximetry 95 93 L 91 L 07/26/18 13:55 07/26/18 14:10 07/26/18 14:25 Temperature 97.0 F L Pulse Rate 60 60 60 Respiratory Rate 22 20 16 Blood Pressure 105/64 88/50 L 82/52 L Pulse Oximetry 89 L 93 L 97 Intake & Output 07/25/18 07/26/18 07/26/18 18:59 06:59 18:59 Intake Total 1480 / 1480 1480 / 1480 1200 / 1200 Output Total 1400 / 1400 1900 / 1900 150 / 150 Balance 80 / 80 -420 / -420 1050 / 1050 Weight 60.9 kg Intake: IV 1000 / 1000 D5W/1/2 NS Inj 1,000 ML @ 42 1000 / 1000 mls/hr IV.CONT .[id number] [facility] Rx# :[id number] Oral 1080 / 1080 480 / 480 Anesthesia Amount 1200 / 1200 Intake (Blood Product) Amt 400 / 400 Rbc As-3 Leukoreduced Unit 400 / 400 [id number] Output: Urine 1400 / 1400 1900 / 1900 125 / 125 Estimated Blood Loss 25 / 25 Other: Date of Last Bowel Movement 07/23/18 07/23/18 Narrative: GENERAL: 68-year-old elderly male in no acute distress CARDIOVASCULAR: Regular rate and rhythm without murmurs, gallops, or rubs. RESPIRATORY: Breath sounds equal bilaterally. No accessory muscle use. GASTROINTESTINAL: Abdomen soft, tender to mid upper abdomen, nondistended. No rebound or guarding +BS MUSCULOSKELETAL: No cyanosis, or edema. NEURO: Patient awake, alert oriented x3. No focal deficits - Urinary Catheter Management Indwelling Urethral Catheter Cath placed during this visit: no Reason for continuing: Hourly intake/output Results - Labs CBC & Chem 7: 07/26/18 07:39 07/26/18 04:10 Laboratory Results - last 24 hr 07/19/18 07/25/18 07/25/18 07:30 11:41 18:55 WBC RBC Hgb Hct MCV MCH MCHC RDW Plt Count MPV Hematology Comments Sodium Potassium Chloride Carbon Dioxide Anion Gap BUN Creatinine Estimated GFR Random Glucose Calcium Blood Type A Positive Antibody Screen Negative MTS Gel Crossmatch See Detail See Detail See Detail 07/26/18 07/26/18 04:10 07:39 WBC 5.8 RBC 2.99 L Hgb 8.9 L Hct 26.1 L MCV 87.3 MCH 29.8 MCHC 34.1 RDW 15.5 Plt Count 202 D MPV 9.2 Hematology Comments Sodium 142 Potassium 4.7 Chloride 104 Carbon Dioxide 34.1 H Anion Gap 4 L BUN 13 Creatinine 1.41 H Estimated GFR 50 L Random Glucose 82 Calcium 7.7 L Blood Type Antibody Screen MTS Gel Crossmatch - Procedures Mesenteric angiography 07/20/2018. Assessment and Plan - Assessment (1) GI bleed Code(s): K92.2 - Gastrointestinal hemorrhage, unspecified Status: Acute (2) Melena Code(s): K92.1 - Melena Status: Acute - Plan 68-year-old male with known history of hypertension, hyperlipidemia, chronic atrial fibrillation, coronary disease, chronic anticoagulation who presented the hospital because of weakness, shortness of breath, abdominal pain. Patient indicates that he has been having symptoms for approximately 1-1/ 2 months. Has had multiple transfusions, he was told to discontinue Xarelto. Acute anemia due to GI bleed Abdominal pain -Complicated by anticoagulation use of Xarelto -Received multiple transfusion both in [place] and at [place]. Reports of black stool overnight. -Status post EGD and colonoscopy without any significant findings. -Patient was transferred to the [facility] hospital for mesenteric angiography which was performed on 07/20/2018. 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 Intravascular therapy was not possible due to SMA occlusion. -Dr. Bertrand (Vascular surgery) following-initially recommends PillCam as outpatient. However patient continues to have a drop in hemoglobin and is going for surgical intervention with likely resection of small bowel today with vascular surgery. -Continue Protonix 40mg IV BID. Continue serial H&H monitoring -Morphine IR and Morphine IV for pain management. -Hemoglobin 7.6 yesterday with drop, hematocrit 23.1. Transfuse 1 unit yesterday, hemoglobin 8.9 today Elevated liver enzymes-possibly med induced. -LFTs trending down -Continue to monitor -We will hold Lipitor for now Hypertension hyperlipidemia coronary artery disease chronic atrial fibrillation Elevated troponin -Continue to hold Xarelto at this time. -Continuous cardiac monitoring ordered -Dr. Kumar evaluated, recommends at least starting baby aspirin if okay by GI when patient stabilizes from surgery. -Hypotensive readings due to hypovolemia and anemia from GI bleed -Resume amiodarone when blood pressure better controlled. Acute kidney injury superimposed on chronic kidney disease stage III Likely due to bleeding -Continue monitor renal function. This is improved Avoid nephrotoxins. Anxiety/Depression -Continue Zoloft, alprazolam. PPI for GI prophylaxis No anticoagulation at this time due to bleeding
[2018-07-26 15:34] LABS: Hematocrit 26.2 % (39.0-51.0); Hemoglobin 8.7 gm/dL (13.0-17.0)
[2018-07-26] MEDS ORDERED: Naloxone Inj 0.4 MG/ML Vial IV.PUSH PRN (15:49)
[2018-07-26] MEDS ORDERED: Post-op Orders (for Pharmacy) OTHER ONE (15:49)
[2018-07-26] MEDS: Sod Chloride 0.9% Inj 1,000 ML IV.SIG SCH (16:30)
[2018-07-26] MEDS ORDERED: Sod Chloride 0.9% Inj 1,000 ML IV.SIG ONE (18:00)
[2018-07-26] MEDS: Morphine Inj 4 MG/ML Vial IV.PUSH PRN (20:55)
[2018-07-27] MEDS: Morphine Inj 4 MG/ML Vial IV.PUSH PRN ×4 (02:33→20:18)
[2018-07-27] MEDS: Pantoprazole Inj 40 MG Vial IV.PUSH SCH ×2 (05:14→17:22)
[2018-07-27] MEDS: ALPRAZolam 0.25 MG Tablet PO PRN ×3 (05:24→20:17)
[2018-07-27 06:16] LABS: Calcium 7.2 mg/dL (8.5-10.1); Carbon Dioxide 26.1 meq/L (21.0-32.0); Potassium 4.5 meq/L (3.5-5.1)
[2018-07-27 06:32] LABS: Baso % (Auto) 0.3 % (0.0-2.0); Hematocrit 31.7 % (39.0-51.0); Hemoglobin 10.5 gm/dL (13.0-17.0); Lymph # (Auto) 0.4 th/mm3 (1.0-4.8); Lymph % (Auto) 3.8 % (9.0-44.0); Mean Corpuscular HGB Conc 33.2 % (32.0-36.0); Mean Corpuscular Hemoglobin 28.3 pg (27.0-34.0); Mean Corpuscular Volume 85.4 fL (80.0-100.0); Mean Platelet Volume 9.3 fL (7.0-11.0); Mono # (Auto) 0.6 th/mm3 (0.0-0.9); Mono % (Auto) 5.3 % (0.0-8.0); Neut # (Auto) 10.5 th/mm3 (1.8-7.7); Neut % (Auto) 90.6 % (16.0-70.0); Platelet Count 245 th/mm3 (150-450); Red Blood Count 3.71 mil/mm3 (4.50-5.90); Red Cell Distribution Width 17.7 % (11.6-17.2); White Blood Count 11.6 th/mm3 (4.0-11.0)
[2018-07-27 06:51] LABS: Total Protein 5.2 g/dL (6.4-8.2)
--- NOTE | 2018-07-27 07:58 | MP ---
cc: Jose Miguel Obregon MD DATE OF OPERATION: 07/26/2018 PREOPERATIVE DIAGNOSIS: Unspecified gastrointestinal bleeding, recurrent anemia. POSTOPERATIVE DIAGNOSES: Unspecified gastrointestinal bleeding, recurrent anemia. PROCEDURE PERFORMED: Exploratory laparotomy and exploration of the abdomen with no site of bleeding or localization of living bleeding site. SURGEON: Dr. Obregon. ANESTHESIA: General. ESTIMATED BLOOD LOSS: 50 mL. The patient prepped and draped in usual fashion. A mid abdominal incision was made in about 4 inches in the part of his previous scar in the epigastrium. Abdomen entered. There was fair amount of adhesions present and small bowel was stuck to the anterior abdominal wall. This is dissected free. Omentum was then freed up from anterior abdominal wall as well with a sharp Metzenbaum dissection. Meticulous hemostasis assured. The large bowel was run first from the ileocecal valve to the rectum and peritoneal reflection. Patient has large amount of stool in the bowel, but no masses, no areas of concern and this comports with the colonoscopy, which did not show anything either. Upper GI tract is next examined. EG junction and stomach are palpated. NG tube is in position. There are no suspicious lesions on the stomach or duodenum. Liver appears to be normal. Spleen is somewhat large, but otherwise normal. The Small bowel was now run. There were significant adhesions between the small bowel loops and omentum. These were taken down sharply and small bowel was freed up. There are some adhesions between the small bowel loops which are also released. The small bowel was now run from ligament of Treitz to ileocecal valve. Considering that upper and lower endoscopy were negative, the question arose whether the patient might have a tumor of the small bowel, or a Meckel's diverticulum. The small bowel was run very carefully from one end to the other and is palpated along the line. No abnormalities whatsoever are found. Once more, the entire abdomen was explored. No lesions are found. The abdomen was now irrigated with copious amounts of saline. His pancreas is palpated by freeing up the duodenum and a limited Haroldo maneuver and no abnormalities were found there. Finally, the procedure is terminated. The abdomen was closed with #1 PDS loop and marley. In the end patient has no discernable source of bleeding or any masses in the abdomen that would account for the same, which on one hand is negative; however, positive that the patient does not have any tumors that would account for the same, which I was afraid of. Patient tolerated the procedure well. MD PETE Serrano/chelle , 04:21 PM , 04:29 PM
[2018-07-27] MEDS: Ferrous Sulfate 325 MG Tablet PO SCH (08:10)
[2018-07-27] MEDS: Sertraline 50 MG Tablet PO SCH (08:10)
[2018-07-27] MEDS: Gabapentin 100 MG Capsule PO SCH (08:10)
[2018-07-27] MEDS: Senna/Docusate Sodium 8.6/50 MG Tablet PO SCH ×2 (08:10→20:17)
[2018-07-27] MEDS: Amiodarone 200 MG Tablet PO SCH (08:10)
[2018-07-27] MEDS: Sod Chloride 0.9% Inj 1,000 ML IV.SIG SCH ×2 (09:32→17:22)
--- NOTE | 2018-07-27 11:17 | P.PNVS ---
Subjective Subjective/Hospital Course: Referral received Full consult TF J 07/22/2018 The gentleman clearly has a source of bleeding producing repeated episodes of anemia, caused by GI bleeding and consequent dizziness, weakness and the related symptoms. The patient is on Xarelto for atrial fibrillation. This has been temporarily stopped. Colonoscopy did not reveal any lesions which would be responsible for this and it would be quite unlikely with melena anyway. Upper endoscopy is negative. The nuclear scan requires about 1 mL per minute of bleeding, so at that time it was performed, the patient obviously had enough to show some blush in the left upper quadrant which was deemed to have come from the small intestine. Considering the patient is lying down, it is hard to say which part of the small intestine, but is probably somewhere to the distal jejunum/mid ileum. I doubt that this would be from the ligament of Treitz because it would not be in the left upper quadrant. An angiogram could not be performed because the patient has an occluded superior mesenteric artery, yet the celiac axis and inferior mesenteric arteries are patent. At this point, there are few options left. Clearly, the patient cannot be embolized should he bleed from a site that normally would be reachable by a superior mesenteric artery approach considering the vessel is occluded. The only question arises what the source of bleeding is. The patient may have Meckel diverticulum, at with gastric or pancreatic lining which will cause ulceration of the vis-a-vis jejunumand hence, the bleeding from the same. In addition, differential includes an unrecognized underlying malignancy like a carcinoma of the small intestine. This is not obvious on the CAT scan. At this point, we have exhausted all the means of looking at this and probably, if the patient rebleeds, the only remaining option is to do an exploratory laparotomy and see where he is bleeding from. At the time of surgery, sometimes we can do an endoscopy, but there is no vascular procedure that is going to assist this patient other than a surgical approach and resection of the offending segment. If the patient rebleeds, repeating a nuclear scan might be helpful to delineate the site for once we are in the abdomen, blindly resecting bowel is not a good idea, so I hope to find some abnormality that would sort itself out. I will continue to follow the patient. If he drops his hemoglobin again, we will resort to surgery. Until then, I would hold Xarelto. Patient has been stable for the last 24 hours has not required any transfusions If he bleeds again, surgery will remain the only option but a repeat RBC tagged scan will be obviously helpful to better delineate the offending segment of the intestine. Until then it remains an educated guess and is never a great way to approach surgery with educated gases as the only underlying pathologic starting point. 07/23/2018 Patient is awake alert and oriented Abdomen is soft active bowel sounds Hemoglobin remained stable and at this point there is no active bleeding noted Will leave things alone for the time being and see how patient does In a very ideal case scenario patient would get a PillCam but this is not done in hospital so patient will have to be outpatient at that point I am afraid that once anticoagulants are restarted patient will bleed again so most likely we will resort to exploration next week or earlier if patient drops hemoglobin 07/24/2018 Abdomen soft active bowel sounds Patient had 2 bowel movements which is soft heme positive but not melanotic and hemoglobin remained stable CBC pending for tomorrow and will see if hemoglobin remains stable patient might be able to have PillCam as an outpatient On the other hand if anticoagulants are restarted and patient bleeds then will have to resort to surgery at this admission and hopefully be able to locate the point of bleeding 07/25/2018 Patient appears to be pale and weak and hemoglobin has dropped another gram since yesterday Patient continues with a low intensity bleed and at this point clearly cannot be discharged Based on all of the above I do not believe we have a choice but simply to go ahead and proceed with abdominal surgery and resect the offending part of small bowel as we can best recognize it during the surgery All discussed with patient in detail and we should proceed with surgery tomorrow I have explained the risks and benefits and possible complications, including the fact that we may not be able to localize the bleeding site or find a more complex problem. 07/27/2018 Patient underwent exploration for tubal small bowel lesion and a source of intestinal hemorrhage As indicated in full operative note, patient had no obvious mass lesion or any source of bleeding in the small bowel large bowel or stomach and duodenum Except for extensive adhesions exploration was otherwise negative Patient is now stable Can be transferred to the floor and advanced to diet Out of bed Objective Vital Signs / I&O: Vital Signs 07/26/18 13:55 07/26/18 14:10 07/26/18 14:25 Temperature 97.0 F L Pulse Rate 60 60 60 Respiratory Rate 22 20 16 Blood Pressure 105/64 88/50 L 82/52 L Pulse Oximetry 89 L 93 L 97 07/26/18 14:30 07/26/18 14:45 07/26/18 15:00 Temperature 97.1 F L Pulse Rate 60 60 60 Respiratory Rate 14 12 14 Blood Pressure 90/40 L 68/41 L 62/38 L Pulse Oximetry 98 94 L 94 L 07/26/18 15:03 07/26/18 15:15 07/26/18 15:30 Temperature 97.5 F L 97.6 F Pulse Rate 60 60 60 Respiratory Rate 20 14 16 Blood Pressure 63/43 L 69/45 L 70/45 L Pulse Oximetry 100 95 07/26/18 15:45 07/26/18 16:00 07/26/18 16:15 Temperature Pulse Rate 60 60 60 Respiratory Rate 16 16 16 Blood Pressure 93/51 L Pulse Oximetry 95 96 94 L 07/26/18 16:30 07/26/18 16:45 07/26/18 17:00 Temperature 97.1 F L Pulse Rate 60 60 60 Respiratory Rate 18 18 16 Blood Pressure 110/56 L Pulse Oximetry 96 94 L 94 L 07/26/18 17:20 07/26/18 17:25 07/26/18 17:30 Temperature 97.6 F Pulse Rate 65 60 77 Respiratory Rate 12 16 Blood Pressure 111/53 L Pulse Oximetry 84 L 96 07/26/18 17:57 07/26/18 18:00 07/26/18 18:30 Temperature Pulse Rate 60 59 L Respiratory Rate 14 16 12 Blood Pressure 104/52 L Pulse Oximetry 97 78 L 07/26/18 19:00 07/26/18 20:00 07/26/18 21:00 Temperature 97.9 F Pulse Rate 59 L 59 L 59 L Respiratory Rate 9 L 10 L 14 Blood Pressure Pulse Oximetry 98 97 96 07/26/18 22:00 07/26/18 23:00 07/27/18 00:00 Temperature 98.4 F Pulse Rate 59 L 60 59 L Respiratory Rate 9 L 11 L 11 L Blood Pressure 124/49 L Pulse Oximetry 96 96 93 L 07/27/18 01:00 07/27/18 02:00 07/27/18 03:00 Temperature 98.5 F Pulse Rate 59 L 60 59 L Respiratory Rate 9 L 8 L 9 L Blood Pressure Pulse Oximetry 96 95 95 07/27/18 04:00 07/27/18 05:00 07/27/18 06:00 Temperature 98.6 F Pulse Rate 59 L 61 59 L Respiratory Rate 11 L 10 L Blood Pressure 112/44 L 112/44 L 105/45 L Pulse Oximetry 95 96 94 L 07/27/18 07:00 07/27/18 07:15 07/27/18 07:30 Temperature Pulse Rate 59 L 59 L 59 L Respiratory Rate 8 L 9 L 15 Blood Pressure Pulse Oximetry 94 L 95 94 L 07/27/18 07:45 07/27/18 08:00 07/27/18 08:15 Temperature 97.9 F Pulse Rate 59 L 59 L 59 L Respiratory Rate 7 L 9 L 9 L Blood Pressure Pulse Oximetry 96 97 96 07/27/18 08:30 07/27/18 08:45 07/27/18 09:00 Temperature Pulse Rate 59 L 63 59 L Respiratory Rate 8 L 10 L 8 L Blood Pressure Pulse Oximetry 95 95 97 07/27/18 09:15 07/27/18 09:30 07/27/18 09:35 Temperature Pulse Rate 59 L 61 60 Respiratory Rate 7 L 9 L 24 Blood Pressure 104/52 L Pulse Oximetry 97 96 92 L 07/27/18 09:45 07/27/18 10:00 07/27/18 10:15 Temperature Pulse Rate 59 L 59 L 60 Respiratory Rate 9 L 10 L 11 L Blood Pressure 119/58 L Pulse Oximetry 97 97 97 07/27/18 10:30 07/27/18 10:45 Temperature Pulse Rate 59 L 59 L Respiratory Rate 9 L 11 L Blood Pressure 116/56 L Pulse Oximetry 97 94 L Intake & Output 07/26/18 07/27/18 07/27/18 18:59 06:59 18:59 Intake Total 3630 / 3630 240 / 240 1120 / 1120 Output Total 400 / 400 450 / 450 175 / 175 Balance 3230 / 3230 -210 / -210 945 / 945 Weight 76.9 kg Intake: IV 1000 / 1000 1000 / 1000 NS Inj 1,000 ML @ 100 mls/hr IV 1000 / 1000 1000 / 1000 .SIG .Q10H [facility] Rx#:[id number] Oral 30 / 30 240 / 240 120 / 120 Anesthesia Amount 1900 / 1900 Other 300 / 300 Intake (Blood Product) Amt 400 / 400 Rbc As-3 Leukoreduced Unit 400 / 400 [id number] Output: Urine 125 / 125 Estimated Blood Loss 25 / 25 Urine Amount (Catheter) 250 / 250 450 / 450 175 / 175 Indwelling Urethral Catheter 250 / 250 450 / 450 175 / 175 Other: Date of Last Bowel Movement 07/23/18 07/23/18 07/23/18 Laboratory Results - last 24 hr 07/25/18 07/26/18 07/26/18 18:55 07:39 14:52 WBC 5.8 RBC 2.99 L Hgb 8.9 L 8.7 L Hct 26.1 L 26.2 L MCV 87.3 MCH 29.8 MCHC 34.1 RDW 15.5 Plt Count 202 D MPV 9.2 Neut % (Auto) Lymph % (Auto) [place] % (Auto) Eos % (Auto) Baso % (Auto) Neut # (Auto) Lymph # (Auto) [place] # (Auto) Eos # (Auto) Baso # (Auto) WBC Differential Differential Comment Hematology Comments Sodium Potassium Chloride Carbon Dioxide Anion Gap BUN Creatinine Estimated GFR Random Glucose Calcium Prot Corrected Calcium Total Protein MTS Gel Crossmatch See Detail 07/27/18 07/27/18 05:00 05:00 WBC 11.6 H D RBC 3.71 L Hgb 10.5 L Hct 31.7 L MCV 85.4 MCH 28.3 MCHC 33.2 RDW 17.7 H Plt Count 245 MPV 9.3 Neut % (Auto) 90.6 H Lymph % (Auto) 3.8 L [place] % (Auto) 5.3 Eos % (Auto) 0.0 Baso % (Auto) 0.3 Neut # (Auto) 10.5 H Lymph # (Auto) 0.4 L [place] # (Auto) 0.6 Eos # (Auto) 0.0 Baso # (Auto) 0.0 WBC Differential . Differential Comment Auto diff final Hematology Comments Sodium 140 Potassium 4.5 Chloride 107 Carbon Dioxide 26.1 Anion Gap 7 BUN 21 H Creatinine 1.48 H Estimated GFR 47 L Random Glucose 148 H Calcium 7.2 L* Prot Corrected Calcium 8.2 L Total Protein 5.2 L MTS Gel Crossmatch
--- NOTE | 2018-07-27 12:36 | P.PNIM ---
Subjective Interval history: Patient reports abdominal pain. No passing gas. Mild nausea. No vomiting. Physical Exam Vital signs: Vital Signs 07/26/18 13:55 07/26/18 14:10 07/26/18 14:25 Temperature 97.0 F L Pulse Rate 60 60 60 Respiratory Rate 22 20 16 Blood Pressure 105/64 88/50 L 82/52 L Pulse Oximetry 89 L 93 L 97 07/26/18 14:30 07/26/18 14:45 07/26/18 15:00 Temperature 97.1 F L Pulse Rate 60 60 60 Respiratory Rate 14 12 14 Blood Pressure 90/40 L 68/41 L 62/38 L Pulse Oximetry 98 94 L 94 L 07/26/18 15:03 07/26/18 15:15 07/26/18 15:30 Temperature 97.5 F L 97.6 F Pulse Rate 60 60 60 Respiratory Rate 20 14 16 Blood Pressure 63/43 L 69/45 L 70/45 L Pulse Oximetry 100 95 07/26/18 15:45 07/26/18 16:00 07/26/18 16:15 Temperature Pulse Rate 60 60 60 Respiratory Rate 16 16 16 Blood Pressure 93/51 L Pulse Oximetry 95 96 94 L 07/26/18 16:30 07/26/18 16:45 07/26/18 17:00 Temperature 97.1 F L Pulse Rate 60 60 60 Respiratory Rate 18 18 16 Blood Pressure 110/56 L Pulse Oximetry 96 94 L 94 L 07/26/18 17:20 07/26/18 17:25 07/26/18 17:30 Temperature 97.6 F Pulse Rate 65 60 77 Respiratory Rate 12 16 Blood Pressure 111/53 L Pulse Oximetry 84 L 96 07/26/18 17:57 07/26/18 18:00 07/26/18 18:30 Temperature Pulse Rate 60 59 L Respiratory Rate 14 16 12 Blood Pressure 104/52 L Pulse Oximetry 97 78 L 07/26/18 19:00 07/26/18 20:00 07/26/18 21:00 Temperature 97.9 F Pulse Rate 59 L 59 L 59 L Respiratory Rate 9 L 10 L 14 Blood Pressure Pulse Oximetry 98 97 96 07/26/18 22:00 07/26/18 23:00 07/27/18 00:00 Temperature 98.4 F Pulse Rate 59 L 60 59 L Respiratory Rate 9 L 11 L 11 L Blood Pressure 124/49 L Pulse Oximetry 96 96 93 L 07/27/18 01:00 07/27/18 02:00 07/27/18 03:00 Temperature 98.5 F Pulse Rate 59 L 60 59 L Respiratory Rate 9 L 8 L 9 L Blood Pressure Pulse Oximetry 96 95 95 07/27/18 04:00 07/27/18 05:00 07/27/18 06:00 Temperature 98.6 F Pulse Rate 59 L 61 59 L Respiratory Rate 11 L 10 L Blood Pressure 112/44 L 112/44 L 105/45 L Pulse Oximetry 95 96 94 L 07/27/18 07:00 07/27/18 07:15 07/27/18 07:30 Temperature Pulse Rate 59 L 59 L 59 L Respiratory Rate 8 L 9 L 15 Blood Pressure Pulse Oximetry 94 L 95 94 L 07/27/18 07:45 07/27/18 08:00 07/27/18 08:15 Temperature 97.9 F Pulse Rate 59 L 59 L 59 L Respiratory Rate 7 L 9 L 9 L Blood Pressure Pulse Oximetry 96 97 96 07/27/18 08:30 07/27/18 08:45 07/27/18 09:00 Temperature Pulse Rate 59 L 63 59 L Respiratory Rate 8 L 10 L 8 L Blood Pressure Pulse Oximetry 95 95 97 07/27/18 09:15 07/27/18 09:30 07/27/18 09:35 Temperature Pulse Rate 59 L 61 60 Respiratory Rate 7 L 9 L 24 Blood Pressure 104/52 L Pulse Oximetry 97 96 92 L 07/27/18 09:45 07/27/18 10:00 07/27/18 10:15 Temperature Pulse Rate 59 L 59 L 60 Respiratory Rate 9 L 10 L 11 L Blood Pressure 119/58 L Pulse Oximetry 97 97 97 07/27/18 10:30 07/27/18 10:45 Temperature Pulse Rate 59 L 59 L Respiratory Rate 9 L 11 L Blood Pressure 116/56 L Pulse Oximetry 97 94 L Intake & Output 07/26/18 07/27/18 07/27/18 18:59 06:59 18:59 Intake Total 3630 / 3630 240 / 240 1120 / 1120 Output Total 400 / 400 450 / 450 175 / 175 Balance 3230 / 3230 -210 / -210 945 / 945 Weight 76.9 kg Intake: IV 1000 / 1000 1000 / 1000 NS Inj 1,000 ML @ 100 mls/hr IV 1000 / 1000 1000 / 1000 .SIG .Q10H [facility] Rx#:[id number] Oral 30 / 30 240 / 240 120 / 120 Anesthesia Amount 1900 / 1900 Other 300 / 300 Intake (Blood Product) Amt 400 / 400 Rbc As-3 Leukoreduced Unit 400 / 400 [id number] Output: Urine 125 / 125 Estimated Blood Loss 25 / 25 Urine Amount (Catheter) 250 / 250 450 / 450 175 / 175 Indwelling Urethral Catheter 250 / 250 450 / 450 175 / 175 Other: Date of Last Bowel Movement 07/23/18 07/23/18 07/23/18 Narrative: GENERAL: 68-year-old elderly male in no acute distress CARDIOVASCULAR: Regular rate and rhythm RESPIRATORY: Breath sounds equal bilaterally. No accessory muscle use. GASTROINTESTINAL: Abdomen soft, generalized tenderness, nondistended, bandage clean dry intact, abdominal binder in place; hypoactive bowel sounds. MUSCULOSKELETAL: No cyanosis, or edema. NEURO: Patient awake, alert oriented x3. No focal deficits - Urinary Catheter Management Indwelling Urethral Catheter Cath placed during this visit: yes, but has since been removed by the nurse Reason for continuing: Decision to DC catheter Insertion date: 07/26/18 Removal date: 07/27/18 Removal time: 10:49 Results - Labs CBC & Chem 7: 07/27/18 05:00 07/27/18 05:00 Laboratory Results - last 24 hr 07/25/18 07/26/18 07/27/18 18:55 14:52 05:00 WBC 11.6 H D RBC 3.71 L Hgb 8.7 L 10.5 L Hct 26.2 L 31.7 L MCV 85.4 MCH 28.3 MCHC 33.2 RDW 17.7 H Plt Count 245 MPV 9.3 Neut % (Auto) 90.6 H Lymph % (Auto) 3.8 L [place] % (Auto) 5.3 Eos % (Auto) 0.0 Baso % (Auto) 0.3 Neut # (Auto) 10.5 H Lymph # (Auto) 0.4 L [place] # (Auto) 0.6 Eos # (Auto) 0.0 Baso # (Auto) 0.0 WBC Differential . Differential Comment Auto diff final Hematology Comments Sodium Potassium Chloride Carbon Dioxide Anion Gap BUN Creatinine Estimated GFR Random Glucose Calcium Prot Corrected Calcium Total Protein MTS Gel Crossmatch See Detail 07/27/18 05:00 WBC RBC Hgb Hct MCV MCH MCHC RDW Plt Count MPV Neut % (Auto) Lymph % (Auto) [place] % (Auto) Eos % (Auto) Baso % (Auto) Neut # (Auto) Lymph # (Auto) [place] # (Auto) Eos # (Auto) Baso # (Auto) WBC Differential Differential Comment Hematology Comments Sodium 140 Potassium 4.5 Chloride 107 Carbon Dioxide 26.1 Anion Gap 7 BUN 21 H Creatinine 1.48 H Estimated GFR 47 L Random Glucose 148 H Calcium 7.2 L* Prot Corrected Calcium 8.2 L Total Protein 5.2 L MTS Gel Crossmatch - Procedures Mesenteric angiography 07/20/2018. 07/26 exploratory laparotomy Assessment and Plan - Assessment (1) GI bleed Code(s): K92.2 - Gastrointestinal hemorrhage, unspecified Status: Acute (2) Melena Code(s): K92.1 - Melena Status: Acute - Plan 68-year-old male with known history of hypertension, hyperlipidemia, chronic atrial fibrillation, coronary disease, chronic anticoagulation who presented the hospital because of weakness, shortness of breath, abdominal pain. Patient indicates that he has been having symptoms for approximately 1-1/ 2 months. Has had multiple transfusions, he was told to discontinue Xarelto. Acute anemia due to GI bleed Abdominal pain -Complicated by anticoagulation use of Xarelto -Received multiple transfusion both in [place] and at [place]. Reports of black stool overnight. -Status post EGD and colonoscopy without any significant findings. -Patient was transferred to the [facility] for mesenteric angiography which was performed on 07/20/2018. 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 Intravascular therapy was not possible due to SMA occlusion. -Dr. Bertrand (Vascular surgery) following-initially recommends PillCam as outpatient. However patient continues to have a drop in hemoglobin and Ex lap performed. Patient today is status post operative day #1 ex lapcontinue postoperative care per surgery. Physical therapy, pain control -Continue Protonix 40mg IV BID. Continue serial H&H monitoring, today's hemoglobin stable at 10.5 -Morphine IR and Morphine IV for pain management. Has received a total of 5 units of packed red blood cell during this hospitalization. Elevated liver enzymes-possibly med induced. -LFTs trending down -Continue to monitor -We will hold Lipitor for now Hypertension hyperlipidemia coronary artery disease chronic atrial fibrillation Elevated troponin -Continue to hold Xarelto at this time. -Continuous cardiac monitoring ordered -Dr. Kumar evaluated, recommends at least starting baby aspirin if okay by GI when patient stabilizes from surgery. -Previous hypotensive readings due to hypovolemia and anemia from GI bleed now has resolved. -Resume amiodarone when blood pressure better controlled. Acute kidney injury superimposed on chronic kidney disease stage III Likely due to bleeding -Continue monitor renal function. This is improved Avoid nephrotoxins. Anxiety/Depression -Continue Zoloft, alprazolam. PPI for GI prophylaxis No anticoagulation at this time due to previous bleeding Transfer out of intensive care unit Discharge Planning: Home health care versus group home facility based on clinical progression.
[2018-07-28] MEDS: ALPRAZolam 0.25 MG Tablet PO PRN ×3 (01:15→21:48)
[2018-07-28] MEDS: Morphine Sulfate 15 MG IR Tablet PO PRN ×2 (01:15→20:42)
[2018-07-28] MEDS: Pantoprazole Inj 40 MG Vial IV.PUSH SCH ×2 (04:41→16:00)
[2018-07-28] MEDS: Morphine Inj 4 MG/ML Vial IV.PUSH PRN ×4 (04:42→19:58)
[2018-07-28 05:15] LABS: Baso % (Auto) 0.1 % (0.0-2.0); Eos % (Auto) 0.2 % (0.0-4.0); Hematocrit 30.6 % (39.0-51.0); Hemoglobin 10.2 gm/dL (13.0-17.0); Lymph # (Auto) 0.9 th/mm3 (1.0-4.8); Lymph % (Auto) 8.8 % (9.0-44.0); Mean Corpuscular HGB Conc 33.2 % (32.0-36.0); Mean Corpuscular Hemoglobin 28.4 pg (27.0-34.0); Mean Corpuscular Volume 85.4 fL (80.0-100.0); Mean Platelet Volume 8.8 fL (7.0-11.0); Mono # (Auto) 0.9 th/mm3 (0.0-0.9); Mono % (Auto) 9.4 % (0.0-8.0); Neut # (Auto) 8.2 th/mm3 (1.8-7.7); Neut % (Auto) 81.5 % (16.0-70.0); Platelet Count 285 th/mm3 (150-450); Red Blood Count 3.59 mil/mm3 (4.50-5.90); Red Cell Distribution Width 17.6 % (11.6-17.2); White Blood Count 10.1 th/mm3 (4.0-11.0)
[2018-07-28 05:40] LABS: Calcium 7.3 mg/dL (8.5-10.1); Carbon Dioxide 26.3 meq/L (21.0-32.0); Potassium 4.4 meq/L (3.5-5.1)
[2018-07-28 06:07] LABS: Total Protein 5.1 g/dL (6.4-8.2)
[2018-07-28] MEDS: Sod Chloride 0.9% Inj 1,000 ML IV.SIG SCH (06:24)
[2018-07-28] MEDS: Sertraline 50 MG Tablet PO SCH (09:00)
[2018-07-28] MEDS: Amiodarone 200 MG Tablet PO SCH (09:00)
[2018-07-28] MEDS: Ferrous Sulfate 325 MG Tablet PO SCH (09:00)
[2018-07-28] MEDS: Senna/Docusate Sodium 8.6/50 MG Tablet PO SCH (09:00)
[2018-07-28] MEDS: Gabapentin 100 MG Capsule PO SCH (09:00)
--- NOTE | 2018-07-28 13:51 | P.PNVS ---
Subjective Subjective/Hospital Course: Referral received Full consult TF J 07/22/2018 The gentleman clearly has a source of bleeding producing repeated episodes of anemia, caused by GI bleeding and consequent dizziness, weakness and the related symptoms. The patient is on Xarelto for atrial fibrillation. This has been temporarily stopped. Colonoscopy did not reveal any lesions which would be responsible for this and it would be quite unlikely with melena anyway. Upper endoscopy is negative. The nuclear scan requires about 1 mL per minute of bleeding, so at that time it was performed, the patient obviously had enough to show some blush in the left upper quadrant which was deemed to have come from the small intestine. Considering the patient is lying down, it is hard to say which part of the small intestine, but is probably somewhere to the distal jejunum/mid ileum. I doubt that this would be from the ligament of Treitz because it would not be in the left upper quadrant. An angiogram could not be performed because the patient has an occluded superior mesenteric artery, yet the celiac axis and inferior mesenteric arteries are patent. At this point, there are few options left. Clearly, the patient cannot be embolized should he bleed from a site that normally would be reachable by a superior mesenteric artery approach considering the vessel is occluded. The only question arises what the source of bleeding is. The patient may have Meckel diverticulum, at with gastric or pancreatic lining which will cause ulceration of the vis-a-vis jejunumand hence, the bleeding from the same. In addition, differential includes an unrecognized underlying malignancy like a carcinoma of the small intestine. This is not obvious on the CAT scan. At this point, we have exhausted all the means of looking at this and probably, if the patient rebleeds, the only remaining option is to do an exploratory laparotomy and see where he is bleeding from. At the time of surgery, sometimes we can do an endoscopy, but there is no vascular procedure that is going to assist this patient other than a surgical approach and resection of the offending segment. If the patient rebleeds, repeating a nuclear scan might be helpful to delineate the site for once we are in the abdomen, blindly resecting bowel is not a good idea, so I hope to find some abnormality that would sort itself out. I will continue to follow the patient. If he drops his hemoglobin again, we will resort to surgery. Until then, I would hold Xarelto. Patient has been stable for the last 24 hours has not required any transfusions If he bleeds again, surgery will remain the only option but a repeat RBC tagged scan will be obviously helpful to better delineate the offending segment of the intestine. Until then it remains an educated guess and is never a great way to approach surgery with educated gases as the only underlying pathologic starting point. 07/23/2018 Patient is awake alert and oriented Abdomen is soft active bowel sounds Hemoglobin remained stable and at this point there is no active bleeding noted Will leave things alone for the time being and see how patient does In a very ideal case scenario patient would get a PillCam but this is not done in hospital so patient will have to be outpatient at that point I am afraid that once anticoagulants are restarted patient will bleed again so most likely we will resort to exploration next week or earlier if patient drops hemoglobin 07/24/2018 Abdomen soft active bowel sounds Patient had 2 bowel movements which is soft heme positive but not melanotic and hemoglobin remained stable CBC pending for tomorrow and will see if hemoglobin remains stable patient might be able to have PillCam as an outpatient On the other hand if anticoagulants are restarted and patient bleeds then will have to resort to surgery at this admission and hopefully be able to locate the point of bleeding 07/25/2018 Patient appears to be pale and weak and hemoglobin has dropped another gram since yesterday Patient continues with a low intensity bleed and at this point clearly cannot be discharged Based on all of the above I do not believe we have a choice but simply to go ahead and proceed with abdominal surgery and resect the offending part of small bowel as we can best recognize it during the surgery All discussed with patient in detail and we should proceed with surgery tomorrow I have explained the risks and benefits and possible complications, including the fact that we may not be able to localize the bleeding site or find a more complex problem. 07/27/2018 Patient underwent exploration for tubal small bowel lesion and a source of intestinal hemorrhage As indicated in full operative note, patient had no obvious mass lesion or any source of bleeding in the small bowel large bowel or stomach and duodenum Except for extensive adhesions exploration was otherwise negative Patient is now stable Can be transferred to the floor and advanced to diet Out of bed 07/28/2018 Abdomen soft incisions clean and dry dressing has been changed Active bowel sounds patient tolerating p.o. however he does not like the diet Hemoglobin remained stable At the time of surgery patient had large amount of inspissated stool in the transverse descending and sigmoid colon and he will need some laxatives for the same Awaiting bed on the floor for the last 2 days From my point patient can be discharged any time but considering how weak he is he might need some rehab Objective Vital Signs / I&O: Vital Signs 07/27/18 13:55 07/27/18 13:56 07/27/18 14:05 Temperature Pulse Rate 60 64 64 Respiratory Rate 20 23 Blood Pressure 84/46 L 120/56 L 124/60 Pulse Oximetry 92 L 94 L 07/27/18 14:15 07/27/18 14:30 07/27/18 14:45 Temperature Pulse Rate 59 L 59 L 60 Respiratory Rate 12 16 23 Blood Pressure 105/55 L Pulse Oximetry 83 L 91 L 85 L 07/27/18 15:00 07/27/18 15:15 07/27/18 15:27 Temperature Pulse Rate 60 59 L Respiratory Rate 12 10 L 16 Blood Pressure 105/58 L Pulse Oximetry 92 L 95 07/27/18 15:28 07/27/18 15:30 07/27/18 15:45 Temperature Pulse Rate 59 L 59 L Respiratory Rate 16 11 L 7 L Blood Pressure 114/58 L Pulse Oximetry 96 97 07/27/18 16:00 07/27/18 16:15 07/27/18 16:30 Temperature 97.5 F L Pulse Rate 59 L 59 L 59 L Respiratory Rate 7 L 7 L 7 L Blood Pressure 107/53 L 107/56 L Pulse Oximetry 97 97 97 07/27/18 16:45 07/27/18 17:00 07/27/18 17:15 Temperature Pulse Rate 59 L 59 L 59 L Respiratory Rate 7 L 7 L 8 L Blood Pressure 110/58 L Pulse Oximetry 97 97 97 07/27/18 17:30 07/27/18 17:45 07/27/18 18:00 Temperature Pulse Rate 59 L 59 L 60 Respiratory Rate 7 L 9 L 7 L Blood Pressure 123/58 L 123/60 Pulse Oximetry 95 96 96 07/27/18 18:15 07/27/18 18:30 07/27/18 19:00 Temperature Pulse Rate 59 L 59 L Respiratory Rate 7 L 9 L Blood Pressure 126/62 Pulse Oximetry 96 95 95 07/27/18 20:00 07/27/18 20:20 07/28/18 00:00 Temperature 98.9 F 98.6 F Pulse Rate 60 58 L Respiratory Rate 14 13 17 Blood Pressure 121/58 L 142/64 H Pulse Oximetry 95 96 07/28/18 04:00 07/28/18 06:53 07/28/18 07:00 Temperature 98.4 F Pulse Rate 58 L Respiratory Rate 14 15 Blood Pressure 123/58 L Pulse Oximetry 96 95 07/28/18 08:00 Temperature 97.6 F Pulse Rate 60 Respiratory Rate 19 Blood Pressure 155/72 H Pulse Oximetry 95 Intake & Output 07/27/18 07/28/18 07/28/18 18:59 06:59 18:59 Intake Total 2110 / 2110 1240 / 1240 Output Total 175 / 175 500 / 500 Balance 1935 / 1935 740 / 740 Weight 78.3 kg Intake: IV 1750 / 1750 1000 / 1000 NS Inj 1,000 ML @ 60 mls/hr IV. 1750 / 1750 1000 / 1000 SIG .[id number] [facility] Rx#:[id number] Oral 360 / 360 240 / 240 Output: Urine 500 / 500 Urine Amount (Catheter) 175 / 175 Indwelling Urethral Catheter 175 / 175 Other: # Voids 1 Date of Last Bowel Movement 07/23/18 07/23/18 07/23/18 Laboratory Results - last 24 hr 07/25/18 07/28/18 07/28/18 18:55 05:01 05:01 WBC 10.1 RBC 3.59 L Hgb 10.2 L Hct 30.6 L MCV 85.4 MCH 28.4 MCHC 33.2 RDW 17.6 H Plt Count 285 MPV 8.8 Neut % (Auto) 81.5 H Lymph % (Auto) 8.8 L Antelope % (Auto) 9.4 H Eos % (Auto) 0.2 Baso % (Auto) 0.1 Neut # (Auto) 8.2 H Lymph # (Auto) 0.9 L Antelope # (Auto) 0.9 Eos # (Auto) 0.0 Baso # (Auto) 0.0 WBC Differential . Differential Comment Auto diff final Sodium 139 Potassium 4.4 Chloride 107 Carbon Dioxide 26.3 Anion Gap 6 BUN 29 H Creatinine 1.37 H Estimated GFR 52 L Random Glucose 109 H Calcium 7.3 L* Prot Corrected Calcium 8.4 L Total Protein 5.1 L MTS Gel Crossmatch See Detail
--- NOTE | 2018-07-28 14:52 | P.PNIM ---
Subjective Interval history: Patient reports he has poor appetite and only a few bites of food yesterday. He still has a lot of abdominal pain. Passing gas. No bowel movements. Physical Exam Vital signs: Vital Signs 07/27/18 15:00 07/27/18 15:15 07/27/18 15:27 Temperature Pulse Rate 60 59 L Respiratory Rate 12 10 L 16 Blood Pressure 105/58 L Pulse Oximetry 92 L 95 07/27/18 15:28 07/27/18 15:30 07/27/18 15:45 Temperature Pulse Rate 59 L 59 L Respiratory Rate 16 11 L 7 L Blood Pressure 114/58 L Pulse Oximetry 96 97 07/27/18 16:00 07/27/18 16:15 07/27/18 16:30 Temperature 97.5 F L Pulse Rate 59 L 59 L 59 L Respiratory Rate 7 L 7 L 7 L Blood Pressure 107/53 L 107/56 L Pulse Oximetry 97 97 97 07/27/18 16:45 07/27/18 17:00 07/27/18 17:15 Temperature Pulse Rate 59 L 59 L 59 L Respiratory Rate 7 L 7 L 8 L Blood Pressure 110/58 L Pulse Oximetry 97 97 97 07/27/18 17:30 07/27/18 17:45 07/27/18 18:00 Temperature Pulse Rate 59 L 59 L 60 Respiratory Rate 7 L 9 L 7 L Blood Pressure 123/58 L 123/60 Pulse Oximetry 95 96 96 07/27/18 18:15 07/27/18 18:30 07/27/18 19:00 Temperature Pulse Rate 59 L 59 L Respiratory Rate 7 L 9 L Blood Pressure 126/62 Pulse Oximetry 96 95 95 07/27/18 20:00 07/27/18 20:20 07/28/18 00:00 Temperature 98.9 F 98.6 F Pulse Rate 60 58 L Respiratory Rate 14 13 17 Blood Pressure 121/58 L 142/64 H Pulse Oximetry 95 96 07/28/18 04:00 07/28/18 06:53 07/28/18 07:00 Temperature 98.4 F Pulse Rate 58 L Respiratory Rate 14 15 Blood Pressure 123/58 L Pulse Oximetry 96 95 07/28/18 08:00 Temperature 97.6 F Pulse Rate 60 Respiratory Rate 19 Blood Pressure 155/72 H Pulse Oximetry 95 Intake & Output 07/27/18 07/28/1807/28/18 18:59 06:59 18:59 Intake Total 2110 / 2110 1240 / 1240 Output Total 175 / 175 500 / 500 Balance 1935 / 1935 740 / 740 Weight 78.3 kg Intake: IV 1750 / 1750 1000 / 1000 NS Inj 1,000 ML @ 60 mls/hr IV. 1750 / 1750 1000 / 1000 SIG .[id number] [facility] Rx#:[id number] Oral 360 / 360 240 / 240 Output: Urine 500 / 500 Urine Amount (Catheter) 175 / 175 Indwelling Urethral Catheter 175 / 175 Other: # Voids 1 Date of Last Bowel Movement 07/23/18 07/23/18 07/23/18 Narrative: GENERAL: 68-year-old elderly male in no acute distress CARDIOVASCULAR: Regular rate and rhythm RESPIRATORY: Breath sounds equal bilaterally. No accessory muscle use. GASTROINTESTINAL: Abdomen soft, generalized tenderness, nondistended, bandage clean dry intact, abdominal binder in place; few bowel sounds. MUSCULOSKELETAL: No cyanosis, or edema. NEURO: Patient awake, alert oriented x3. No focal deficits - Urinary Catheter Management Indwelling Urethral Catheter Cath placed during this visit: yes, but has since been removed by the nurse Reason for continuing: Decision to DC catheter Insertion date: 07/26/18 Removal date: 07/27/18 Removal time: 10:49 Results - Labs CBC & Chem 7: 07/28/18 05:01 07/28/18 05:01 Laboratory Results - last 24 hr 07/25/18 07/28/18 07/28/18 18:55 05:01 05:01 WBC 10.1 RBC 3.59 L Hgb 10.2 L Hct 30.6 L MCV 85.4 MCH 28.4 MCHC 33.2 RDW 17.6 H Plt Count 285 MPV 8.8 Neut % (Auto) 81.5 H Lymph % (Auto) 8.8 L Elliott % (Auto) 9.4 H Eos % (Auto) 0.2 Baso % (Auto) 0.1 Neut # (Auto) 8.2 H Lymph # (Auto) 0.9 L Elliott # (Auto) 0.9 Eos # (Auto) 0.0 Baso # (Auto) 0.0 WBC Differential . Differential Comment Auto diff final Sodium 139 Potassium 4.4 Chloride 107 Carbon Dioxide 26.3 Anion Gap 6 BUN 29 H Creatinine 1.37 H Estimated GFR 52 L Random Glucose 109 H Calcium 7.3 L* Prot Corrected Calcium 8.4 L Total Protein 5.1 L MTS Gel Crossmatch See Detail - Procedures Mesenteric angiography 07/20/2018. 07/26 exploratory laparotomy Assessment and Plan - Assessment (1) GI bleed Code(s): K92.2 - Gastrointestinal hemorrhage, unspecified Status: Acute (2) Melena Code(s): K92.1 - Melena Status: Acute - Plan 68-year-old male with known history of hypertension, hyperlipidemia, chronic atrial fibrillation, coronary disease, chronic anticoagulation who presented the hospital because of weakness, shortness of breath, abdominal pain. Patient indicates that he has been having symptoms for approximately 1-1/ 2 months. Has had multiple transfusions, he was told to discontinue Xarelto. Acute anemia due to GI bleed Abdominal pain -Complicated by anticoagulation use of Xarelto -Received multiple transfusion both in [place] and at [place]. Reports of black stool overnight. -Status post EGD and colonoscopy without any significant findings. -Patient was transferred to the [facility] for mesenteric angiography which was performed on 07/20/2018. 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 Intravascular therapy was not possible due to SMA occlusion. -Dr. Bertrand (Vascular surgery) following-initially recommends PillCam as outpatient. However patient continues to have a drop in hemoglobin and Ex lap was performed. Patient today is status post operative day #2 ex lapcontinue postoperative care per surgery. Physical therapy, pain control -Continue Protonix 40mg IV BID. today's hemoglobin stable at 10.2 -Morphine IR and Morphine IV for pain management. Has received a total of 5 units of packed red blood cell during this hospitalization. Elevated liver enzymes-possibly med induced. -LFTs trending down -Continue to monitor -We will hold Lipitor for now Hypertension hyperlipidemia coronary artery disease chronic atrial fibrillation Elevated troponin -Continue to hold Xarelto -Continuous cardiac monitoring ordered -Dr. Kumar evaluated, recommends at least starting baby aspirin if okay by GI when patient stabilizes from surgery. -Previous hypotensive readings due to hypovolemia and anemia from GI bleed now has resolved. -Resume amiodarone when blood pressure better controlled. Acute kidney injury superimposed on chronic kidney disease stage III Likely due to bleeding -Continue monitor renal function. This is improved Avoid nephrotoxins. Anxiety/Depression -Continue Zoloft, alprazolam. PPI for GI prophylaxis No anticoagulation at this time due to previous bleeding Transfer out of intensive care unit Awaiting bed for MedSurg. Discharge Planning: Home health care versus detention facility based on clinical progression.
[2018-07-29] MEDS: Sod Chloride 0.9% Inj 1,000 ML IV.SIG SCH ×2 (00:08→18:26)
[2018-07-29] MEDS: Morphine Inj 4 MG/ML Vial IV.PUSH PRN ×4 (00:08→20:58)
[2018-07-29] MEDS: Senna/Docusate Sodium 8.6/50 MG Tablet PO SCH ×3 (00:09→20:58)
[2018-07-29] MEDS: Pantoprazole Inj 40 MG Vial IV.PUSH SCH ×2 (04:50→17:26)
[2018-07-29 06:27] LABS: Baso # (Auto) 0.1 th/mm3 (0.0-0.2); Baso % (Auto) 0.4 % (0.0-2.0); Eos # (Auto) 0.4 th/mm3 (0.0-0.4); Eos % (Auto) 2.5 % (0.0-4.0); Hematocrit 32.5 % (39.0-51.0); Hemoglobin 10.9 gm/dL (13.0-17.0); Lymph # (Auto) 1.8 th/mm3 (1.0-4.8); Lymph % (Auto) 12.8 % (9.0-44.0); Mean Corpuscular HGB Conc 33.4 % (32.0-36.0); Mean Corpuscular Hemoglobin 28.7 pg (27.0-34.0); Mean Platelet Volume 8.1 fL (7.0-11.0); Mono # (Auto) 1.4 th/mm3 (0.0-0.9); Neut # (Auto) 10.6 th/mm3 (1.8-7.7); Neut % (Auto) 74.3 % (16.0-70.0); Platelet Count 517 th/mm3 (150-450); Red Blood Count 3.78 mil/mm3 (4.50-5.90); Red Cell Distribution Width 17.4 % (11.6-17.2); White Blood Count 14.3 th/mm3 (4.0-11.0)
[2018-07-29 06:48] LABS: Calcium 7.9 mg/dL (8.5-10.1); Carbon Dioxide 28.9 meq/L (21.0-32.0); Potassium 4.5 meq/L (3.5-5.1)
[2018-07-29 08:47] LABS: Platelet Morphology Normal (Normal)
[2018-07-29] MEDS: Sertraline 50 MG Tablet PO SCH (09:46)
[2018-07-29] MEDS: Ferrous Sulfate 325 MG Tablet PO SCH (09:46)
[2018-07-29] MEDS: Amiodarone 200 MG Tablet PO SCH (09:47)
[2018-07-29] MEDS: Gabapentin 100 MG Capsule PO SCH (09:47)
--- NOTE | 2018-07-29 12:14 | P.PNIM ---
Subjective Interval history: Chief Complaint: Weakness, shortness of breath History of Present Illness: 68-year-old male with known history of hypertension, hyperlipidemia, chronic atrial fibrillation, coronary disease, chronic anticoagulation who presented the hospital because of weakness, shortness of breath, abdominal pain. Patient indicates that he has been having symptoms for approximately 1-1/ 2 months. He has been up in [facility] and his daughter when he started developing the symptoms. He went to the hospital up there and was found to have anemia which required 2 units of blood transfusion. The patient states that he did well for little while but then started developing symptoms again so he went back to the same facility in [place] and was given another 2 units of packed red blood cells and was notified that he needed to go back to where he lives and see a mold yard supervisor. He was also notified to discontinue his Xarelto. Patient does take Xarelto on a regular basis for his atrial fibrillation. Patient states that he did quit taking it for 3 days but started feeling worse so he started taking the medication again. Patient did come back down here and had similar symptoms so he came to the ER for evaluation. Patient was found to have an He is complaining of lower abdominal pain. Denies any diarrhea, constipation. 10-16 Follow-up GI bleed. Patient seen and examined, lying in bed comfortably no apparent distress. Overnight hemoglobin dropped to 6.7 from 8.8 after 1 unit of PRBC. Gastroenterology called in updated, plan for EGD and colonoscopy this afternoon around noon. Will transfuse 2 units PRBC. No presence of any acute bright red blood loss, RN reports of black stools overnight. Vital signs stable. Asymptomatic. Denies any shortness of breath or chest pain. 10-17 Follow up GI bleed. Patient seen and examined, lying in bed comfortably in [facility]. Patient denies any acute events overnight. His bleeding scan last evening is showing small bleed in left upper quadrant of small bowel. GI ordered for transfer to [facility] to undergo an angiogram with IR. Patient has been updated. Continue to trend H&H. Denies any acute complaints including chest pain or shortness of breath. VSS at this time. Plan for procedure today in IR. Mesenteric angiography performed to assess acute UGI bleed. NM study suggests small bowel origin. Pt has an occluded right external iliac artery. Access on left. 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 This results in limited opacification of the distal distribution of the SMA with the contrast limiting the exam. No acute hemorrhage observed. SMA occlusion would prevent intravascular therapy of an UGI bleed. 10 Follow up for GI bleed. Patient is currently doing well. Resting in bed. Denies any chest pain, shortness of breath, fever or chills. He continues to have dark stool. Hemoglobin 9.2 today. 07-22 Follow up for GI bleed. Patient is doing well. However, he complains of lower abdominal pain. He had dark loose stool. No fever, chills. 07-23 Follow-up acute anemia due to GI bleed/abdominal pain July 23, 2018-patient seen and examined, complains of abdominal pain. Reports last BM 2 days ago. BP soft. H&H appears to be stable. 07-24 Follow-up for abdominal pain, anemia, GI bleedpatient seen and examined, complaining of dizziness this morning, blood pressure low of 97/49, reassessed 101/52. No chest pain, no shortness of breath. Complains of mid abdominal pain. No nausea, no vomiting. Tolerating diet well. Stools are more black in color. None today. 07-25 Follow-up for abdominal pain, anemia, GI bleedpatient seen and examined, still feeling dizzy, blood pressure 100/62. Heart rate 63. Temp max 99.7. Pale, feels weak. Minimal abdominal pain, no nausea, no vomiting. 07-26 Ready for surgery. Mild mid abdominal discomfort and pain. Complaint of nausea. No active vomiting. 07-27 Patient reports abdominal pain. No passing gas. Mild nausea. No vomiting. Patient underwent exploration for small bowel lesion and a source of intestinal hemorrhage As indicated in full operative note, patient had no obvious mass lesion or any source of bleeding in the small bowel large bowel or stomach and duodenum Except for extensive adhesions exploration was otherwise negative 07-28 Patient reports he has poor appetite and only a few bites of food yesterday. He still has a lot of abdominal pain. Passing gas. No bowel movements. 07-29 SEEN BY SURGERY HAS ABDOMINAL PAIN MOVE OUT OF ICU HAS NAUSEA AND VOMITING DW RN AND PT AND SURGERY PT AND OT EVAL AND TREAT Physical Exam Vital signs: Vital Signs 07/28/18 16:00 07/28/18 19:00 07/28/18 20:00 Temperature 98 F 97.9 F Pulse Rate 59 L 59 L Respiratory Rate 17 25 H Blood Pressure 109/57 L 121/60 Pulse Oximetry 96 94 L 94 L 07/29/18 00:00 07/29/18 00:10 07/29/18 04:00 Temperature 98.4 F 98.7 F Pulse Rate 59 L 59 L Respiratory Rate 18 18 15 Blood Pressure 148/67 H 155/90 H Pulse Oximetry 96 95 Intake & Output 07/28/18 07/29/18 07/29/18 18:59 06:59 18:59 Intake Total 440 / 440 1150 / 1150 Output Total 800 / 800 650 / 650 Balance -360 / -360 500 / 500 Weight 75.1 kg Intake: IV 1000 / 1000 NS Inj 1,000 ML @ 60 mls/hr IV. 1000 / 1000 SIG .[id number] [facility] Rx#:[id number] Oral 200 / 200 150 / 150 Oral Supplement 240 / 240 Output: Urine 800 / 800 650 / 650 Stool 0 / 0 Other: # Voids 4 Date of Last Bowel Movement 07/23/18 07/23/18 Narrative: GENERAL: 68-year-old elderly male in no acute distress CARDIOVASCULAR: Regular rate and rhythm RESPIRATORY: Breath sounds equal bilaterally. No accessory muscle use. GASTROINTESTINAL: Abdomen soft, generalized tenderness, nondistended, bandage clean dry intact, abdominal binder in place; few bowel sounds. MUSCULOSKELETAL: No cyanosis, or edema. NEURO: Patient awake, alert oriented x3. No focal deficits - Urinary Catheter Management Indwelling Urethral Catheter Cath placed during this visit: yes, but has since been removed by the nurse Reason for continuing: Decision to DC catheter Insertion date: 07/26/18 Removal date: 07/27/18 Removal time: 10:49 Results - Labs CBC & Chem 7: 07/29/18 05:21 07/29/18 05:21 Laboratory Results - last 24 hr 07/29/18 07/29/18 07/29/18 05:21 05:21 05:21 WBC 14.3 H RBC 3.78 L Hgb 10.9 L Hct 32.5 L MCV 86.0 MCH 28.7 MCHC 33.4 RDW 17.4 H Plt Count 517 H D MPV 8.1 Prelim Diff (Auto) Slide review pending Neut % (Auto) 74.3 H Lymph % (Auto) 12.8 [place] % (Auto) 10.0 H Eos % (Auto) 2.5 Baso % (Auto) 0.4 Neut # (Auto) 10.6 H Lymph # (Auto) 1.8 [place] # (Auto) 1.4 H Eos # (Auto) 0.4 Baso # (Auto) 0.1 WBC Differential . Diff Scan Auto diff confirmed Differential Comment . Platelet Estimate High H Platelet Morphology Normal Sodium 144 Potassium 4.5 Chloride 111 H Carbon Dioxide 28.9 Anion Gap 4 L BUN 26 H Creatinine 1.24 Estimated GFR 58 L Random Glucose 93 Calcium 7.9 L TSH Free T4 2.07 H 07/29/18 05:21 WBC RBC Hgb Hct MCV MCH MCHC RDW Plt Count MPV Prelim Diff (Auto) Neut % (Auto) Lymph % (Auto) [place] % (Auto) Eos % (Auto) Baso % (Auto) Neut # (Auto) Lymph # (Auto) [place] # (Auto) Eos # (Auto) Baso # (Auto) WBC Differential Diff Scan Differential Comment Platelet Estimate Platelet Morphology Sodium Potassium Chloride Carbon Dioxide Anion Gap BUN Creatinine Estimated GFR Random Glucose Calcium TSH 1.240 Free T4 - Imaging ITS Impressions Abdomen/Pelvis CT 07/17/18 17:18 CONCLUSION: 1. Previous apparent aorta by iliac surgery 2. Extensive vascular calcifications and small left iliac artery aneurysm. 3. I do not see inflammatory changes in the mesentery. I do not sense or abscess or free air to account for the patient's abdominal pain. Chest X-Ray 07/17/18 17:18 CONCLUSION: 1. No acute abnormality or significant interval change. GI Bleed Scan Nuclear Medicine 07/19/18 00:00 CONCLUSION: 1. Small amount of active bleeding in the left upper quadrant within small bowel loops. Abdominal Angiography 07/20/18 00:00 CONCLUSION: 1. The patient has an aorto bicommon iliac bypass graft. The left inflow is patent. 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 This prevents good angiographic evaluation of the SMA distribution. It also prevents attempted therapy. 3. 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 This generates poor opacification of the peripheral distribution of the SMA secondary to delusional effect. I'm not able to identify any source of hemorrhage. - Procedures Mesenteric angiography 07/20/2018. 07/26 exploratory laparotomy Assessment and Plan - Assessment (1) GI bleed Code(s): K92.2 - Gastrointestinal hemorrhage, unspecified Status: Acute (2) Melena Code(s): K92.1 - Melena Status: Acute - Plan 68-year-old male with known history of hypertension, hyperlipidemia, chronic atrial fibrillation, coronary disease, chronic anticoagulation who presented the hospital because of weakness, shortness of breath, abdominal pain. Patient indicates that he has been having symptoms for approximately 1-1/ 2 months. Has had multiple transfusions, he was told to discontinue Xarelto. Acute anemia due to GI bleed Abdominal pain -Complicated by anticoagulation use of Xarelto -Received multiple transfusion both in [place] and at [place]. Reports of black stool overnight. -Status post EGD and colonoscopy without any significant findings. -Patient was transferred to the [facility] hospital for mesenteric angiography which was performed on 07/20/2018. 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 Intravascular therapy was not possible due to SMA occlusion. -Dr. Bertrand (Vascular surgery) following-initially recommends PillCam as outpatient. However patient continues to have a drop in hemoglobin and Ex lap was performed. Patient today is status post operative day #2 ex lapcontinue postoperative care per surgery. Physical therapy, pain control -Continue Protonix 40mg IV BID. today's hemoglobin stable at 10.2 -Morphine IR and Morphine IV for pain management. Has received a total of 5 units of packed red blood cell during this hospitalization. Elevated liver enzymes-possibly med induced. -LFTs trending down -Continue to monitor -We will hold Lipitor for now Hypertension hyperlipidemia coronary artery disease chronic atrial fibrillation Elevated troponin -Continue to hold Xarelto -Continuous cardiac monitoring ordered -Dr. Kumar evaluated, recommends at least starting baby aspirin if okay by GI when patient stabilizes from surgery. -Previous hypotensive readings due to hypovolemia and anemia from GI bleed now has resolved. -Resume amiodarone when blood pressure better controlled. Acute kidney injury superimposed on chronic kidney disease stage III Likely due to bleeding -Continue monitor renal function. This is improved Avoid nephrotoxins. Anxiety/Depression -Continue Zoloft, alprazolam. PPI for GI prophylaxis No anticoagulation at this time due to previous bleeding Transfer out of intensive care unit Awaiting bed for MedSurg. Code Status: FULL CODE Discussed Condition With: RN AND PT AND SURGERY Discharge Planning: MOVE OUT OF ICU
--- NOTE | 2018-07-29 13:58 | P.PNVS ---
Subjective Subjective/Hospital Course: Referral received Full consult TF J 07/22/2018 The gentleman clearly has a source of bleeding producing repeated episodes of anemia, caused by GI bleeding and consequent dizziness, weakness and the related symptoms. The patient is on Xarelto for atrial fibrillation. This has been temporarily stopped. Colonoscopy did not reveal any lesions which would be responsible for this and it would be quite unlikely with melena anyway. Upper endoscopy is negative. The nuclear scan requires about 1 mL per minute of bleeding, so at that time it was performed, the patient obviously had enough to show some blush in the left upper quadrant which was deemed to have come from the small intestine. Considering the patient is lying down, it is hard to say which part of the small intestine, but is probably somewhere to the distal jejunum/mid ileum. I doubt that this would be from the ligament of Treitz because it would not be in the left upper quadrant. An angiogram could not be performed because the patient has an occluded superior mesenteric artery, yet the celiac axis and inferior mesenteric arteries are patent. At this point, there are few options left. Clearly, the patient cannot be embolized should he bleed from a site that normally would be reachable by a superior mesenteric artery approach considering the vessel is occluded. The only question arises what the source of bleeding is. The patient may have Meckel diverticulum, at with gastric or pancreatic lining which will cause ulceration of the vis-a-vis jejunumand hence, the bleeding from the same. In addition, differential includes an unrecognized underlying malignancy like a carcinoma of the small intestine. This is not obvious on the CAT scan. At this point, we have exhausted all the means of looking at this and probably, if the patient rebleeds, the only remaining option is to do an exploratory laparotomy and see where he is bleeding from. At the time of surgery, sometimes we can do an endoscopy, but there is no vascular procedure that is going to assist this patient other than a surgical approach and resection of the offending segment. If the patient rebleeds, repeating a nuclear scan might be helpful to delineate the site for once we are in the abdomen, blindly resecting bowel is not a good idea, so I hope to find some abnormality that would sort itself out. I will continue to follow the patient. If he drops his hemoglobin again, we will resort to surgery. Until then, I would hold Xarelto. Patient has been stable for the last 24 hours has not required any transfusions If he bleeds again, surgery will remain the only option but a repeat RBC tagged scan will be obviously helpful to better delineate the offending segment of the intestine. Until then it remains an educated guess and is never a great way to approach surgery with educated gases as the only underlying pathologic starting point. 07/23/2018 Patient is awake alert and oriented Abdomen is soft active bowel sounds Hemoglobin remained stable and at this point there is no active bleeding noted Will leave things alone for the time being and see how patient does In a very ideal case scenario patient would get a PillCam but this is not done in hospital so patient will have to be outpatient at that point I am afraid that once anticoagulants are restarted patient will bleed again so most likely we will resort to exploration next week or earlier if patient drops hemoglobin 07/24/2018 Abdomen soft active bowel sounds Patient had 2 bowel movements which is soft heme positive but not melanotic and hemoglobin remained stable CBC pending for tomorrow and will see if hemoglobin remains stable patient might be able to have PillCam as an outpatient On the other hand if anticoagulants are restarted and patient bleeds then will have to resort to surgery at this admission and hopefully be able to locate the point of bleeding 07/25/2018 Patient appears to be pale and weak and hemoglobin has dropped another gram since yesterday Patient continues with a low intensity bleed and at this point clearly cannot be discharged Based on all of the above I do not believe we have a choice but simply to go ahead and proceed with abdominal surgery and resect the offending part of small bowel as we can best recognize it during the surgery All discussed with patient in detail and we should proceed with surgery tomorrow I have explained the risks and benefits and possible complications, including the fact that we may not be able to localize the bleeding site or find a more complex problem. 07/27/2018 Patient underwent exploration for tubal small bowel lesion and a source of intestinal hemorrhage As indicated in full operative note, patient had no obvious mass lesion or any source of bleeding in the small bowel large bowel or stomach and duodenum Except for extensive adhesions exploration was otherwise negative Patient is now stable Can be transferred to the floor and advanced to diet Out of bed 07/28/2018 Abdomen soft incisions clean and dry dressing has been changed Active bowel sounds patient tolerating p.o. however he does not like the diet Hemoglobin remained stable At the time of surgery patient had large amount of inspissated stool in the transverse descending and sigmoid colon and he will need some laxatives for the same Awaiting bed on the floor for the last 2 days From my point patient can be discharged any time but considering how weak he is he might need some rehab 07/29/2018 Hemoglobin is very well and there is no sign of active bleeding Abdomen is soft incision is clean and dry Patient is slightly distended and tender in mid abdomen in the area of the incision Patient has mild ileus and in addition huge amount of inspissated stool in the colon that needs to be mobilized We will give enema today and in addition to lactulose this should make the patient move Nothing to add to care Objective Vital Signs / I&O: Vital Signs 07/28/18 16:00 07/28/18 19:00 07/28/18 20:00 Temperature 98 F 97.9 F Pulse Rate 59 L 59 L Respiratory Rate 17 25 H Blood Pressure 109/57 L 121/60 Pulse Oximetry 96 94 L 94 L 07/29/18 00:00 07/29/18 00:10 07/29/18 04:00 Temperature 98.4 F 98.7 F Pulse Rate 59 L 59 L Respiratory Rate 18 18 15 Blood Pressure 148/67 H 155/90 H Pulse Oximetry 96 95 Intake & Output 07/28/18 07/29/18 07/29/18 18:59 06:59 18:59 Intake Total 440 / 440 1150 / 1150 Output Total 800 / 800 650 / 650 Balance -360 / -360 500 / 500 Weight 75.1 kg Intake: IV 1000 / 1000 NS Inj 1,000 ML @ 60 mls/hr IV. 1000 / 1000 SIG .[id number] [facility] Rx#:[id number] Oral 200 / 200 150 / 150 Oral Supplement 240 / 240 Output: Urine 800 / 800 650 / 650 Stool 0 / 0 Other: # Voids 4 Date of Last Bowel Movement 07/23/18 07/23/18 Laboratory Results - last 24 hr 07/29/18 07/29/18 07/29/18 05:21 05:21 05:21 WBC 14.3 H RBC 3.78 L Hgb 10.9 L Hct 32.5 L MCV 86.0 MCH 28.7 MCHC 33.4 RDW 17.4 H Plt Count 517 H D MPV 8.1 Prelim Diff (Auto) Slide review pending Neut % (Auto) 74.3 H Lymph % (Auto) 12.8 [place] % (Auto) 10.0 H Eos % (Auto) 2.5 Baso % (Auto) 0.4 Neut # (Auto) 10.6 H Lymph # (Auto) 1.8 [place] # (Auto) 1.4 H Eos # (Auto) 0.4 Baso # (Auto) 0.1 WBC Differential . Diff Scan Auto diff confirmed Differential Comment . Platelet Estimate High H Platelet Morphology Normal Sodium 144 Potassium 4.5 Chloride 111 H Carbon Dioxide 28.9 Anion Gap 4 L BUN 26 H Creatinine 1.24 Estimated GFR 58 L Random Glucose 93 Calcium 7.9 L TSH Free T4 2.07 H 07/29/18 05:21 WBC RBC Hgb Hct MCV MCH MCHC RDW Plt Count MPV Prelim Diff (Auto) Neut % (Auto) Lymph % (Auto) [place] % (Auto) Eos % (Auto) Baso % (Auto) Neut # (Auto) Lymph # (Auto) [place] # (Auto) Eos # (Auto) Baso # (Auto) WBC Differential Diff Scan Differential Comment Platelet Estimate Platelet Morphology Sodium Potassium Chloride Carbon Dioxide Anion Gap BUN Creatinine Estimated GFR Random Glucose Calcium TSH 1.240 Free T4
[2018-07-29] MEDS: ALPRAZolam 0.25 MG Tablet PO PRN (15:44)
[2018-07-29] MEDS: Bisacodyl 10 MG Supp RECTAL PRN (15:45)
[2018-07-29 17:41] LABS: Hemoglobin A1c 5.2 % (4.3-6.0)
[2018-07-30] MEDS: ALPRAZolam 0.25 MG Tablet PO PRN ×5 (00:43→18:00)
[2018-07-30] MEDS: Pantoprazole Inj 40 MG Vial IV.PUSH SCH ×2 (04:41→17:58)
[2018-07-30] MEDS: Morphine Inj 4 MG/ML Vial IV.PUSH PRN ×4 (04:42→17:59)
[2018-07-30 05:28] LABS: Baso # (Auto) 0.1 th/mm3 (0.0-0.2); Baso % (Auto) 0.5 % (0.0-2.0); Eos # (Auto) 0.3 th/mm3 (0.0-0.4); Eos % (Auto) 2.4 % (0.0-4.0); Hematocrit 30.3 % (39.0-51.0); Hemoglobin 10.2 gm/dL (13.0-17.0); Lymph # (Auto) 2.7 th/mm3 (1.0-4.8); Lymph % (Auto) 21.5 % (9.0-44.0); Mean Corpuscular HGB Conc 33.6 % (32.0-36.0); Mean Corpuscular Hemoglobin 28.9 pg (27.0-34.0); Mean Corpuscular Volume 86.1 fL (80.0-100.0); Mean Platelet Volume 8.1 fL (7.0-11.0); Mono # (Auto) 1.5 th/mm3 (0.0-0.9); Mono % (Auto) 11.8 % (0.0-8.0); Neut % (Auto) 63.8 % (16.0-70.0); Platelet Count 458 th/mm3 (150-450); Red Blood Count 3.52 mil/mm3 (4.50-5.90); Red Cell Distribution Width 16.9 % (11.6-17.2); White Blood Count 12.6 th/mm3 (4.0-11.0)
[2018-07-30 05:58] LABS: Alanine Aminotransferase 80 U/L (12-78); Albumin 1.7 g/dL (3.4-5.0); Alkaline Phosphatase 72 U/L (45-117); Anion Gap 6 meq/L (5-15); Aspartate Aminotransferase 105 U/L (15-37); Blood Urea Nitrogen 25 mg/dL (7-18); Calcium 7.5 mg/dL (8.5-10.1); Carbon Dioxide 29.5 meq/L (21.0-32.0); Chloride 110 meq/L (98-107); Free T4 (Free Thyroxine) 2.09 ng/dL (0.76-1.46); Glomerular Filtration Rate 57 mL/min (>89); Glucose,Random 83 mg/dL (74-106); Magnesium 2.1 mg/dL (1.5-2.5); Phosphorus 2.5 mg/dL (2.5-4.9); Potassium 4.3 meq/L (3.5-5.1); Sodium 145 meq/L (136-145); Thyroid Stimulating Hormone 0.684 uIU/mL (0.358-3.740); Total Protein 4.9 g/dL (6.4-8.2)
[2018-07-30 06:18] LABS: Platelet Morphology Clumped (Normal)
[2018-07-30] MEDS: Ferrous Sulfate 325 MG Tablet PO SCH (09:11)
[2018-07-30] MEDS: Sertraline 50 MG Tablet PO SCH (09:11)
[2018-07-30] MEDS: Gabapentin 100 MG Capsule PO SCH (09:11)
[2018-07-30] MEDS: Amiodarone 200 MG Tablet PO SCH (09:11)
[2018-07-30] MEDS: Senna/Docusate Sodium 8.6/50 MG Tablet PO SCH ×3 (09:12→21:35)
[2018-07-30] MEDS: Sod Chloride 0.9% Inj 1,000 ML IV.SIG SCH (09:12)
--- NOTE | 2018-07-30 10:40 | P.PNIM ---
Subjective Interval history: Chief Complaint: Weakness, shortness of breath History of Present Illness: 68-year-old male with known history of hypertension, hyperlipidemia, chronic atrial fibrillation, coronary disease, chronic anticoagulation who presented the hospital because of weakness, shortness of breath, abdominal pain. Patient indicates that he has been having symptoms for approximately 1-1/ 2 months. He has been up in [facility] and his daughter when he started developing the symptoms. He went to the hospital up there and was found to have anemia which required 2 units of blood transfusion. The patient states that he did well for little while but then started developing symptoms again so he went back to the same facility in [place] and was given another 2 units of packed red blood cells and was notified that he needed to go back to where he lives and see a edge trimmer mechanic. He was also notified to discontinue his Xarelto. Patient does take Xarelto on a regular basis for his atrial fibrillation. Patient states that he did quit taking it for 3 days but started feeling worse so he started taking the medication again. Patient did come back down here and had similar symptoms so he came to the ER for evaluation. Patient was found to have an He is complaining of lower abdominal pain. Denies any diarrhea, constipation. 10-16 Follow-up GI bleed. Patient seen and examined, lying in bed comfortably no apparent distress. Overnight hemoglobin dropped to 6.7 from 8.8 after 1 unit of PRBC. Gastroenterology called in updated, plan for EGD and colonoscopy this afternoon around noon. Will transfuse 2 units PRBC. No presence of any acute bright red blood loss, RN reports of black stools overnight. Vital signs stable. Asymptomatic. Denies any shortness of breath or chest pain. 10-17 Follow up GI bleed. Patient seen and examined, lying in bed comfortably in [facility]. Patient denies any acute events overnight. His bleeding scan last evening is showing small bleed in left upper quadrant of small bowel. GI ordered for transfer to [facility] to undergo an angiogram with IR. Patient has been updated. Continue to trend H&H. Denies any acute complaints including chest pain or shortness of breath. VSS at this time. Plan for procedure today in IR. Mesenteric angiography performed to assess acute UGI bleed. NM study suggests small bowel origin. Pt has an occluded right external iliac artery. Access on left. 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 This results in limited opacification of the distal distribution of the SMA with the contrast limiting the exam. No acute hemorrhage observed. SMA occlusion would prevent intravascular therapy of an UGI bleed. 10 Follow up for GI bleed. Patient is currently doing well. Resting in bed. Denies any chest pain, shortness of breath, fever or chills. He continues to have dark stool. Hemoglobin 9.2 today. 07-22 Follow up for GI bleed. Patient is doing well. However, he complains of lower abdominal pain. He had dark loose stool. No fever, chills. 07-23 Follow-up acute anemia due to GI bleed/abdominal pain July 23, 2018-patient seen and examined, complains of abdominal pain. Reports last BM 2 days ago. BP soft. H&H appears to be stable. 07-24 Follow-up for abdominal pain, anemia, GI bleedpatient seen and examined, complaining of dizziness this morning, blood pressure low of 97/49, reassessed 101/52. No chest pain, no shortness of breath. Complains of mid abdominal pain. No nausea, no vomiting. Tolerating diet well. Stools are more black in color. None today. 07-25 Follow-up for abdominal pain, anemia, GI bleedpatient seen and examined, still feeling dizzy, blood pressure 100/62. Heart rate 63. Temp max 99.7. Pale, feels weak. Minimal abdominal pain, no nausea, no vomiting. 07-26 Ready for surgery. Mild mid abdominal discomfort and pain. Complaint of nausea. No active vomiting. 07-27 Patient reports abdominal pain. No passing gas. Mild nausea. No vomiting. Patient underwent exploration for small bowel lesion and a source of intestinal hemorrhage As indicated in full operative note, patient had no obvious mass lesion or any source of bleeding in the small bowel large bowel or stomach and duodenum Except for extensive adhesions exploration was otherwise negative 07-28 Patient reports he has poor appetite and only a few bites of food yesterday. He still has a lot of abdominal pain. Passing gas. No bowel movements. 07-29 SEEN BY SURGERY HAS ABDOMINAL PAIN MOVE OUT OF ICU HAS NAUSEA AND VOMITING DW RN AND PT AND SURGERY PT AND OT EVAL AND TREAT 07-29 PATIENT STILL HAS ABDOMINAL PAIN POOR APPETITE NOT HAD GOOD BM YET TRY PO AND RECTAL MEDS FOR CONSTIPATION DW RN AND PT AM LABS INCREASE ACTIVITY Physical Exam Vital signs: Vital Signs 07/29/18 12:00 07/29/18 16:00 07/29/18 20:00 Temperature 98.4 F 98.1 F 98.4 F Pulse Rate 58 L 60 60 Respiratory Rate 12 12 16 Blood Pressure 125/60 152/89 H 168/77 H Pulse Oximetry 94 L 98 96 07/29/18 20:59 07/29/18 21:00 07/30/18 00:00 Temperature 98.0 F Pulse Rate 60 Respiratory Rate 13 26 H Blood Pressure 145/67 H Pulse Oximetry 96 97 07/30/18 00:47 07/30/18 04:00 07/30/18 04:44 Temperature 98.2 F Pulse Rate 58 L Respiratory Rate 19 18 22 Blood Pressure 128/92 H Pulse Oximetry 98 07/30/18 10:09 Temperature Pulse Rate Respiratory Rate Blood Pressure Pulse Oximetry 96 Intake & Output 07/29/18 07/30/18 07/30/18 18:59 06:59 18:59 Intake Total 1240 / 1240 Output Total 750 / 750 Balance 490 / 490 Weight 74.6 kg Intake: IV 1000 / 1000 NS Inj 1,000 ML @ 60 mls/hr IV. 1000 / 1000 SIG .[id number] ROSY Rx#:[id number] Oral 240 / 240 Output: Urine 700 / 700 Emesis 50 / 50 Other: # Voids 2 3 Date of Last Bowel Movement 07/29/18 07/29/18 # Bowel Movements 1 # Emeses 2 Narrative: GENERAL: 68-year-old elderly male in no acute distress CARDIOVASCULAR: Regular rate and rhythm RESPIRATORY: Breath sounds equal bilaterally. No accessory muscle use. GASTROINTESTINAL: Abdomen soft, generalized tenderness, nondistended, bandage clean dry intact, abdominal binder in place; few bowel sounds. MUSCULOSKELETAL: No cyanosis, or edema. NEURO: Patient awake, alert oriented x3. No focal deficits - Urinary Catheter Management Indwelling Urethral Catheter Cath placed during this visit: yes, but has since been removed by the nurse Reason for continuing: Decision to DC catheter Insertion date: 07/26/18 Removal date: 07/27/18 Removal time: 10:49 Results - Labs CBC & Chem 7: 07/30/18 04:31 07/30/18 04:31 Laboratory Results - last 24 hr 07/29/18 07/30/18 07/30/18 05:21 04:31 04:31 WBC 12.6 H RBC 3.52 L Hgb 10.2 L Hct 30.3 L MCV 86.1 MCH 28.9 MCHC 33.6 RDW 16.9 Plt Count 458 H MPV 8.1 Prelim Diff (Auto) Slide review pending Neut % (Auto) 63.8 Lymph % (Auto) 21.5 [place] % (Auto) 11.8 H Eos % (Auto) 2.4 Baso % (Auto) 0.5 Neut # (Auto) 8.0 H Lymph # (Auto) 2.7 [place] # (Auto) 1.5 H Eos # (Auto) 0.3 Baso # (Auto) 0.1 WBC Differential . Diff Scan Auto diff confirmed Differential Comment . Platelet Estimate High H Platelet Morphology Clumped H Sodium 145 Potassium 4.3 Chloride 110 H Carbon Dioxide 29.5 Anion Gap 6 BUN 25 H Creatinine 1.26 Estimated GFR 57 L Random Glucose 83 Hemoglobin A1c 5.2 Calcium 7.5 L Phosphorus 2.5 Magnesium 2.1 Total Bilirubin 0.5 AST 105 H ALT 80 H Alkaline Phosphatase 72 Total Protein 4.9 L Albumin 1.7 L TSH 0.684 Free T4 2.09 H - Imaging ITS Impressions Abdomen/Pelvis CT 07/17/18 17:18 CONCLUSION: 1. Previous apparent aorta by iliac surgery 2. Extensive vascular calcifications and small left iliac artery aneurysm. 3. I do not see inflammatory changes in the mesentery. I do not sense or abscess or free air to account for the patient's abdominal pain. Chest X-Ray 07/17/18 17:18 CONCLUSION: 1. No acute abnormality or significant interval change. GI Bleed Scan Nuclear Medicine 07/19/18 00:00 CONCLUSION: 1. Small amount of active bleeding in the left upper quadrant within small bowel loops. Abdominal Angiography 07/20/18 00:00 CONCLUSION: 1. The patient has an aorto bicommon iliac bypass graft. The left inflow is patent. 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 This prevents good angiographic evaluation of the SMA distribution. It also prevents attempted therapy. 3. 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 This generates poor opacification of the peripheral distribution of the SMA secondary to delusional effect. I'm not able to identify any source of hemorrhage. - Procedures Mesenteric angiography 07/20/2018. 07/26 exploratory laparotomy Assessment and Plan - Assessment (1) GI bleed Code(s): K92.2 - Gastrointestinal hemorrhage, unspecified Status: Acute (2) Melena Code(s): K92.1 - Melena Status: Acute - Plan 68-year-old male with known history of hypertension, hyperlipidemia, chronic atrial fibrillation, coronary disease, chronic anticoagulation who presented the hospital because of weakness, shortness of breath, abdominal pain. Patient indicates that he has been having symptoms for approximately 1-1/ 2 months. Has had multiple transfusions, he was told to discontinue Xarelto. Acute anemia due to GI bleed Abdominal pain -Complicated by anticoagulation use of Xarelto -Received multiple transfusion both in [place] and at [place]. Reports of black stool overnight. -Status post EGD and colonoscopy without any significant findings. -Patient was transferred to the [facility] hospital for mesenteric angiography which was performed on 07/20/2018. 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 Intravascular therapy was not possible due to SMA occlusion. -Dr. Bertrand (Vascular surgery) following-initially recommends PillCam as outpatient. However patient continues to have a drop in hemoglobin and Ex lap was performed. Patient today is status post operative day #2 ex lapcontinue postoperative care per surgery. Physical therapy, pain control -Continue Protonix 40mg IV BID. today's hemoglobin stable at 10.2 -Morphine IR and Morphine IV for pain management. Has received a total of 5 units of packed red blood cell during this hospitalization. CONSTIPATION- GIVE MANY MEDS TO HELP THIS Elevated liver enzymes-possibly med induced. -LFTs trending down -Continue to monitor -We will hold Lipitor for now Hypertension hyperlipidemia coronary artery disease chronic atrial fibrillation Elevated troponin -Continue to hold Xarelto -Continuous cardiac monitoring ordered -Dr. Kumar evaluated, recommends at least starting baby aspirin if okay by GI when patient stabilizes from surgery. -Previous hypotensive readings due to hypovolemia and anemia from GI bleed now has resolved. -Resume amiodarone when blood pressure better controlled. Acute kidney injury superimposed on chronic kidney disease stage III Likely due to bleeding -Continue monitor renal function. This is improved Avoid nephrotoxins. Anxiety/Depression -Continue Zoloft, alprazolam. PPI for GI prophylaxis No anticoagulation at this time due to previous bleeding Transfer out of intensive care unit Awaiting bed for MedSur. Code Status: FULL CODE Discussed Condition With: RN AND PT Discharge Planning: MOVE OUT OF ICU
[2018-07-30] MEDS ORDERED: Magnesium Citrate Liq 300 ML Bottle PO PRN (10:41)
[2018-07-30] MEDS ORDERED: Bisacodyl 10 MG Supp RECTAL PRN (10:41)
[2018-07-30] MEDS ORDERED: Sod Phosphate/Sod Biphosphate (Adult) Enema 133 ML Bottle RECTAL PRN (10:42)
--- NOTE | 2018-07-30 11:01 | P.PNVS ---
Subjective Subjective/Hospital Course: Referral received Full consult TF J 07/22/2018 The gentleman clearly has a source of bleeding producing repeated episodes of anemia, caused by GI bleeding and consequent dizziness, weakness and the related symptoms. The patient is on Xarelto for atrial fibrillation. This has been temporarily stopped. Colonoscopy did not reveal any lesions which would be responsible for this and it would be quite unlikely with melena anyway. Upper endoscopy is negative. The nuclear scan requires about 1 mL per minute of bleeding, so at that time it was performed, the patient obviously had enough to show some blush in the left upper quadrant which was deemed to have come from the small intestine. Considering the patient is lying down, it is hard to say which part of the small intestine, but is probably somewhere to the distal jejunum/mid ileum. I doubt that this would be from the ligament of Treitz because it would not be in the left upper quadrant. An angiogram could not be performed because the patient has an occluded superior mesenteric artery, yet the celiac axis and inferior mesenteric arteries are patent. At this point, there are few options left. Clearly, the patient cannot be embolized should he bleed from a site that normally would be reachable by a superior mesenteric artery approach considering the vessel is occluded. The only question arises what the source of bleeding is. The patient may have Meckel diverticulum, at with gastric or pancreatic lining which will cause ulceration of the vis-a-vis jejunumand hence, the bleeding from the same. In addition, differential includes an unrecognized underlying malignancy like a carcinoma of the small intestine. This is not obvious on the CAT scan. At this point, we have exhausted all the means of looking at this and probably, if the patient rebleeds, the only remaining option is to do an exploratory laparotomy and see where he is bleeding from. At the time of surgery, sometimes we can do an endoscopy, but there is no vascular procedure that is going to assist this patient other than a surgical approach and resection of the offending segment. If the patient rebleeds, repeating a nuclear scan might be helpful to delineate the site for once we are in the abdomen, blindly resecting bowel is not a good idea, so I hope to find some abnormality that would sort itself out. I will continue to follow the patient. If he drops his hemoglobin again, we will resort to surgery. Until then, I would hold Xarelto. Patient has been stable for the last 24 hours has not required any transfusions If he bleeds again, surgery will remain the only option but a repeat RBC tagged scan will be obviously helpful to better delineate the offending segment of the intestine. Until then it remains an educated guess and is never a great way to approach surgery with educated gases as the only underlying pathologic starting point. 07/23/2018 Patient is awake alert and oriented Abdomen is soft active bowel sounds Hemoglobin remained stable and at this point there is no active bleeding noted Will leave things alone for the time being and see how patient does In a very ideal case scenario patient would get a PillCam but this is not done in hospital so patient will have to be outpatient at that point I am afraid that once anticoagulants are restarted patient will bleed again so most likely we will resort to exploration next week or earlier if patient drops hemoglobin 07/24/2018 Abdomen soft active bowel sounds Patient had 2 bowel movements which is soft heme positive but not melanotic and hemoglobin remained stable CBC pending for tomorrow and will see if hemoglobin remains stable patient might be able to have PillCam as an outpatient On the other hand if anticoagulants are restarted and patient bleeds then will have to resort to surgery at this admission and hopefully be able to locate the point of bleeding 07/25/2018 Patient appears to be pale and weak and hemoglobin has dropped another gram since yesterday Patient continues with a low intensity bleed and at this point clearly cannot be discharged Based on all of the above I do not believe we have a choice but simply to go ahead and proceed with abdominal surgery and resect the offending part of small bowel as we can best recognize it during the surgery All discussed with patient in detail and we should proceed with surgery tomorrow I have explained the risks and benefits and possible complications, including the fact that we may not be able to localize the bleeding site or find a more complex problem. 07/27/2018 Patient underwent exploration for tubal small bowel lesion and a source of intestinal hemorrhage As indicated in full operative note, patient had no obvious mass lesion or any source of bleeding in the small bowel large bowel or stomach and duodenum Except for extensive adhesions exploration was otherwise negative Patient is now stable Can be transferred to the floor and advanced to diet Out of bed 07/28/2018 Abdomen soft incisions clean and dry dressing has been changed Active bowel sounds patient tolerating p.o. however he does not like the diet Hemoglobin remained stable At the time of surgery patient had large amount of inspissated stool in the transverse descending and sigmoid colon and he will need some laxatives for the same Awaiting bed on the floor for the last 2 days From my point patient can be discharged any time but considering how weak he is he might need some rehab 07/29/2018 Hemoglobin is very well and there is no sign of active bleeding Abdomen is soft incision is clean and dry Patient is slightly distended and tender in mid abdomen in the area of the incision Patient has mild ileus and in addition huge amount of inspissated stool in the colon that needs to be mobilized We will give enema today and in addition to lactulose this should make the patient move Nothing to add to care 07/30/2018 Abdomen is soft with active bowel sounds patient passing gas had a very small bowel movement Incision is clean and dry Patient refuses laxatives however he had virtual rocks in his colon during the surgery so he really truly needs to be evacuated In addition patient is not very compliant with care does not want to get out of bed does not want to participate in PT OT which will only result in more weakness and functional decline Hemoglobin remains stable Patient can be discharged to rehab from my point any time for this point he cannot go home due to functional decline and his inability to take care of himself May shower daily get incisions wet Objective Vital Signs / I&O: Vital Signs 07/29/18 12:00 07/29/18 16:00 07/29/18 20:00 Temperature 98.4 F 98.1 F 98.4 F Pulse Rate 58 L 60 60 Respiratory Rate 12 12 16 Blood Pressure 125/60 152/89 H 168/77 H Pulse Oximetry 94 L 98 96 07/29/18 20:59 07/29/18 21:00 07/30/18 00:00 Temperature 98.0 F Pulse Rate 60 Respiratory Rate 13 26 H Blood Pressure 145/67 H Pulse Oximetry 96 97 07/30/18 00:47 07/30/18 04:00 07/30/18 04:44 Temperature 98.2 F Pulse Rate 58 L Respiratory Rate 19 18 22 Blood Pressure 128/92 H Pulse Oximetry 98 07/30/18 10:09 Temperature Pulse Rate Respiratory Rate Blood Pressure Pulse Oximetry 96 Intake & Output 07/29/18 07/30/18 07/30/18 18:59 06:59 18:59 Intake Total 1240 / 1240 Output Total 750 / 750 Balance 490 / 490 Weight 74.6 kg Intake: IV 1000 / 1000 NS Inj 1,000 ML @ 60 mls/hr IV. 1000 / 1000 SIG .[id number] ROSY Rx#:[id number] Oral 240 / 240 Output: Urine 700 / 700 Emesis 50 / 50 Other: # Voids 2 3 Date of Last Bowel Movement 07/29/18 07/29/18 # Bowel Movements 1 # Emeses 2 Laboratory Results - last 24 hr 07/29/18 07/30/18 07/30/18 05:21 04:31 04:31 WBC 12.6 H RBC 3.52 L Hgb 10.2 L Hct 30.3 L MCV 86.1 MCH 28.9 MCHC 33.6 RDW 16.9 Plt Count 458 H MPV 8.1 Prelim Diff (Auto) Slide review pending Neut % (Auto) 63.8 Lymph % (Auto) 21.5 [place] % (Auto) 11.8 H Eos % (Auto) 2.4 Baso % (Auto) 0.5 Neut # (Auto) 8.0 H Lymph # (Auto) 2.7 [place] # (Auto) 1.5 H Eos # (Auto) 0.3 Baso # (Auto) 0.1 WBC Differential . Diff Scan Auto diff confirmed Differential Comment . Platelet Estimate High H Platelet Morphology Clumped H Sodium 145 Potassium 4.3 Chloride 110 H Carbon Dioxide 29.5 Anion Gap 6 BUN 25 H Creatinine 1.26 Estimated GFR 57 L Random Glucose 83 Hemoglobin A1c 5.2 Calcium 7.5 L Phosphorus 2.5 Magnesium 2.1 Total Bilirubin 0.5 AST 105 H ALT 80 H Alkaline Phosphatase 72 Total Protein 4.9 L Albumin 1.7 L TSH 0.684 Free T4 2.09 H
[2018-07-30] MEDS: Bisacodyl 10 MG Supp RECTAL PRN (17:59)
[2018-07-30] MEDS: Morphine Sulfate 15 MG IR Tablet PO PRN (19:56)
[2018-07-31] MEDS: Sod Chloride 0.9% Inj 1,000 ML IV.SIG SCH ×2 (03:10→19:12)
[2018-07-31] MEDS: Morphine Sulfate 15 MG IR Tablet PO PRN ×5 (03:34→21:01)
[2018-07-31] MEDS: ALPRAZolam 0.25 MG Tablet PO PRN ×5 (03:40→21:01)
[2018-07-31] MEDS: Pantoprazole Inj 40 MG Vial IV.PUSH SCH ×2 (04:01→17:21)
[2018-07-31 05:07] LABS: Baso # (Auto) 0.1 th/mm3 (0.0-0.2); Baso % (Auto) 0.5 % (0.0-2.0); Eos # (Auto) 0.4 th/mm3 (0.0-0.4); Eos % (Auto) 2.3 % (0.0-4.0); Hematocrit 29.1 % (39.0-51.0); Hemoglobin 9.7 gm/dL (13.0-17.0); Lymph # (Auto) 2.9 th/mm3 (1.0-4.8); Lymph % (Auto) 17.9 % (9.0-44.0); Mean Corpuscular HGB Conc 33.4 % (32.0-36.0); Mean Corpuscular Hemoglobin 29.1 pg (27.0-34.0); Mean Corpuscular Volume 87.2 fL (80.0-100.0); Mean Platelet Volume 8.5 fL (7.0-11.0); Mono # (Auto) 1.8 th/mm3 (0.0-0.9); Mono % (Auto) 11.2 % (0.0-8.0); Neut # (Auto) 10.9 th/mm3 (1.8-7.7); Neut % (Auto) 68.1 % (16.0-70.0); Platelet Count 538 th/mm3 (150-450); Red Blood Count 3.34 mil/mm3 (4.50-5.90); White Blood Count 16.1 th/mm3 (4.0-11.0)
[2018-07-31 05:38] LABS: Alanine Aminotransferase 87 U/L (12-78); Albumin 1.6 g/dL (3.4-5.0); Alkaline Phosphatase 81 U/L (45-117); Anion Gap 6 meq/L (5-15); Aspartate Aminotransferase 116 U/L (15-37); Blood Urea Nitrogen 22 mg/dL (7-18); Calcium 7.6 mg/dL (8.5-10.1); Carbon Dioxide 29.4 meq/L (21.0-32.0); Chloride 109 meq/L (98-107); Glomerular Filtration Rate 56 mL/min (>89); Glucose,Random 101 mg/dL (74-106); Lymphocytes 22 % (9-44); Magnesium 2.1 mg/dL (1.5-2.5); Monocytes 5 % (0-8); Myelocytes 1 % (0-0); Phosphorus 2.6 mg/dL (2.5-4.9); Platelet Morphology Normal (Normal); Potassium 4.4 meq/L (3.5-5.1); Total Protein 4.9 g/dL (6.4-8.2)
[2018-07-31 05:39] LABS: Sodium 144 meq/L (136-145)
[2018-07-31] MEDS: Gabapentin 100 MG Capsule PO SCH (08:55)
[2018-07-31] MEDS: Sertraline 50 MG Tablet PO SCH (08:55)
[2018-07-31] MEDS: Ferrous Sulfate 325 MG Tablet PO SCH (08:55)
[2018-07-31] MEDS: Senna/Docusate Sodium 8.6/50 MG Tablet PO SCH ×4 (08:56→21:01)
[2018-07-31] MEDS: Amiodarone 200 MG Tablet PO SCH (08:56)
--- NOTE | 2018-07-31 09:55 | P.PNVS ---
Subjective Subjective/Hospital Course: Referral received Full consult TF J 07/22/2018 The gentleman clearly has a source of bleeding producing repeated episodes of anemia, caused by GI bleeding and consequent dizziness, weakness and the related symptoms. The patient is on Xarelto for atrial fibrillation. This has been temporarily stopped. Colonoscopy did not reveal any lesions which would be responsible for this and it would be quite unlikely with melena anyway. Upper endoscopy is negative. The nuclear scan requires about 1 mL per minute of bleeding, so at that time it was performed, the patient obviously had enough to show some blush in the left upper quadrant which was deemed to have come from the small intestine. Considering the patient is lying down, it is hard to say which part of the small intestine, but is probably somewhere to the distal jejunum/mid ileum. I doubt that this would be from the ligament of Treitz because it would not be in the left upper quadrant. An angiogram could not be performed because the patient has an occluded superior mesenteric artery, yet the celiac axis and inferior mesenteric arteries are patent. At this point, there are few options left. Clearly, the patient cannot be embolized should he bleed from a site that normally would be reachable by a superior mesenteric artery approach considering the vessel is occluded. The only question arises what the source of bleeding is. The patient may have Meckel diverticulum, at with gastric or pancreatic lining which will cause ulceration of the vis-a-vis jejunumand hence, the bleeding from the same. In addition, differential includes an unrecognized underlying malignancy like a carcinoma of the small intestine. This is not obvious on the CAT scan. At this point, we have exhausted all the means of looking at this and probably, if the patient rebleeds, the only remaining option is to do an exploratory laparotomy and see where he is bleeding from. At the time of surgery, sometimes we can do an endoscopy, but there is no vascular procedure that is going to assist this patient other than a surgical approach and resection of the offending segment. If the patient rebleeds, repeating a nuclear scan might be helpful to delineate the site for once we are in the abdomen, blindly resecting bowel is not a good idea, so I hope to find some abnormality that would sort itself out. I will continue to follow the patient. If he drops his hemoglobin again, we will resort to surgery. Until then, I would hold Xarelto. Patient has been stable for the last 24 hours has not required any transfusions If he bleeds again, surgery will remain the only option but a repeat RBC tagged scan will be obviously helpful to better delineate the offending segment of the intestine. Until then it remains an educated guess and is never a great way to approach surgery with educated gases as the only underlying pathologic starting point. 07/23/2018 Patient is awake alert and oriented Abdomen is soft active bowel sounds Hemoglobin remained stable and at this point there is no active bleeding noted Will leave things alone for the time being and see how patient does In a very ideal case scenario patient would get a PillCam but this is not done in hospital so patient will have to be outpatient at that point I am afraid that once anticoagulants are restarted patient will bleed again so most likely we will resort to exploration next week or earlier if patient drops hemoglobin 07/24/2018 Abdomen soft active bowel sounds Patient had 2 bowel movements which is soft heme positive but not melanotic and hemoglobin remained stable CBC pending for tomorrow and will see if hemoglobin remains stable patient might be able to have PillCam as an outpatient On the other hand if anticoagulants are restarted and patient bleeds then will have to resort to surgery at this admission and hopefully be able to locate the point of bleeding 07/25/2018 Patient appears to be pale and weak and hemoglobin has dropped another gram since yesterday Patient continues with a low intensity bleed and at this point clearly cannot be discharged Based on all of the above I do not believe we have a choice but simply to go ahead and proceed with abdominal surgery and resect the offending part of small bowel as we can best recognize it during the surgery All discussed with patient in detail and we should proceed with surgery tomorrow I have explained the risks and benefits and possible complications, including the fact that we may not be able to localize the bleeding site or find a more complex problem. 07/27/2018 Patient underwent exploration for tubal small bowel lesion and a source of intestinal hemorrhage As indicated in full operative note, patient had no obvious mass lesion or any source of bleeding in the small bowel large bowel or stomach and duodenum Except for extensive adhesions exploration was otherwise negative Patient is now stable Can be transferred to the floor and advanced to diet Out of bed 07/28/2018 Abdomen soft incisions clean and dry dressing has been changed Active bowel sounds patient tolerating p.o. however he does not like the diet Hemoglobin remained stable At the time of surgery patient had large amount of inspissated stool in the transverse descending and sigmoid colon and he will need some laxatives for the same Awaiting bed on the floor for the last 2 days From my point patient can be discharged any time but considering how weak he is he might need some rehab 07/29/2018 Hemoglobin is very well and there is no sign of active bleeding Abdomen is soft incision is clean and dry Patient is slightly distended and tender in mid abdomen in the area of the incision Patient has mild ileus and in addition huge amount of inspissated stool in the colon that needs to be mobilized We will give enema today and in addition to lactulose this should make the patient move Nothing to add to care 07/30/2018 Abdomen is soft with active bowel sounds patient passing gas had a very small bowel movement Incision is clean and dry Patient refuses laxatives however he had virtual rocks in his colon during the surgery so he really truly needs to be evacuated In addition patient is not very compliant with care does not want to get out of bed does not want to participate in PT OT which will only result in more weakness and functional decline Hemoglobin remains stable Patient can be discharged to rehab from my point any time for this point he cannot go home due to functional decline and his inability to take care of himself May shower daily get incisions wet 07/31/2018 Incision clean and dry May shower Out of bed Regular diet Patient can be discharged any time from my point considering that hemoglobin is stable Patient is very weak and in significant functional decline will require extensive rehab Objective Vital Signs / I&O: Vital Signs 07/30/18 10:09 07/30/18 12:00 07/30/18 16:00 Temperature 98.6 F 98.4 F Pulse Rate 59 L 60 Respiratory Rate 18 21 Blood Pressure Pulse Oximetry 96 96 97 07/30/18 19:00 07/30/18 20:00 07/30/18 20:59 Temperature 97.8 F Pulse Rate 62 Respiratory Rate 24 Blood Pressure 108/57 L Pulse Oximetry 79 L 94 L 96 07/31/18 00:00 07/31/18 04:00 Temperature 98.0 F 97.9 F Pulse Rate 58 L 59 L Respiratory Rate 16 21 Blood Pressure 138/66 146/67 H Pulse Oximetry 96 96 Intake & Output 07/30/18 07/31/18 07/31/18 18:59 06:59 18:59 Intake Total 1360 / 1360 240 / 240 Output Total 700 / 700 550 / 550 Balance 660 / 660 -310 / -310 Weight 75.7 kg Intake: Oral 400 / 400 240 / 240 Oral Supplement 960 / 960 Output: Urine 650 / 650 550 / 550 Stool 0 / 0 0 / 0 Emesis 50 / 50 Other: # Voids 2 Date of Last Bowel Movement 07/30/18 07/30/18 # Bowel Movements 1 1 # Emeses 2 Laboratory Results - last 24 hr 07/30/18 07/31/18 07/31/18 04:31 04:23 04:23 WBC 16.1 H RBC 3.34 L Hgb 9.7 L Hct 29.1 L MCV 87.2 MCH 29.1 MCHC 33.4 RDW 17.0 Plt Count 538 H MPV 8.5 Prelim Diff (Auto) Slide review pending Neut % (Auto) 68.1 Lymph % (Auto) 17.9 [place] % (Auto) 11.2 H Eos % (Auto) 2.3 Baso % (Auto) 0.5 Neut # (Auto) 10.9 H Lymph # (Auto) 2.9 [place] # (Auto) 1.8 H Eos # (Auto) 0.4 Baso # (Auto) 0.1 WBC Differential Manual diff final Seg Neuts % (Manual) 71 H Band Neuts % (Manual) 1 Lymphocytes % (Manual) 22 Monocytes % (Manual) 5 Myelocytes % (Man) 1 H Abs Neuts (Manual) 11.8 H Differential Comment . Platelet Estimate High H Platelet Morphology Normal Sodium 144 Potassium 4.4 Chloride 109 H Carbon Dioxide 29.4 Anion Gap 6 BUN 22 H Creatinine 1.28 Estimated GFR 56 L Random Glucose 101 Hemoglobin A1c 5.0 Calcium 7.6 L Phosphorus 2.6 Magnesium 2.1 Total Bilirubin 0.3 AST 116 H ALT 87 H Alkaline Phosphatase 81 Total Protein 4.9 L Albumin 1.6 L
--- NOTE | 2018-07-31 11:34 | P.PNIM ---
Subjective Interval history: Chief Complaint: Weakness, shortness of breath History of Present Illness: 68-year-old male with known history of hypertension, hyperlipidemia, chronic atrial fibrillation, coronary disease, chronic anticoagulation who presented the hospital because of weakness, shortness of breath, abdominal pain. Patient indicates that he has been having symptoms for approximately 1-1/ 2 months. He has been up in [facility] and his daughter when he started developing the symptoms. He went to the hospital up there and was found to have anemia which required 2 units of blood transfusion. The patient states that he did well for little while but then started developing symptoms again so he went back to the same facility in [place] and was given another 2 units of packed red blood cells and was notified that he needed to go back to where he lives and see a bale piler. He was also notified to discontinue his Xarelto. Patient does take Xarelto on a regular basis for his atrial fibrillation. Patient states that he did quit taking it for 3 days but started feeling worse so he started taking the medication again. Patient did come back down here and had similar symptoms so he came to the ER for evaluation. Patient was found to have an He is complaining of lower abdominal pain. Denies any diarrhea, constipation. 10-16 Follow-up GI bleed. Patient seen and examined, lying in bed comfortably no apparent distress. Overnight hemoglobin dropped to 6.7 from 8.8 after 1 unit of PRBC. Gastroenterology called in updated, plan for EGD and colonoscopy this afternoon around noon. Will transfuse 2 units PRBC. No presence of any acute bright red blood loss, RN reports of black stools overnight. Vital signs stable. Asymptomatic. Denies any shortness of breath or chest pain. 10-17 Follow up GI bleed. Patient seen and examined, lying in bed comfortably in [facility]. Patient denies any acute events overnight. His bleeding scan last evening is showing small bleed in left upper quadrant of small bowel. GI ordered for transfer to [facility] to undergo an angiogram with IR. Patient has been updated. Continue to trend H&H. Denies any acute complaints including chest pain or shortness of breath. VSS at this time. Plan for procedure today in IR. Mesenteric angiography performed to assess acute UGI bleed. NM study suggests small bowel origin. Pt has an occluded right external iliac artery. Access on left. 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 This results in limited opacification of the distal distribution of the SMA with the contrast limiting the exam. No acute hemorrhage observed. SMA occlusion would prevent intravascular therapy of an UGI bleed. 10 Follow up for GI bleed. Patient is currently doing well. Resting in bed. Denies any chest pain, shortness of breath, fever or chills. He continues to have dark stool. Hemoglobin 9.2 today. 07-22 Follow up for GI bleed. Patient is doing well. However, he complains of lower abdominal pain. He had dark loose stool. No fever, chills. 10 Follow-up acute anemia due to GI bleed/abdominal pain July 23, 2018-patient seen and examined, complains of abdominal pain. Reports last BM 2 days ago. BP soft. H&H appears to be stable. 07-24 Follow-up for abdominal pain, anemia, GI bleedpatient seen and examined, complaining of dizziness this morning, blood pressure low of 97/49, reassessed 101/52. No chest pain, no shortness of breath. Complains of mid abdominal pain. No nausea, no vomiting. Tolerating diet well. Stools are more black in color. None today. 07-25 Follow-up for abdominal pain, anemia, GI bleedpatient seen and examined, still feeling dizzy, blood pressure 100/62. Heart rate 63. Temp max 99.7. Pale, feels weak. Minimal abdominal pain, no nausea, no vomiting. 10 Ready for surgery. Mild mid abdominal discomfort and pain. Complaint of nausea. No active vomiting. 10 Patient reports abdominal pain. No passing gas. Mild nausea. No vomiting. Patient underwent exploration for small bowel lesion and a source of intestinal hemorrhage As indicated in full operative note, patient had no obvious mass lesion or any source of bleeding in the small bowel large bowel or stomach and duodenum Except for extensive adhesions exploration was otherwise negative 10 Patient reports he has poor appetite and only a few bites of food yesterday. He still has a lot of abdominal pain. Passing gas. No bowel movements. 10 SEEN BY SURGERY HAS ABDOMINAL PAIN MOVE OUT OF ICU HAS NAUSEA AND VOMITING DW RN AND PT AND SURGERY PT AND OT EVAL AND TREAT 07-30 PATIENT STILL HAS ABDOMINAL PAIN POOR APPETITE NOT HAD GOOD BM YET TRY PO AND RECTAL MEDS FOR CONSTIPATION DW RN AND PT AM LABS INCREASE ACTIVITY 07-31 HAD GOOD BM LAST NIGHT LESS ABDOMINAL PAIN STATES HAS A BETTER APPETITE NOW INCREASE ACTIVITY MAY NEED SNF BEFORE DC LEUKOCYTOSIS- AM LABS AM LABS Physical Exam Vital signs: Vital Signs 07/30/18 12:00 07/30/18 16:00 07/30/18 19:00 Temperature 98.6 F 98.4 F Pulse Rate 59 L 60 Respiratory Rate 18 21 Blood Pressure Pulse Oximetry 96 97 79 L 07/30/18 20:00 07/30/18 20:59 07/31/18 00:00 Temperature 97.8 F 98.0 F Pulse Rate 62 58 L Respiratory Rate 24 16 Blood Pressure 108/57 L 138/66 Pulse Oximetry 94 L 96 96 07/31/18 04:00 Temperature 97.9 F Pulse Rate 59 L Respiratory Rate 21 Blood Pressure 146/67 H Pulse Oximetry 96 Intake & Output 07/30/18 07/31/18 07/31/18 18:59 06:59 18:59 Intake Total 1360 / 1360 240 / 240 Output Total 700 / 700 550 / 550 Balance 660 / 660 -310 / -310 Weight 75.7 kg Intake: Oral 400 / 400 240 / 240 Oral Supplement 960 / 960 Output: Urine 650 / 650 550 / 550 Stool 0 / 0 0 / 0 Emesis 50 / 50 Other: # Voids 2 Date of Last Bowel Movement 07/30/18 07/30/18 # Bowel Movements 1 1 # Emeses 2 Narrative: GENERAL: 68-year-old elderly male in no acute distress CARDIOVASCULAR: Regular rate and rhythm RESPIRATORY: Breath sounds equal bilaterally. No accessory muscle use. GASTROINTESTINAL: Abdomen soft, generalized tenderness, nondistended, bandage clean dry intact, abdominal binder in place; few bowel sounds. MUSCULOSKELETAL: No cyanosis, or edema. NEURO: Patient awake, alert oriented x3. No focal deficits - Urinary Catheter Management Indwelling Urethral Catheter Cath placed during this visit: yes, but has since been removed by the nurse Reason for continuing: Decision to DC catheter Insertion date: 07/26/18 Removal date: 07/27/18 Removal time: 10:49 Results - Labs CBC & Chem 7: 07/31/18 04:23 07/31/18 04:23 Laboratory Results - last 24 hr 07/30/18 07/31/18 07/31/18 04:31 04:23 04:23 WBC 16.1 H RBC 3.34 L Hgb 9.7 L Hct 29.1 L MCV 87.2 MCH 29.1 MCHC 33.4 RDW 17.0 Plt Count 538 H MPV 8.5 Prelim Diff (Auto) Slide review pending Neut % (Auto) 68.1 Lymph % (Auto) 17.9 [place] % (Auto) 11.2 H Eos % (Auto) 2.3 Baso % (Auto) 0.5 Neut # (Auto) 10.9 H Lymph # (Auto) 2.9 [place] # (Auto) 1.8 H Eos # (Auto) 0.4 Baso # (Auto) 0.1 WBC Differential Manual diff final Seg Neuts % (Manual) 71 H Band Neuts % (Manual) 1 Lymphocytes % (Manual) 22 Monocytes % (Manual) 5 Myelocytes % (Man) 1 H Abs Neuts (Manual) 11.8 H Differential Comment . Platelet Estimate High H Platelet Morphology Normal Sodium 144 Potassium 4.4 Chloride 109 H Carbon Dioxide 29.4 Anion Gap 6 BUN 22 H Creatinine 1.28 Estimated GFR 56 L Random Glucose 101 Hemoglobin A1c 5.0 Calcium 7.6 L Phosphorus 2.6 Magnesium 2.1 Total Bilirubin 0.3 AST 116 H ALT 87 H Alkaline Phosphatase 81 Total Protein 4.9 L Albumin 1.6 L - Imaging ITS Impressions Abdomen/Pelvis CT 07/17/18 17:18 CONCLUSION: 1. Previous apparent aorta by iliac surgery 2. Extensive vascular calcifications and small left iliac artery aneurysm. 3. I do not see inflammatory changes in the mesentery. I do not sense or abscess or free air to account for the patient's abdominal pain. Chest X-Ray 07/17/18 17:18 CONCLUSION: 1. No acute abnormality or significant interval change. GI Bleed Scan Nuclear Medicine 07/19/18 00:00 CONCLUSION: 1. Small amount of active bleeding in the left upper quadrant within small bowel loops. Abdominal Angiography 07/20/18 00:00 CONCLUSION: 1. The patient has an aorto bicommon iliac bypass graft. The left inflow is patent. 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 This prevents good angiographic evaluation of the SMA distribution. It also prevents attempted therapy. 3. 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 This generates poor opacification of the peripheral distribution of the SMA secondary to delusional effect. I'm not able to identify any source of hemorrhage. - Procedures Mesenteric angiography 07/20/2018. 07/26 exploratory laparotomy Assessment and Plan - Assessment (1) GI bleed Code(s): K92.2 - Gastrointestinal hemorrhage, unspecified Status: Acute (2) Melena Code(s): K92.1 - Melena Status: Acute - Plan 68-year-old male with known history of hypertension, hyperlipidemia, chronic atrial fibrillation, coronary disease, chronic anticoagulation who presented the hospital because of weakness, shortness of breath, abdominal pain. Patient indicates that he has been having symptoms for approximately 1-1/ 2 months. Has had multiple transfusions, he was told to discontinue Xarelto. Acute anemia due to GI bleed Abdominal pain -Complicated by anticoagulation use of Xarelto -Received multiple transfusion both in [place] and at [place]. Reports of black stool overnight. -Status post EGD and colonoscopy without any significant findings. -Patient was transferred to the [facility] for mesenteric angiography which was performed on 07/20/2018. 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 Intravascular therapy was not possible due to SMA occlusion. -Dr. Bertrand (Vascular surgery) following-initially recommends PillCam as outpatient. However patient continues to have a drop in hemoglobin and Ex lap was performed. Patient today is status post operative day #2 ex lapcontinue postoperative care per surgery. Physical therapy, pain control -Continue Protonix 40mg IV BID. today's hemoglobin stable at 10.2 -Morphine IR and Morphine IV for pain management. Has received a total of 5 units of packed red blood cell during this hospitalization. CONSTIPATION- GIVE MANY MEDS TO HELP THIS --FINALLY HAD BOWEL MOVEMENT Elevated liver enzymes-possibly med induced. -LFTs trending down -Continue to monitor -We will hold Lipitor for now Hypertension hyperlipidemia coronary artery disease chronic atrial fibrillation Elevated troponin -Continue to hold Xarelto -Continuous cardiac monitoring ordered -Dr. Kumar evaluated, recommends at least starting baby aspirin if okay by GI when patient stabilizes from surgery. -Previous hypotensive readings due to hypovolemia and anemia from GI bleed now has resolved. -Resume amiodarone when blood pressure better controlled. Acute kidney injury superimposed on chronic kidney disease stage III Likely due to bleeding -Continue monitor renal function. This is improved Avoid nephrotoxins. Anxiety/Depression -Continue Zoloft, alprazolam. PPI for GI prophylaxis No anticoagulation at this time due to previous bleeding Transfer out of intensive care unit Awaiting bed for MedSur. Code Status: FULL CODE Discussed Condition With: RN AND PT MOVE OUT OF ICU MAY NEED SNF Discharge Planning: MOVE OUT OF ICU
[2018-08-01] MEDS: Morphine Sulfate 15 MG IR Tablet PO PRN ×5 (01:45→18:56)
[2018-08-01] MEDS: ALPRAZolam 0.25 MG Tablet PO PRN ×5 (01:47→18:55)
[2018-08-01] MEDS: Pantoprazole Inj 40 MG Vial IV.PUSH SCH ×2 (05:28→17:41)
[2018-08-01 08:09] LABS: Anion Gap 5 meq/L (5-15); Aspartate Aminotransferase 123 U/L (15-37); Blood Urea Nitrogen 18 mg/dL (7-18); Calcium 7.5 mg/dL (8.5-10.1); Carbon Dioxide 30.5 meq/L (21.0-32.0); Chloride 106 meq/L (98-107); Glomerular Filtration Rate 61 mL/min (>89); Glucose,Random 78 mg/dL (74-106); Magnesium 2.1 mg/dL (1.5-2.5); Phosphorus 2.6 mg/dL (2.5-4.9); Potassium 4.3 meq/L (3.5-5.1); Sodium 141 meq/L (136-145)
[2018-08-01 08:14] LABS: Baso # (Auto) 0.1 th/mm3 (0.0-0.2); Baso % (Auto) 1.4 % (0.0-2.0); Eos # (Auto) 0.4 th/mm3 (0.0-0.4); Eos % (Auto) 5.3 % (0.0-4.0); Hematocrit 29.3 % (39.0-51.0); Hemoglobin 9.4 gm/dL (13.0-17.0); Lymph # (Auto) 1.4 th/mm3 (1.0-4.8); Lymph % (Auto) 20.5 % (9.0-44.0); Mean Corpuscular HGB Conc 32.1 % (32.0-36.0); Mean Corpuscular Hemoglobin 28.1 pg (27.0-34.0); Mean Corpuscular Volume 87.5 fL (80.0-100.0); Mean Platelet Volume 9.1 fL (7.0-11.0); Mono % (Auto) 15.3 % (0.0-8.0); Neut # (Auto) 3.8 th/mm3 (1.8-7.7); Neut % (Auto) 57.5 % (16.0-70.0); Platelet Count 259 th/mm3 (150-450); Red Blood Count 3.35 mil/mm3 (4.50-5.90); Red Cell Distribution Width 16.6 % (11.6-17.2); White Blood Count 6.6 th/mm3 (4.0-11.0)
[2018-08-01 08:15] LABS: Alanine Aminotransferase 88 U/L (12-78); Albumin 1.6 g/dL (3.4-5.0); Alkaline Phosphatase 72 U/L (45-117); Total Protein 4.7 g/dL (6.4-8.2)
[2018-08-01] MEDS: Senna/Docusate Sodium 8.6/50 MG Tablet PO SCH ×4 (09:13→21:36)
[2018-08-01] MEDS: Sertraline 50 MG Tablet PO SCH (09:13)
[2018-08-01] MEDS: Amiodarone 200 MG Tablet PO SCH (09:14)
[2018-08-01] MEDS: Gabapentin 100 MG Capsule PO SCH (09:14)
[2018-08-01] MEDS: Ferrous Sulfate 325 MG Tablet PO SCH (09:15)
--- NOTE | 2018-08-01 10:32 | P.PN ---
Subjective Interval history: Patient doing well. Patient reports that he is tolerating p.o., and had a bowel movement 2 days ago. Patient denies current concerns. Per RN no overnight events. Physical Exam Vital signs: Vital Signs 07/31/18 12:48 07/31/18 20:00 08/01/18 00:00 Temperature 97.9 F 97.8 F Pulse Rate 60 60 Respiratory Rate 17 17 Blood Pressure 134/67 138/65 Pulse Oximetry 96 96 96 08/01/18 04:00 Temperature 98 F Pulse Rate 59 L Respiratory Rate 17 Blood Pressure 132/66 Pulse Oximetry 95 Intake & Output 07/31/18 08/01/18 08/01/18 18:59 06:59 18:59 Weight 75.6 kg Other: Date of Last Bowel Movement 07/30/18 Narrative: GENERAL: Well-nourished male, in no acute distress, lying comfortably in bed, nasal cannula in place SKIN: Warm and dry. HEAD: Normocephalic. Atraumatic. PERRLA. No scleral icterus. No injection or drainage. MOM. NECK: Supple, trachea midline. No JVD or lymphadenopathy. CARDIOVASCULAR: Regular rate and rhythm without murmurs, gallops, or rubs. RESPIRATORY: Breath sounds equal bilaterally. No accessory muscle use. GASTROINTESTINAL: Abdomen soft, non-tender, nondistended. [place] noted over vertical abdominal incision, incision C/D/I. Abdominal binder in place. MUSCULOSKELETAL: No cyanosis, or edema. BACK: Nontender without obvious deformity. No CVA tenderness. NEURO: AAO x3, no focal deficits, motor system 5/5 x 4, speech clear. - Urinary Catheter Management Indwelling Urethral Catheter Cath placed during this visit: yes, but has since been removed by the nurse Reason for continuing: Decision to DC catheter Insertion date: 07/26/18 Removal date: 07/27/18 Removal time: 10:49 Results - Labs CBC & Chem 7: 08/01/18 06:06 08/01/18 06:06 Laboratory Results - last 24 hr 08/01/18 08/01/18 06:06 06:06 WBC 6.6 RBC 3.35 L Hgb 9.4 L Hct 29.3 L MCV 87.5 MCH 28.1 MCHC 32.1 RDW 16.6 Plt Count 259 D MPV 9.1 Neut % (Auto) 57.5 Lymph % (Auto) 20.5 [place] % (Auto) 15.3 H Eos % (Auto) 5.3 H Baso % (Auto) 1.4 Neut # (Auto) 3.8 Lymph # (Auto) 1.4 [place] # (Auto) 1.0 H Eos # (Auto) 0.4 Baso # (Auto) 0.1 WBC Differential . Differential Comment Auto diff final Hematology Comments Sodium 141 Potassium 4.3 Chloride 106 Carbon Dioxide 30.5 Anion Gap 5 BUN 18 Creatinine 1.19 Estimated GFR 61 L Random Glucose 78 Calcium 7.5 L Phosphorus 2.6 Magnesium 2.1 Total Bilirubin 0.5 AST 123 H ALT 88 H Alkaline Phosphatase 72 Total Protein 4.7 L Albumin 1.6 L - Procedures Mesenteric angiography 07/20/2018. 07/26 exploratory laparotomy Assessment and Plan - Assessment (1) GI bleed Code(s): K92.2 - Gastrointestinal hemorrhage, unspecified Status: Acute (2) Melena Code(s): K92.1 - Melena Status: Acute - Plan This is a 68-year-old CM with PMHx of HTN, HLD, CAD, and A. Fib on chronic anticoagulation who presented the hospital because of weakness, shortness of breath, abdominal pain. Found to have a GI bleed, s/p EGD and Colonscopy which were WNL and s/p ex. lap on 07/26 with no source of bleeding noted. s/p multiple blood transfusions, Xarelto discontinued, POD#6, HD#16 1. Acute Blood Loss Anemia due to GI bleed/Abdominal pain Hgb 9.4 today from 9.7 Complicated by anticoagulation use of Xarelto s/p multiple transfusions both in [place] and at [place]. s/p EGD and colonoscopy without any significant findings. (Patient was transferred to the main hospital for mesenteric angiography which was performed on 07/20/2018. 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 Intravascular therapy was not possible due to SMA occlusion.) Dr. Bertrand (Vascular surgery) performed an Ex lap on 07/26 with no source of bleeding. Cont. post op care. Continue Protonix 40mg IV BID, Morphine IR Q4 PRN, Morphine IV Q4PRN for pain management, Oxy PRN, Zofran PRN s/p 5U pRBC's during this hospitalization Cont. FeSulfate s/p BM on 07/30 after enema given 2. Elevated liver enzymes, likely due to meds LFT's trending down Continue to monitor Cont. to hold Lipitor for now Checking Hep panel today 3. Hypertension/Hyperlipidemia/CAD/A.Fib/Elevated Trops Continue to hold Xarelto Continue Telemetry Dr. Kumar evaluated, recommends at least starting baby aspirin on D/C Cont. Amiodarone 4. Acute on chronic kidney disease, stage III, resolved Likely due to bleeding Cr 1.19 today Continue monitor renal function Avoid nephrotoxins 5. Anxiety/Depression Continue Zoloft, Akbar, and Alprazolam PRN 6. PPI for GI prophylaxis No anticoagulation at this time due to previous bleeding 7. DVT PPX: SCD's 8. Dispo: Follow-up Vascular recommendations, will need staple removal when deemed by Vascular, per PT will need rehab on discharge. Code Status: full Discussed Condition With: patient, RN
[2018-08-01] MEDS: Sod Chloride 0.9% Inj 1,000 ML IV.SIG SCH (12:19)
--- NOTE | 2018-08-01 15:01 | P.PNVS ---
Subjective Subjective/Hospital Course: Referral received Full consult TF J 07/22/2018 The gentleman clearly has a source of bleeding producing repeated episodes of anemia, caused by GI bleeding and consequent dizziness, weakness and the related symptoms. The patient is on Xarelto for atrial fibrillation. This has been temporarily stopped. Colonoscopy did not reveal any lesions which would be responsible for this and it would be quite unlikely with melena anyway. Upper endoscopy is negative. The nuclear scan requires about 1 mL per minute of bleeding, so at that time it was performed, the patient obviously had enough to show some blush in the left upper quadrant which was deemed to have come from the small intestine. Considering the patient is lying down, it is hard to say which part of the small intestine, but is probably somewhere to the distal jejunum/mid ileum. I doubt that this would be from the ligament of Treitz because it would not be in the left upper quadrant. An angiogram could not be performed because the patient has an occluded superior mesenteric artery, yet the celiac axis and inferior mesenteric arteries are patent. At this point, there are few options left. Clearly, the patient cannot be embolized should he bleed from a site that normally would be reachable by a superior mesenteric artery approach considering the vessel is occluded. The only question arises what the source of bleeding is. The patient may have Meckel diverticulum, at with gastric or pancreatic lining which will cause ulceration of the vis-a-vis jejunumand hence, the bleeding from the same. In addition, differential includes an unrecognized underlying malignancy like a carcinoma of the small intestine. This is not obvious on the CAT scan. At this point, we have exhausted all the means of looking at this and probably, if the patient rebleeds, the only remaining option is to do an exploratory laparotomy and see where he is bleeding from. At the time of surgery, sometimes we can do an endoscopy, but there is no vascular procedure that is going to assist this patient other than a surgical approach and resection of the offending segment. If the patient rebleeds, repeating a nuclear scan might be helpful to delineate the site for once we are in the abdomen, blindly resecting bowel is not a good idea, so I hope to find some abnormality that would sort itself out. I will continue to follow the patient. If he drops his hemoglobin again, we will resort to surgery. Until then, I would hold Xarelto. Patient has been stable for the last 24 hours has not required any transfusions If he bleeds again, surgery will remain the only option but a repeat RBC tagged scan will be obviously helpful to better delineate the offending segment of the intestine. Until then it remains an educated guess and is never a great way to approach surgery with educated gases as the only underlying pathologic starting point. 07/23/2018 Patient is awake alert and oriented Abdomen is soft active bowel sounds Hemoglobin remained stable and at this point there is no active bleeding noted Will leave things alone for the time being and see how patient does In a very ideal case scenario patient would get a PillCam but this is not done in hospital so patient will have to be outpatient at that point I am afraid that once anticoagulants are restarted patient will bleed again so most likely we will resort to exploration next week or earlier if patient drops hemoglobin 07/24/2018 Abdomen soft active bowel sounds Patient had 2 bowel movements which is soft heme positive but not melanotic and hemoglobin remained stable CBC pending for tomorrow and will see if hemoglobin remains stable patient might be able to have PillCam as an outpatient On the other hand if anticoagulants are restarted and patient bleeds then will have to resort to surgery at this admission and hopefully be able to locate the point of bleeding 07/25/2018 Patient appears to be pale and weak and hemoglobin has dropped another gram since yesterday Patient continues with a low intensity bleed and at this point clearly cannot be discharged Based on all of the above I do not believe we have a choice but simply to go ahead and proceed with abdominal surgery and resect the offending part of small bowel as we can best recognize it during the surgery All discussed with patient in detail and we should proceed with surgery tomorrow I have explained the risks and benefits and possible complications, including the fact that we may not be able to localize the bleeding site or find a more complex problem. 07/27/2018 Patient underwent exploration for tubal small bowel lesion and a source of intestinal hemorrhage As indicated in full operative note, patient had no obvious mass lesion or any source of bleeding in the small bowel large bowel or stomach and duodenum Except for extensive adhesions exploration was otherwise negative Patient is now stable Can be transferred to the floor and advanced to diet Out of bed 07/28/2018 Abdomen soft incisions clean and dry dressing has been changed Active bowel sounds patient tolerating p.o. however he does not like the diet Hemoglobin remained stable At the time of surgery patient had large amount of inspissated stool in the transverse descending and sigmoid colon and he will need some laxatives for the same Awaiting bed on the floor for the last 2 days From my point patient can be discharged any time but considering how weak he is he might need some rehab 07/29/2018 Hemoglobin is very well and there is no sign of active bleeding Abdomen is soft incision is clean and dry Patient is slightly distended and tender in mid abdomen in the area of the incision Patient has mild ileus and in addition huge amount of inspissated stool in the colon that needs to be mobilized We will give enema today and in addition to lactulose this should make the patient move Nothing to add to care 07/30/2018 Abdomen is soft with active bowel sounds patient passing gas had a very small bowel movement Incision is clean and dry Patient refuses laxatives however he had virtual rocks in his colon during the surgery so he really truly needs to be evacuated In addition patient is not very compliant with care does not want to get out of bed does not want to participate in PT OT which will only result in more weakness and functional decline Hemoglobin remains stable Patient can be discharged to rehab from my point any time for this point he cannot go home due to functional decline and his inability to take care of himself May shower daily get incisions wet 07/31/2018 Incision clean and dry May shower Out of bed Regular diet Patient can be discharged any time from my point considering that hemoglobin is stable Patient is very weak and in significant functional decline will require extensive rehab 08/01/2018 Abdomen soft active bowel sounds advance diet as tolerated Out of bed Patient requires extensive rehabilitation Hemoglobin remains stable Objective Vital Signs / I&O: Vital Signs 07/31/18 20:00 08/01/18 00:00 08/01/18 04:00 Temperature 97.9 F 97.8 F 98 F Pulse Rate 60 60 59 L Respiratory Rate 17 17 17 Blood Pressure 134/67 138/65 132/66 Pulse Oximetry 96 96 95 08/01/18 08:00 Temperature 97.4 F L Pulse Rate 64 Respiratory Rate 18 Blood Pressure 121/61 Pulse Oximetry 93 L Intake & Output 07/31/18 08/01/18 08/01/18 18:59 06:59 18:59 Weight 75.6 kg Other: Date of Last Bowel Movement 07/30/18 Laboratory Results - last 24 hr 08/01/18 08/01/18 06:06 06:06 WBC 6.6 RBC 3.35 L Hgb 9.4 L Hct 29.3 L MCV 87.5 MCH 28.1 MCHC 32.1 RDW 16.6 Plt Count 259 D MPV 9.1 Neut % (Auto) 57.5 Lymph % (Auto) 20.5 [place] % (Auto) 15.3 H Eos % (Auto) 5.3 H Baso % (Auto) 1.4 Neut # (Auto) 3.8 Lymph # (Auto) 1.4 [place] # (Auto) 1.0 H Eos # (Auto) 0.4 Baso # (Auto) 0.1 WBC Differential . Differential Comment Auto diff final Hematology Comments Sodium 141 Potassium 4.3 Chloride 106 Carbon Dioxide 30.5 Anion Gap 5 BUN 18 Creatinine 1.19 Estimated GFR 61 L Random Glucose 78 Calcium 7.5 L Phosphorus 2.6 Magnesium 2.1 Total Bilirubin 0.5 AST 123 H ALT 88 H Alkaline Phosphatase 72 Total Protein 4.7 L Albumin 1.6 L
[2018-08-02] MEDS: Sod Chloride 0.9% Inj 1,000 ML IV.SIG SCH ×3 (04:38→20:28)
[2018-08-02] MEDS: Pantoprazole Inj 40 MG Vial IV.PUSH SCH ×2 (05:15→17:19)
[2018-08-02] MEDS: Morphine Sulfate 15 MG IR Tablet PO PRN ×4 (05:18→20:45)
[2018-08-02] MEDS: ALPRAZolam 0.25 MG Tablet PO PRN ×4 (05:25→17:19)
[2018-08-02] MEDS: Senna/Docusate Sodium 8.6/50 MG Tablet PO SCH ×3 (08:00→20:30)
[2018-08-02 08:15] LABS: Baso # (Auto) 0.6 th/mm3 (0.0-0.2); Baso % (Auto) 8.3 % (0.0-2.0); Eos # (Auto) 0.3 th/mm3 (0.0-0.4); Hematocrit 29.7 % (39.0-51.0); Hemoglobin 9.8 gm/dL (13.0-17.0); Lymph # (Auto) 1.1 th/mm3 (1.0-4.8); Lymph % (Auto) 15.6 % (9.0-44.0); Mean Corpuscular HGB Conc 32.9 % (32.0-36.0); Mean Corpuscular Hemoglobin 28.2 pg (27.0-34.0); Mean Corpuscular Volume 85.7 fL (80.0-100.0); Mono # (Auto) 1.2 th/mm3 (0.0-0.9); Neut # (Auto) 3.7 th/mm3 (1.8-7.7); Neut % (Auto) 54.1 % (16.0-70.0); Platelet Count 289 th/mm3 (150-450); Red Blood Count 3.47 mil/mm3 (4.50-5.90); Red Cell Distribution Width 16.5 % (11.6-17.2); White Blood Count 6.9 th/mm3 (4.0-11.0)
[2018-08-02 08:33] LABS: Albumin 1.6 g/dL (3.4-5.0); Calcium 7.3 mg/dL (8.5-10.1); Potassium 4.5 meq/L (3.5-5.1); Total Protein 4.7 g/dL (6.4-8.2)
[2018-08-02] MEDS: Gabapentin 100 MG Capsule PO SCH (09:23)
[2018-08-02] MEDS: Sertraline 50 MG Tablet PO SCH (09:23)
[2018-08-02] MEDS: Amiodarone 200 MG Tablet PO SCH (09:24)
[2018-08-02] MEDS: Ferrous Sulfate 325 MG Tablet PO SCH (09:24)
[2018-08-02 09:28] LABS: Hepatitis A IgM Antibody Nonreactive (Nonreactive)
[2018-08-02 09:30] LABS: Hepatitits B Surface Antigen Nonreactive (Nonreactive)
--- NOTE | 2018-08-02 11:45 | P.PN ---
Subjective Interval history: Patient is doing well. Patient is tolerating p.o., voiding/stooling well. No overnight events per RN. Physical Exam Vital signs: Vital Signs 08/01/18 12:00 08/01/18 15:00 08/01/18 16:00 Temperature 98.2 F 97.7 F Pulse Rate 60 59 L 61 Respiratory Rate 18 18 Blood Pressure 132/59 L 121/60 Pulse Oximetry 94 L 92 L 08/01/18 20:00 08/01/18 23:49 08/02/18 00:14 Temperature 98.0 F 97.9 F Pulse Rate 76 59 L Respiratory Rate 16 16 Blood Pressure 99/53 L 90/58 L Pulse Oximetry 92 L 92 L 08/02/18 00:57 08/02/18 04:00 08/02/18 05:17 Temperature 98.1 F Pulse Rate 72 60 76 Respiratory Rate 16 Blood Pressure 97/59 L 112/63 Pulse Oximetry 92 L 08/02/18 08:00 Temperature 98.0 F Pulse Rate 61 Respiratory Rate 18 Blood Pressure 167/68 H Pulse Oximetry 93 L Intake & Output 08/01/18 08/02/18 08/02/18 18:59 06:59 18:59 Intake Total 480 / 480 600 / 600 Output Total 1075 / 1075 1500 / 1500 Balance -595 / -595 -900 / -900 Weight 74.7 kg Intake: Oral 480 / 480 600 / 600 Output: Urine 1075 / 1075 1500 / 1500 Other: # Bowel Movements 0 Narrative: GENERAL: Well-nourished male, in no acute distress, lying comfortably in bed, nasal cannula in place SKIN: Warm and dry. HEAD: Normocephalic. Atraumatic. PERRLA. No scleral icterus. No injection or drainage. MOM. NECK: Supple, trachea midline. No JVD or lymphadenopathy. CARDIOVASCULAR: Regular rate and rhythm without murmurs, gallops, or rubs. RESPIRATORY: Breath sounds equal bilaterally. No accessory muscle use. GASTROINTESTINAL: Abdomen soft, non-tender, nondistended. [place] noted over vertical abdominal incision, incision C/D/I. Abdominal binder in place. MUSCULOSKELETAL: No cyanosis, or edema. BACK: Nontender without obvious deformity. No CVA tenderness. NEURO: AAO x3, no focal deficits, motor system 5/5 x 4, speech clear. - Urinary Catheter Management Indwelling Urethral Catheter Cath placed during this visit: yes, but has since been removed by the nurse Reason for continuing: Decision to DC catheter Insertion date: 07/26/18 Removal date: 07/27/18 Removal time: 10:49 Results - Labs CBC & Chem 7: 08/02/18 07:38 08/02/18 07:38 Laboratory Results - last 24 hr 08/02/18 08/02/18 08/02/18 07:38 07:38 07:38 WBC 6.9 RBC 3.47 L Hgb 9.8 L Hct 29.7 L MCV 85.7 MCH 28.2 MCHC 32.9 RDW 16.5 Plt Count 289 MPV 9.0 Prelim Diff (Auto) Slide review pending Neut % (Auto) 54.1 Lymph % (Auto) 15.6 [place] % (Auto) 17.0 H Eos % (Auto) 5.0 H Baso % (Auto) 8.3 H Neut # (Auto) 3.7 Lymph # (Auto) 1.1 [place] # (Auto) 1.2 H Eos # (Auto) 0.3 Baso # (Auto) 0.6 H WBC Differential . Diff Scan Auto diff confirmed Differential Comment . Hematology Comments Sodium 140 Potassium 4.5 Chloride 104 Carbon Dioxide 32.0 Anion Gap 4 L BUN 18 Creatinine 1.28 Estimated GFR 56 L Random Glucose 79 Calcium 7.3 L* Prot Corrected Calcium 8.7 Total Bilirubin 0.4 AST 129 H ALT 94 H Alkaline Phosphatase 77 Total Protein 4.7 L Albumin 1.6 L Hepatitis A IgM Ab Nonreactive Hep Bs Antigen Nonreactive Hep B Core IgM Ab Nonreactive Hep C IgG Ab Nonreactive - Procedures Mesenteric angiography 07/20/2018. 07/26 exploratory laparotomy Assessment and Plan - Assessment (1) GI bleed Code(s): K92.2 - Gastrointestinal hemorrhage, unspecified Status: Acute (2) Melena Code(s): K92.1 - Melena Status: Acute - Plan This is a 68-year-old CM with PMHx of HTN, HLD, CAD, and A. Fib on chronic anticoagulation who presented the hospital because of weakness, shortness of breath, abdominal pain. Found to have a GI bleed, s/p EGD and Colonscopy which were WNL and s/p ex. lap on 07/26 with no source of bleeding noted. s/p multiple blood transfusions, Xarelto discontinued, POD#7, HD#17 1. Acute Blood Loss Anemia due to GI bleed/Abdominal pain, resolved Hgb 9.8 today from 9.4 Complicated by anticoagulation use of Xarelto s/p multiple transfusions both in [place] and at [place] s/p EGD and colonoscopy without any significant findings (Patient was transferred to the [facility] hospital for mesenteric angiography which was performed on 07/20/2018. 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 Intravascular therapy was not possible due to SMA occlusion.) Dr. Bertrand (Vascular) performed an Ex lap on 07/26 with no source of bleeding. Cont. post op care. Per Dr. Bertrand will need marley removes after 2wks. Continue Protonix 40mg IV BID, Morphine IR Q4 PRN, Morphine IV Q4PRN for pain management, Oxy PRN, Zofran PRN s/p 5U pRBC's during this hospitalization Cont. FeSulfate 2. Elevated liver enzymes, likely due to meds LFT's trending down Continue to monitor Cont. to hold Lipitor for now Neg Hep panel 3. Hypertension/Hyperlipidemia/CAD/A.Fib/Elevated Trops Continue to hold Xarelto Continue Telemetry Dr. Kumar evaluated, recommends at least starting baby aspirin once patient stable, will start ASA today Cont. Amiodarone 4. Acute on chronic kidney disease, stage III, resolved Likely due to bleeding Cr 1.28 today Continue monitor renal function Avoid nephrotoxins 5. Anxiety/Depression Continue Zoloft, Akbar, and Alprazolam PRN 6. PPI for GI prophylaxis No anticoagulation at this time due to previous bleeding 7. DVT PPX: SCD's 8. Dispo: Pending placement, will need staple removal after 2wks post op per Dr. Bertrand, per PT will need rehab on discharge. Code Status: full Discussed Condition With: patient, RN
[2018-08-02] MEDS ORDERED: Sodium Chloride 0.9% 2 ML Flush PRN IV.FLUSH (12:34)
[2018-08-02] MEDS: Sodium Chloride 0.9% 2 ML Flush BID IV.FLUSH SCH (20:29)
[2018-08-02] MEDS: Bisacodyl 10 MG Supp RECTAL PRN (20:30)
[2018-08-03] MEDS: ALPRAZolam 0.25 MG Tablet PO PRN ×4 (02:06→23:28)
[2018-08-03] MEDS: Morphine Sulfate 15 MG IR Tablet PO PRN ×2 (04:14→08:41)
[2018-08-03] MEDS: Pantoprazole Inj 40 MG Vial IV.PUSH SCH (04:14)
[2018-08-03] MEDS: Ferrous Sulfate 325 MG Tablet PO SCH (08:40)
[2018-08-03] MEDS: Amiodarone 200 MG Tablet PO SCH (08:40)
[2018-08-03] MEDS: Gabapentin 100 MG Capsule PO SCH (08:40)
[2018-08-03] MEDS: Senna/Docusate Sodium 8.6/50 MG Tablet PO SCH ×2 (08:41→20:52)
[2018-08-03] MEDS: Sertraline 50 MG Tablet PO SCH (08:41)
[2018-08-03] MEDS: Sodium Chloride 0.9% 2 ML Flush BID IV.FLUSH SCH ×2 (08:44→20:52)
[2018-08-03] MEDS: Sod Chloride 0.9% Inj 1,000 ML IV.SIG SCH (09:18)
[2018-08-03 10:23] LABS: Alanine Aminotransferase 96 U/L (12-78)
[2018-08-03 10:25] LABS: Alkaline Phosphatase 79 U/L (45-117); Total Protein 4.8 g/dL (6.4-8.2)
[2018-08-03 10:29] LABS: Albumin 1.7 g/dL (3.4-5.0); Anion Gap 3 meq/L (5-15); Blood Urea Nitrogen 17 mg/dL (7-18); Calcium 7.5 mg/dL (8.5-10.1); Carbon Dioxide 32.1 meq/L (21.0-32.0); Chloride 105 meq/L (98-107); Glomerular Filtration Rate 58 mL/min (>89); Glucose,Random 76 mg/dL (74-106); Sodium 140 meq/L (136-145)
[2018-08-03 10:32] LABS: Aspartate Aminotransferase 148 U/L (15-37)
[2018-08-03 11:08] LABS: Baso # (Auto) 0.1 th/mm3 (0.0-0.2); Baso % (Auto) 1.3 % (0.0-2.0); Eos # (Auto) 0.4 th/mm3 (0.0-0.4); Eos % (Auto) 5.9 % (0.0-4.0); Hematocrit 33.5 % (39.0-51.0); Hemoglobin 10.9 gm/dL (13.0-17.0); Lymph # (Auto) 1.2 th/mm3 (1.0-4.8); Mean Corpuscular HGB Conc 32.5 % (32.0-36.0); Mean Corpuscular Hemoglobin 28.7 pg (27.0-34.0); Mean Corpuscular Volume 88.3 fL (80.0-100.0); Mean Platelet Volume 9.3 fL (7.0-11.0); Mono # (Auto) 1.2 th/mm3 (0.0-0.9); Mono % (Auto) 19.3 % (0.0-8.0); Neut # (Auto) 3.2 th/mm3 (1.8-7.7); Neut % (Auto) 53.5 % (16.0-70.0); Platelet Count 248 th/mm3 (150-450); Red Blood Count 3.79 mil/mm3 (4.50-5.90); Red Cell Distribution Width 17.4 % (11.6-17.2)
--- NOTE | 2018-08-03 12:48 | P.PN ---
Subjective Interval history: Patient doing well overnight. Patient is tolerating p.o., voiding/stooling well. No concerns. Patient's had to have surgery after a fall and patient visited her today at the hospital. Physical Exam Vital signs: Vital Signs 08/02/18 16:00 08/02/18 20:00 08/02/18 20:44 Temperature 98.4 F Pulse Rate 72 61 Respiratory Rate 18 Blood Pressure 99/48 L 136/62 Pulse Oximetry 94 L 08/03/18 00:00 08/03/18 04:00 08/03/18 08:00 Temperature 98.1 F 97.9 F 97.8 F Pulse Rate 59 L 60 60 Respiratory Rate 17 16 16 Blood Pressure 132/62 115/55 L 112/58 L Pulse Oximetry 93 L 95 92 L Intake & Output 08/02/18 08/03/18 08/03/18 18:59 06:59 18:59 Intake Total 1000 / 1000 1000 / 1000 Output Total 1100 / 1100 500 / 500 Balance -100 / -100 -500 / -500 1000 / 1000 Weight 75.2 kg Intake: IV 1000 / 1000 1000 / 1000 NS Inj 1,000 ML @ 60 mls/hr IV. 1000 / 1000 1000 / 1000 SIG .[id number] [facility] Rx#:[id number] Output: Urine 1100 / 1100 500 / 500 Other: Date of Last Bowel Movement 07/31/18 Narrative: GENERAL: Well-nourished male, in no acute distress, lying comfortably in bed, nasal cannula in place SKIN: Warm and dry. HEAD: Normocephalic. Atraumatic. PERRLA. No scleral icterus. No injection or drainage. MOM. NECK: Supple, trachea midline. No JVD or lymphadenopathy. CARDIOVASCULAR: Regular rate and rhythm without murmurs, gallops, or rubs. RESPIRATORY: CTA x2, no accessory muscle use. GASTROINTESTINAL: Abdomen soft, non-tender, nondistended. [place] noted over vertical abdominal incision, incision C/D/I. Abdominal binder in place. MUSCULOSKELETAL: No cyanosis, or edema. BACK: Nontender without obvious deformity. No CVA tenderness. NEURO: AAO x3, no focal deficits, motor system 5/5 x 4, speech clear. - Urinary Catheter Management Indwelling Urethral Catheter Cath placed during this visit: yes, but has since been removed by the nurse Reason for continuing: Decision to DC catheter Insertion date: 07/26/18 Removal date: 07/27/18 Removal time: 10:49 Results - Labs CBC & Chem 7: 08/03/18 09:26 08/03/18 09:26 Laboratory Results - last 24 hr 08/03/18 08/03/18 09:26 09:26 WBC 6.0 RBC 3.79 L Hgb 10.9 L Hct 33.5 L MCV 88.3 MCH 28.7 MCHC 32.5 RDW 17.4 H Plt Count 248 MPV 9.3 Neut % (Auto) 53.5 Lymph % (Auto) 20.0 [place] % (Auto) 19.3 H Eos % (Auto) 5.9 H Baso % (Auto) 1.3 Neut # (Auto) 3.2 Lymph # (Auto) 1.2 [place] # (Auto) 1.2 H Eos # (Auto) 0.4 Baso # (Auto) 0.1 WBC Differential . Differential Comment Auto diff final Hematology Comments Sodium 140 Potassium 5.0 Chloride 105 Carbon Dioxide 32.1 H Anion Gap 3 L BUN 17 Creatinine 1.24 Estimated GFR 58 L Random Glucose 76 Calcium 7.5 L Total Bilirubin 0.6 AST 148 H ALT 96 H Alkaline Phosphatase 79 Total Protein 4.8 L Albumin 1.7 L - Procedures Mesenteric angiography 07/20/2018. 07/26 exploratory laparotomy Assessment and Plan - Assessment (1) GI bleed Code(s): K92.2 - Gastrointestinal hemorrhage, unspecified Status: Ruled-out (2) Melena Code(s): K92.1 - Melena Status: Resolved - Plan This is a 68-year-old CM with PMHx of HTN, HLD, CAD, and A. Fib on chronic anticoagulation who presented the hospital because of weakness, shortness of breath, abdominal pain. Found to have a GI bleed, s/p EGD and Colonscopy which were WNL and s/p ex. lap on 07/26 with no source of bleeding noted. s/p multiple blood transfusions, Xarelto discontinued, POD#8, HD#18 1. Acute Blood Loss Anemia due to GI bleed/Abdominal pain, resolved Hgb 10.9 today from 9.8 today Complicated by anticoagulation use of Xarelto s/p multiple transfusions both in [place] and at [place] s/p EGD and colonoscopy without any significant findings (Patient was transferred to the main hospital for mesenteric angiography which was performed on 07/20/2018. 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 Intravascular therapy was not possible due to SMA occlusion.) Dr. Bertrand (Vascular) performed an Ex lap on 07/26 with no source of GI bleeding. Cont. post op care. Per Dr. Bertrand will need marley removes after 2wks (08/09). Continue Protonix PO, Morphine IR Q4 PRN, Morphine IV Q4PRN for pain management , Oxy PRN, and Zofran PRN s/p 5U pRBC's during this hospitalization Cont. FeSulfate 2. Elevated liver enzymes, likely due to meds LFT's stable Continue to monitor Cont. to hold Lipitor for now, can discuss resuming with his PCP as outpatient Neg Hep panel 3. Hypertension/Hyperlipidemia/CAD/A.Fib/Elevated Trops Continue to hold Xarelto, cont. ASA started on 08/[address] Kumar evaluated, recommended at least starting baby aspirin once patient stable Cont. Amiodarone 4. Acute on chronic kidney disease, stage III, resolved Likely due to bleeding Cr 1.21 today Continue monitor renal function Avoid nephrotoxins 5. Anxiety/Depression Continue Zoloft, Akbar, and Alprazolam PRN 6. DVT PPX: SCD's 7. Dispo: Pending placement for inpatient rehab, stable for D/C, will need staple removal after 2wks post op per Dr. Bertrand (08/09). Code Status: full Discussed Condition With: patient, RN
[2018-08-03] MEDS: Morphine Inj 4 MG/ML Vial IV.PUSH PRN (20:53)
[2018-08-04] MEDS: ALPRAZolam 0.25 MG Tablet PO PRN ×4 (03:46→20:04)
[2018-08-04] MEDS: Morphine Inj 4 MG/ML Vial IV.PUSH PRN ×4 (03:48→23:50)
[2018-08-04] MEDS: Sertraline 50 MG Tablet PO SCH (08:23)
[2018-08-04] MEDS: Ferrous Sulfate 325 MG Tablet PO SCH (08:24)
[2018-08-04] MEDS: Sodium Chloride 0.9% 2 ML Flush BID IV.FLUSH SCH ×2 (08:24→20:04)
[2018-08-04] MEDS: Amiodarone 200 MG Tablet PO SCH (08:24)
[2018-08-04] MEDS: Gabapentin 100 MG Capsule PO SCH (08:24)
[2018-08-04] MEDS: Senna/Docusate Sodium 8.6/50 MG Tablet PO SCH ×2 (08:24→20:04)
[2018-08-04 09:35] LABS: Baso # (Auto) 0.1 th/mm3 (0.0-0.2); Baso % (Auto) 1.1 % (0.0-2.0); Eos # (Auto) 0.3 th/mm3 (0.0-0.4); Eos % (Auto) 4.8 % (0.0-4.0); Hematocrit 27.6 % (39.0-51.0); Hemoglobin 9.8 gm/dL (13.0-17.0); Lymph % (Auto) 14.5 % (9.0-44.0); Mean Corpuscular HGB Conc 35.5 % (32.0-36.0); Mean Corpuscular Hemoglobin 30.6 pg (27.0-34.0); Mean Corpuscular Volume 86.1 fL (80.0-100.0); Mean Platelet Volume 8.7 fL (7.0-11.0); Mono % (Auto) 15.3 % (0.0-8.0); Neut # (Auto) 4.3 th/mm3 (1.8-7.7); Neut % (Auto) 64.3 % (16.0-70.0); Platelet Count 302 th/mm3 (150-450); Red Cell Distribution Width 16.4 % (11.6-17.2); White Blood Count 6.6 th/mm3 (4.0-11.0)
[2018-08-04 09:56] LABS: % Iron Saturation 9.7 % (20-50); Albumin 1.6 g/dL (3.4-5.0); Calcium 7.4 mg/dL (8.5-10.1); Carbon Dioxide 30.3 meq/L (21.0-32.0); Potassium 4.4 meq/L (3.5-5.1); Total Protein 4.7 g/dL (6.4-8.2)
--- NOTE | 2018-08-04 12:26 | P.PNIM ---
Subjective Interval history: Tolerating diet and ambulating with a walker. Would like prescription of morphine and Xanax as he ran out on the day he was admitted into the hospital. Physical Exam Vital signs: Vital Signs 08/03/18 16:00 08/03/18 18:00 08/03/18 20:00 Temperature 98.1 F 98.2 F Pulse Rate 61 60 62 Respiratory Rate 16 18 Blood Pressure 117/60 118/58 L Pulse Oximetry 92 L 94 L 08/04/18 00:00 08/04/18 02:00 08/04/18 04:00 Temperature 98 F 99 F Pulse Rate 60 65 60 Respiratory Rate 18 18 Blood Pressure 101/51 L 133/63 Pulse Oximetry 90 L 90 L 08/04/18 08:00 08/04/18 11:47 Temperature 96.8 F L 97.9 F Pulse Rate 63 60 Respiratory Rate 17 17 Blood Pressure 139/63 133/60 Pulse Oximetry 93 L 93 L Intake & Output 08/03/18 08/04/18 08/04/18 18:59 06:59 18:59 Intake Total 1503 / 1503 Output Total 1400 / 1400 Balance 103 / 103 -25 / -25 Intake: IV 1083 / 1083 NS Inj 1,000 ML @ 60 mls/hr IV. 1083 / 1083 SIG .[id number] ROSY Rx#:[id number] Oral 420 / 420 Output: Urine 1400 / 1400 Stool 0 / 0 Estimated Blood Loss Other: Date of Last Bowel Movement 08/03/18 # Bowel Movements 0 0 Narrative: GENERAL: This is a well-nourished, well-developed patient, in no apparent distress. CARDIOVASCULAR: Regular rate and rhythm RESPIRATORY: Clear to auscultation. Breath sounds equal bilaterally. No wheezes , rales, or rhonchi. GASTROINTESTINAL: Abdomen soft, non-tender, nondistended. Few bowel sounds, abdominal binder in place with bandage clean dry intact MUSCULOSKELETAL: Extremities without clubbing, cyanosis, or edema. NEURO: Alert & Oriented x4 to person, place, time, situation. Moves all ext x4 - Urinary Catheter Management Indwelling Urethral Catheter Cath placed during this visit: yes, but has since been removed by the nurse Reason for continuing: Decision to DC catheter Insertion date: 07/26/18 Removal date: 10/24/18 Removal time: 10:49 Results - Labs CBC & Chem 7: 08/04/18 08:37 08/04/18 08:37 Laboratory Results - last 24 hr 08/04/18 08/04/18 08:37 08:37 WBC 6.6 RBC 3.20 L Hgb 9.8 L Hct 27.6 L MCV 86.1 MCH 30.6 MCHC 35.5 RDW 16.4 Plt Count 302 MPV 8.7 Neut % (Auto) 64.3 Lymph % (Auto) 14.5 Callaway % (Auto) 15.3 H Eos % (Auto) 4.8 H Baso % (Auto) 1.1 Neut # (Auto) 4.3 Lymph # (Auto) 1.0 [place] # (Auto) 1.0 H Eos # (Auto) 0.3 Baso # (Auto) 0.1 WBC Differential . Differential Comment Auto diff final Hematology Comments Sodium 140 Potassium 4.4 Chloride 103 Carbon Dioxide 30.3 Anion Gap 7 BUN 16 Creatinine 1.26 Estimated GFR 57 L Random Glucose 80 Calcium 7.4 L* Prot Corrected Calcium 8.8 Iron 15 L TIBC 155 L % Saturation 9.7 L Total Bilirubin 0.5 AST 148 H ALT 96 H Alkaline Phosphatase 79 Total Protein 4.7 L Albumin 1.6 L - Procedures Mesenteric angiography 07/20/2018. 07/26 exploratory laparotomy Assessment and Plan - Assessment (1) GI bleed Code(s): K92.2 - Gastrointestinal hemorrhage, unspecified Status: Ruled-out (2) Melena Code(s): K92.1 - Melena Status: Resolved - Plan This is a 68-year-old CM with PMHx of HTN, HLD, CAD, and A. Fib on chronic anticoagulation who presented the hospital because of weakness, shortness of breath, abdominal pain. Found to have a GI bleed, s/p EGD and Colonscopy which were WNL and s/p ex. lap on 07/26 with no source of bleeding noted. s/p multiple blood transfusions, Xarelto discontinued, POD#9, HD#19 1. Acute Blood Loss Anemia due to GI bleed/Abdominal pain, resolved Hgb 9.8 today and hb stable Previous anemia complicated by anticoagulation use of Xarelto s/p multiple transfusions both in [place] and at [place] s/p EGD and colonoscopy without any significant findings (Patient was transferred to the main hospital for mesenteric angiography which was performed on 07/20/2018. 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 Intravascular therapy was not possible due to SMA occlusion.) Dr. Bertrand (Vascular) performed an Ex lap on 07/26 with no source of GI bleeding. Continue postoperative care Per Dr. Bertrand will need marley removes after 2wks (08/09 ). Continue Protonix PO, Morphine IR Q4 PRN, Morphine IV Q4PRN for pain management , Oxy PRN, and Zofran PRN, will need to wean off IV morphine for discharge planning. s/p 5U pRBC's during this hospitalization Cont. FeSulfate 2. Elevated liver enzymes, likely due to meds LFT's stable Continue to monitor Cont. to hold Lipitor for now, can discuss resuming with his PCP as outpatient Neg Hep panel 3. Hypertension/Hyperlipidemia/CAD/A.Fib/Elevated Trops Continue to hold Xarelto, cont. ASA started on 08/[address] Kumar evaluated, recommended at least starting baby aspirin once patient stable Cont. Amiodarone 4. Acute on chronic kidney disease, stage III, resolved Likely due to bleeding Cr 1.29 today Continue monitor renal function Avoid nephrotoxins 5. Anxiety/Depression Continue Zoloft, Akbar, and Alprazolam PRN 6. DVT PPX: SCD's 7. Dispo: will need staple removal after 2wks post op per Dr. Bertrand (08/09). Case management states that he is progressing well on physical therapy and likely insurance will not authorize for inpatient rehab. We will plan on home health care with physical therapy with DME. Discharge Planning: Home health care with DME
--- NOTE | 2018-08-04 12:28 | P.DCO ---
- Diagnosis (1) History of exploratory laparotomy Status: Chronic (2) Acute GI bleeding Status: Resolved - Physical Therapy Order: Evaluate and treat - Home Health Nursing Order: Nursing assessment with vital signs - Case Management Consult Yes - Certification I have seen patient Chico Ferrer SR on 08/04/18. My clinical findings support the need for the requested home health care services because: Deconditioned with increased weakness I certify that my clinical findings support that this patient is homebound because: Post-op weakness
[2018-08-04] MEDS: Morphine Sulfate 15 MG IR Tablet PO PRN (20:13)
[2018-08-05] MEDS: ALPRAZolam 0.25 MG Tablet PO PRN ×4 (03:56→23:41)
[2018-08-05] MEDS: Morphine Sulfate 15 MG IR Tablet PO PRN ×4 (03:56→20:54)
[2018-08-05] MEDS: Sertraline 50 MG Tablet PO SCH (08:49)
[2018-08-05] MEDS: Ferrous Sulfate 325 MG Tablet PO SCH (08:50)
[2018-08-05] MEDS: Gabapentin 100 MG Capsule PO SCH (08:50)
[2018-08-05] MEDS: Amiodarone 200 MG Tablet PO SCH (08:50)
[2018-08-05] MEDS: Senna/Docusate Sodium 8.6/50 MG Tablet PO SCH ×2 (08:50→20:54)
[2018-08-05] MEDS: Sodium Chloride 0.9% 2 ML Flush BID IV.FLUSH SCH ×2 (08:52→20:55)
--- NOTE | 2018-08-05 10:26 | P.PNIM ---
Subjective Interval history: Reports he is doing well. No other concerns at this time. His daughter is trying to get the house ready for him. No abdominal pain. Tolerating diet. No nausea or vomiting. Physical Exam Vital signs: Last Vital Signs Temp 97.7 F 08/05/18 08:00 Pulse 60 08/05/18 08:00 Resp 18 08/05/18 08:00 BP 90/53 L 08/05/18 08:00 Pulse Ox 94 L 08/05/18 08:00 Intake & Output 08/03/18 08/04/18 08/05/18 08/06/18 06:59 06:59 06:59 06:59 Intake Total 1000 / 1000 1503 / 1503 620 / 620 Output Total 1600 / 1600 1425 / 1425 1050 / 1050 Balance -600 / -600 78 / 78 -430 / -430 Weight 75.2 kg 73.9 kg Narrative: GENERAL: This is a well-nourished, well-developed patient, in no apparent distress. CARDIOVASCULAR: Regular rate and rhythm RESPIRATORY: Clear to auscultation. Breath sounds equal bilaterally. No wheezes , rales, or rhonchi. GASTROINTESTINAL: Abdomen soft, non-tender, nondistended. Few bowel sounds, bandage c/d/i MUSCULOSKELETAL: Extremities without clubbing, cyanosis, or edema. NEURO: Alert & Oriented x4 to person, place, time, situation. Moves all ext x4 Urinary Catheter Management Indwelling Urethral Catheter: Cath placed during this visit: yes, but has since been removed by the nurse Insertion date: 07/26/18 Removal date: 07/27/18 Removal time: 10:49 Results Labs CBC & Chem 7: 08/04/18 08:37 08/04/18 08:37 Procedures Procedures: Mesenteric angiography 07/20/2018. 07/26 exploratory laparotomy Assessment and Plan (1) History of exploratory laparotomy: Code(s): Z98.890 - Other specified postprocedural states Status: Chronic (2) Acute GI bleeding: Code(s): K92.2 - Gastrointestinal hemorrhage, unspecified Status: Resolved Plan This is a 68-year-old CM with PMHx of HTN, HLD, CAD, and A. Fib on chronic anticoagulation who presented the hospital because of weakness, shortness of breath, abdominal pain. Found to have a GI bleed, s/p EGD and Colonscopy which were WNL and s/p ex. lap on 07/26 with no source of bleeding noted. s/p multiple blood transfusions, Xarelto discontinued, POD#10, 1. Acute Blood Loss Anemia due to GI bleed/Abdominal pain, resolved Hgb 9.8 yesterday and will repeat Hb in am Previous anemia complicated by anticoagulation use of Xarelto s/p multiple transfusions both in [place] and at [place] s/p EGD and colonoscopy without any significant findings (Patient was transferred to the [facility] for mesenteric angiography which was performed on 07/20/2018. 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 Intravascular therapy was not possible due to SMA occlusion.) Dr. Bertrand (Vascular) performed an Ex lap on 07/26 with no source of GI bleeding. Continue postoperative care Per Dr. Bertrand will need marley removed after 2wks (08/09 ). Continue Protonix PO, Morphine IR Q4 PRN, Morphine IV Q4PRN for pain management , Oxy PRN, and Zofran PRN, will need to wean off IV morphine for discharge planning. s/p 5U pRBC's during this hospitalization Cont. FeSulfate 2. Elevated liver enzymes, likely due to meds LFT's stable Continue to monitor Cont. to hold Lipitor for now, can discuss resuming with his PCP as outpatient Neg Hep panel 3. Hypertension/Hyperlipidemia/CAD/A.Fib/Elevated Trops Continue to hold Xarelto, cont. ASA started on 08/[address] Kumar evaluated, recommended starting baby aspirin once patient stable Cont. Amiodarone 4. Acute on chronic kidney disease, stage III, resolved Likely due to bleeding Cr 1.29 today Continue monitor renal function Avoid nephrotoxins 5. Anxiety/Depression Continue Zoloft, Akbar, and Alprazolam PRN 6. DVT PPX: SCD's 7. Dispo: will need staple removal after 2wks post op per Dr. Bertrand (08/09). Case management states that he is progressing well on physical therapy and likely insurance will not authorize for inpatient rehab. We will plan on home health care with physical therapy with DME. His daughter is moving to home on Wednesday and will be getting his DME is ready Discharge Planning: Home health care with DME; Likely DC in the morning. Progress Note: Quality VTE Deep Vein Thrombosis/Pulmonary Embolism Present on Admission: No
[2018-08-05] MEDS: Morphine Inj 4 MG/ML Vial IV.PUSH PRN (11:45)
[2018-08-05] MEDS: Bisacodyl 10 MG Supp RECTAL PRN (18:02)
[2018-08-06] MEDS: Morphine Sulfate 15 MG IR Tablet PO PRN ×4 (04:14→22:03)
[2018-08-06] MEDS: ALPRAZolam 0.25 MG Tablet PO PRN ×3 (05:36→18:47)
[2018-08-06] MEDS: Morphine Inj 4 MG/ML Vial IV.PUSH PRN (06:22)
[2018-08-06 07:41] LABS: Hematocrit 29.1 % (39.0-51.0); Hemoglobin 9.6 gm/dL (13.0-17.0); Mean Corpuscular Hemoglobin 28.3 pg (27.0-34.0); Mean Corpuscular Volume 85.8 fL (80.0-100.0); Mean Platelet Volume 8.9 fL (7.0-11.0); Platelet Count 328 th/mm3 (150-450); Red Cell Distribution Width 16.4 % (11.6-17.2); White Blood Count 5.8 th/mm3 (4.0-11.0)
[2018-08-06] MEDS: Gabapentin 100 MG Capsule PO SCH (09:55)
[2018-08-06] MEDS: Senna/Docusate Sodium 8.6/50 MG Tablet PO SCH ×2 (09:55→21:13)
[2018-08-06] MEDS: Amiodarone 200 MG Tablet PO SCH (09:55)
[2018-08-06] MEDS: Sertraline 50 MG Tablet PO SCH (09:56)
[2018-08-06] MEDS: Sodium Chloride 0.9% 2 ML Flush BID IV.FLUSH SCH ×2 (09:56→21:14)
[2018-08-06] MEDS: Ferrous Sulfate 325 MG Tablet PO SCH (09:56)
--- NOTE | 2018-08-06 16:43 | P.PNIM ---
Subjective Interval history: Patient reports that he still feels very weak. He has been able to tolerate a portion of his meals but still becomes nauseous when he eats. His pain is adequately controlled. Physical Exam Vital signs: Vital Signs 08/05/18 20:00 08/06/18 00:00 08/06/18 04:00 Temperature 97.9 F 97.9 F 97.7 F Pulse Rate 59 L 60 60 Respiratory Rate 16 18 15 Blood Pressure 148/59 H 129/65 149/69 H Pulse Oximetry 97 94 L 93 L 08/06/18 12:00 Temperature 97.2 F L Pulse Rate 60 Respiratory Rate 18 Blood Pressure 156/63 H Pulse Oximetry 94 L Intake & Output 08/05/18 08/06/18 08/06/18 18:59 06:59 18:59 Intake Total 240 / 240 Output Total 700 / 700 Balance -460 / -460 Weight 73.4 kg Intake: Oral 240 / 240 Output: Urine 700 / 700 Other: # Voids 1 Date of Last Bowel Movement 08/05/18 # Bowel Movements 1 Narrative: GENERAL: AAOx3, no acute distress, generally weak, thin SKIN: Warm and dry. No rashes HEAD: Atruamtic, normocephalic. EYES: No scleral icterus. No injection or drainage. ENT: Moist mucous membranes, patent nares, no erythema of oropharynx. NECK: Supple, trachea midline. No JVD or lymphadenopathy. Normal thyroid. CARDIOVASCULAR: Regular rate and rhythm. No murmurs, gallops, or rubs. RESPIRATORY: Breath sounds clear equal bilaterally. No crackles or wheezes. No accessory muscle use. GASTROINTESTINAL: Abdomen soft, mild diffuse postop tenderness, nondistended, abdominal binder, hypoactive bowel sounds MUSCULOSKELETAL: No cyanosis, or edema. NEURO: CN II-XII grossly intact, no focal deficits, no slurring of speech - Urinary Catheter Management Indwelling Urethral Catheter Cath placed during this visit: yes, but has since been removed by the nurse Reason for continuing: Decision to DC catheter Insertion date: 07/26/18 Removal date: 07/27/18 Removal time: 10:49 Results - Labs CBC & Chem 7: 08/06/18 06:14 08/04/18 08:37 Laboratory Results - last 24 hr 08/06/18 06:14 WBC 5.8 RBC 3.40 L Hgb 9.6 L Hct 29.1 L MCV 85.8 MCH 28.3 MCHC 33.0 RDW 16.4 Plt Count 328 MPV 8.9 Hematology Comments - Procedures Mesenteric angiography 07/20/2018. 07/26 exploratory laparotomy Assessment and Plan - Assessment (1) History of exploratory laparotomy Code(s): Z98.890 - Other specified postprocedural states Status: Chronic (2) Acute GI bleeding Code(s): K92.2 - Gastrointestinal hemorrhage, unspecified Status: Resolved - Plan This is a 68-year-old CM with PMHx of HTN, HLD, CAD, and A. Fib on chronic anticoagulation who presented the hospital because of weakness, shortness of breath, abdominal pain. Found to have a GI bleed, s/p EGD and Colonscopy which were WNL and s/p ex. lap on 07/26 with no source of bleeding noted. s/p multiple blood transfusions, Xarelto discontinued Acute Blood Loss Anemia due to GI bleed/Abdominal pain, resolved Hemoglobin appears stable Xarelto seemed to be causing recurrent bleeds s/p multiple transfusions both in [place] and at [place] s/p EGD and colonoscopy without any significant findings (Patient was transferred to the main hospital for mesenteric angiography which was performed on 07/20/2018. 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 Intravascular therapy was not possible due to SMA occlusion.) Dr. Bertrand (Vascular) performed an Ex lap on 07/26 with no source of GI bleeding. Continue postoperative care Per Dr. Bertrand will need marley removed after 2wks (08/09 ). Continue Protonix PO, Morphine IR Q4 PRN, Morphine IV Q4PRN for pain management , Oxy PRN, and Zofran PRN, will need to wean off IV morphine for discharge planning. s/p 5U pRBC's during this hospitalization Cont. FeSulfate Elevated liver enzymes, likely due to meds LFT's stable, negative hepatitis panel Continue to monitor Lipitor held during this hospitalization Hypertension/Hyperlipidemia/CAD/A.Fib/Elevated Trops Continue to hold Xarelto, cont. ASA started on 08/02 Dr. Kumar evaluated, recommended starting baby aspirin once patient stable Cont. Amiodarone, continue telemetry Acute on chronic kidney disease, stage III, resolved Fully resolved Avoid nephrotoxins Anxiety/Depression Continue Zoloft, Akbar, and Alprazolam PRN DVT PPX: SCD's Discharge planning will need staple removal after 2wks post op per Dr. Bertrand (08/09). Patient is very weak and may benefit from rehab placement His daughter is moving to home on Wednesday and will be getting his DME devices prepared in case of home discharge
[2018-08-07] MEDS: ALPRAZolam 0.25 MG Tablet PO PRN ×4 (01:19→22:05)
[2018-08-07] MEDS: Morphine Sulfate 15 MG IR Tablet PO PRN ×2 (08:58→16:04)
[2018-08-07] MEDS: Ferrous Sulfate 325 MG Tablet PO SCH (08:59)
[2018-08-07] MEDS: Amiodarone 200 MG Tablet PO SCH (08:59)
[2018-08-07] MEDS: Gabapentin 100 MG Capsule PO SCH (08:59)
[2018-08-07] MEDS: Sodium Chloride 0.9% 2 ML Flush BID IV.FLUSH SCH ×2 (08:59→22:05)
[2018-08-07] MEDS: Senna/Docusate Sodium 8.6/50 MG Tablet PO SCH ×2 (08:59→22:05)
[2018-08-07] MEDS: Sertraline 50 MG Tablet PO SCH (08:59)
--- NOTE | 2018-08-07 14:58 | P.PNIM ---
Subjective Interval history: Patient is admitted for failure to thrive GI bleed. He is still limited in his ambulation working with physical therapy. He would prefer to go home over rehab , stating that he needs 1 more day to build his strength back. He is tolerating his diet better today. Physical Exam Vital signs: Vital Signs 08/06/18 16:00 08/06/18 20:00 08/06/18 21:09 Temperature 97.9 F 98.1 F Pulse Rate 59 L 61 60 Respiratory Rate 18 18 16 Blood Pressure 149/64 H 129/62 Pulse Oximetry 94 L 97 08/06/18 23:57 08/07/18 00:00 08/07/18 04:00 Temperature 98.0 F 97.7 F Pulse Rate 59 L 60 59 L Respiratory Rate 17 18 Blood Pressure 152/70 H 150/66 H Pulse Oximetry 96 96 08/07/18 08:00 Temperature 98.2 F Pulse Rate 60 Respiratory Rate 18 Blood Pressure 104/52 L Pulse Oximetry 93 L Intake & Output 08/06/18 08/07/18 08/07/18 19:59 06:59 18:59 Intake Total Output Total Balance Weight Intake: Oral Output: Urine Other: # Voids # Bowel Movements Narrative: GENERAL: AAOx3, no acute distress, generally weak, thin SKIN: Warm and dry. No rashes HEAD: Atruamtic, normocephalic. EYES: No scleral icterus. No injection or drainage. ENT: Moist mucous membranes, patent nares, no erythema of oropharynx. NECK: Supple, trachea midline. No JVD or lymphadenopathy. Normal thyroid. CARDIOVASCULAR: Regular rate and rhythm. No murmurs, gallops, or rubs. RESPIRATORY: Breath sounds clear equal bilaterally. No crackles or wheezes. No accessory muscle use. GASTROINTESTINAL: Abdomen soft, mild diffuse postop tenderness, nondistended, abdominal binder, hypoactive bowel sounds MUSCULOSKELETAL: No cyanosis, or edema. NEURO: CN II-XII grossly intact, no focal deficits, no slurring of speech - Urinary Catheter Management Indwelling Urethral Catheter Cath placed during this visit: yes, but has since been removed by the nurse Reason for continuing: Decision to DC catheter Insertion date: 07/26/18 Removal date: 07/27/18 Removal time: 10:49 Results - Labs CBC & Chem 7: 08/06/18 06:14 08/04/18 08:37 - Procedures Mesenteric angiography 07/20/2018. 07/26 exploratory laparotomy Assessment and Plan - Assessment (1) History of exploratory laparotomy Code(s): Z98.890 - Other specified postprocedural states Status: Chronic (2) Acute GI bleeding Code(s): K92.2 - Gastrointestinal hemorrhage, unspecified Status: Resolved - Plan This is a 68-year-old CM with PMHx of HTN, HLD, CAD, and A. Fib on chronic anticoagulation who presented the hospital because of weakness, shortness of breath, abdominal pain. Found to have a GI bleed, s/p EGD and Colonscopy which were WNL and s/p ex. lap on 07/26 with no source of bleeding noted. s/p multiple blood transfusions, Xarelto discontinued Acute Blood Loss Anemia due to GI bleed/Abdominal pain, resolved Hemoglobin appears stable Xarelto seemed to be causing recurrent bleeds s/p multiple transfusions both in [place] and at [place] s/p EGD and colonoscopy without any significant findings (Patient was transferred to the [facility] hospital for mesenteric angiography which was performed on 07/20/2018. 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 Intravascular therapy was not possible due to SMA occlusion.) Vascular Surg performed an Ex lap on 07/26 with no source of GI bleeding. Continue postoperative care, marley removed after 2wks (08/09). Continue Protonix PO, Morphine IR Q4, Morphine IV Q4 for pain management, Oxy PRN, and Zofran PRN s/p 5U pRBC's during this hospitalization Cont. FeSulfate Bilateral upper extremity edema Etiology is unclear since his lower extremities have minimal edema 40 mg of Lasix twice daily today and recheck tomorrow Elevated liver enzymes, likely due to meds LFT's stable, negative hepatitis panel Continue to monitor Lipitor held during this hospitalization Hypertension/Hyperlipidemia/CAD/A.Fib/Elevated Trops Continue to hold Xarelto, cont. ASA started on 08/02 Dr. Kumar evaluated, recommended starting baby aspirin once patient stable Cont. Amiodarone, continue telemetry Acute on chronic kidney disease, stage III, resolved Fully resolved Avoid nephrotoxins Anxiety/Depression Continue Zoloft, Akbar, and Alprazolam PRN DVT PPX: SCD's Discharge planning will need staple removal after 2wks post op per Dr. Bertrand (08/09). Patient is very weak and may benefit from rehab placement His daughter is moving to home on Wednesday and will be getting his DME devices prepared in case of home discharge Plan for discharge in 1-2 days
[2018-08-08] MEDS: Morphine Sulfate 15 MG IR Tablet PO PRN ×3 (00:08→09:29)
[2018-08-08] MEDS: ALPRAZolam 0.25 MG Tablet PO PRN ×2 (04:00→10:47)
[2018-08-08 07:49] LABS: Hematocrit 28.8 % (39.0-51.0); Hemoglobin 9.5 gm/dL (13.0-17.0); Mean Corpuscular HGB Conc 33.1 % (32.0-36.0); Mean Corpuscular Hemoglobin 28.9 pg (27.0-34.0); Mean Corpuscular Volume 87.3 fL (80.0-100.0); Mean Platelet Volume 8.7 fL (7.0-11.0); Platelet Count 343 th/mm3 (150-450); Red Cell Distribution Width 17.1 % (11.6-17.2); White Blood Count 6.2 th/mm3 (4.0-11.0)
[2018-08-08 07:50] LABS: Calcium 7.5 mg/dL (8.5-10.1); Carbon Dioxide 31.1 meq/L (21.0-32.0); Potassium 4.2 meq/L (3.5-5.1)
--- NOTE | 2018-08-08 09:07 | P.PN ---
Subjective Interval history: Follow up for GI bleed, s/p exp. lap: pt. seen and examined. Complains of mild abdominal discomfort with bowel movements but otherwise improved. No rectal bleeding. No nausea, no vomiting. Feels weak but has improved. Does not want to go to rehab, anxious to go home. No fever. No acute changes overnight Physical Exam Vital signs: Vital Signs 08/07/18 12:00 08/07/18 16:00 08/07/18 20:00 Temperature 97.6 F 97.6 F 97.8 F Pulse Rate 59 L 59 L 60 Respiratory Rate 18 18 18 Blood Pressure 148/65 H 147/69 H 133/59 L Pulse Oximetry 96 93 L 94 L 08/07/18 20:15 08/07/18 23:58 08/08/18 00:00 Temperature 97.7 F Pulse Rate 60 59 L 60 Respiratory Rate 20 Blood Pressure 136/65 Pulse Oximetry 95 08/08/18 03:53 08/08/18 04:00 Temperature 97.7 F Pulse Rate 59 L 60 Respiratory Rate 18 Blood Pressure 122/59 L Pulse Oximetry 94 L Intake & Output 08/07/18 08/08/18 08/08/18 18:59 06:59 18:59 Intake Total 600 / 600 280 / 280 Output Total 1125 / 1125 1200 / 1200 Balance -525 / -525 -920 / -920 Weight 70.7 kg Intake: Oral 600 / 600 280 / 280 Output: Urine 1125 / 1125 1200 / 1200 Other: # Bowel Movements 1 Narrative: GENERAL: AAOx3, no acute distress, generally weak, thin SKIN: Warm and dry. No rashes HEAD: Atruamtic, normocephalic. EYES: No scleral icterus. No injection or drainage. ENT: Moist mucous membranes, patent nares, no erythema of oropharynx. NECK: Supple, trachea midline. No JVD or lymphadenopathy. Normal thyroid. CARDIOVASCULAR: Regular rate and rhythm. + murmurs, gallops, or rubs. RESPIRATORY: Breath sounds clear equal bilaterally. No crackles or wheezes. No accessory muscle use. GASTROINTESTINAL: Abdomen soft, mild diffuse postop tenderness, nondistended, abdominal binder, hypoactive bowel sounds. Abdominal dressing intact. MUSCULOSKELETAL: No cyanosis, or edema. NEURO: CN II-XII grossly intact, no focal deficits, no slurring of speech - Urinary Catheter Management Indwelling Urethral Catheter Cath placed during this visit: yes, but has since been removed by the nurse Reason for continuing: Decision to DC catheter Insertion date: 07/26/18 Removal date: 07/27/18 Removal time: 10:49 Results - Labs CBC & Chem 7: 08/08/18 07:12 08/08/18 07:12 Laboratory Results - last 24 hr 08/08/18 08/08/18 07:12 07:12 WBC 6.2 RBC 3.30 L Hgb 9.5 L Hct 28.8 L MCV 87.3 MCH 28.9 MCHC 33.1 RDW 17.1 Plt Count 343 MPV 8.7 Hematology Comments Sodium 142 Potassium 4.2 Chloride 105 Carbon Dioxide 31.1 Anion Gap 6 BUN 16 Creatinine 1.27 Estimated GFR 56 L Random Glucose 79 Calcium 7.5 L - Procedures Mesenteric angiography 07/20/2018. 07/26 exploratory laparotomy Assessment and Plan - Assessment (1) History of exploratory laparotomy Code(s): Z98.890 - Other specified postprocedural states Status: Chronic (2) Acute GI bleeding Code(s): K92.2 - Gastrointestinal hemorrhage, unspecified Status: Resolved - Plan This is a 68-year-old CM with PMHx of HTN, HLD, CAD, and A. Fib on chronic anticoagulation who presented the hospital because of weakness, shortness of breath, abdominal pain. Found to have a GI bleed, s/p EGD and Colonscopy which were WNL and s/p ex. lap on 07/26 with no source of bleeding noted. s/p multiple blood transfusions, Xarelto discontinued Acute Blood Loss Anemia due to GI bleed/Abdominal pain, resolved Hemoglobin appears stable Xarelto seemed to be causing recurrent bleeds s/p multiple transfusions both in [place] and at [facility] s/p EGD and colonoscopy without any significant findings (Patient was transferred to the main hospital for mesenteric angiography which was performed on 07/20/2018. 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 Intravascular therapy was not possible due to SMA occlusion.) Vascular Surg performed an Ex lap on 07/26 with no source of GI bleeding. Continue postoperative care, marley removed after 2wks (08/09). Continue Protonix PO, Morphine IR Q4, Morphine IV Q4 for pain management, Oxy PRN, and Zofran PRN s/p 5U pRBC's during this hospitalization Cont. FeSulfate Bilateral upper extremity edema Etiology is unclear since his lower extremities have minimal edema 40 mg of Lasix twice daily yesterday Arm edema slightly improved, needs to inc mobility Elevated liver enzymes, likely due to meds LFT's stable, negative hepatitis panel Continue to monitor Lipitor held during this hospitalization Recommend to hold Lipitor for now and f/u PCP for labs Hypertension/Hyperlipidemia/CAD/A.Fib/Elevated Trops Continue to hold Xarelto, cont. ASA started on 08/02 Dr. Kumar evaluated, recommended starting baby aspirin once patient stable Cont. Amiodarone, continue telemetry Acute on chronic kidney disease, stage III, resolved Fully resolved Avoid nephrotoxins Anxiety/Depression Continue Zoloft, Akbar, and Alprazolam PRN DVT PPX: SCD's Discharge planning will need staple removal after 2wks post op per Dr. Bertrand (08/09). Discharge home with [facility] f/u Dr. Bertrand [place] can be removed by [facility] RN on 08/09 Diet-heart healthy Activity as tolerated. Code Status: Full code Discussed Condition With: RN, pt, CM Discharge Planning: DC today with [facility] [employer] Prescription Drug Monitoring Database has been queried and verified prior to prescribing the controlled substance. Acute pain exception. This patient has normal, predicted, physiological, and time limited response to an adverse mechanical stimulus associated with surgery, trauma, or acute illness as described in my notes. There is a lack of alternative treatment options other than to include the prescribed narcotic treatment for this condition. Last refill June 20, 2018 for morphine sulfate IR 50 mg tabs #120
[2018-08-08] MEDS: Senna/Docusate Sodium 8.6/50 MG Tablet PO SCH (09:29)
[2018-08-08] MEDS: Ferrous Sulfate 325 MG Tablet PO SCH (09:30)
[2018-08-08] MEDS: Gabapentin 100 MG Capsule PO SCH (09:30)
[2018-08-08] MEDS: Sertraline 50 MG Tablet PO SCH (09:30)
[2018-08-08] MEDS: Sodium Chloride 0.9% 2 ML Flush BID IV.FLUSH SCH (09:31)
[2018-08-08] MEDS: Amiodarone 200 MG Tablet PO SCH (09:32)
--- NOTE | 2018-08-08 16:35 | P.DS ---
Date of admission: 07/17/18 19:24 Primary care physician: UNKNOWN Attending physician on discharge: Brandon Davis Anticipated date of discharge: 08/08/18 Brief History from admission: 68-year-old male with known history of hypertension, hyperlipidemia, chronic atrial fibrillation, coronary disease, chronic anticoagulation who presented the hospital because of weakness, shortness of breath, abdominal pain. Patient indicates that he has been having symptoms for approximately 1-1/ 2 months. He has been up in [facility] and his daughter when he started developing the symptoms. He went to the hospital up there and was found to have anemia which required 2 units of blood transfusion. The patient states that he did well for little while but then started developing symptoms again so he went back to the same facility in [place] and was given another 2 units of packed red blood cells and was notified that he needed to go back to where he lives and see a manufacturing systems engineer. He was also notified to discontinue his Xarelto. Patient does take Xarelto on a regular basis for his atrial fibrillation. Patient states that he did quit taking it for 3 days but started feeling worse so he started taking the medication again. Patient did come back down here and had similar symptoms so he came to the ER for evaluation. Patient was found to have an He is complaining of lower abdominal pain. Denies any diarrhea, constipation. DS: Diagnosis - Discharge Diagnosis (1) History of exploratory laparotomy Status: Chronic (2) Acute GI bleeding Status: Resolved DS: Medications - Discharge Medications Prescriptions: alprazolam [Xanax] 0.25 mg PO Q6H PRN 3 Days #18 tab PRN Reason: Anxiety morphine 15 mg PO Q8H PRN 3 Days #9 tab PRN Reason: Pain Scale 6 To 10 DS: Summary Hospital Course: This is a 68-year-old CM with PMHx of HTN, HLD, CAD, and A. Fib on chronic anticoagulation who presented the hospital because of weakness, shortness of breath, abdominal pain. Found to have a GI bleed, s/p EGD and Colonoscopy which were WNL. and s/p ex. lap on 07/26 with no source of bleeding noted. s/p multiple blood transfusions, Xarelto discontinued Acute Blood Loss Anemia due to GI bleed/Abdominal pain, resolved Xarelto seemed to be causing recurrent bleeds s/p multiple transfusions both in [place] and at [place] s/p EGD and colonoscopy without any significant findings (Patient was transferred to the main hospital for mesenteric angiography which was performed on 07/20/2018. 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 Intravascular therapy was not possible due to SMA occlusion.) Vascular Surg performed an Ex lap on 07/26 with no source of GI bleeding. Continued postoperative care, marley removed after 2wks (08/09). Continued Protonix PO, Morphine IR Q4, Morphine IV Q4 for pain management, Oxy PRN, and Zofran PRN s/p 5U pRBC's during this hospitalization Cont. FeSulfate HH stable, tolerated diet well. Bilateral upper extremity edema Etiology is unclear since his lower extremities have minimal edema 40 mg of Lasix twice was given. Arm edema slightly improved, needs to inc mobility Elevated liver enzymes, likely due to meds LFT's stable, negative hepatitis panel Lipitor held during this hospitalization Recommended to hold Lipitor for now and f/u PCP for labs Hypertension/Hyperlipidemia/CAD/A.Fib/Elevated Trops Continue to hold Xarelto, cont. ASA started on 08/02 Dr. Kumar evaluated, recommended starting baby aspirin once patient stable Cont. Amiodarone, continue telemetry Acute on chronic kidney disease, stage III, resolved Given IVF. Fully resolved Avoided nephrotoxins Anxiety/Depression Continued Zoloft, Akbar, and Alprazolam PRN PT ordered, pt. weak. CM followed pt. [facility] recommended Pt. discharged home with [facility] in stable condition - Time Spent with Patient Total time spent providing and/or coordinating discharge services: 45 minutes Greater than 30 minutes - Quality: VTE Deep Vein Thrombosis/Pulmonary Embolism Present on Admission: No Exam Vital signs: Vital Signs 08/07/18 20:00 08/07/18 20:15 08/07/18 23:58 Temperature 97.8 F Pulse Rate 60 60 59 L Respiratory Rate 18 Blood Pressure 133/59 L Pulse Oximetry 94 L 08/08/18 00:00 08/08/18 03:53 08/08/18 04:00 Temperature 97.7 F 97.7 F Pulse Rate 60 59 L 60 Respiratory Rate 20 18 Blood Pressure 136/65 122/59 L Pulse Oximetry 95 94 L 08/08/18 08:00 Temperature 97.2 F L Pulse Rate 60 Respiratory Rate 18 Blood Pressure 146/67 H Pulse Oximetry 95 Intake & Output 08/07/18 08/08/18 08/08/18 18:59 06:59 18:59 Intake Total 600 / 600 280 / 280 Output Total 1125 / 1125 1200 / 1200 Balance -525 / -525 -920 / -920 Weight 70.7 kg Intake: Oral 600 / 600 280 / 280 Output: Urine 1125 / 1125 1200 / 1200 Other: # Bowel Movements 1 Results Procedures completed during hospitalization: Mesenteric angiography 07/20/2018. 07/26 exploratory laparotomy Labs on day of discharge: Labs from last 24 hours 08/08/18 08/08/18 07:12 07:12 WBC 6.2 RBC 3.30 L Hgb 9.5 L Hct 28.8 L MCV 87.3 MCH 28.9 MCHC 33.1 RDW 17.1 Plt Count 343 MPV 8.7 Hematology Comments Sodium 142 Potassium 4.2 Chloride 105 Carbon Dioxide 31.1 Anion Gap 6 BUN 16 Creatinine 1.27 Estimated GFR 56 L Random Glucose 79 Calcium 7.5 L - Impressions ITS Impressions Abdomen/Pelvis CT 07/17/18 17:18 CONCLUSION: 1. Previous apparent aorta by iliac surgery 2. Extensive vascular calcifications and small left iliac artery aneurysm. 3. I do not see inflammatory changes in the mesentery. I do not sense or abscess or free air to account for the patient's abdominal pain. Chest X-Ray 07/17/18 17:18 CONCLUSION: 1. No acute abnormality or significant interval change. GI Bleed Scan Nuclear Medicine 07/19/18 00:00 CONCLUSION: 1. Small amount of active bleeding in the left upper quadrant within small bowel loops. Abdominal Angiography 07/20/18 00:00 CONCLUSION: 1. The patient has an aorto bicommon iliac bypass graft. The left inflow is patent. 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 This prevents good angiographic evaluation of the SMA distribution. It also prevents attempted therapy. 3. 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 This generates poor opacification of the peripheral distribution of the SMA secondary to delusional effect. I'm not able to identify any source of hemorrhage. Discharge Plan - Discharge Disposition Patient Disposition: /Home Health Service - Discharge Condition Condition: Good - Discharge Order Discharge Orders: Discharge Order (Routine); Ordered 08/08/18 Ordered By: Vanessa Chavez - Discharge Details Anticipated Discharge Date: 08/08/18 - Physicians Team Primary Care Provider: UNKNOWN, Attending Provider: Brandon Davis Other Providers: Ed Mccartney MD ; Flaquita Sams ; Dinesh Kumar MD ; Jose Miguel Obregon MD ; [facility]
== END 2018-08-08 13:50 | disposition home health service (06) ==
LOC: PHED 16:57 → PHEDA 19:24 → PHICU 22:08 → PH3 07-18 18:48 → HIMC 07-20 11:16 → N07 07-23 17:51 → N03 07-26 14:30 → N04 07-31 18:26
PROVIDERS: ADMIT Family Medicine; ATTEND Family Medicine
PROC: PANENDO (2018-07-19 13:45)
DX: Z95.1 Presence of aortocoronary bypass graft; R62.7 Adult failure to thrive; Z95.0 Presence of cardiac pacemaker; J44.9 Chronic obstructive pulmonary disease, unspecified; G89.29 Other chronic pain; Z87.891 Personal history of nicotine dependence; E78.5 Hyperlipidemia, unspecified; R60.0 Localized edema; T82.855D Stenosis of coronary artery stent, subsequent encounter; K55.1 Chronic vascular disorders of intestine; I25.10 Atherosclerotic heart disease of native coronary artery without angina pectoris; R63.0 Anorexia; Z82.49 Family history of ischemic heart disease and other diseases of the circulatory system; N18.3 Chronic kidney disease, stage 3 (moderate); M54.9 Dorsalgia, unspecified; I12.9 Hypertensive chronic kidney disease with stage 1 through stage 4 chronic kidney disease, or unspecified chronic kidney disease; Z95.5 Presence of coronary angioplasty implant and graft; I48.0 Paroxysmal atrial fibrillation; Z79.899 Other long term (current) drug therapy; R64 Cachexia; I25.810 Atherosclerosis of coronary artery bypass graft(s) without angina pectoris; D62 Acute posthemorrhagic anemia; G62.9 Polyneuropathy, unspecified; K64.8 Other hemorrhoids; K92.1 Melena; E86.1 Hypovolemia; F32.9 Major depressive disorder, single episode, unspecified; K57.30 Diverticulosis of large intestine without perforation or abscess without bleeding; K56.7 Ileus, unspecified; Z79.82 Long term (current) use of aspirin; Z86.73 Personal history of transient ischemic attack (TIA), and cerebral infarction without residual deficits; I48.2 Chronic atrial fibrillation; Z23 Encounter for immunization; R74.8 Abnormal levels of other serum enzymes; F41.9 Anxiety disorder, unspecified; N17.9 Acute kidney failure, unspecified; Z79.01 Long term (current) use of anticoagulants; K21.9 Gastro-esophageal reflux disease without esophagitis; I74.5 Embolism and thrombosis of iliac artery